=== PATIENT | male | born 1950 | race Caucasian/White ===

== ENCOUNTER 2016-05-06 13:18 | Emergency (ER) | payer MEDICARE, OTHER ==
--- NOTE | 2016-05-06 13:55 | ERPHSYRPT ---
- History of Present Illness Time Seen by Provider: 05/06/16 13:47 Source: patient Exam Limitations: no limitations Patient Subjective Stated Complaint: dizzyness, blurred vision, headache concerened because he has issues with magnesium and potassium Triage Nursing Assessment: pt alert and oriented, lung sounds clear, nasal congestion and states he takes breathing treatments at home for lung congestion. , bowel sounds x4 hyperactive. Physician History: The patient is a 65-year-old male with his complaining of dizziness, blurred vision, and headache that began this morning. He's had this kind of problem in the past. He states this problem in the past is been due to magnesium and potassium problems. He takes daily amounts of magnesium. About 10 days ago he was seen for high potassium levels, given Kayexalate, and discharged. He has a past medical history of diabetes, high cholesterol, renal failure, and hypo-magnesimia. He has no local doctor. Most of his medical care is provided by the doctors in [place]. Timing/Duration: today Severity: moderate Associated Symptoms: denies symptoms Allergies/Adverse Reactions: bacitracin [From Neosporin ([id number])] Allergy (Verified 12/17/15 23:19) Rash bacitracin zinc [From Neosporin ([id number])] Allergy (Verified 12/17/15 23: 19) Rash neomycin sulfate [From Neosporin ([id number])] Allergy (Verified 12/17/15 23: 19) Rash polymyxin B [From Neosporin ([id number])] Allergy (Verified 12/17/15 23:19) Rash Home Medications: Betamethasone/Propylene Glyc [Betamethasone Dp Aug 0.05% Crm] 1 appful TOP DAILY 12/17/15 [History] Cholestyramine Light 4 gm [QUESTRAN Light 4 GM Packet] 1 dose PO DAILY [History] Clotrimazole [Jock Itch] 1 appful TOP DAILY 12/17/15 [History] Diphenoxylate HCl/Atropine [Lomotil] 2.5 tab PO Q12H PRN PRN 12/17/15 [ History] Finasteride 5 mg [Proscar 5 MG] 5 mg PO DAILY 12/17/15 [History] Fluconazole 150 mg PO Q72H 12/17/15 [History] Folic Acid 2 mg PO DAILY 12/17/15 [History] Furosemide 40 mg [Lasix 40 MG] 40 mg PO DAILY 12/17/15 [History] Glimepiride 2 mg [Amaryl 2 MG] 2 mg PO DAILY 12/17/15 [History] Insulin Glargine,Hum.rec.anlog [Lantus Solostar] 65 unit SQ DAILY 12/17/15 [ History] Levothyroxine Sodium 50 Mcg [Synthroid 50 Mcg] 50 mcg PO HS 12/17/15 [ History] Lisinopril 20 mg PO HS 12/17/15 [History] Lovastatin 40 mg PO HS 12/17/15 [History] Magnesium Oxide [Magnesium] 800 mg PO TID 12/17/15 [History] Ranitidine HCl 150 mg PO DAILY 12/17/15 [History] Spironolactone 25 mg [Aldactone 25 MG] 25 mg PO DAILY 12/17/15 [History] Tamsulosin HCl [Flomax] 0.4 mg PO BID 12/17/15 [History] Tiotropium [place] [Spiriva] 2 puff IH DAILY 12/17/15 [History] Hx Tetanus, Diphtheria Vaccination/Date Given: Yes Hx Influenza Vaccination/Date Given: Yes Hx Pneumococcal Vaccination/Date Given: Yes Immunizations Up to Date: Yes - Review of Systems Constitutional: No Fever, No Chills Eyes: Vision Changes (blurry) Ears, Nose, & Throat: No Symptoms Respiratory: No Cough, No Dyspnea Cardiac: No Chest Pain, No Edema, No Syncope Abdominal/Gastrointestinal: No Abdominal Pain, No Nausea, No Vomiting, No Diarrhea Genitourinary Symptoms: No Dysuria Musculoskeletal: No Back Pain, No Neck Pain Skin: No Rash Neurological: Headache Psychological: No Symptoms Endocrine: No Symptoms Hematologic/Lymphatic: No Symptoms Immunological/Allergic: No Symptoms All Other Systems: Reviewed and Negative - Past Medical History Pertinent Past Medical History: Yes Neurological History: No Pertinent History ENT History: No Pertinent History Cardiac History: Arrhythmia, Hypertension, Peripheral Vascular Disease Respiratory History: Bronchitis, COPD, Emphysema, Sleep Apnea Endocrine Medical History: Diabetes Type II, Hypothyroidism Musculoskeletal History: Arthritis GI Medical History: GERD, Gallbladder Disease, Hernia History: No Pertinent History Psycho-Social History: No Pertinent History Male Reproductive Disorders: Prostate Problems Other Medical History: JEFFERSON - Past Surgical History Past Surgical History: Yes Neuro Surgical History: No Pertinent History Cardiac: Cardiac Catheterization, Cardiac Stent Respiratory: No Pertinent History Gastrointestinal: Appendectomy, Cholecystectomy, Hernia Repair Genitourinary: No Pertinent History Musculoskeletal: No Pertinent History Male Surgical History: No Pertinent History Other Surgical History: STENT PLACED AFTER GALLBLADDER REMOVAL, AND REMOVED. COLONOSCOPY SUNDAY AND SUNDAY THIS WEEK, - Social History Smoking Status: Never smoker Exposure to second hand smoke: No Drug Use: none Patient Lives Alone: No - Nursing Vital Signs Nursing Vital Signs: Initial Vital Signs Temperature 97.6 F Temperature Source Oral Pulse Rate 61 Respiratory Rate 18 Blood Pressure 141/81 Pain Intensity 0 - Physical Exam General Appearance: mild distress, alert Eye Exam: PERRL/EOMI, eyes nml inspection Ears, Nose, Throat Exam: normal ENT inspection, TMs normal, pharynx normal, moist mucous membranes Neck Exam: normal inspection, non-tender, supple, full range of motion Respiratory Exam: normal breath sounds, lungs clear, No respiratory distress Cardiovascular Exam: regular rate/rhythm, normal heart sounds, normal peripheral pulses Gastrointestinal/Abdomen Exam: soft, normal bowel sounds, No tenderness, No mass Rectal Exam: not done Back Exam: normal inspection, normal range of motion, No CVA tenderness, No vertebral tenderness Extremity Exam: normal inspection, normal range of motion, pelvis stable Neurologic Exam: alert, oriented x 3, cooperative, normal mood/affect, nml cerebellar function, nml station & gait, sensation nml, No motor deficits Skin Exam: normal color, warm, dry, No rash Lymphatic Exam: No adenopathy SpO2 Interpretation: normal SpO2: 98 Oxygen Delivery: Room Air - Course EKG Interpreted by Me: Sinus Rhythm, Left [place] Deviation, NORMAL ST-T, Other ( no change comp EKG 12/18/15) - Radiology Exams Chest X-ray Interpretation: Interpreted by me, Negative Ordered Tests: Active Orders 24 hr Category Date Time Status EKG-ER Only STAT Care 05/06/16 14:00 Active IV Insertion STAT Care 05/06/16 14:00 Active CHEST 2 VIEWS (PA AND LAT) Stat Exams 05/06/16 14:00 Taken CBC W DIFF Stat Lab 05/06/16 13:50 Completed CMP Stat Lab 05/06/16 13:50 Completed MAGNESIUM Stat Lab 05/06/16 13:50 Completed TROPONIN Stat Lab 05/06/16 13:50 Completed Lab/Rad Data: Laboratory Result Diagrams 05/06/16 13:50 05/06/16 13:50 Laboratory Results 05/06/16 05/06/16 Range/Units 13:50 13:50 WBC 7.7 (4.0-10.5) K/mm3 RBC 4.20 (4.1-5.6) M/mm3 Hgb 12.5 (12.5-18.0) gm/dl Hct 37.8 L (42-50) % MCV 90.0 (78-100) fl MCH 29.8 (26-32) pg MCHC 33.1 (32-36) g/dl RDW 13.4 (11.5-14.0) % Plt Count 217 (150-450) K/mm3 MPV 10.3 H (6-9.5) fl Gran % 76.6 H (36.0-66.0) % Lymphocytes % 12.7 L (24.0-44.0) % Monocytes % 7.9 (0.0-12.0) % Eosinophils % 2.7 (0.00-5.0) % Basophils % 0.1 (0.0-0.4) % Basophils # 0.01 (0-0.4) Sodium 139 (136-145) mEq/L Potassium 4.0 (3.5-5.1) mEq/L Chloride 104 (98-107) mEq/L Carbon Dioxide 27.0 (21-32) mEq/L Anion Gap 11.9 (5-15) MEQ/L BUN 12 (9-20) mg/dL Creatinine 1.10 (0.55-1.30) mg/dl Estimated GFR > 60 ML/MIN Glucose 135 H (70-110) MG/DL Calcium 10.1 (8.5-10.1) mg/dL Magnesium 1.8 (1.8-2.4) mg/dL Total Bilirubin 0.4 (0.2-1.0) mg/dL AST 19 (15-37) U/L ALT 25 (12-78) U/L Alkaline Phosphatase 78 (46-116) U/L Troponin I < 0.017 (0.000-0.056) ng/ml Serum Total Protein 7.3 (6.4-8.2) gm/dL Albumin 3.5 (3.4-5.0) g/dL - Progress Progress: improved Progress Note: 05/06/16 16:31 Pt is no longer dizzy. Pt says he wants to go home and take tylenol and ASA for his BENEDICT. Counseled pt/family regarding: lab results, diagnosis, need for follow-up, rad results - Departure Time of Disposition: 16:32 Departure Disposition: Home Clinical Impression: Dizziness Condition: Stable Critical Care Time: No Additional Instructions: Follow up on 05/08/16 as scheduled. Tylenol and ASA as needed.
[2016-05-06 14:07] LABS: BASOPHIL % 0.1 % (0.0-0.4); Eosinophil % 2.7 % (0.00-5.0); Granulocytes % 76.6 % (36.0-66.0); Lymphocytes % 12.7 % (24.0-44.0); Mean Corpuscular Hemoglobin 29.8 pg (26-32); Mean Platelet Volume 10.3 fl (6-9.5); Monocytes % 7.9 % (0.0-12.0); Platelet Count 217 K/mm3 (150-450); Red Cell Distribution Width 13.4 % (11.5-14.0); White Blood Count 7.7 K/mm3 (4.0-10.5)
[2016-05-06 14:23] LABS: ALBUMIN 3.5 g/dL (3.4-5.0); ALKALINE PHOSPHATASE 78 U/L (46-116); ANION GAP 11.9 MEQ/L (5-15); BILIRUBIN,TOTAL 0.4 mg/dL (0.2-1.0); BLOOD UREA NITROGEN 12 mg/dL (9-20); CHLORIDE 104 mEq/L (98-107); Glucose 135 MG/DL (70-110); MAGNESIUM 1.8 mg/dL (1.8-2.4); SGOT/AST 19 U/L (15-37); SGPT/ALT 25 U/L (12-78); SODIUM 139 mEq/L (136-145); Total Protein 7.3 gm/dL (6.4-8.2)
[2016-05-06 14:24] LABS: TROPONIN < 0.017 ng/ml (0.000-0.056)
[2016-05-06 15:50] VITALS: BP 141/81; PULSE 61
[2016-05-06 15:59] VITALS: O2SAT 98
--- NOTE | 2016-05-06 20:09 | XRAY ---
Indication: Dizziness. Comparison: December 17, 2015 PA/lateral chest hyperinflated and clear. Heart is borderline enlarged. Vascularity normal. Bony thorax intact again with mild osteopenia. Impression: Nonacute hyperinflated chest.
== END 2016-05-06 16:37 | disposition home or self-care (01) ==
LOC: ED 13:18
DX: R42 Dizziness and giddiness (principal); H53.8 Other visual disturbances; R51 Headache; I10 Essential (primary) hypertension; E11.9 Type 2 diabetes mellitus without complications; Z79.899 Other long term (current) drug therapy
CPT/HCPCS: 36000; 36415; 71020; 80053; 83735; 84484; 85025; 93005; 99283

== ENCOUNTER 2019-04-20 11:29 | Emergency (ER) | payer MEDICARE, OTHER ==
[2019-04-20] MEDS ORDERED: Zofran 4 MG/2 ML VIAL IV ONE (12:24)
[2019-04-20] MEDS ORDERED: MORPHINE SULFATE 4 MG INJ IV ONE (12:24)
[2019-04-20] MEDS ORDERED: Sodium Chloride 0.9% 1000 ML 1,000 ML IV STA (12:24)
--- NOTE | 2019-04-20 12:31 | ERPHSYRPT ---
- History of Present Illness Time Seen by Provider: 04/20/19 12:07 Historian: patient, family Exam Limitations: no limitations Patient Subjective Stated Complaint: pt to ER with complaints of R groin pain that has gradually gotten worse x 3 weeks. pt had a steriod injection by pain doctor 1 week ago with no relief. Triage Nursing Assessment: pt to ER with complaints of R groin/hip pain x 3 weeks. pt states pain has radiated around to his groin. pt had xrays done at [facility] recently. Physician History: 68 yo presented with right groin /RLQ pain for 3 weeks with progressive worsening, sharp, moderate to severe , radiation to back , more with activity and better partially with rest. has seen pain management with intraarticular shot for degenerative changes but not much relief. no fever/chills or cough. no groin swelling. denies testicular pain/swelling. no urinary symptoms. Timing/Duration: week(s) (3) Allergies/Adverse Reactions: bacitracin [From Neosporin ([id number])] Allergy (Verified 04/20/19 11:47) Rash bacitracin zinc [From Neosporin ([id number])] Allergy (Verified 04/20/19 11: 47) Rash neomycin sulfate [From Neosporin ([id number]-tak-[id number])] Allergy (Verified 04/20/19 11: 47) Rash polymyxin B [From Neosporin ([id number])] Allergy (Verified 04/20/19 11:47) Rash Home Medications: Betamethasone/Propylene Glyc [Betamethasone Dp Aug 0.05% Crm] 1 appful TOP DAILY 12/17/15 [History] Cholestyramine Light 4 gm [QUESTRAN Light 4 GM Packet] 1 dose PO DAILY [History] Clotrimazole [Jock Itch] 1 appful TOP DAILY 12/17/15 [History] Diphenoxylate HCl/Atropine [Lomotil] 2.5 tab PO Q12H PRN PRN 12/17/15 [ History] Finasteride 5 mg [Proscar 5 MG] 5 mg PO DAILY 12/17/15 [History] Fluconazole 150 mg PO Q72H 12/17/15 [History] Folic Acid 2 mg PO DAILY 12/17/15 [History] Furosemide 40 mg [Lasix 40 MG] 40 mg PO DAILY 12/17/15 [History] Glimepiride 2 mg [Amaryl 2 MG] 2 mg PO DAILY 12/17/15 [History] Levothyroxine Sodium 50 Mcg [Synthroid 50 Mcg] 50 mcg PO HS 12/17/15 [ History] Lisinopril 20 mg PO HS 12/17/15 [History] Lovastatin 40 mg PO HS 12/17/15 [History] Magnesium Oxide [Magnesium] 800 mg PO TID 12/17/15 [History] Ranitidine HCl 150 mg PO DAILY 12/17/15 [History] Spironolactone 25 mg [Aldactone 25 MG] 25 mg PO DAILY 12/17/15 [History] Tamsulosin HCl [Flomax] 0.4 mg PO BID 12/17/15 [History] Tiotropium [place] [Spiriva] 2 puff IH DAILY 12/17/15 [History] Ropinirole HCl 0.25 mg PO DAILY 04/20/19 [History] Hx Tetanus, Diphtheria Vaccination/Date Given: No Hx Influenza Vaccination/Date Given: Yes Hx Pneumococcal Vaccination/Date Given: Yes Immunizations Up to Date: Yes - Review of Systems Constitutional: No Symptoms Eyes: No Symptoms Ears, Nose, & Throat: No Symptoms Respiratory: No Symptoms Cardiac: No Symptoms Abdominal/Gastrointestinal: Abdominal Pain Genitourinary Symptoms: No Symptoms Musculoskeletal: Back Pain, Joint Pain Skin: No Symptoms Neurological: No Symptoms Psychological: No Symptoms Endocrine: No Symptoms Hematologic/Lymphatic: No Symptoms - Past Medical History Pertinent Past Medical History: Yes Neurological History: Peripheral Neuropathy ENT History: No Pertinent History Cardiac History: Hypertension Respiratory History: COPD, Sleep Apnea Endocrine Medical History: Diabetes Type II Musculoskeletal History: Osteoarthritis GI Medical History: GERD, Gallbladder Disease, Hernia History: No Pertinent History Psycho-Social History: No Pertinent History Male Reproductive Disorders: Prostate Problems Other Medical History: 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 - Past Surgical History Past Surgical History: Yes Neuro Surgical History: No Pertinent History Cardiac: Cardiac Catheterization, Cardiac Stent Respiratory: No Pertinent History Gastrointestinal: Appendectomy, Cholecystectomy, Hernia Repair Genitourinary: No Pertinent History Musculoskeletal: No Pertinent History Male Surgical History: No Pertinent History Other Surgical History: STENT PLACED AFTER GALLBLADDER REMOVAL, AND REMOVED. COLONOSCOPY SUNDAY AND SUNDAY THIS WEEK, - Social History Smoking Status: Never smoker Exposure to second hand smoke: Yes Drug Use: none Patient Lives Alone: No - Nursing Vital Signs Nursing Vital Signs: Initial Vital Signs Temperature 98.4 F 04/20/19 11:37 Pulse Rate 77 04/20/19 11:37 Respiratory Rate 18 04/20/19 11:37 Blood Pressure 163/81 04/20/19 11:37 O2 Sat by Pulse Oximetry 98 04/20/19 11:37 Pain Scale Pain Intensity 0 - Physical Exam General Appearance: no apparent distress Eye Exam: eyes nml inspection Ears, Nose, Throat Exam: normal ENT inspection Neck Exam: normal inspection Respiratory Exam: normal breath sounds, lungs clear Cardiovascular Exam: regular rate/rhythm, normal heart sounds Gastrointestinal/Abdomen Exam: soft, normal bowel sounds, tenderness (RLQ / GROIN , -ve expansile cough impulse, no palpable mass in groin) Male Genitalia Exam: normal genitalia, No testicular tenderness Back Exam: normal inspection Extremity Exam: normal inspection Neurologic Exam: alert, oriented x 3, cooperative Skin Exam: normal color SpO2 Interpretation: normal SpO2: 98 O2 Delivery: Room Air - Course Nursing assessment & vital signs reviewed: Yes Ordered Tests: Active Orders 24 hr Category Date Time Status IV Insertion STAT Care 04/20/19 12:24 Active ABDOMEN AND PELVIS W CONTRAST [CT] Stat Exams 04/20/19 13:39 Taken CBC W DIFF Stat Lab 04/20/19 12:24 Completed CMP Stat Lab 04/20/19 12:24 Completed LIPASE Stat Lab 04/20/19 12:24 Completed Manual Differential NC Stat Lab 04/20/19 12:24 Completed UA W/RFX UR CULTURE Stat Lab 04/20/19 14:40 Completed Medication Summary Discontinued Medications Generic Name Dose Route Start Last Admin Trade Name Freq PRN Reason Stop Dose Admin Sodium Chloride 1,000 mls @ 499 mls/hr 04/20/19 12:24 04/20/19 15:01 Sodium Chloride 0.9% 1000 Ml IV 04/20/19 14:24 Infused .Q2H1M STA Infusion Sodium Chloride Confirm 04/20/19 12:47 Sodium Chloride 0.9% 1000 Ml Administered 04/20/19 12:48 Dose 1,000 mls @ ud .ROUTE .STK-MED ONE Morphine Sulfate 4 mg 04/20/19 12:24 04/20/19 12:53 Morphine Sulfate 4 Mg Inj IV 04/20/19 12:25 4 mg STAT ONE Administration Morphine Sulfate Confirm 04/20/19 12:47 Morphine Sulfate 4 Mg Inj Administered 04/20/19 12:48 Dose 4 mg .ROUTE .STK-MED ONE Ondansetron HCl 4 mg 04/20/19 12:24 04/20/19 12:53 Zofran 4 Mg/2 Ml Vial IV 04/20/19 12:25 4 mg STAT ONE Administration Ondansetron HCl Confirm 04/20/19 12:47 Zofran 4 Mg/2 Ml Vial Administered 04/20/19 12:48 Dose 4 mg .ROUTE .STK-MED ONE Lab/Rad Data: Laboratory Result Diagrams 04/20/19 12:24 04/20/19 12:24 Laboratory Results 04/20/19 04/20/19 04/20/19 Range/Units 14:40 12:24 12:24 WBC 8.6 (4.0-10.5) K/mm3 RBC 4.61 (4.1-5.6) M/mm3 Hgb 14.4 (12.5-18.0) gm/dl Hct 42.4 (42-50) % MCV 92.0 (78-100) fl MCH 31.2 (26-32) pg MCHC 34.0 (32-36) g/dl RDW 13.5 (11.5-14.0) % Plt Count 203 (150-450) K/mm3 MPV 10.7 H (6-9.5) fl Sodium 138 (137-145) mmol/L Potassium 3.9 (3.5-5.1) mmol/L Chloride 102 (98-107) mmol/L Carbon Dioxide 32 H (22-30) mmol/L Anion Gap 8.5 (5-15) MEQ/L BUN 34 H (9-20) mg/dL Creatinine 1.37 H (0.66-1.25) mg/dL Estimated GFR 54.9 ML/MIN Glucose 159 H (74-106) mg/dL Calcium 10.6 H (8.4-10.2) mg/dL Total Bilirubin 0.60 (0.2-1.3) mg/dL AST 29 (17-59) U/L ALT 21 (0-50) U/L Alkaline Phosphatase 72 (38-126) U/L Serum Total Protein 7.1 (6.3-8.2) g/dL Albumin 3.8 (3.5-5.0) g/dL Lipase 124 (23-300) U/L Urine Color YELLOW (YELLOW) Urine Appearance CLOUDY (CLEAR) Urine pH 9.0 (5-6) Ur Specific [place] 1.023 (1.005-1.025) Urine Protein NEGATIVE (Negative) Urine Ketones NEGATIVE (NEGATIVE) Urine Blood NEGATIVE (0-5) Steve/ul Urine Nitrite NEGATIVE (NEGATIVE) Urine Bilirubin NEGATIVE (NEGATIVE) Urine Urobilinogen NEGATIVE (0-1) mg/dL Ur Leukocyte Esterase NEGATIVE (NEGATIVE) Urine WBC (Auto) 0-2 (0-5) /HPF Urine RBC (Auto) NONE (0-2) /HPF U Epithel Cells (Auto) NONE (FEW) /HPF Urine Bacteria (Auto) NONE (NEGATIVE) /HPF Unidentified Crystals 2-5 (NEGATIVE) /HPF Amorphous Crystals MODERATE (NEGATIVE) /HPF Urine Mucus (Auto) SLIGHT (NEGATIVE) /HPF Urine Culture Reflexed NO (NO) Urine Glucose NEGATIVE (NEGATIVE) mg/dL - Progress Progress: improved, pain not gone completely, re-examined Counseled pt/family regarding: lab results, diagnosis, need for follow-up, rad results - Departure Departure Disposition: Home Clinical Impression: Groin strain Qualifiers: Encounter type: initial encounter Laterality: right Qualified Code(s): S76.211A - Strain of adductor muscle, fascia and tendon of right thigh, initial encounter Condition: Stable Critical Care Time: No Referrals: YUKO MORGAN [Primary Care Provider] - Instructions: Groin Strain (DC) Additional Instructions: follow up with PCP /PAIN management for re evaluation. return to ER for worsening. keep appointment for MRI Prescriptions: Hydrocodone/APAP 5-325 Tab^^^ [Brethren 5-325 Tablet^^^] 1 tab PO Q6HPRN PRN #10 tablet MDD 6 PRN Reason: Pain
[2019-04-20] MEDS ORDERED: Sodium Chloride 0.9% 1000 ML 1,000 ML ONE (12:47)
[2019-04-20] MEDS ORDERED: Zofran 4 MG/2 ML VIAL ONE (12:47)
[2019-04-20] MEDS ORDERED: MORPHINE SULFATE 4 MG INJ ONE (12:47)
[2019-04-20 13:11] LABS: Hematocrit 42.4 % (42-50); Hemoglobin 14.4 gm/dl (12.5-18.0); Mean Corpuscular Hemoglobin 31.2 pg (26-32); Mean Platelet Volume 10.7 fl (6-9.5); Platelet Count 203 K/mm3 (150-450); Red Blood Count 4.61 M/mm3 (4.1-5.6); Red Cell Distribution Width 13.5 % (11.5-14.0); White Blood Count 8.6 K/mm3 (4.0-10.5)
[2019-04-20 13:27] LABS: ALBUMIN 3.8 g/dL (3.5-5.0); ANION GAP 8.5 MEQ/L (5-15); BILIRUBIN,TOTAL 0.6 mg/dL (0.2-1.3); Calcium 10.6 mg/dL (8.4-10.2); Creatinine 1 1.37 mg/dL (0.66-1.25); Potassium 3.9 mmol/L (3.5-5.1); Total Protein 7.1 g/dL (6.3-8.2)
[2019-04-20 14:49] LABS: Appearance CLOUDY (CLEAR); Bilirubin NEGATIVE (NEGATIVE); Blood NEGATIVE Ery/ul (0-5); Glucose NEGATIVE (NEGATIVE); Ketones NEGATIVE (NEGATIVE); Leukocyte Esterase NEGATIVE (NEGATIVE); Mucus SLIGHT /HPF (NEGATIVE); Nitrite NEGATIVE (NEGATIVE); Protein,Urine Dip NEGATIVE (Negative); Specific Gravity 1.023 (1.005-1.025); Urobilinogen NEGATIVE mg/dL (0-1); WBC 0-2 /HPF (0-5)
[2019-04-20 14:52] LABS: Amourphous Crystal MODERATE /HPF (NEGATIVE)
[2019-04-20 14:55] VITALS: O2SAT 98
[2019-04-20 15:54] VITALS: BP 141/68; PULSE 63
[2019-04-20 17:53] LABS: BAND 2 % (0.0-2.0); Lymphocytes 13 % (24-44); Metamyelocyte 1 %; Monocyte 6 % (0.0-12.0); Neutrophils 78 % (36.-66.); Platelet Estimate NORMAL (NORMAL); Total Cells Counted 100
--- NOTE | 2019-04-20 19:10 | XRAY ---
Indication: Right lower quadrant/groin pain. Multiple contiguous axial images obtained through the abdomen and pelvis using 80 cc of Isovue-370 contrast only. Comparison: June 25, 2015. Lungs demonstrates minimal fibrosis/scarring. No infiltrate or effusion. Heart is not enlarged. Stomach is fluid distended. Noncontrasted stomach and bowel loops appear nonobstructed. Patient reports appendectomy. Minimal colonic diverticulosis, greatest sigmoid colon. No free fluid/air. Both kidneys enhance and excrete with stable bilateral renal cysts. Stable tiny calcified splenic granulomas. Remaining liver, gallbladder, pancreas, spleen, adrenal glands, kidneys, ureters, and bladder appear unremarkable. Heavy scattered vascular calcifications. No AAA or pathological retroperitoneal lymphadenopathy. Osseous structures intact with mild lower lumbar degenerative changes. Impression: 1. Again bilateral renal cysts, colonic diverticulosis, and evidence for old granulomatous disease. 2. Remaining CT abdomen/pelvis with contrast exam is negative. Comment: Preliminary interpretation was made by C. No critical discrepancy. CTDI 18.28
== END 2019-04-20 16:11 | disposition home or self-care (01) ==
LOC: ED 11:29
DX: S76.211A Strain of adductor muscle, fascia and tendon of right thigh, initial encounter (principal); R10.31 Right lower quadrant pain; Z79.899 Other long term (current) drug therapy; I10 Essential (primary) hypertension; J44.9 Chronic obstructive pulmonary disease, unspecified; E11.9 Type 2 diabetes mellitus without complications
CPT/HCPCS: 36415; 74177; 80053; 81001; 83690; 85025; 96360; 96361; 96374; 96375; 99284; J2270; J2405

== ENCOUNTER 2019-05-06 06:11 | Day surgery (SDC) | payer MEDICARE, OTHER ==
[2019-05-06] MEDS ORDERED: Lactated Ringers 1,000 ML IV SCH (06:30)
[2019-05-06] MEDS ORDERED: DIPRIVAN 200 MG/20 ML IV ONE (07:55)
[2019-05-06] MEDS ORDERED: Ketamine HCl 50 MG/ML ONE (07:56)
[2019-05-06 09:05] VITALS: O2SAT 94
[2019-05-06 09:35] VITALS: BP 138/75; PULSE 65
--- NOTE | 2019-05-06 11:57 | OP ---
SURGERY DATE/TIME: 05/06/2019 0759 PREOPERATIVE DIAGNOSIS: Dysphagia. POSTOPERATIVE DIAGNOSES: 1) Grade II esophagitis. 2) Gastritis. 3) Retained food stuff from delayed gastric emptying. PROCEDURE: Esophagogastroduodenoscopy. SURGEON: Dr. Whaley. ANESTHESIA: Medications were given by the anesthesia department. BRIEF HISTORY: The patient is a 68 year old white male patient presenting now for endoscopic evaluation. He reported having trouble with food getting stuck in the lower part of his esophagus. The patient reports it has been going on for the past two months. He previously had endoscopic evaluation two years ago which was fairly unrevealing. The patient was felt to need to have endoscopic evaluation. At this time he was appraised of the risks of the procedure including the risk of perforation, phlebitis, untoward reaction to medication, bleeding and missed lesions. The patient verbalized his understanding and desired to have the procedure performed. DESCRIPTION OF PROCEDURE: The patient was given the medications by the anesthesia department. He had continuous pulse oximetry, ECG monitoring, intermittent blood pressure monitoring and tidal CO2 monitoring during the examination. He was placed in the left lateral decubitus position. A bite block was placed and the flexible Olympus gastroscope was used to intubate the oropharynx. A view of the larynx was obtained and was normal. The scope was easily introduced in the esophagus which appeared to be normal to the gastroesophageal junction where there appeared to be streaks of erythema and slight narrowing in this area. The stomach was entered which was full of saliva and retained food products. We suctioned this as clear as much as possible. The scope then withdrawn towards the stomach and the stomach was insufflated showing good insufflation and flattening of the gastric rugal folds. The scope is passed along the greater curvature of the stomach to the antrum. Pylorus was encountered and intubated. Duodenum inspected and found to be essentially normal. The scope is withdrawn towards the stomach. Retroflex view was obscured by the food products and unable to see the lower portion of the gastroesophageal junction from the retroflex view. The scope is then carefully withdrawn with suctioning as best as possible withdrawing the scope from the esophagus. The patient tolerated the procedure well and was sent back to the outpatient [facility] in good condition.
== END 2019-05-06 09:36 | disposition home or self-care (01) ==
LOC: SDC 06:11
PROVIDERS: ATTEND Family Medicine
DX: K29.70 Gastritis, unspecified, without bleeding (principal); K20.9 Esophagitis, unspecified; I10 Essential (primary) hypertension; E11.9 Type 2 diabetes mellitus without complications
CPT/HCPCS: J2704

== ENCOUNTER 2019-06-05 16:37 | Observation (INO) | payer MEDICARE ==
[2019-06-05 17:41] LABS: Hematocrit 40.1 % (42-50); Hemoglobin 13.8 gm/dl (12.5-18.0); Mean Corpuscular Hemoglobin 31.7 pg (26-32); Mean Corpuscular Hgb Concent. 34.4 g/dl (32-36); Mean Platelet Volume 11.2 fl (7.5-11.0); Platelet Count 208 K/mm3 (150-450); Red Blood Count 4.36 M/mm3 (4.1-5.6); Red Cell Distribution Width 13.4 % (11.5-14.0); White Blood Count 8.1 K/mm3 (4.0-10.5)
[2019-06-05 17:49] LABS: ALBUMIN 4.2 g/dL (3.5-5.0); ALKALINE PHOSPHATASE 65 U/L (38-126); ANION GAP 16.4 MEQ/L (5-15); BLOOD UREA NITROGEN 16 mg/dL (9-20); CHLORIDE 102 mmol/L (98-107); Calcium 9.6 mg/dL (8.4-10.2); Carbon Dioxide 24 mmol/L (22-30); Creatinine 1 0.85 mg/dL (0.66-1.25); Glucose 148 mg/dL (74-106); Potassium 3.9 mmol/L (3.5-5.1); SGOT/AST 25 U/L (17-59); SGPT/ALT 18 U/L (0-50); SODIUM 139 mmol/L (137-145); Total Protein 7.5 g/dL (6.3-8.2)
[2019-06-05] MEDS ORDERED: Magnesium Sulfate 1 GM/2 ML VIAL IV STA (18:12)
--- NOTE | 2019-06-05 18:17 | ERPHSYRPT ---
- History of Present Illness Time Seen by Provider: 06/05/19 16:50 Exam Limitations: no limitations Patient Subjective Stated Complaint: Pt had blood work done today and his magnesium was 0.6. Triage Nursing Assessment: Pt came to the ER due to low magnesium, hypertensive , denies pain, lungs clear, no edema, skin N/W/D Physician History: Patient is a 68-year-old male who presents to our ED for evaluation and treatment of hypomagnesemia. Patient had routine lab draw today. He was notified that his magnesium was 0.6. Patient advised to come to the ER for further evaluation and treatment. Patient otherwise asymptomatic. Patient voices that he has a history of hypomagnesemia. Patient was started on oral supplementation. Patient recently developed concerning diarrhea. His magnesium supplementation was discontinued. Patient otherwise voiced no other complaints at this time. Timing/Duration: today Severity: moderate Modifying Factors: Improves With: other (No modifying factors) Associated Symptoms: No nausea, No vomiting, No abdominal pain, No shortness of breath, No diaphoresis, No fever, No loss of appetite Allergies/Adverse Reactions: bacitracin [From Neosporin ([id number])] Allergy (Verified 06/05/19 16:58) Rash bacitracin zinc [From Neosporin ([id number])] Allergy (Verified 06/05/19 16: 58) Rash neomycin sulfate [From Neosporin ([id number])] Allergy (Verified 06/05/19 16: 58) Rash polymyxin B [From Neosporin ([id number])] Allergy (Verified 06/05/19 16:58) Rash Home Medications: Alendronate Sodium 35 mg PO WEEKLY 05/06/19 [History] Cholecalciferol (Vitamin D3) [Vitamin D3] 5,000 unit PO DAILY 05/06/19 [History] Cyanocobalamin 100 Mcg [Vitamin B-12 100 Mcg] 100 mcg PO UD 05/06/19 [ History] Finasteride 5 mg [Proscar 5 MG] 5 mg PO DAILY 05/06/19 [History] Fluticasone/Umeclidin/Vilanter [Trelegy Ellipta 100-62.5-25] 1 each IH HS [History] Folic Acid 1 mg [Folate 1 mg] 2 mg PO DAILY 05/06/19 [History] Gabapentin [Neurontin] 600 mg PO HS 05/06/19 [History] Levothyroxine Sodium 50 Mcg [Synthroid 50 Mcg] 50 mcg PO DAILY 05/06/19 [ History] Losartan/Hydrochlorothiazide [Losartan-Hctz 100-12.5 mg Tab] 12.5 mg PO DAILY [History] Lovastatin 40 mg PO HS 05/06/19 [History] Metformin HCl 500 mg [Glucophage 500 MG] 1,000 mg PO BIDWM 05/06/19 [ History] Pyridoxine HCl [Vitamin B-6] 100 mg PO HS 05/06/19 [History] Ropinirole HCl 1 mg PO HS 05/06/19 [History] Saw [place] Fruit/Zinc Picoli [Saw [place] Capsule] 900 mg PO BID 05/06/19 [ History] Tamsulosin HCl 0.4 mg [Flomax 0.4 MG] 0.4 mg PO DAILY 05/06/19 [History] Testosterone Cypionate [Testone Cik] 200 mg IM UD 05/06/19 [History] Vitamin E 400 Units [Vitamin E 400 UNIT SOFTGEL] 400 unit PO HS 05/06/19 [ History] PANTOPRAZOLE 40 mg Tablet [Protonix 40MG Tablet] 40 mg PO DAILY 06/05/19 [ History] Hx Tetanus, Diphtheria Vaccination/Date Given: No Hx Influenza Vaccination/Date Given: Yes Hx Pneumococcal Vaccination/Date Given: Yes - Review of Systems Constitutional: No Fever, No Chills Eyes: No Symptoms Ears, Nose, & Throat: No Symptoms Respiratory: No Cough, No Dyspnea Cardiac: No Chest Pain, No Edema, No Syncope Abdominal/Gastrointestinal: No Abdominal Pain, No Nausea, No Vomiting, No Diarrhea Genitourinary Symptoms: No Dysuria Musculoskeletal: No Symptoms, No Back Pain, No Neck Pain Skin: No Symptoms, No Rash Neurological: No Dizziness, No Focal Weakness, No Sensory Changes Psychological: No Symptoms Endocrine: No Symptoms Hematologic/Lymphatic: No Symptoms All Other Systems: Reviewed and Negative - Past Medical History Pertinent Past Medical History: Yes Neurological History: No Pertinent History, Peripheral Neuropathy ENT History: No Pertinent History Cardiac History: Peripheral Vascular Disease Respiratory History: COPD, Sleep Apnea Endocrine Medical History: Diabetes Type II Musculoskeletal History: Fractures, Osteoarthritis GI Medical History: GERD, Gallbladder Disease, Hernia History: No Pertinent History Psycho-Social History: No Pertinent History Male Reproductive Disorders: Prostate Problems Other Medical History: FX LEFT HIP 30 YEARS AGO - NO SURGERY. STENT PLACEMENT LEFT LOWER LEG (GROIN) 10 YEARS AGO. CHOLECYSTECTOMY, APPENDECTOMY, BILATERAL INGUINAL HERNIA REPAIRS - Past Surgical History Past Surgical History: Yes Neuro Surgical History: No Pertinent History Cardiac: Cardiac Catheterization, Cardiac Stent Respiratory: No Pertinent History Gastrointestinal: Appendectomy, Cholecystectomy, Hernia Repair Genitourinary: No Pertinent History Musculoskeletal: No Pertinent History Male Surgical History: No Pertinent History Other Surgical History: STENT PLACED AFTER GALLBLADDER REMOVAL( "had liver knicked during surgery and had a drain to reroute bile"), AND REMOVED. shoulder surgery- right, - Social History Smoking Status: Former smoker Exposure to second hand smoke: Yes Drug Use: none Patient Lives Alone: No - Nursing Vital Signs Nursing Vital Signs: Initial Vital Signs Temperature 97.3 F 06/05/19 16:45 Pulse Rate 84 06/05/19 16:45 Blood Pressure 157/95 06/05/19 16:45 O2 Sat by Pulse Oximetry 99 06/05/19 16:45 Pain Scale Pain Intensity 0 - Physical Exam General Appearance: no apparent distress Eye Exam: PERRL/EOMI, eyes nml inspection Ears, Nose, Throat Exam: normal ENT inspection, TMs normal, pharynx normal, moist mucous membranes Neck Exam: normal inspection, non-tender, supple, full range of motion Respiratory Exam: normal breath sounds, lungs clear, No respiratory distress Cardiovascular Exam: regular rate/rhythm, normal heart sounds, normal peripheral pulses Gastrointestinal/Abdomen Exam: soft, normal bowel sounds, No tenderness, No mass Rectal Exam: deferred Back Exam: normal inspection, normal range of motion, No CVA tenderness, No vertebral tenderness Extremity Exam: normal inspection, normal range of motion, pelvis stable Neurologic Exam: alert, oriented x 3, cooperative, normal mood/affect, nml cerebellar function, nml station & gait, sensation nml, No motor deficits Skin Exam: normal color, warm, dry, No rash Lymphatic Exam: No adenopathy SpO2: 97 O2 Delivery: Room Air Ordered Tests: Active Orders 24 hr Category Date Time Status CBC W DIFF Stat Lab 06/05/19 17:30 Completed CMP Stat Lab 06/05/19 17:30 Completed MAGNESIUM Stat Lab 06/05/19 17:30 Completed Manual Differential NC Stat Lab 06/05/19 17:30 Completed Transfer Order Routine Transfer 06/05/19 Ordered Medication Summary Generic Name Dose Route Start Last Admin Trade Name Codey PRN Reason Stop Dose Admin Magnesium Sulfate/Dextrose 100 mls @ 100 mls/hr 06/05/19 18:30 Magnesium 1 Gm / 100 Ml D5w IV 06/05/19 20:29 Q1H JEFF Discontinued Medications Generic Name Dose Route Start Last Admin Trade Name Codey PRN Reason Stop Dose Admin Magnesium Sulfate 2 gm 06/05/19 18:12 06/05/19 18:18 Magnesium Sulfate 1 Gm/2 Ml Vial IV 06/05/19 18:13 Not Given ONCE STA Lab/Rad Data: Laboratory Result Diagrams 06/05/19 17:30 06/05/19 17:30 Laboratory Results 06/05/19 06/05/19 06/05/19 Range/Units 17:30 17:30 17:30 WBC 8.1 (4.0-10.5) K/mm3 RBC 4.36 (4.1-5.6) M/mm3 Hgb 13.8 (12.5-18.0) gm/dl Hct 40.1 L (42-50) % MCV 92.0 (78-100) fl MCH 31.7 (26-32) pg MCHC 34.4 (32-36) g/dl RDW 13.4 (11.5-14.0) % Plt Count 208 (150-450) K/mm3 MPV 11.2 H (7.5-11.0) fl Sodium 139 (137-145) mmol/L Potassium 3.9 (3.5-5.1) mmol/L Chloride 102 (98-107) mmol/L Carbon Dioxide 24 (22-30) mmol/L Anion Gap 16.4 H (5-15) MEQ/L BUN 16 (9-20) mg/dL Creatinine 0.85 (0.66-1.25) mg/dL Estimated GFR > 60.0 ML/MIN Glucose 148 H (74-106) mg/dL Calcium 9.6 (8.4-10.2) mg/dL Magnesium 0.7 L* (1.6-2.3) mg/dL Total Bilirubin 0.60 (0.2-1.3) mg/dL AST 25 (17-59) U/L ALT 18 (0-50) U/L Alkaline Phosphatase 65 (38-126) U/L Serum Total Protein 7.5 (6.3-8.2) g/dL Albumin 4.2 (3.5-5.0) g/dL - Progress Discussed with Dr.: Alfaro (Case discussed with Dr. Serrano. We will admit patient to Dr. Whaley per Dr. Serrano's request. Magnesium replacement initiated.) Counseled pt/family regarding: lab results, diagnosis - Departure Departure Disposition: Observation Clinical Impression: Hypomagnesemia Condition: Stable Critical Care Time: No Referrals: YUKO MORGAN [Primary Care Provider] -
[2019-06-05] MEDS: Magnesium 1 Gm / 100 Ml D5W*** 100 ML IV SCH ×2 (18:30→20:24)
[2019-06-05 19:42] LABS: Absolute Neutrophil Ct (ANC) 6.57 (1.4-6.9); Eosinophil 2 % (0.00-3.0); Lymphocytes 12 % (24-44); Monocyte 5 % (0.0-12.0); Neutrophils 81 % (36.-66.); Platelet Estimate NORMAL (NORMAL); Total Cells Counted 100
[2019-06-05] MEDS ORDERED: ZOCOR 20MG PO SCH (22:00)
[2019-06-05] MEDS ORDERED: VITAMIN D PO SCH (22:00)
[2019-06-05] MEDS ORDERED: Glucophage 500 MG PO SCH (22:00)
[2019-06-05] MEDS ORDERED: Flomax 0.4 MG PO SCH (22:00)
[2019-06-05] MEDS ORDERED: NEURONTIN 300 MG PO SCH (22:00)
[2019-06-05] MEDS ORDERED: Vitamin B-6 (Pyridoxine) 100 MG PO SCH (22:00)
[2019-06-05] MEDS ORDERED: Vitamin E 400 UNIT SOFTGEL PO SCH (22:00)
[2019-06-05] MEDS ORDERED: Requip 0.5 MG PO SCH (22:00)
[2019-06-05] MEDS ORDERED: PROVENTIL 2.5 MG/3 ML NEB IH ONE (22:41)
[2019-06-05] MEDS: PROVENTIL 2.5 MG/3 ML NEB IH SCH (22:46)
[2019-06-05] MEDS ORDERED: PROVENTIL 2.5 MG/3 ML NEB IH SCH (23:00)
[2019-06-05] MEDS: Magnesium 1 Gm / 100 Ml D5W*** 100 ML IV ONE ×2 (23:48→23:52)
[2019-06-06] MEDS ORDERED: DUONEB 0.5-3 MG/3 ml Neb IH ONE (02:55)
[2019-06-06] MEDS: PROVENTIL 2.5 MG/3 ML NEB IH SCH (03:11)
[2019-06-06] MEDS ORDERED: PROVENTIL 2.5 MG/3 ML NEB IH SCH (07:00)
[2019-06-06] MEDS ORDERED: Advair Hfa 115/21 Common canister IH SCH (07:00)
[2019-06-06 07:03] VITALS: BP 133/74
[2019-06-06 07:10] VITALS: PULSE 80; O2SAT 96
[2019-06-06] MEDS ORDERED: Glucophage 500 MG PO SCH (08:00)
[2019-06-06] MEDS ORDERED: TESTOSTERONE CYPIONATE 200 MG IM SCH (10:15)
[2019-06-06] MEDS ORDERED: NON-FORMULARY ITEM (Cyanocobalamin (Vitamin B-12) [B-12] 1,000 MCG) PO SCH (10:15)
[2019-06-06] MEDS ORDERED: Cozaar 50 MG PO SCH (10:30)
[2019-06-06] MEDS ORDERED: Protonix 40MG Tablet PO SCH (10:30)
[2019-06-06] MEDS ORDERED: Proscar 5 MG PO SCH (10:30)
[2019-06-06] MEDS ORDERED: SYNTHROID 50 MCG PO SCH (10:30)
[2019-06-06] MEDS ORDERED: FOLATE 1 MG PO SCH (10:30)
--- NOTE | 2019-06-06 10:37 | SSS ---
DISCHARGE DIAGNOSIS: HYPOMAGNESIUM. HISTORY: The patient is a 68 year-old white male who apparently presented for blood work testing apparently following some parathyroid abnormalities, those tests performed that showed his magnesium to be very low at 0.6. He was instructed to go to the emergency room. The patient is unsure who actually ordered the testing but it was found drawn by Dr. Gomez. The patient was admitted to the hospital for IV fluids and magnesium riders. PAST MEDICAL/SURGICAL HISTORY: The patient's medical history otherwise present history is that he is having no significant issues whatsoever. He did note that he was having problems with diarrhea when he was previously taking magnesium so he has had this problem before. He stopped the magnesium due to diarrhea and now again fairly hypomagnesium. HOME MEDICATIONS: Fosamax, vitamin D, vitamin B12, Proscar 5 mg a day, Trelegy Ellipta, Folate 1 mg two tablets a day, gabapentin 600 mg at night, levothyroxine 50 mcg a day, losartan hydrochlorothiazide 100/12.5, lovastatin 40 mg a day, Metformin 1,000 mg b.i.d., pyridoxine 100 mg a day, ropinirole at night, saw palmetto, Tamsulosin 0.4 mg, testosterone injections, vitamin E capsules, pantoprazole 40 mg a day. ALLERGIES: BACITRACIN. NEOMYCIN. POLYMYXIN B. PHYSICAL EXAMINATION: The patient's temperature on admission showed temperature 97.3F, pulse 84 and blood pressure 157/95. O2 saturation 99%. HEENT: Normocephalic, atraumatic. Pupils equal round reactive to light. Extraocular movements intact. Oropharynx is pink and moist. NECK: Supple without lymphadenopathy, thyromegaly or JVD. CHEST: Clear to auscultation. ABDOMEN: Soft without palpable masses. EXTREMITIES: Without cyanosis, clubbing or edema. NEUROLOGIC: The patient is alert and oriented x3. LAB DATA AND TESTS: Laboratory studies again showed the patient's glucose to be 148, BUN 16, creatinine 0.85. Electrolytes were essentially normal. White count was 8,100, hemoglobin 13.8, PLT count 208,000. His initial magnesium recorded was 0.7 and after magnesium riders by the morning of was up to 1.5 with normal in our lab at 1.6. 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
[2019-06-06] MEDS ORDERED: SAW PALMETTO FRUIT PO SCH (22:00)
[2019-06-06] MEDS ORDERED: ZINC PICOLI PO SCH (22:00)
[2019-06-06] MEDS ORDERED: [UNRECOGNIZED DRUG - OTHER] PO SCH (22:00)
[2019-06-07] MEDS ORDERED: Vitamin B-12 500 MCG PO SCH (09:58)
[2019-06-07] MEDS ORDERED: [UNRECOGNIZED DRUG - OTHER] PO SCH (10:00)
[2019-06-07] MEDS ORDERED: HYDROCHLOROTHIAZIDE PO SCH (10:00)
[2019-06-07] MEDS ORDERED: LOSARTAN PO SCH (10:00)
[2019-06-07] MEDS ORDERED: Vitamin B-6 (Pyridoxine) 100 MG PO SCH ×2 (22:00)
[2019-06-08] MEDS ORDERED: NON-FORMULARY ITEM (Alendronate Sodium [Alendronate Sodium] 35 MG) PO SCH (06:00)
== END 2019-06-06 09:58 | disposition home or self-care (01) ==
LOC: ED 16:37 → MED SURG 18:58
PROVIDERS: ADMIT Family Medicine; ATTEND Family Medicine
DX: E83.42 Hypomagnesemia (principal); R19.7 Diarrhea, unspecified; Z79.899 Other long term (current) drug therapy
CPT/HCPCS: 36415; 80053; 83735; 85025; 93005; 93268; 94640; 94762; 99285; G0378; J3475; J7609; A9270-GY

== ENCOUNTER 2020-02-28 20:26 | Emergency (ER) | payer MEDICARE, OTHER ==
--- NOTE | 2020-02-28 20:36 | ERPHSYRPT ---
- History of Present Illness Time Seen by Provider: 02/28/20 20:36 Source: patient, family Exam Limitations: no limitations Patient Subjective Stated Complaint: Palpitations Physician History: Palpitations along with feeling lightheaded and dizzy started today about 1 pm (about 6 hours [employer]). Possibly a slight pressure feeling in the chest. Symptoms somewhat worse and some mild dyspnea with exertion. No hx of CAD. He has seen the [facility] before for PAD and he had what sounds like an iliac stent placed. He has had stress tests before which were reportedly negative. Timing/Duration: today, hour(s) (6 hours ago) Activities at Onset: none Quality: dullness Location: substernal Chest Pain Radiation: no radiation Severity of Pain-Max: mild Severity of Pain-Current: mild Modifying Factors: Improves With: exertion (makes it worse) Aspirin Treatment Today: no aspirin today Associated Symptoms: shortness of breath, weakness Prior Chest Pain/Cardiac Workup: no prior chest pain, stress test Allergies/Adverse Reactions: bacitracin [From Neosporin ([id number])] Allergy (Verified 02/28/20 20:31) Rash bacitracin zinc [From Neosporin ([id number])] Allergy (Verified 02/28/20 20:31) Rash neomycin sulfate [From Neosporin ([id number])] Allergy (Verified 02/28/20 20:31) Rash polymyxin B [From Neosporin ([id number])] Allergy (Verified 02/28/20 20:31) Rash Home Medications: Alendronate Sodium 35 mg PO WEEKLY 05/06/19 [History] Finasteride 5 mg [Proscar 5 MG] 5 mg PO DAILY 05/06/19 [History] Fluticasone/Umeclidin/Vilanter [Trelegy Ellipta 100-62.5-25] 1 each IH HS 05/06 [History] Folic Acid 1 mg [Folate 1 mg] 2 mg PO DAILY 05/06/19 [History] Levothyroxine Sodium 50 Mcg [Synthroid 50 Mcg] 50 mcg PO DAILY 05/06/19 [History] Lovastatin 40 mg PO HS 05/06/19 [History] Metformin HCl 500 mg [Glucophage 500 MG] 1,000 mg PO BID 05/06/19 [History] Pyridoxine HCl [Vitamin B-6] 100 mg PO UD 05/06/19 [History] Ropinirole HCl 1 mg PO HS 05/06/19 [History] Saw [place] Fruit/Zinc Picoli [Saw [place] 450 mg Capsule] 900 mg PO BID 05/06/19 [History] Tamsulosin HCl 0.4 mg [Flomax 0.4 MG] 0.4 mg PO HS 05/06/19 [History] Testosterone Cypionate [Testone Cik] 200 mg IM UD 05/06/19 [History] Vitamin E 400 Units [Vitamin E 400 UNIT SOFTGEL] 400 unit PO HS 05/06/19 [History] Cyanocobalamin (Vitamin B-12) [B-12] 1,000 mcg PO UD 06/05/19 [History] Gabapentin 300 mg PO HS 06/05/19 [History] PANTOPRAZOLE 40 mg Tablet [Protonix 40MG Tablet] 40 mg PO DAILY 06/05/19 [History] Albuterol 2.5 mg/3 ml Neb [Proventil 2.5 mg/3 ml Neb] 4 puffs NEB PRN 02/28/20 [History] Amiloride HCl 5 mg PO DAILY 02/28/20 [History] Ibuprofen 200 mg [Motrin 200 mg] 3 tab PO DAILY 02/28/20 [History] Magnesium Oxide 400 mg [Mag-Ox 400] 3 tab PO TID 02/28/20 [History] Sodium Zirconium Cyclosilicate [Lokelma] 1 packet PO DAILY 02/28/20 [History] Hx Tetanus, Diphtheria Vaccination/Date Given: No Hx Influenza Vaccination/Date Given: Yes Hx Pneumococcal Vaccination/Date Given: Yes Travel Risk - International Travel Have you traveled outside of the country in past 3 weeks: No - Coronavirus Screening Are you exhibiting any of the following symptoms?: No Close contact with a COVID-19 positive Pt in past 14-21 Days: No - Review of Systems Constitutional: No Symptoms, No Fever Eyes: No Symptoms Ears, Nose, & Throat: No Symptoms Respiratory: Dyspnea on Exertion (JACKSON) Cardiac: Palpitations, Orthopnea Genitourinary Symptoms: No Symptoms Musculoskeletal: No Symptoms Skin: No Symptoms Neurological: Headache (generalized headache) Psychological: No Symptoms Endocrine: No Symptoms Hematologic/Lymphatic: No Symptoms Immunological/Allergic: No Symptoms All Other Systems: Reviewed and Negative - Past Medical History Pertinent Past Medical History: Yes Neurological History: No Pertinent History, Peripheral Neuropathy ENT History: No Pertinent History Cardiac History: Peripheral Vascular Disease Respiratory History: COPD, Sleep Apnea Endocrine Medical History: Diabetes Type II Musculoskeletal History: Fractures, Osteoarthritis GI Medical History: GERD, Gallbladder Disease, Hernia History: No Pertinent History Psycho-Social History: No Pertinent History Male Reproductive Disorders: Prostate Problems Other Medical History: FX LEFT HIP 30 YEARS AGO - NO SURGERY. STENT PLACEMENT LEFT LOWER LEG (GROIN) (Pt states no knowing what it is for)10 YEARS AGO. CHOLECYSTECTOMY, APPENDECTOMY, BILATERAL INGUINAL HERNIA REPAIRS - Past Surgical History Past Surgical History: Yes Neuro Surgical History: No Pertinent History Cardiac: Vascular Surgery (iliac stent) Respiratory: No Pertinent History Gastrointestinal: Appendectomy, Cholecystectomy, Hernia Repair Genitourinary: No Pertinent History Musculoskeletal: No Pertinent History Male Surgical History: No Pertinent History Other Surgical History: STENT PLACED AFTER GALLBLADDER REMOVAL( "had liver knicked during surgery and had a drain to reroute bile"), AND REMOVED. shoulder surgery- right states rotator cuff repair,, Left Carpal Tunnel Surgery, Right rotator cuff surgery - Social History Smoking Status: Former smoker (stopped 20 years ago, still smokes) Exposure to second hand smoke: Yes Alcohol Use: None Drug Use: none Patient Lives Alone: No Significant Family History: heart disease - Nursing Vital Signs Nursing Vital Signs: Initial Vital Signs Temperature 98.4 F 02/28/20 20:26 Pulse Rate 115 H 02/28/20 20:26 Respiratory Rate 20 02/28/20 20:26 Blood Pressure 146/100 02/28/20 20:26 O2 Sat by Pulse Oximetry 97 02/28/20 20:26 Pain Scale Pain Intensity 6 - Physical Exam General Appearance: mild distress Eye Exam: PERRL/EOMI Ears, Nose, Throat Exam: normal ENT inspection Neck Exam: normal inspection, non-tender Respiratory Exam: normal breath sounds Cardiovascular Exam: tachycardia, capillary refill <2 sec, No regular rate/rhythm Gastrointestinal/Abdomen Exam: soft, normal bowel sounds Rectal Exam: deferred Back Exam: normal inspection Extremity Exam: normal inspection Neurologic Exam: alert, oriented x 3 Skin Exam: normal color, warm, dry SpO2 Interpretation: normal SpO2: 97 O2 Delivery: Room Air - Course Nursing assessment & vital signs reviewed: Yes EKG Interpreted by Me: RATE (115), A-fib (A-flutter), Right Bundle Branch Block, Non-specific ST Changes (ST elev. due to A-flutter) Rhythm Strip: Rate (140), Atrial Flutter - Radiology Exams Chest X-ray Interpretation: Negative - CT Exams Head CT Interpretation: Negative Ordered Tests: Active Orders 24 hr Category Date Time Status Mesh Man STAT Care 02/28/20 20:41 Active EKG-ER Only STAT Care 02/28/20 20:41 Active IV Insertion STAT Care 02/28/20 20:41 Active Pulse Oximetry (ED) STAT Care 02/28/20 20:41 Active CHEST 1 VIEW (PORTABLE) Stat Exams 02/28/20 20:41 Taken HEAD WITHOUT CONTRAST [CT] Stat Exams 02/28/20 23:19 Taken CBC W DIFF Stat Lab 02/28/20 20:55 Completed CMP Stat Lab 02/28/20 20:55 Completed MAG [MAGNESIUM] Stat Lab 02/28/20 21:02 Completed Manual Differential NC Stat Lab 02/28/20 20:55 Completed NT PRO BNP Stat Lab 02/28/20 20:55 Completed TROPONIN Q3H Lab 02/28/20 20:55 Completed TROPONIN Q3H Lab 02/28/20 23:49 Completed TROPONIN Q3H Lab 02/29/20 01:45 Ordered TROPONIN Q3H Lab 02/29/20 04:45 Ordered TROPONIN Q3H Lab 02/29/20 07:45 Ordered Medication Summary Generic Name Dose Route Start Last Admin Trade Name Freq PRN Reason Stop Dose Admin Diltiazem HCl 100 mls @ 5 mls/hr 02/28/20 21:11 02/28/20 22:02 Cardizem Drip 100 Mg/100 Ml D5w IV 03/29/20 21:10 5 mg/hr .Q20H PRN 5 mls/hr HEART RATE/ A-FIB Administration Protocol 5 MG/HR Discontinued Medications Generic Name Dose Route Start Last Admin Trade Name Freq PRN Reason Stop Dose Admin Acetaminophen 650 mg 02/28/20 21:51 02/28/20 22:39 Tylenol 325 Mg PO 02/28/20 21:52 Not Given Q6H PRN STA Acetaminophen 650 mg 02/28/20 21:55 02/28/20 22:03 Tylenol 325 Mg PO 02/28/20 21:56 650 mg STAT STA Administration Acetaminophen Confirm 02/28/20 21:57 Tylenol 325 Mg Administered 02/28/20 21:58 Dose 650 mg .ROUTE .STK-MED ONE Aspirin 324 mg 02/28/20 22:46 02/28/20 22:58 Baby Aspirin 81 Mg Chew PO 02/28/20 22:47 324 mg STAT ONE Administration Aspirin Confirm 02/28/20 22:56 Baby Aspirin 81 Mg Chew Administered 02/28/20 22:57 Dose 324 mg .ROUTE .STK-MED ONE Diltiazem HCl 10 mg 02/28/20 20:41 02/28/20 20:48 Cardizem Iv 50 Mg/10 Ml IV 02/28/20 20:42 10 mg STAT ONE Administration Diltiazem HCl Confirm 02/28/20 20:46 Cardizem Iv 50 Mg/10 Ml Administered 02/28/20 20:47 Dose 50 mg IV .STK-MED ONE Enoxaparin Sodium 100 mg 02/28/20 22:46 02/28/20 22:58 Enoxaparin Sodium SQ 02/28/20 22:47 100 mg 1XONLY STA Administration Enoxaparin Sodium Confirm 02/28/20 22:57 Enoxaparin Sodium Administered 02/28/20 22:58 Dose 120 mg SQ .STK-MED ONE Morphine Sulfate 4 mg 02/29/20 00:23 02/29/20 00:35 Morphine Sulfate 4 Mg Inj IV 02/29/20 00:24 4 mg STAT ONE Administration Morphine Sulfate Confirm 02/29/20 00:34 Morphine Sulfate 4 Mg Inj Administered 02/29/20 00:35 Dose 4 mg .ROUTE .STK-MED ONE Ondansetron HCl 4 mg 02/29/20 00:23 02/29/20 00:35 Zofran 4 Mg/2 Ml Vial IV 02/29/20 00:24 4 mg STAT ONE Administration Ondansetron HCl Confirm 02/29/20 00:34 Zofran 4 Mg/2 Ml Vial Administered 02/29/20 00:35 Dose 4 mg .ROUTE .STK-MED ONE Lab/Rad Data: Laboratory Result Diagrams 02/28/20 20:55 02/28/20 20:55 Laboratory Results 02/28/20 02/28/20 02/28/20 Range/Units 23:49 21:02 20:55 WBC (4.0-10.5) K/mm3 RBC (4.1-5.6) M/mm3 Hgb (12.5-18.0) gm/dl Hct (42-50) % MCV (78-100) fl MCH (26-32) pg MCHC (32-36) g/dl RDW (11.5-14.0) % Plt Count (150-450) K/mm3 MPV (7.5-11.0) fl Segmented Neutrophils (36.-66.) % Lymphocytes (Manual) (24-44) % Monocytes (Manual) (0.0-12.0) % Eosinophils (Manual) (0.00-3.0) % Metamyelocytes % Platelet Estimate (NORMAL) RBC Morphology Sodium (137-145) mmol/L Potassium (3.5-5.1) mmol/L Chloride (98-107) mmol/L Carbon Dioxide (22-30) mmol/L Anion Gap (5-15) MEQ/L BUN (9-20) mg/dL Creatinine (0.66-1.25) mg/dL Estimated GFR ML/MIN Glucose (74-106) mg/dL Calcium (8.4-10.2) mg/dL Magnesium 1.7 (1.6-2.3) mg/dL Total Bilirubin (0.2-1.3) mg/dL AST (17-59) U/L ALT (0-50) U/L Alkaline Phosphatase (38-126) U/L Troponin I 0.059 H* 0.061 H* (0.000-0.034) ng/mL NT-Pro-B Natriuret Pep (0-900) pg/mL Serum Total Protein (6.3-8.2) g/dL Albumin (3.5-5.0) g/dL 02/28/20 02/28/20 Range/Units 20:55 20:55 WBC 9.0 (4.0-10.5) K/mm3 RBC 5.11 (4.1-5.6) M/mm3 Hgb 15.3 (12.5-18.0) gm/dl Hct 46.2 (42-50) % MCV 90.4 (78-100) fl MCH 29.9 (26-32) pg MCHC 33.1 (32-36) g/dl RDW 13.5 (11.5-14.0) % Plt Count 261 (150-450) K/mm3 MPV 11.5 H (7.5-11.0) fl Segmented Neutrophils 80 H (36.-66.) % Lymphocytes (Manual) 9 L (24-44) % Monocytes (Manual) 9 (0.0-12.0) % Eosinophils (Manual) 1 (0.00-3.0) % Metamyelocytes 1 % Platelet Estimate NORMAL (NORMAL) RBC Morphology NORMAL Sodium 135 L (137-145) mmol/L Potassium 5.1 (3.5-5.1) mmol/L Chloride 101 (98-107) mmol/L Carbon Dioxide 26 (22-30) mmol/L Anion Gap 12.6 (5-15) MEQ/L BUN 21 H (9-20) mg/dL Creatinine 1.15 (0.66-1.25) mg/dL Estimated GFR > 60.0 ML/MIN Glucose 194 H (74-106) mg/dL Calcium 10.1 (8.4-10.2) mg/dL Magnesium (1.6-2.3) mg/dL Total Bilirubin 0.50 (0.2-1.3) mg/dL AST 28 (17-59) U/L ALT 23 (0-50) U/L Alkaline Phosphatase 88 (38-126) U/L Troponin I (0.000-0.034) ng/mL NT-Pro-B Natriuret Pep 1560 H (0-900) pg/mL Serum Total Protein 7.9 (6.3-8.2) g/dL Albumin 4.6 (3.5-5.0) g/dL - Progress Progress: improved, re-examined Air Movement: good Progress Note: 02/29/20 01:09 EDT Heart rate controlled with IV cardizem. Still A-flutter. He feels better. BENEDICT persisited, [place] for that. He wants transferred to [facility] in [facility]. Dr. Pena accepted, he wants patient to have ASA and lovenox. Troponin slightly up, likely a cardiac strain from the tachycardia. Blood Culture(s) Obtained: No Antibiotics given: No Counseled pt/family regarding: lab results, diagnosis, rad results - Departure Departure Disposition: Transfer Clinical Impression: Atrial flutter with rapid ventricular response Condition: Stable Critical Care Time: No Referrals: YUKO MORGAN [Primary Care Provider] -
[2020-02-28] MEDS ORDERED: Cardizem IV 50 MG/10 ML IV ONE (20:46)
[2020-02-28] MEDS: Cardizem IV 50 MG/10 ML IV ONE (20:48)
[2020-02-28 20:59] LABS: Hematocrit 46.2 % (42-50); Hemoglobin 15.3 gm/dl (12.5-18.0); Mean Cell Volume 90.4 fl (78-100); Mean Corpuscular Hemoglobin 29.9 pg (26-32); Mean Corpuscular Hgb Concent. 33.1 g/dl (32-36); Mean Platelet Volume 11.5 fl (7.5-11.0); Platelet Count 261 K/mm3 (150-450); Red Blood Count 5.11 M/mm3 (4.1-5.6); Red Cell Distribution Width 13.5 % (11.5-14.0)
[2020-02-28 21:20] LABS: ALBUMIN 4.6 g/dL (3.5-5.0); ALKALINE PHOSPHATASE 88 U/L (38-126); ANION GAP 12.6 MEQ/L (5-15); BLOOD UREA NITROGEN 21 mg/dL (9-20); CHLORIDE 101 mmol/L (98-107); Calcium 10.1 mg/dL (8.4-10.2); Carbon Dioxide 26 mmol/L (22-30); Creatinine 1 1.15 mg/dL (0.66-1.25); EST GLOMERULAR FILTRATION RATE > 60.0 ML/MIN; Glucose 194 mg/dL (74-106); NT PRO BNP 1560 pg/mL (0-900); Potassium 5.1 mmol/L (3.5-5.1); SGOT/AST 28 U/L (17-59); SGPT/ALT 23 U/L (0-50); SODIUM 135 mmol/L (137-145); Total Protein 7.9 g/dL (6.3-8.2)
[2020-02-28] MEDS ORDERED: CARDIZEM DRIP 100 MG/100 ML D5W 100 ML IV ONE (21:53)
[2020-02-28 21:55] LABS: Eosinophil 1 % (0.00-3.0); Lymphocytes 9 % (24-44); Metamyelocyte 1 %; Monocyte 9 % (0.0-12.0); Neutrophils 80 % (36.-66.); Platelet Estimate NORMAL (NORMAL); Total Cells Counted 100
[2020-02-28] MEDS ORDERED: TYLENOL 325 MG ONE (21:57)
[2020-02-28] MEDS: CARDIZEM DRIP 100 MG/100 ML D5W 100 ML IV PRN (22:02)
[2020-02-28] MEDS: TYLENOL 325 MG PO STA ×2 (22:03→22:39)
[2020-02-28] MEDS ORDERED: BABY ASPIRIN 81 MG CHEW ONE (22:56)
[2020-02-28] MEDS ORDERED: ENOXAPARIN SODIUM SQ ONE (22:57)
[2020-02-28] MEDS: BABY ASPIRIN 81 MG CHEW PO ONE (22:58)
[2020-02-28] MEDS: ENOXAPARIN SODIUM SQ STA (22:58)
[2020-02-29] MEDS ORDERED: Zofran 4 MG/2 ML VIAL ONE (00:34)
[2020-02-29] MEDS ORDERED: MORPHINE SULFATE 4 MG INJ ONE (00:34)
[2020-02-29] MEDS: Zofran 4 MG/2 ML VIAL IV ONE (00:35)
[2020-02-29] MEDS: MORPHINE SULFATE 4 MG INJ IV ONE (00:35)
[2020-02-29 01:35] VITALS: BP 137/86; PULSE 85; O2SAT 96
--- NOTE | 2020-02-29 08:35 | XRAY ---
Indication: Palpitations. Comparison: October 23, 2019. Portable apical lordotic chest demonstrates worsening cardiomegaly obscuring left mid to lower lung. Visualized lungs are clear. Bony thorax intact again with mild osteopenia, degenerative changes, scoliosis, and right AC separation.
--- NOTE | 2020-02-29 08:41 | XRAY ---
Indication: Headache. Multiple contiguous axial images obtained through the head without contrast. Comparison: None Age-appropriate global atrophy and minimal periventricular degenerative micro-ischemia bilaterally. No acute intracranial hemorrhage, abnormal extra-axial fluid collection, or mass effect. Fourth ventricle is midline without hydrocephalus. Lora-white matter differentiation preserved. Bony calvarium intact. There is mild mucosal thickening of both ethmoid sinuses. Mastoid air cells are clear. Impression: Atrophy within normal limits for patient's age. Paranasal sinus disease. No acute intracranial abnormalities. Comment: Preliminary interpretation was made by [facility]. No critical discrepancy.
== END 2020-02-29 02:33 | disposition critical access hospital (66) ==
LOC: ED 20:26
DX: I48.92 Unspecified atrial flutter (principal); Z79.899 Other long term (current) drug therapy; R51.9 Headache, unspecified; G62.9 Polyneuropathy, unspecified; I73.9 Peripheral vascular disease, unspecified; J44.9 Chronic obstructive pulmonary disease, unspecified; G47.30 Sleep apnea, unspecified; E11.9 Type 2 diabetes mellitus without complications
CPT/HCPCS: 36000; 36415; 70450; 71045; 80053; 83735; 83880; 84484; 85025; 93005; 93041; 94760; 96365; 96372; 96374; 96375; 99285; J1650; J2270; J2405; A9270-GY

== ENCOUNTER 2020-10-08 15:20 | Observation (INO) | payer MEDICARE ==
[2020-10-08] MEDS ORDERED: DUONEB 0.5-3 MG/3 ml Neb IH ONE ×3 (15:47→20:20)
[2020-10-08] MEDS ORDERED: BABY ASPIRIN 81 MG CHEW PO ONE (15:48)
[2020-10-08] MEDS ORDERED: DECADRON 10MG INJ. IV ONE (15:48)
[2020-10-08] MEDS ORDERED: BABY ASPIRIN 81 MG CHEW ONE (15:52)
[2020-10-08] MEDS ORDERED: DECADRON 10MG INJ. ONE (15:52)
[2020-10-08 15:58] LABS: Absolute Neutrophil Ct (ANC) 3.62 (1.4-6.9); BASOPHIL % 0.2 % (0.0-0.4); Basophil (Absolute #) 0.01 (0-0.4); Eosinophil % 0.2 % (0.00-5.0); Eosinophil (Absolute #) 0.01 (0-0.5); Hematocrit 39.8 % (42-50); Hemoglobin 12.6 gm/dl (12.5-18.0); Lymphocytes % 7.4 % (24.0-44.0); Mean Cell Volume 88.4 fl (78-100); Mean Corpuscular Hgb Concent. 31.7 g/dl (32-36); Mean Platelet Volume 11.3 fl (7.5-11.0); Monocyte (Absolute #) 0.14 (0.0-1.3); Monocytes % 3.4 % (0.0-12.0); Neutrophil % 88.8 % (36.0-66.0); Platelet Count 194 K/mm3 (150-450); Red Cell Distribution Width 13.9 % (11.5-14.0); White Blood Count 4.1 K/mm3 (4.0-10.5)
[2020-10-08 16:12] LABS: ALBUMIN 4.3 g/dL (3.5-5.0); ALKALINE PHOSPHATASE 85 U/L (38-126); ANION GAP 16.9 MEQ/L (5-15); BLOOD UREA NITROGEN 17 mg/dL (9-20); CHLORIDE 96 mmol/L (98-107); Calcium 9.7 mg/dL (8.4-10.2); Carbon Dioxide 23 mmol/L (22-30); Creatinine 1 1.03 mg/dL (0.66-1.25); EST GLOMERULAR FILTRATION RATE > 60.0 ML/MIN; Glucose 404 mg/dL (74-106); Potassium 5.2 mmol/L (3.5-5.1); SGOT/AST 43 U/L (17-59); SGPT/ALT 33 U/L (0-50); SODIUM 131 mmol/L (137-145); Total Protein 7.1 g/dL (6.3-8.2)
[2020-10-08] MEDS ORDERED: Sodium Chloride 0.9% 1000 ML 1,000 ML ONE (16:12)
[2020-10-08] MEDS ORDERED: Sodium Chloride 0.9% 1000 ML 1,000 ML IV SCH (16:15)
--- NOTE | 2020-10-08 16:19 | XRAY ---
Indication: Short of breath 2 days. Comparison: July 15, 2020. Portable chest less inflated with new cardiomegaly. No focal infiltrate, consolidation, or large effusion. Bony thorax intact again with osteopenia, degenerative changes, dextroscoliosis, and right AC separation. Impression: Cardiomegaly. Negative for acute pneumonic process or CHF.
[2020-10-08] MEDS ORDERED: HUMULIN R IV ONE (16:29)
[2020-10-08] MEDS ORDERED: HUMULIN R ONE (16:41)
[2020-10-08] MEDS ORDERED: Zithromax 500 MG/ 250 ML NaCl Premix 500 MG/250 ML IVPB IV STA (16:46)
[2020-10-08] MEDS ORDERED: ROCEPHIN 1 Gm-D5w 50 ml Bag** 1 G/50 ML IVPB IV STA (16:46)
[2020-10-08] MEDS ORDERED: Zithromax 500 MG/ 250 ML NaCl Premix 500 MG/250 ML IVPB IV ONE (16:52)
[2020-10-08] MEDS ORDERED: ROCEPHIN 1 Gm-D5w 50 ml Bag** 1 G/50 ML IVPB IV ONE (16:52)
[2020-10-08 17:25] LABS: Appearance CLEAR (CLEAR); Bilirubin NEGATIVE (NEGATIVE); Blood NEGATIVE Ery/ul (0-5); Glucose >=500 mg/dL (NEGATIVE); Ketones TRACE (NEGATIVE); Leukocyte Esterase NEGATIVE (NEGATIVE); Nitrite NEGATIVE (NEGATIVE); Protein,Urine Dip 30 (Negative); Specific Gravity 1.021 (1.005-1.025); Urobilinogen NEGATIVE mg/dL (0-1)
[2020-10-08 17:47] LABS: INFLUENZA A NEGATIVE (NEGATIVE); INFLUENZA B NEGATIVE (NEGATIVE)
--- NOTE | 2020-10-08 17:53 | ERPHSYRPT ---
- History of Present Illness Time Seen by Provider: 10/08/20 15:24 Source: patient Exam Limitations: no limitations Patient Subjective Stated Complaint: " I am having trouble breathing". Triage Nursing Assessment: Pt presents to ER with difficulty breathing, noted labored respirations with diminished and wheezes throughout lungs. Pt is pale, warm, and dry. Respiratory rate of 40 upon arrival. Pt respirations are shallow. Pt denies pain and states has been short of breath for a couple of days but much worse today. Was seen in clinic and given steriod but hasn't helped. Pt abdomen is large and firm upon exam. Physician History: 69 years old male with history of atrial fibrillation on Eliquis, diabetes mellitus, hypertension, CAD, COPD presented in the ER with 5-day history of progressively worsening cough productive of clear to yellow sputum moderate in amount with some associated shortness of breath especially with activity. Patient was evaluated at urgent care yesterday with steroid shot but does not seem to be helping and is feeling worse today. Denies any chest pain but heaviness and congestion. Denies fever or chills. Patient on presentation is tachypneic and seems to be in mild distress, placed on 2 L oxygen and improved work of breathing. Timing/Duration: day(s) (5), gradual onset, worse Activities at Onset: activity Severity of Dyspnea-Max: moderate Severity of Dyspnea-Current: moderate Modifying Factors: Worsens With: activity, coughing, exertion Associated Symptoms: cough, wheezing, productive cough, tightness Allergies/Adverse Reactions: bacitracin [From Neosporin ([id number])] Allergy (Verified 10/08/20 15:31) Rash bacitracin zinc [From Neosporin ([id number])] Allergy (Verified 10/08/20 15:31) Rash neomycin sulfate [From Neosporin ([id number])] Allergy (Verified 10/08/20 15:31) Rash polymyxin B [From Neosporin ([id number])] Allergy (Verified 10/08/20 15:31) Rash Home Medications: Alendronate Sodium 35 mg PO WEEKLY 05/06/19 [History] Finasteride 5 mg [Proscar 5 MG] 5 mg PO DAILY 05/06/19 [History] Fluticasone/Umeclidin/Vilanter [Trelegy Ellipta 100-62.5-25] 1 each IH HS 05/06/19 [History] Folic Acid 1 mg [Folate 1 mg] 2 tab PO DAILY 05/06/19 [History] Levothyroxine Sodium 50 Mcg [Synthroid 50 Mcg] 50 mcg PO DAILY 05/06/19 [History] Lovastatin 40 mg PO HS 05/06/19 [History] Metformin HCl 500 mg [Glucophage 500 MG] 1,000 mg PO BID 05/06/19 [History] Pyridoxine HCl [Vitamin B-6] 100 mg PO UD 05/06/19 [History] Ropinirole HCl 1 mg PO HS 05/06/19 [History] [place] Fruit/Zinc Picoli [Saw [place] 450 mg Capsule] 900 mg PO BID 05/06/19 [History] Tamsulosin HCl 0.4 mg [Flomax 0.4 MG] 0.4 mg PO HS 05/06/19 [History] Testosterone Cypionate [Testone Cik] 200 mg IM UD 05/06/19 [History] Vitamin E 400 Units [Vitamin E 400 UNIT SOFTGEL] 400 unit PO HS 05/06/19 [History] Cyanocobalamin (Vitamin B-12) [B-12] 1,000 mcg PO UD 06/05/19 [History] PANTOPRAZOLE 40 mg Tablet [Protonix 40MG Tablet] 40 mg PO DAILY 06/05/19 [History] Albuterol 2.5 mg/3 ml Neb [Proventil 2.5 mg/3 ml Neb] 2 puffs NEB QID 02/28/20 [History] Amiloride HCl 5 mg PO DAILY 02/28/20 [History] Ibuprofen 200 mg [Motrin 200 mg] 3 tab PO DAILY 02/28/20 [History] Magnesium Oxide 400 mg [Mag-Ox 400] 3 tab PO TID 02/28/20 [History] Sodium Zirconium Cyclosilicate [Lokelma] 1 packet PO DAILY 02/28/20 [History] Apixaban [Eliquis] 1 tab PO BID 10/08/20 [History] Carvedilol [Coreg] 3.125 mg PO BID 10/08/20 [History] Furosemide [Lasix] 20 mg PO BID 10/08/20 [History] Hx Tetanus, Diphtheria Vaccination/Date Given: Yes Hx Influenza Vaccination/Date Given: Yes Hx Pneumococcal Vaccination/Date Given: Yes Immunizations Up to Date: Yes Travel Risk - International Travel Have you traveled outside of the country in past 3 weeks: No - Coronavirus Screening Are you exhibiting any of the following symptoms?: No Close contact with a COVID-19 positive Pt in past 14-21 Days: No - Vaccine Status Have you recieved a Covid-19 vaccination: No - Review of Systems Constitutional: Fatigue, Weakness Eyes: No Symptoms Ears, Nose, & Throat: No Symptoms Respiratory: Cough, Dyspnea, Wheezing Cardiac: Palpitations Abdominal/Gastrointestinal: No Symptoms Genitourinary Symptoms: No Symptoms Musculoskeletal: Back Pain Skin: No Symptoms Neurological: No Symptoms Psychological: No Symptoms Endocrine: No Symptoms Hematologic/Lymphatic: No Symptoms Immunological/Allergic: No Symptoms - Past Medical History Pertinent Past Medical History: Yes Neurological History: No Pertinent History ENT History: No Pertinent History Cardiac History: Arrhythmia, Peripheral Vascular Disease Respiratory History: COPD, Sleep Apnea Endocrine Medical History: Diabetes Type II Musculoskeletal History: Fractures, Osteoarthritis GI Medical History: GERD, Gallbladder Disease, Hernia History: No Pertinent History Psycho-Social History: No Pertinent History Male Reproductive Disorders: Prostate Problems Other Medical History: FX LEFT HIP 30 YEARS AGO - NO SURGERY. STENT PLACEMENT LEFT LOWER LEG (GROIN) (Pt states no knowing what it is for)10 YEARS AGO. CHOLECYSTECTOMY, APPENDECTOMY, BILATERAL INGUINAL HERNIA REPAIRS - Past Surgical History Past Surgical History: Yes Neuro Surgical History: No Pertinent History Cardiac: Vascular Surgery Respiratory: No Pertinent History Gastrointestinal: Appendectomy, Cholecystectomy, Hernia Repair Genitourinary: No Pertinent History Musculoskeletal: No Pertinent History Male Surgical History: No Pertinent History Other Surgical History: STENT PLACED AFTER GALLBLADDER REMOVAL( "had liver knicked during surgery and had a drain to reroute bile"), AND REMOVED. shoulder surgery- right states rotator cuff repair,, Left Carpal Tunnel Surgery, Right rotator cuff surgery - Social History Smoking Status: Never smoker Exposure to second hand smoke: No Alcohol Use: None Drug Use: none Patient Lives Alone: No Significant Family History: heart disease - Nursing Vital Signs Nursing Vital Signs: Initial Vital Signs Temperature 98.2 F 10/08/20 15:23 Pulse Rate 72 10/08/20 15:23 Respiratory Rate 40 H 10/08/20 15:23 Blood Pressure 165/88 10/08/20 15:23 O2 Sat by Pulse Oximetry 94 L 10/08/20 15:23 - Physical Exam General Appearance: no apparent distress, alert Eye Exam: PERRL/EOMI, eyes nml inspection Ears, Nose, Throat Exam: hearing grossly normal, pharyngeal erythema Neck Exam: normal inspection, supple, full range of motion Respiratory Exam: diminished breath sounds, accessory muscle use, rhonchi, wheezing Cardiovascular/Chest Exam: normal heart sounds, regular rate/rhythm Abdominal/Gastrointestinal Exam: soft, normal bowel sounds, No tenderness Extremity Exam: non-tender, normal range of motion, normal inspection, normal capillary refill Neurologic Exam: alert, oriented x 3, cooperative Skin Exam: normal color SpO2 Interpretation: normal SpO2: 96 O2 Delivery: Room Air Ordered Tests: Active Orders 24 hr Category Date Time Status EKG-ER Only STAT Care 10/08/20 15:46 Active IV Insertion STAT Care 10/08/20 15:46 Active NPO (ED) STAT Care 10/08/20 15:46 Active Oxygen-ED Only Nasal Cannula 2 lpm Care 10/08/20 15:47 Active CHEST 1 VIEW (PORTABLE) Stat Exams 10/08/20 15:22 Completed BLOOD CULTURE Stat Lab 10/08/20 16:12 Received CBC W DIFF Stat Lab 10/08/20 15:25 Completed CMP Stat Lab 10/08/20 15:25 Completed INFLUENZA A+B SHELLEY Stat Lab 10/08/20 17:30 Completed Lactic Acid Stat Lab 10/08/20 16:05 Completed Lactic Acid Stat Lab 10/08/20 18:08 Received MAGNESIUM Stat Lab 10/08/20 15:25 Completed POCT GLUCOSE Stat Lab 10/08/20 18:54 Completed TROPONIN Q3H Lab 10/08/20 15:25 Completed TROPONIN Q3H Lab 10/08/20 19:00 Ordered TROPONIN Q3H Lab 10/08/20 22:00 Ordered TROPONIN Q3H Lab 10/09/20 01:00 Ordered TROPONIN Q3H Lab 10/09/20 04:00 Ordered UA W/RFX UR CULTURE Stat Lab 10/08/20 15:46 Completed Respiratory Therapy Assessment DAILY RT 10/08/20 16:31 Completed Transfer Order Routine Transfer 10/08/20 Ordered Medication Summary Generic Name Dose Route Start Last Admin Trade Name Codey PRN Reason Stop Dose Admin Sodium Chloride 1,000 mls @ 100 mls/hr 10/08/20 16:15 10/08/20 16:14 Sodium Chloride 0.9% 1000 Ml IV 11/07/20 16:14 100 mls/hr .Q10H JEFF Administration Discontinued Medications Generic Name Dose Route Start Last Admin Trade Name Codey PRN Reason Stop Dose Admin Albuterol/Ipratropium 3 ml 10/08/20 15:47 10/08/20 16:30 Duoneb 0.5-3 Mg/3 Ml Neb IH 10/08/20 15:48 3 ml STAT ONE Administration Albuterol/Ipratropium Confirm 10/08/20 16:03 Duoneb 0.5-3 Mg/3 Ml Neb Administered 10/08/20 16:04 Dose 3 ml IH .STK-MED ONE Aspirin 324 mg 10/08/20 15:48 10/08/20 15:57 Baby Aspirin 81 Mg Chew PO 10/08/20 15:49 324 mg STAT ONE Administration Aspirin Confirm 10/08/20 15:52 Baby Aspirin 81 Mg Chew Administered 10/08/20 15:53 Dose 324 mg .ROUTE .STK-MED ONE Dexamethasone Sodium Phosphate 6 mg 10/08/20 15:48 10/08/20 15:57 Decadron 10mg Inj. IV 10/08/20 15:49 6 mg STAT ONE Administration Dexamethasone Sodium Phosphate Confirm 10/08/20 15:52 Decadron 10mg Inj. Administered 10/08/20 15:53 Dose 10 mg .ROUTE .STK-MED ONE Azithromycin 500 mg in 250 mls @ 250 mls/hr 10/08/20 16:46 10/08/20 18:16 Zithromax 500 Mg/ 250 Ml Nacl Premix IV 10/08/20 17:45 Infused STAT STA Infusion Ceftriaxone Sodium/Dextrose 1 g in 50 mls @ 100 mls/hr 10/08/20 16:46 10/08/20 17:54 Rocephin 1 Gm-D5w 50 Ml Bag IV 10/08/20 17:15 Infused STAT STA Infusion Azithromycin Confirm 10/08/20 16:52 Zithromax 500 Mg/ 250 Ml Nacl Premix Administered 10/08/20 16:53 Dose 500 mg in 250 mls @ ud IV .STK-MED ONE Ceftriaxone Sodium/Dextrose Confirm 10/08/20 16:52 Rocephin 1 Gm-D5w 50 Ml Bag Administered 10/08/20 16:53 Dose 1 g in 50 mls @ ud IV .STK-MED ONE Insulin Human Regular 8 unit 10/08/20 16:29 10/08/20 16:42 Humulin R IV 10/08/20 16:30 8 unit STAT ONE Administration Insulin Human Regular Confirm 10/08/20 16:41 Humulin R Administered 10/08/20 16:42 Dose 8 unit .ROUTE .STK-MED ONE Lab/Rad Data: Laboratory Result Diagrams 10/08/20 15:25 10/08/20 15:25 Laboratory Results 10/08/20 10/08/20 10/08/20 Range/Units 18:54 17:30 16:05 WBC (4.0-10.5) K/mm3 RBC (4.1-5.6) M/mm3 Hgb (12.5-18.0) gm/dl Hct (42-50) % MCV (78-100) fl MCH (26-32) pg MCHC (32-36) g/dl RDW (11.5-14.0) % Plt Count (150-450) K/mm3 MPV (7.5-11.0) fl Gran % (36.0-66.0) % Eos # (Auto) (0-0.5) Absolute Lymphs (auto) (1.0-4.6) Absolute Monos (auto) (0.0-1.3) Total Counted Lymphocytes % (24.0-44.0) % Monocytes % (0.0-12.0) % Eosinophils % (0.00-5.0) % Basophils % (0.0-0.4) % Absolute Granulocytes (1.4-6.9) Absolute Neutrophils Segmented Neutrophils Band Neutrophils Lymphocytes (Manual) Monocytes (Manual) Eosinophils (Manual) Basophils (Manual) Basophils # (0-0.4) Metamyelocytes Myelocytes Promyelocytes Nucleated RBCs Hypersegmented Polys Atypical Lymphocytes Blast Cells Plasma Cells Other Cell Type Hypochromia Toxic Granulation Dohle Bodies Lita Rods Platelet Estimate RBC Morphology Polychromasia Poikilocytosis Basophilic Stippling Anisocytosis Microcytosis Macrocytosis Spherocytes Sickle Cells Target Cells Tear Drop Cells Ovalocytes Stomatocytes Helmet Cells [place] Bodies [place] Rings [place] Cells Acanthocytes (Spur) Rouleaux Schistocytes Morphology Comment Sodium (137-145) mmol/L Potassium (3.5-5.1) mmol/L Chloride (98-107) mmol/L Carbon Dioxide (22-30) mmol/L Anion Gap (5-15) MEQ/L BUN (9-20) mg/dL Creatinine (0.66-1.25) mg/dL Estimated GFR ML/MIN Glucose (74-106) mg/dL POC Glucometer 346 H (74 to 106) mg/dL Lactic Acid 3.6 H (0.4-2.0) Calcium (8.4-10.2) mg/dL Magnesium (1.6-2.3) mg/dL Total Bilirubin (0.2-1.3) mg/dL AST (17-59) U/L ALT (0-50) U/L Alkaline Phosphatase (38-126) U/L Troponin I (0.000-0.034) ng/mL Serum Total Protein (6.3-8.2) g/dL Albumin (3.5-5.0) g/dL Urine Color (YELLOW) Urine Appearance (CLEAR) Urine pH (5-6) Ur Specific [place] (1.005-1.025) Urine Protein (Negative) Urine Ketones (NEGATIVE) Urine Blood (0-5) Steve/ul Urine Nitrite (NEGATIVE) Urine Bilirubin (NEGATIVE) Urine Urobilinogen (0-1) mg/dL Ur Leukocyte Esterase (NEGATIVE) Urine WBC (Auto) (0-5) /HPF Urine RBC (Auto) (0-2) /HPF U Epithel Cells (Auto) (FEW) /HPF Urine Bacteria (Auto) (NEGATIVE) /HPF Urine Culture Reflexed (NO) Urine Glucose (NEGATIVE) mg/dL Influenza Type A Ag NEGATIVE (NEGATIVE) Influenza Type B Ag NEGATIVE (NEGATIVE) 10/08/20 10/08/20 10/08/20 Range/Units 15:46 15:25 15:25 WBC (4.0-10.5) K/mm3 RBC (4.1-5.6) M/mm3 Hgb (12.5-18.0) gm/dl Hct (42-50) % MCV (78-100) fl MCH (26-32) pg MCHC (32-36) g/dl RDW (11.5-14.0) % Plt Count (150-450) K/mm3 MPV (7.5-11.0) fl Gran % (36.0-66.0) % Eos # (Auto) (0-0.5) Absolute Lymphs (auto) (1.0-4.6) Absolute Monos (auto) (0.0-1.3) Total Counted Lymphocytes % (24.0-44.0) % Monocytes % (0.0-12.0) % Eosinophils % (0.00-5.0) % Basophils % (0.0-0.4) % Absolute Granulocytes (1.4-6.9) Absolute Neutrophils Segmented Neutrophils Band Neutrophils Lymphocytes (Manual) Monocytes (Manual) Eosinophils (Manual) Basophils (Manual) Basophils # (0-0.4) Metamyelocytes Myelocytes Promyelocytes Nucleated RBCs Hypersegmented Polys Atypical Lymphocytes Blast Cells Plasma Cells Other Cell Type Hypochromia Toxic Granulation Dohle Bodies Lita Rods Platelet Estimate RBC Morphology Polychromasia Poikilocytosis Basophilic Stippling Anisocytosis Microcytosis Macrocytosis Spherocytes Sickle Cells Target Cells Tear Drop Cells Ovalocytes Stomatocytes Helmet Cells [place] Bodies [place] Rings [place] Cells Acanthocytes (Spur) Rouleaux Schistocytes Morphology Comment Sodium (137-145) mmol/L Potassium (3.5-5.1) mmol/L Chloride (98-107) mmol/L Carbon Dioxide (22-30) mmol/L Anion Gap (5-15) MEQ/L BUN (9-20) mg/dL Creatinine (0.66-1.25) mg/dL Estimated GFR ML/MIN Glucose (74-106) mg/dL POC Glucometer (74 to 106) mg/dL Lactic Acid (0.4-2.0) Calcium (8.4-10.2) mg/dL Magnesium 1.6 (1.6-2.3) mg/dL Total Bilirubin (0.2-1.3) mg/dL AST (17-59) U/L ALT (0-50) U/L Alkaline Phosphatase (38-126) U/L Troponin I < 0.012 (0.000-0.034) ng/mL Serum Total Protein (6.3-8.2) g/dL Albumin (3.5-5.0) g/dL Urine Color STRAW (YELLOW) Urine Appearance CLEAR (CLEAR) Urine pH 6.0 (5-6) Ur Specific [place] 1.021 (1.005-1.025) Urine Protein 30 (Negative) Urine Ketones TRACE (NEGATIVE) Urine Blood NEGATIVE (0-5) Steve/ul Urine Nitrite NEGATIVE (NEGATIVE) Urine Bilirubin NEGATIVE (NEGATIVE) Urine Urobilinogen NEGATIVE (0-1) mg/dL Ur Leukocyte Esterase NEGATIVE (NEGATIVE) Urine WBC (Auto) NONE (0-5) /HPF Urine RBC (Auto) NONE (0-2) /HPF U Epithel Cells (Auto) NONE (FEW) /HPF Urine Bacteria (Auto) NONE (NEGATIVE) /HPF Urine Culture Reflexed NO (NO) Urine Glucose >=500 (NEGATIVE) mg/dL Influenza Type A Ag (NEGATIVE) Influenza Type B Ag (NEGATIVE) 10/08/20 10/08/20 Range/Units 15:25 15:25 WBC 4.1 (4.0-10.5) K/mm3 RBC 4.50 (4.1-5.6) M/mm3 Hgb 12.6 (12.5-18.0) gm/dl Hct 39.8 L (42-50) % MCV 88.4 (78-100) fl MCH 28.0 (26-32) pg MCHC 31.7 L (32-36) g/dl RDW 13.9 (11.5-14.0) % Plt Count 194 (150-450) K/mm3 MPV 11.3 H (7.5-11.0) fl Gran % 88.8 H (36.0-66.0) % Eos # (Auto) 0.01 (0-0.5) Absolute Lymphs (auto) 0.30 L (1.0-4.6) Absolute Monos (auto) 0.14 (0.0-1.3) Total Counted Cancelled Lymphocytes % 7.4 L (24.0-44.0) % Monocytes % 3.4 (0.0-12.0) % Eosinophils % 0.2 (0.00-5.0) % Basophils % 0.2 (0.0-0.4) % Absolute Granulocytes 3.62 (1.4-6.9) Absolute Neutrophils Cancelled Segmented Neutrophils Cancelled Band Neutrophils Cancelled Lymphocytes (Manual) Cancelled Monocytes (Manual) Cancelled Eosinophils (Manual) Cancelled Basophils (Manual) Cancelled Basophils # 0.01 (0-0.4) Metamyelocytes Cancelled Myelocytes Cancelled Promyelocytes Cancelled Nucleated RBCs Cancelled Hypersegmented Polys Cancelled Atypical Lymphocytes Cancelled Blast Cells Cancelled Plasma Cells Cancelled Other Cell Type Cancelled Hypochromia Cancelled Toxic Granulation Cancelled Dohle Bodies Cancelled Lita Rods Cancelled Platelet Estimate Cancelled RBC Morphology Cancelled Polychromasia Cancelled Poikilocytosis Cancelled Basophilic Stippling Cancelled Anisocytosis Cancelled Microcytosis Cancelled Macrocytosis Cancelled Spherocytes Cancelled Sickle Cells Cancelled Target Cells Cancelled Tear Drop Cells Cancelled Ovalocytes Cancelled Stomatocytes Cancelled Helmet Cells Cancelled [place] Bodies Cancelled [place] Rings Cancelled [place] Cells Cancelled Acanthocytes (Spur) Cancelled Rouleaux Cancelled Schistocytes Cancelled Morphology Comment Cancelled Sodium 131 L (137-145) mmol/L Potassium 5.2 H (3.5-5.1) mmol/L Chloride 96 L (98-107) mmol/L Carbon Dioxide 23 (22-30) mmol/L Anion Gap 16.9 H (5-15) MEQ/L BUN 17 (9-20) mg/dL Creatinine 1.03 (0.66-1.25) mg/dL Estimated GFR > 60.0 ML/MIN Glucose 404 H (74-106) mg/dL POC Glucometer (74 to 106) mg/dL Lactic Acid (0.4-2.0) Calcium 9.7 (8.4-10.2) mg/dL Magnesium (1.6-2.3) mg/dL Total Bilirubin 0.60 (0.2-1.3) mg/dL AST 43 (17-59) U/L ALT 33 (0-50) U/L Alkaline Phosphatase 85 (38-126) U/L Troponin I (0.000-0.034) ng/mL Serum Total Protein 7.1 (6.3-8.2) g/dL Albumin 4.3 (3.5-5.0) g/dL Urine Color (YELLOW) Urine Appearance (CLEAR) Urine pH (5-6) Ur Specific [place] (1.005-1.025) Urine Protein (Negative) Urine Ketones (NEGATIVE) Urine Blood (0-5) Steve/ul Urine Nitrite (NEGATIVE) Urine Bilirubin (NEGATIVE) Urine Urobilinogen (0-1) mg/dL Ur Leukocyte Esterase (NEGATIVE) Urine WBC (Auto) (0-5) /HPF Urine RBC (Auto) (0-2) /HPF U Epithel Cells (Auto) (FEW) /HPF Urine Bacteria (Auto) (NEGATIVE) /HPF Urine Culture Reflexed (NO) Urine Glucose (NEGATIVE) mg/dL Influenza Type A Ag (NEGATIVE) Influenza Type B Ag (NEGATIVE) - Progress Progress: improved, re-examined Air Movement: fair, good Progress Note: 10/08/20 17:52 Is given breathing treatment and steroid, placed on oxygen, on reevaluation feeling much better and has much improvement in work of breathing. Patient work-up showed normal white count, elevated blood sugar but not in DKA. Given IV insulin. Part of elevated blood sugar is from stress related to infection and steroid. Chest x-ray did not show any acute pneumonic infiltrates. I believe patient has COPD exacerbation, will continue with steroids and started on antibiotics. Discussed with Dr. Serrano and patient is admitted for observation. Blood Culture(s) Obtained: Yes Antibiotics given: Yes Discussed with : Angelina Will see patient in: hospital (observation) Counseled pt/family regarding: lab results, diagnosis, rad results - Departure Departure Disposition: Observation Clinical Impression: COPD exacerbation, Respiratory distress Condition: Stable Critical Care Time: Yes Critical Care Time(excluding separately billable procedures): Critical 30-74 mins Referrals: MELQUIADES CADET [Primary Care Provider] - Instructions: Chronic Obstructive Pulmonary Disease
[2020-10-08] MEDS ORDERED: Zofran 4 MG/2 ML VIAL IV PRN (20:01)
[2020-10-08] MEDS ORDERED: DUONEB 0.5-3 MG/3 ml Neb IH SCH (20:01)
[2020-10-08] MEDS ORDERED: solu-MEDROL 40 MG IV ONE (20:01)
[2020-10-08] MEDS ORDERED: TYLENOL 325 MG PO PRN (20:01)
[2020-10-08] MEDS ORDERED: VENTOLIN COMMON CANISTER IH PRN (20:25)
[2020-10-08] MEDS ORDERED: MAG-OX 400 ONE (21:54)
[2020-10-08] MEDS: ELIQUIS 2.5 MG TABLET PO SCH (22:00)
[2020-10-08] MEDS ORDERED: MAG-OX 400 PO SCH (22:00)
[2020-10-08] MEDS: Flomax 0.4 MG PO SCH (22:01)
[2020-10-08] MEDS: Coreg 3.125 MG PO SCH (22:01)
[2020-10-08] MEDS: Requip 0.5 MG PO SCH (22:02)
[2020-10-08] MEDS: MAG-OX 400 PO SCH (22:12)
[2020-10-08] MEDS: Glucophage 500 MG PO SCH (22:13)
[2020-10-08] MEDS: Vitamin E 400 UNIT SOFTGEL PO SCH (22:13)
[2020-10-08] MEDS: HUMALOG SQ PRN (22:14)
[2020-10-09] MEDS: DUONEB 0.5-3 MG/3 ml Neb IH SCH ×4 (01:10→18:50)
[2020-10-09] MEDS ORDERED: Sodium Chloride 0.9% 1000 ML 0 ML ONE (04:00)
[2020-10-09 04:23] LABS: Hematocrit 38.3 % (42-50); Hemoglobin 12.2 gm/dl (12.5-18.0); Mean Corpuscular Hgb Concent. 31.9 g/dl (32-36); Mean Platelet Volume 10.8 fl (7.5-11.0); Platelet Count 205 K/mm3 (150-450); Red Blood Count 4.35 M/mm3 (4.1-5.6); Red Cell Distribution Width 13.5 % (11.5-14.0); White Blood Count 7.2 K/mm3 (4.0-10.5)
[2020-10-09 05:03] LABS: ALBUMIN 3.9 g/dL (3.5-5.0); ALKALINE PHOSPHATASE 81 U/L (38-126); ANION GAP 14.4 MEQ/L (5-15); BLOOD UREA NITROGEN 18 mg/dL (9-20); CHLORIDE 99 mmol/L (98-107); Calcium 9.5 mg/dL (8.4-10.2); Carbon Dioxide 22 mmol/L (22-30); Creatinine 1 0.97 mg/dL (0.66-1.25); EST GLOMERULAR FILTRATION RATE > 60.0 ML/MIN; Glucose 328 mg/dL (74-106); Potassium 5.1 mmol/L (3.5-5.1); SGOT/AST 33 U/L (17-59); SGPT/ALT 30 U/L (0-50); SODIUM 130 mmol/L (137-145); Total Protein 6.5 g/dL (6.3-8.2)
[2020-10-09 05:38] LABS: BAND 3 % (0.0-2.0); Lymphocytes 2 % (24-44); Monocyte 3 % (0.0-12.0); Neutrophils 92 % (36.-66.); Platelet Estimate NORMAL (NORMAL); Total Cells Counted 100
[2020-10-09] MEDS: Advair Hfa 115/21 Common canister IH SCH ×2 (07:39→18:55)
[2020-10-09] MEDS: Glucophage 500 MG PO SCH ×2 (07:59→16:58)
[2020-10-09] MEDS ORDERED: Glucophage 500 MG PO SCH (08:00)
[2020-10-09] MEDS: HUMALOG SQ PRN ×4 (08:00→21:32)
[2020-10-09] MEDS: Coreg 3.125 MG PO SCH ×2 (09:37→22:03)
[2020-10-09] MEDS: MAG-OX 400 PO SCH ×3 (09:38→22:01)
[2020-10-09] MEDS: ELIQUIS 2.5 MG TABLET PO SCH ×2 (09:38→22:02)
[2020-10-09] MEDS: ROCEPHIN 1 Gm-D5w 50 ml Bag** 1 G/50 ML IVPB IV SCH (09:39)
[2020-10-09] MEDS: Zithromax 500 MG/ 250 ML NaCl Premix 500 MG/250 ML IVPB IV SCH (09:39)
[2020-10-09] MEDS ORDERED: TESTOSTERONE CYPIONATE 200 MG IM SCH (09:45)
[2020-10-09] MEDS ORDERED: NON-FORMULARY ITEM (Alendronate Sodium [Alendronate Sodium] 35 MG) PO SCH (09:45)
[2020-10-09] MEDS ORDERED: NON-FORMULARY ITEM (Cyanocobalamin (Vitamin B-12) [B-12] 1,000 MCG) PO SCH (09:45)
[2020-10-09] MEDS ORDERED: ZINC PICOLI PO SCH (10:00)
[2020-10-09] MEDS ORDERED: PROTONIX 40 MG IV IV SCH (10:00)
[2020-10-09] MEDS ORDERED: [UNRECOGNIZED DRUG - OTHER] PO SCH (10:00)
[2020-10-09] MEDS ORDERED: SAW PALMETTO FRUIT PO SCH (10:00)
[2020-10-09] MEDS ORDERED: Fosamax 70 MG PO SCH (10:00)
[2020-10-09] MEDS ORDERED: SODIUM ZIRCONIUM CYCLOSILICATE PO SCH (10:00)
[2020-10-09] MEDS: MOTRIN 600 MG PO SCH (10:02)
[2020-10-09] MEDS: LASIX 20 MG PO SCH ×2 (10:03→16:58)
[2020-10-09] MEDS: SYNTHROID 50 MCG PO SCH (10:03)
[2020-10-09] MEDS: Vitamin B-12 500 MCG PO SCH (10:04)
[2020-10-09] MEDS: FOLATE 1 MG PO SCH (10:04)
[2020-10-09] MEDS: AMILORIDE HCL PO SCH (10:05)
[2020-10-09] MEDS: Proscar 5 MG PO SCH (10:05)
[2020-10-09] MEDS ORDERED: MEDICATION INTERVENTION PO SCH ×2 (10:15)
[2020-10-09] MEDS ORDERED: MEDICATION INTERVENTION MC SCH (10:15)
[2020-10-09] MEDS ORDERED: solu-MEDROL 125 MG ONE (10:29)
[2020-10-09] MEDS: solu-MEDROL 125 MG IV SCH ×2 (10:31→22:02)
[2020-10-09] MEDS: Protonix 40MG Tablet PO SCH (11:01)
--- NOTE | 2020-10-09 14:23 | PCM.HP ---
History of Present Illness - Chief Complaint Chief Complaint: copd exacerbation Date: 10/09/20 History of Present Illness: is a 69 year old male seen and examined this am. Patient reports that he was having increased SOB and that he was treated with steroids as outpatient but continued to have worsening SOB. 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 He reports he has been taking his medications as directed. He has been using his trelogy and albuterol inhalers but does not feel the trelogy is helping. He reports productive cough and that his sputum is clear. He follows with cardiology as well and has an upcoming appt on . He sees nephrology as well. He reports hx of JEFFERSON and reports he wears his mask on a routine basis. He denies being on oxygen at home. 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 Patient reports hx of abdominal issues and reports he had multiple test performed and that he at one point had a medication change which resolved the diarrhea he was having. - Review of Systems Constitutional: No Fever Eyes: No Symptoms Ears, Nose, & Throat: No Symptoms Respiratory: Cough, Short Of Breath Cardiac: No Chest Pain, No Edema, No Palpitations Abdominal/Gastrointestinal: Abdominal Pain (chronic), Diarrhea (hx of diarrhea that he reports resolved with removal of one of his medications), No Nausea, No Vomiting, No Constipation Genitourinary Symptoms: No Symptoms Musculoskeletal: No Symptoms Skin: No Symptoms Neurological: No Headache Psychological: No Alcohol Abuse, No Drug Abuse, No Anxiety, No Depression Endocrine: No Symptoms Hematologic/Lymphatic: No Symptoms Immunological/Allergic: No Symptoms Medications & Allergies Home Medications: Home Medication List Alendronate Sodium 35 mg PO WEEKLY 05/06/19 [History Confirmed 10/08/20] Finasteride 5 mg [Proscar 5 MG] 5 mg PO DAILY 05/06/19 [History Confirmed 10/08/20] Fluticasone/Umeclidin/Vilanter [Trelegy Ellipta 100-62.5-25] 1 each IH HS 05/06/19 [History Confirmed 10/08/20] Folic Acid 1 mg [Folate 1 mg] 2 tab PO DAILY 05/06/19 [History Confirmed 10/08/20] Levothyroxine Sodium 50 Mcg [Synthroid 50 Mcg] 50 mcg PO DAILY 05/06/19 [History Confirmed 10/08/20] Lovastatin 40 mg PO HS 05/06/19 [History Confirmed 10/08/20] Metformin HCl 500 mg [Glucophage 500 MG] 1,000 mg PO BID 05/06/19 [History Confirmed 10/08/20] Pyridoxine HCl [Vitamin B-6] 100 mg PO UD 05/06/19 [History Confirmed 10/08/20] Ropinirole HCl 1 mg PO HS 05/06/19 [History Confirmed 10/08/20] Saw Paoli Fruit/Zinc Picoli [Saw Paoli 450 mg Capsule] 900 mg PO BID 05/06/19 [History Confirmed 10/08/20] Tamsulosin HCl 0.4 mg [Flomax 0.4 MG] 0.4 mg PO HS 05/06/19 [History Confirmed 10/08/20] Testosterone Cypionate [Testone Cik] 200 mg IM UD 05/06/19 [History Confirmed 10/08/20] Vitamin E 400 Units [Vitamin E 400 UNIT SOFTGEL] 400 unit PO HS 05/06/19 [History Confirmed 10/08/20] Cyanocobalamin (Vitamin B-12) [B-12] 1,000 mcg PO UD 06/05/19 [History Confirmed 10/08/20] PANTOPRAZOLE 40 mg Tablet [Protonix 40MG Tablet] 40 mg PO DAILY 06/05/19 [History Confirmed 10/08/20] Albuterol 2.5 mg/3 ml Neb [Proventil 2.5 mg/3 ml Neb] 2 puffs NEB QID 02/28/20 [History Confirmed 10/08/20] Amiloride HCl 5 mg PO DAILY 02/28/20 [History Confirmed 10/08/20] Ibuprofen 200 mg [Motrin 200 mg] 3 tab PO DAILY 02/28/20 [History Confirmed 10/08/20] Magnesium Oxide 400 mg [Mag-Ox 400] 3 tab PO TID 02/28/20 [History Confirmed 10/08/20] Sodium Zirconium Cyclosilicate [Lokelma] 1 packet PO DAILY 02/28/20 [History Confirmed 10/08/20] Apixaban [Eliquis] 1 tab PO BID 10/08/20 [History Confirmed 10/08/20] Carvedilol [Coreg] 3.125 mg PO BID 10/08/20 [History Confirmed 10/08/20] Furosemide [Lasix] 20 mg PO BID 10/08/20 [History Confirmed 10/08/20] Allergies/Adverse Reactions: Allergies Allergy/AdvReac Type Severity Reaction Status Date / Time bacitracin Allergy Rash Verified 10/08/20 15:31 [From Neosporin ([id number])] bacitracin zinc Allergy Rash Verified 10/08/20 15:31 [From Neosporin ([id number])] neomycin sulfate Allergy Rash Verified 10/08/20 15:31 [From Neosporin ([id number])] polymyxin B Allergy Rash Verified 10/08/20 15:31 [From Neosporin ([id number])] - Past Medical History Past Medical History: Yes Neurological History: No Pertinent History ENT History: No Pertinent History Cardiac History: Arrhythmia, Peripheral Vascular Disease Respiratory History: COPD, Sleep Apnea Endocrine Medical History: Diabetes Type II Musculoskelatal History: Fractures, Osteoarthritis GI Medical History: GERD, Gallbladder Disease, Hernia History: No Pertinent History Pyscho-Social History: No Pertinent History Male Reproductive Disorders: Prostate Problems Comment: FX LEFT HIP 30 YEARS AGO - NO SURGERY. STENT PLACEMENT LEFT LOWER LEG (GROIN) (Pt states no knowing what it is for)10 YEARS AGO. CHOLECYSTECTOMY, APPENDECTOMY, BILATERAL INGUINAL HERNIA REPAIRS, carpil tunnel lt arm, - Past Surgical History Past Surgical History: Yes Neuro Surgical History: No Pertinent History Cardiac History: Vascular Surgery Respiratory Surgery: No Pertinent History GI Surgical History: Appendectomy, Cholecystectomy, Hernia Repair Genitourinary Surgical Hx: No Pertinent History Musculskeletal Surgical Hx: No Pertinent History Male Surgical History: No Pertinent History Other Surgical History: STENT PLACED AFTER GALLBLADDER REMOVAL( "had liver kn icked during surgery and had a drain to reroute bile"), AND REMOVED. shoulder surgery- right states rotator cuff repair,, Left Carpal Tunnel Surgery, Right rotator cuff surgery - Social History Smoking Status: Former smoker Exposure to second hand smoke: No Alcohol: None Drug Use: none Significant Family History: heart disease - Physical Exam Vital Signs: Vital Signs - 24 hr Temp Pulse Resp BP Pulse Ox 10/09/20 12:07 78 20 97 10/09/20 08:00 98.3 F 78 20 169/74 98 10/09/20 07:41 70 18 98 10/09/20 04:00 97.9 F 73 17 136/81 94 L 10/09/20 01:10 69 21 94 L 10/08/20 23:53 98.1 F 70 18 133/60 92 L 10/08/20 20:25 97.5 F 76 25 H 173/81 97 10/08/20 20:23 76 25 H 97 10/08/20 19:08 76 164/86 97 10/08/20 19:05 96 10/08/20 18:14 76 17 183/79 98 10/08/20 17:54 75 172/83 97 10/08/20 16:32 86 22 96 10/08/20 16:20 71 20 155/83 96 10/08/20 15:23 98.2 F 72 40 H 165/88 94 L Oxygen-Last 24 hours Oxygen Flowrate (L/min)-RT 2 General Appearance: moderate distress, obese, No anxiety Neurologic Exam: alert, oriented x 3, cooperative, normal mood/affect, No disoriented, No confusion, No agitation, No depressed mood/affect Eye Exam: eyes nml inspection, No scleral icterus Ears, Nose, Throat Exam: moist mucous membranes Neck Exam: normal inspection Respiratory Exam: respiratory distress, diminished breath sounds, accessory muscle use, wheezing, No normal breath sounds, No chest tenderness, No lungs clear, No crackles/rales Cardiovascular Exam: regular rate/rhythm, normal heart sounds, No murmur, No friction rub, No gallop Gastrointestinal/Abdomen Exam: distention (Significant abdominal distention), No soft, No normal bowel sounds (Bowel sounds noted left chest.), No guarding, No rebound Rectal Exam: deferred Back Exam: normal inspection Extremity Exam: normal inspection, No pedal edema, No swelling, No tenderness Skin Exam: normal color, warm, dry Results - Labs Lab/Micro Results: Lab Results-Last 24 Hours 10/08/20 10/08/20 10/08/20 Range/Units 15:25 15:25 15:25 WBC 4.1 (4.0-10.5) K/mm3 RBC 4.50 (4.1-5.6) M/mm3 Hgb 12.6 (12.5-18.0) gm/dl Hct 39.8 L (42-50) % MCV 88.4 (78-100) fl MCH 28.0 (26-32) pg MCHC 31.7 L (32-36) g/dl RDW 13.9 (11.5-14.0) % Plt Count 194 (150-450) K/mm3 MPV 11.3 H (7.5-11.0) fl Gran % 88.8 H (36.0-66.0) % Eos # (Auto) 0.01 (0-0.5) Absolute Lymphs (auto) 0.30 L (1.0-4.6) Absolute Monos (auto) 0.14 (0.0-1.3) Total Counted Cancelled Lymphocytes % 7.4 L (24.0-44.0) % Monocytes % 3.4 (0.0-12.0) % Eosinophils % 0.2 (0.00-5.0) % Basophils % 0.2 (0.0-0.4) % Absolute Granulocytes 3.62 (1.4-6.9) Absolute Neutrophils Cancelled Segmented Neutrophils Cancelled Band Neutrophils Cancelled Lymphocytes (Manual) Cancelled Monocytes (Manual) Cancelled Eosinophils (Manual) Cancelled Basophils (Manual) Cancelled Basophils # 0.01 (0-0.4) Metamyelocytes Cancelled Myelocytes Cancelled Promyelocytes Cancelled Nucleated RBCs Cancelled Hypersegmented Polys Cancelled Atypical Lymphocytes Cancelled Blast Cells Cancelled Plasma Cells Cancelled Other Cell Type Cancelled Hypochromia Cancelled Toxic Granulation Cancelled Dohle Bodies Cancelled Lita Rods Cancelled Platelet Estimate Cancelled RBC Morphology Cancelled Polychromasia Cancelled Poikilocytosis Cancelled Basophilic Stippling Cancelled Anisocytosis Cancelled Microcytosis Cancelled Macrocytosis Cancelled Spherocytes Cancelled Sickle Cells Cancelled Target Cells Cancelled Tear Drop Cells Cancelled Ovalocytes Cancelled Stomatocytes Cancelled Helmet Cells Cancelled Bah-Lillie Bodies Cancelled [place] Cancelled Daryl Cells Cancelled Acanthocytes (Spur) Cancelled Rouleaux Cancelled Schistocytes Cancelled Morphology Comment Cancelled Sodium 131 L (137-145) mmol/L Potassium 5.2 H (3.5-5.1) mmol/L Chloride 96 L (98-107) mmol/L Carbon Dioxide 23 (22-30) mmol/L Anion Gap 16.9 H (5-15) MEQ/L BUN 17 (9-20) mg/dL Creatinine 1.03 (0.66-1.25) mg/dL Estimated GFR > 60.0 ML/MIN Glucose 404 H (74-106) mg/dL POC Glucometer (74 to 106) mg/dL Hemoglobin A1c (4.5-6.0) % Lactic Acid (0.4-2.0) Calcium 9.7 (8.4-10.2) mg/dL Magnesium 1.6 (1.6-2.3) mg/dL Total Bilirubin 0.60 (0.2-1.3) mg/dL AST 43 (17-59) U/L ALT 33 (0-50) U/L Alkaline Phosphatase 85 (38-126) U/L Troponin I (0.000-0.034) ng/mL Serum Total Protein 7.1 (6.3-8.2) g/dL Albumin 4.3 (3.5-5.0) g/dL Urine Color (YELLOW) Urine Appearance (CLEAR) Urine pH (5-6) Ur Specific Bouse (1.005-1.025) Urine Protein (Negative) Urine Ketones (NEGATIVE) Urine Blood (0-5) Steve/ul Urine Nitrite (NEGATIVE) Urine Bilirubin (NEGATIVE) Urine Urobilinogen (0-1) mg/dL Ur Leukocyte Esterase (NEGATIVE) Urine WBC (Auto) (0-5) /HPF Urine RBC (Auto) (0-2) /HPF U Epithel Cells (Auto) (FEW) /HPF Urine Bacteria (Auto) (NEGATIVE) /HPF Urine Culture Reflexed (NO) Urine Glucose (NEGATIVE) mg/dL Influenza Type A Ag (NEGATIVE) Influenza Type B Ag (NEGATIVE) SARS-CoV-2 (PCR) (NEGATIVE) 10/08/20 10/08/20 10/08/20 Range/Units 15:25 15:46 16:05 WBC (4.0-10.5) K/mm3 RBC (4.1-5.6) M/mm3 Hgb (12.5-18.0) gm/dl Hct (42-50) % MCV (78-100) fl MCH (26-32) pg MCHC (32-36) g/dl RDW (11.5-14.0) % Plt Count (150-450) K/mm3 MPV (7.5-11.0) fl Gran % (36.0-66.0) % Eos # (Auto) (0-0.5) Absolute Lymphs (auto) (1.0-4.6) Absolute Monos (auto) (0.0-1.3) Total Counted Lymphocytes % (24.0-44.0) % Monocytes % (0.0-12.0) % Eosinophils % (0.00-5.0) % Basophils % (0.0-0.4) % Absolute Granulocytes (1.4-6.9) Absolute Neutrophils Segmented Neutrophils Band Neutrophils Lymphocytes (Manual) Monocytes (Manual) Eosinophils (Manual) Basophils (Manual) Basophils # (0-0.4) Metamyelocytes Myelocytes Promyelocytes Nucleated RBCs Hypersegmented Polys Atypical Lymphocytes Blast Cells Plasma Cells Other Cell Type Hypochromia Toxic Granulation Dohle Bodies Lita Rods Platelet Estimate RBC Morphology Polychromasia Poikilocytosis Basophilic Stippling Anisocytosis Microcytosis Macrocytosis Spherocytes Sickle Cells Target Cells Tear Drop Cells Ovalocytes Stomatocytes Helmet Cells Bah-Lillie Bodies [place] Cells Acanthocytes (Spur) Rouleaux Schistocytes Morphology Comment Sodium (137-145) mmol/L Potassium (3.5-5.1) mmol/L Chloride (98-107) mmol/L Carbon Dioxide (22-30) mmol/L Anion Gap (5-15) MEQ/L BUN (9-20) mg/dL Creatinine (0.66-1.25) mg/dL Estimated GFR ML/MIN Glucose (74-106) mg/dL POC Glucometer (74 to 106) mg/dL Hemoglobin A1c (4.5-6.0) % Lactic Acid 3.6 H (0.4-2.0) Calcium (8.4-10.2) mg/dL Magnesium (1.6-2.3) mg/dL Total Bilirubin (0.2-1.3) mg/dL AST (17-59) U/L ALT (0-50) U/L Alkaline Phosphatase (38-126) U/L Troponin I < 0.012 (0.000-0.034) ng/mL Serum Total Protein (6.3-8.2) g/dL Albumin (3.5-5.0) g/dL Urine Color STRAW (YELLOW) Urine Appearance CLEAR (CLEAR) Urine pH 6.0 (5-6) Ur Specific Bouse 1.021 (1.005-1.025) Urine Protein 30 (Negative) Urine Ketones TRACE (NEGATIVE) Urine Blood NEGATIVE (0-5) Steve/ul Urine Nitrite NEGATIVE (NEGATIVE) Urine Bilirubin NEGATIVE (NEGATIVE) Urine Urobilinogen NEGATIVE (0-1) mg/dL Ur Leukocyte Esterase NEGATIVE (NEGATIVE) Urine WBC (Auto) NONE (0-5) /HPF Urine RBC (Auto) NONE (0-2) /HPF U Epithel Cells (Auto) NONE (FEW) /HPF Urine Bacteria (Auto) NONE (NEGATIVE) /HPF Urine Culture Reflexed NO (NO) Urine Glucose >=500 (NEGATIVE) mg/dL Influenza Type A Ag (NEGATIVE) Influenza Type B Ag (NEGATIVE) SARS-CoV-2 (PCR) (NEGATIVE) 10/08/20 10/08/20 10/08/20 Range/Units 17:30 18:06 18:54 WBC (4.0-10.5) K/mm3 RBC (4.1-5.6) M/mm3 Hgb (12.5-18.0) gm/dl Hct (42-50) % MCV (78-100) fl MCH (26-32) pg MCHC (32-36) g/dl RDW (11.5-14.0) % Plt Count (150-450) K/mm3 MPV (7.5-11.0) fl Gran % (36.0-66.0) % Eos # (Auto) (0-0.5) Absolute Lymphs (auto) (1.0-4.6) Absolute Monos (auto) (0.0-1.3) Total Counted Lymphocytes % (24.0-44.0) % Monocytes % (0.0-12.0) % Eosinophils % (0.00-5.0) % Basophils % (0.0-0.4) % Absolute Granulocytes (1.4-6.9) Absolute Neutrophils Segmented Neutrophils Band Neutrophils Lymphocytes (Manual) Monocytes (Manual) Eosinophils (Manual) Basophils (Manual) Basophils # (0-0.4) Metamyelocytes Myelocytes Promyelocytes Nucleated RBCs Hypersegmented Polys Atypical Lymphocytes Blast Cells Plasma Cells Other Cell Type Hypochromia Toxic Granulation Dohle Bodies Lita Rods Platelet Estimate RBC Morphology Polychromasia Poikilocytosis Basophilic Stippling Anisocytosis Microcytosis Macrocytosis Spherocytes Sickle Cells Target Cells Tear Drop Cells Ovalocytes Stomatocytes Helmet Cells Bah-Lillie Bodies [place] Cells Acanthocytes (Spur) Rouleaux Schistocytes Morphology Comment Sodium (137-145) mmol/L Potassium (3.5-5.1) mmol/L Chloride (98-107) mmol/L Carbon Dioxide (22-30) mmol/L Anion Gap (5-15) MEQ/L BUN (9-20) mg/dL Creatinine (0.66-1.25) mg/dL Estimated GFR ML/MIN Glucose (74-106) mg/dL POC Glucometer 346 H (74 to 106) mg/dL Hemoglobin A1c (4.5-6.0) % Lactic Acid (0.4-2.0) Calcium (8.4-10.2) mg/dL Magnesium (1.6-2.3) mg/dL Total Bilirubin (0.2-1.3) mg/dL AST (17-59) U/L ALT (0-50) U/L Alkaline Phosphatase (38-126) U/L Troponin I (0.000-0.034) ng/mL Serum Total Protein (6.3-8.2) g/dL Albumin (3.5-5.0) g/dL Urine Color (YELLOW) Urine Appearance (CLEAR) Urine pH (5-6) Ur Specific Bouse (1.005-1.025) Urine Protein (Negative) Urine Ketones (NEGATIVE) Urine Blood (0-5) Steve/ul Urine Nitrite (NEGATIVE) Urine Bilirubin (NEGATIVE) Urine Urobilinogen (0-1) mg/dL Ur Leukocyte Esterase (NEGATIVE) Urine WBC (Auto) (0-5) /HPF Urine RBC (Auto) (0-2) /HPF U Epithel Cells (Auto) (FEW) /HPF Urine Bacteria (Auto) (NEGATIVE) /HPF Urine Culture Reflexed (NO) Urine Glucose (NEGATIVE) mg/dL Influenza Type A Ag NEGATIVE (NEGATIVE) Influenza Type B Ag NEGATIVE (NEGATIVE) SARS-CoV-2 (PCR) NEGATIVE (NEGATIVE) 10/08/20 10/08/20 10/08/20 Range/Units 19:05 19:32 20:55 WBC (4.0-10.5) K/mm3 RBC (4.1-5.6) M/mm3 Hgb (12.5-18.0) gm/dl Hct (42-50) % MCV (78-100) fl MCH (26-32) pg MCHC (32-36) g/dl RDW (11.5-14.0) % Plt Count (150-450) K/mm3 MPV (7.5-11.0) fl Gran % (36.0-66.0) % Eos # (Auto) (0-0.5) Absolute Lymphs (auto) (1.0-4.6) Absolute Monos (auto) (0.0-1.3) Total Counted Lymphocytes % (24.0-44.0) % Monocytes % (0.0-12.0) % Eosinophils % (0.00-5.0) % Basophils % (0.0-0.4) % Absolute Granulocytes (1.4-6.9) Absolute Neutrophils Segmented Neutrophils Band Neutrophils Lymphocytes (Manual) Monocytes (Manual) Eosinophils (Manual) Basophils (Manual) Basophils # (0-0.4) Metamyelocytes Myelocytes Promyelocytes Nucleated RBCs Hypersegmented Polys Atypical Lymphocytes Blast Cells Plasma Cells Other Cell Type Hypochromia Toxic Granulation Dohle Bodies Lita Rods Platelet Estimate RBC Morphology Polychromasia Poikilocytosis Basophilic Stippling Anisocytosis Microcytosis Macrocytosis Spherocytes Sickle Cells Target Cells Tear Drop Cells Ovalocytes Stomatocytes Helmet Cells Bah-Lillie Bodies [place] Cells Acanthocytes (Spur) Rouleaux Schistocytes Morphology Comment Sodium (137-145) mmol/L Potassium (3.5-5.1) mmol/L Chloride (98-107) mmol/L Carbon Dioxide (22-30) mmol/L Anion Gap (5-15) MEQ/L BUN (9-20) mg/dL Creatinine (0.66-1.25) mg/dL Estimated GFR ML/MIN Glucose (74-106) mg/dL POC Glucometer 441 H (74 to 106) mg/dL Hemoglobin A1c (4.5-6.0) % Lactic Acid 2.9 H (0.4-2.0) Calcium (8.4-10.2) mg/dL Magnesium (1.6-2.3) mg/dL Total Bilirubin (0.2-1.3) mg/dL AST (17-59) U/L ALT (0-50) U/L Alkaline Phosphatase (38-126) U/L Troponin I < 0.012 (0.000-0.034) ng/mL Serum Total Protein (6.3-8.2) g/dL Albumin (3.5-5.0) g/dL Urine Color (YELLOW) Urine Appearance (CLEAR) Urine pH (5-6) Ur Specific Bouse (1.005-1.025) Urine Protein (Negative) Urine Ketones (NEGATIVE) Urine Blood (0-5) Steve/ul Urine Nitrite (NEGATIVE) Urine Bilirubin (NEGATIVE) Urine Urobilinogen (0-1) mg/dL Ur Leukocyte Esterase (NEGATIVE) Urine WBC (Auto) (0-5) /HPF Urine RBC (Auto) (0-2) /HPF U Epithel Cells (Auto) (FEW) /HPF Urine Bacteria (Auto) (NEGATIVE) /HPF Urine Culture Reflexed (NO) Urine Glucose (NEGATIVE) mg/dL Influenza Type A Ag (NEGATIVE) Influenza Type B Ag (NEGATIVE) SARS-CoV-2 (PCR) (NEGATIVE) 10/08/20 10/09/20 10/09/20 Range/Units 21:40 01:18 04:00 WBC (4.0-10.5) K/mm3 RBC (4.1-5.6) M/mm3 Hgb (12.5-18.0) gm/dl Hct (42-50) % MCV (78-100) fl MCH (26-32) pg MCHC (32-36) g/dl RDW (11.5-14.0) % Plt Count (150-450) K/mm3 MPV (7.5-11.0) fl Gran % (36.0-66.0) % Eos # (Auto) (0-0.5) Absolute Lymphs (auto) (1.0-4.6) Absolute Monos (auto) (0.0-1.3) Total Counted Lymphocytes % (24.0-44.0) % Monocytes % (0.0-12.0) % Eosinophils % (0.00-5.0) % Basophils % (0.0-0.4) % Absolute Granulocytes (1.4-6.9) Absolute Neutrophils Segmented Neutrophils Band Neutrophils Lymphocytes (Manual) Monocytes (Manual) Eosinophils (Manual) Basophils (Manual) Basophils # (0-0.4) Metamyelocytes Myelocytes Promyelocytes Nucleated RBCs Hypersegmented Polys Atypical Lymphocytes Blast Cells Plasma Cells Other Cell Type Hypochromia Toxic Granulation Dohle Bodies Lita Rods Platelet Estimate RBC Morphology Polychromasia Poikilocytosis Basophilic Stippling Anisocytosis Microcytosis Macrocytosis Spherocytes Sickle Cells Target Cells Tear Drop Cells Ovalocytes Stomatocytes Helmet Cells Bah-Lillie Bodies [place] Cells Acanthocytes (Spur) Rouleaux Schistocytes Morphology Comment Sodium (137-145) mmol/L Potassium (3.5-5.1) mmol/L Chloride (98-107) mmol/L Carbon Dioxide (22-30) mmol/L Anion Gap (5-15) MEQ/L BUN (9-20) mg/dL Creatinine (0.66-1.25) mg/dL Estimated GFR ML/MIN Glucose (74-106) mg/dL POC Glucometer (74 to 106) mg/dL Hemoglobin A1c 8.95 H (4.5-6.0) % Lactic Acid (0.4-2.0) Calcium (8.4-10.2) mg/dL Magnesium (1.6-2.3) mg/dL Total Bilirubin (0.2-1.3) mg/dL AST (17-59) U/L ALT (0-50) U/L Alkaline Phosphatase (38-126) U/L Troponin I < 0.012 < 0.012 (0.000-0.034) ng/mL Serum Total Protein (6.3-8.2) g/dL Albumin (3.5-5.0) g/dL Urine Color (YELLOW) Urine Appearance (CLEAR) Urine pH (5-6) Ur Specific Bouse (1.005-1.025) Urine Protein (Negative) Urine Ketones (NEGATIVE) Urine Blood (0-5) Steve/ul Urine Nitrite (NEGATIVE) Urine Bilirubin (NEGATIVE) Urine Urobilinogen (0-1) mg/dL Ur Leukocyte Esterase (NEGATIVE) Urine WBC (Auto) (0-5) /HPF Urine RBC (Auto) (0-2) /HPF U Epithel Cells (Auto) (FEW) /HPF Urine Bacteria (Auto) (NEGATIVE) /HPF Urine Culture Reflexed (NO) Urine Glucose (NEGATIVE) mg/dL Influenza Type A Ag (NEGATIVE) Influenza Type B Ag (NEGATIVE) SARS-CoV-2 (PCR) (NEGATIVE) 10/09/20 10/09/20 10/09/20 Range/Units 04:11 04:11 04:11 WBC 7.2 (4.0-10.5) K/mm3 RBC 4.35 (4.1-5.6) M/mm3 Hgb 12.2 L (12.5-18.0) gm/dl Hct 38.3 L (42-50) % MCV 88.0 (78-100) fl MCH 28.0 (26-32) pg MCHC 31.9 L (32-36) g/dl RDW 13.5 (11.5-14.0) % Plt Count 205 (150-450) K/mm3 MPV 10.8 (7.5-11.0) fl Gran % (36.0-66.0) % Eos # (Auto) (0-0.5) Absolute Lymphs (auto) (1.0-4.6) Absolute Monos (auto) (0.0-1.3) Total Counted Lymphocytes % (24.0-44.0) % Monocytes % (0.0-12.0) % Eosinophils % (0.00-5.0) % Basophils % (0.0-0.4) % Absolute Granulocytes (1.4-6.9) Absolute Neutrophils Segmented Neutrophils 92 H Band Neutrophils 3 H Lymphocytes (Manual) 2 L Monocytes (Manual) 3 Eosinophils (Manual) Basophils (Manual) Basophils # (0-0.4) Metamyelocytes Myelocytes Promyelocytes Nucleated RBCs Hypersegmented Polys Atypical Lymphocytes Blast Cells Plasma Cells Other Cell Type Hypochromia Toxic Granulation Dohle Bodies Lita Rods Platelet Estimate NORMAL RBC Morphology NORMAL Polychromasia Poikilocytosis Basophilic Stippling Anisocytosis Microcytosis Macrocytosis Spherocytes Sickle Cells Target Cells Tear Drop Cells Ovalocytes Stomatocytes Helmet Cells Bah-Lillie Bodies [place] Daryl Cells Acanthocytes (Spur) Rouleaux Schistocytes Morphology Comment Sodium 130 L (137-145) mmol/L Potassium 5.1 (3.5-5.1) mmol/L Chloride 99 (98-107) mmol/L Carbon Dioxide 22 (22-30) mmol/L Anion Gap 14.4 (5-15) MEQ/L BUN 18 (9-20) mg/dL Creatinine 0.97 (0.66-1.25) mg/dL Estimated GFR > 60.0 ML/MIN Glucose 328 H (74-106) mg/dL POC Glucometer (74 to 106) mg/dL Hemoglobin A1c (4.5-6.0) % Lactic Acid (0.4-2.0) Calcium 9.5 (8.4-10.2) mg/dL Magnesium (1.6-2.3) mg/dL Total Bilirubin 0.30 (0.2-1.3) mg/dL AST 33 (17-59) U/L ALT 30 (0-50) U/L Alkaline Phosphatase 81 (38-126) U/L Troponin I < 0.012 (0.000-0.034) ng/mL Serum Total Protein 6.5 (6.3-8.2) g/dL Albumin 3.9 (3.5-5.0) g/dL Urine Color (YELLOW) Urine Appearance (CLEAR) Urine pH (5-6) Ur Specific Bouse (1.005-1.025) Urine Protein (Negative) Urine Ketones (NEGATIVE) Urine Blood (0-5) Steve/ul Urine Nitrite (NEGATIVE) Urine Bilirubin (NEGATIVE) Urine Urobilinogen (0-1) mg/dL Ur Leukocyte Esterase (NEGATIVE) Urine WBC (Auto) (0-5) /HPF Urine RBC (Auto) (0-2) /HPF U Epithel Cells (Auto) (FEW) /HPF Urine Bacteria (Auto) (NEGATIVE) /HPF Urine Culture Reflexed (NO) Urine Glucose (NEGATIVE) mg/dL Influenza Type A Ag (NEGATIVE) Influenza Type B Ag (NEGATIVE) SARS-CoV-2 (PCR) (NEGATIVE) 10/09/20 Range/Units 11:10 WBC (4.0-10.5) K/mm3 RBC (4.1-5.6) M/mm3 Hgb (12.5-18.0) gm/dl Hct (42-50) % MCV (78-100) fl MCH (26-32) pg MCHC (32-36) g/dl RDW (11.5-14.0) % Plt Count (150-450) K/mm3 MPV (7.5-11.0) fl Gran % (36.0-66.0) % Eos # (Auto) (0-0.5) Absolute Lymphs (auto) (1.0-4.6) Absolute Monos (auto) (0.0-1.3) Total Counted Lymphocytes % (24.0-44.0) % Monocytes % (0.0-12.0) % Eosinophils % (0.00-5.0) % Basophils % (0.0-0.4) % Absolute Granulocytes (1.4-6.9) Absolute Neutrophils Segmented Neutrophils Band Neutrophils Lymphocytes (Manual) Monocytes (Manual) Eosinophils (Manual) Basophils (Manual) Basophils # (0-0.4) Metamyelocytes Myelocytes Promyelocytes Nucleated RBCs Hypersegmented Polys Atypical Lymphocytes Blast Cells Plasma Cells Other Cell Type Hypochromia Toxic Granulation Dohle Bodies Lita Rods Platelet Estimate RBC Morphology Polychromasia Poikilocytosis Basophilic Stippling Anisocytosis Microcytosis Macrocytosis Spherocytes Sickle Cells Target Cells Tear Drop Cells Ovalocytes Stomatocytes Helmet Cells Bah-Lillie Bodies [place] Rings [place] Cells Acanthocytes (Spur) Rouleaux Schistocytes Morphology Comment Sodium (137-145) mmol/L Potassium (3.5-5.1) mmol/L Chloride (98-107) mmol/L Carbon Dioxide (22-30) mmol/L Anion Gap (5-15) MEQ/L BUN (9-20) mg/dL Creatinine (0.66-1.25) mg/dL Estimated GFR ML/MIN Glucose (74-106) mg/dL POC Glucometer 361 H (74 to 106) mg/dL Hemoglobin A1c (4.5-6.0) % Lactic Acid (0.4-2.0) Calcium (8.4-10.2) mg/dL Magnesium (1.6-2.3) mg/dL Total Bilirubin (0.2-1.3) mg/dL AST (17-59) U/L ALT (0-50) U/L Alkaline Phosphatase (38-126) U/L Troponin I (0.000-0.034) ng/mL Serum Total Protein (6.3-8.2) g/dL Albumin (3.5-5.0) g/dL Urine Color (YELLOW) Urine Appearance (CLEAR) Urine pH (5-6) Ur Specific Bouse (1.005-1.025) Urine Protein (Negative) Urine Ketones (NEGATIVE) Urine Blood (0-5) Steve/ul Urine Nitrite (NEGATIVE) Urine Bilirubin (NEGATIVE) Urine Urobilinogen (0-1) mg/dL Ur Leukocyte Esterase (NEGATIVE) Urine WBC (Auto) (0-5) /HPF Urine RBC (Auto) (0-2) /HPF U Epithel Cells (Auto) (FEW) /HPF Urine Bacteria (Auto) (NEGATIVE) /HPF Urine Culture Reflexed (NO) Urine Glucose (NEGATIVE) mg/dL Influenza Type A Ag (NEGATIVE) Influenza Type B Ag (NEGATIVE) SARS-CoV-2 (PCR) (NEGATIVE) Accuchecks Date 10/09/20 Date 10/08/20 Time 12:00 Time 22:00 - Radiology Impressions Radiology Exams & Impressions: Radiology Procedures Category Date Time Status CHEST 1 VIEW (PORTABLE) Stat Exams 10/08/20 15:22 Completed - Other Procedures and Tests Respiratory Therapy 10/08/20 20:01 Oxygen Nasal Cannula 2 lpm 10/08/20 20:26 BiPap/CPAP ROUTINE Respiratory Therapy Assessment DAILY Assessment/Plan (1) COPD exacerbation Current Visit: Yes Status: Acute Assessment & Plan: Patient is requiring oxygen to maintain O2 sats. This is not baseline for patient. He is on steroids duonebs and antibiotics. Will add mucolytic incentive spirometry and flutter therapy. Code(s): J44.1 - CHRONIC OBSTRUCTIVE PULMONARY DISEASE W (ACUTE) EXACERBATION (2) Respiratory distress Current Visit: Yes Status: Acute Assessment & Plan: Patient appears to have increased work of breathing. He has COPD and may have a component of obesity hypoventilation syndrome as his abdomen is large and distended and does not appear to allow for adequate inhalation. Patient was wearing CPAP upon entering the room. Will continue to have patient on cpap machine as directed. Code(s): R06.03 - ACUTE RESPIRATORY DISTRESS (3) Diabetes mellitus Current Visit: No Status: Acute Assessment & Plan: Patient recently had BS in 400s following steroid tx. Diabetic diet BS ACHS and patient will be on insulin in hospital Code(s): E11.9 - TYPE 2 DIABETES MELLITUS WITHOUT COMPLICATIONS (4) Abdominal pain Current Visit: Yes Status: Acute Assessment & Plan: Chronic in nature. Bowel sounds were noted in the left chest. Will get CT abdomen to evaluate cause of abdominal pain. Code(s): R10.9 - UNSPECIFIED ABDOMINAL PAIN (5) DVT prophylaxis Current Visit: Yes Status: Acute Assessment & Plan: On eliquis Code(s): Z29.9 - ENCOUNTER FOR PROPHYLACTIC MEASURES, UNSPECIFIED
[2020-10-09] MEDS ORDERED: NON-FORMULARY ITEM (Lovastatin [Lovastatin] 40 MG) PO SCH (22:00)
[2020-10-09] MEDS: ZOCOR 20MG PO SCH (22:01)
[2020-10-09] MEDS: Requip 0.5 MG PO SCH (22:02)
[2020-10-09] MEDS: Flomax 0.4 MG PO SCH (22:02)
[2020-10-09] MEDS: Vitamin B-6 (Pyridoxine) 100 MG PO SCH (22:04)
[2020-10-09] MEDS: Vitamin E 400 UNIT SOFTGEL PO SCH (22:04)
[2020-10-09] MEDS: Mucinex 600MG ER Tabs PO SCH (22:08)
[2020-10-10] MEDS: PATIENT OWN MEDICATION PO SCH (02:16)
[2020-10-10] MEDS: DUONEB 0.5-3 MG/3 ml Neb IH SCH ×4 (02:19→19:40)
[2020-10-10] MEDS: Advair Hfa 115/21 Common canister IH SCH ×2 (07:02→19:41)
[2020-10-10] MEDS: HUMALOG SQ PRN ×5 (07:24→22:42)
--- NOTE | 2020-10-10 07:51 | XRAY ---
Indication: Short of breath. Elevated d-dimer. Atrial fibrillation. Multiple contiguous axial images obtained through the chest using 100 cc Isovue 370 contrast and PE protocol. Comparison: March 29, 2018. There is adequate opacification of the pulmonary arteries to include the lobar and segmental branches. No pulmonary embolus. Heart is now enlarged. Aorta is again mildly atherosclerotic without aneurysm/dissection. No pathologic mediastinal/hilar lymphadenopathy. Lungs are again hyperinflated with new minimal bibasilar subsegmental atelectasis/scarring. No suspicious pulmonary mass, infiltrate, or effusion. Bony thorax intact again with minimal degenerative changes throughout the spine and mild dextroscoliosis. Limited upper abdomen images markedly food/fluid distended stomach and fatty liver. Impression: 1. Negative pulmonary embolus. No acute cardiopulmonary abnormalities. 2. New cardiomegaly without CHF. 3. Incidental fatty liver and chronic bony findings. Comment: Preliminary interpretation was made by [facility]. No critical discrepancy.
[2020-10-10] MEDS: solu-MEDROL 125 MG IV SCH (09:13)
[2020-10-10] MEDS: Mucinex 600MG ER Tabs PO SCH ×2 (09:23→23:09)
[2020-10-10] MEDS: FOLATE 1 MG PO SCH (09:24)
[2020-10-10] MEDS: LASIX 20 MG PO SCH ×2 (09:25→15:25)
[2020-10-10] MEDS: MAG-OX 400 PO SCH ×3 (09:28→23:09)
[2020-10-10] MEDS: ELIQUIS 2.5 MG TABLET PO SCH ×2 (09:28→23:10)
[2020-10-10] MEDS: Coreg 3.125 MG PO SCH ×2 (09:30→23:10)
[2020-10-10] MEDS: Protonix 40MG Tablet PO SCH (09:31)
[2020-10-10] MEDS: MOTRIN 600 MG PO SCH (09:31)
[2020-10-10] MEDS: SYNTHROID 50 MCG PO SCH (09:32)
[2020-10-10] MEDS: Proscar 5 MG PO SCH (09:35)
[2020-10-10] MEDS: AMILORIDE HCL PO SCH (09:36)
[2020-10-10] MEDS: ROCEPHIN 1 Gm-D5w 50 ml Bag** 1 G/50 ML IVPB IV SCH (09:41)
[2020-10-10] MEDS: Zithromax 500 MG/ 250 ML NaCl Premix 500 MG/250 ML IVPB IV SCH (09:47)
--- NOTE | 2020-10-10 17:36 | PCM.NOTE ---
Date and Time: 10/10/201733 Subjective Assessment: 69 yr old male seen and examined this am. Patient reports he feels so much better this am. He is breathing easier and not coughing as much. He continues to have abdominal pain but it is not as bad as it has been. He would like to go home tomorrow if possible. - Review of Systems Constitutional: No Fever Eyes: No Symptoms Ears, Nose, & Throat: No Symptoms Respiratory: Cough, Short Of Breath, Wheezing Cardiac: No Chest Pain, No Edema Abdominal/Gastrointestinal: Abdominal Pain, No Nausea, No Vomiting, No Diarrhea, No Constipation Genitourinary Symptoms: No Symptoms Musculoskeletal: No Symptoms Skin: No Symptoms Neurological: No Headache Psychological: No Alcohol Abuse, No Drug Abuse, No Anxiety, No Depression Objective Exam General Appearance: mild distress, alert, obese, No anxiety Neurologic Exam: alert, oriented x 3, cooperative, normal mood/affect, No disoriented, No confusion, No agitation, No depressed mood/affect Skin Exam: normal color, warm, dry, No rash Eye Exam: eyes nml inspection, No scleral icterus Ears, Nose, Throat Exam: moist mucous membranes Neck Exam: normal inspection Respiratory Exam: respiratory distress, diminished breath sounds, accessory muscle use (improved from yesterday), wheezing, No normal breath sounds, No lungs clear, No crackles/rales Cardiovascular Exam: regular rate/rhythm, normal heart sounds, No murmur, No friction rub, No gallop Gastrointestinal/Abdomen Exam: normal bowel sounds, tenderness, distention, No soft, No mass, No guarding, No rebound Extremity Exam: No normal inspection, No pedal edema, No swelling, No tenderness Back Exam: other (left sided posterior chest deformity) Male Genitalia Exam: deferred Rectal Exam: deferred OBJECTIVE DATA Vital Signs: Vital Signs - 24 hr Temp Pulse Resp BP Pulse Ox 10/10/20 16:00 98.2 F 70 16 188/81 96 10/10/20 13:24 71 20 95 10/10/20 12:00 98.2 F 71 16 147/68 95 10/10/20 07:32 98.2 F 68 16 175/82 97 10/10/20 07:05 68 18 95 10/10/20 03:47 97.7 F 74 18 175/84 95 10/10/20 02:19 69 21 96 10/10/20 00:00 97.8 F 66 19 162/77 98 10/09/20 20:00 97.9 F 77 22 176/81 97 10/09/20 18:50 77 22 97 Pain Assessment - Last Documented Pain Intensity 7 Pain Scale Used 0-10 Pain Scale Intake and Output: Intake & Output 10/08/20 10/09/20 10/10/20 10/11/20 11:59 11:59 11:59 11:59 Intake Total 3018 1520 580 Output Total 1425 Balance 1593 1520 580 Weight 97.2 kg Lab Results: Lab Results-Last 24 Hours 10/09/20 10/09/20 10/09/20 Range/Units 20:12 20:12 20:38 D-Dimer 1029 H* (215-500) ng/mL POC Glucometer 402 H (74 to 106) mg/dL NT-Pro-B Natriuret Pep 576 (0-900) pg/mL 10/10/20 10/10/20 10/10/20 Range/Units 07:00 11:21 16:30 D-Dimer (215-500) ng/mL POC Glucometer 347 H 395 H 481 H (74 to 106) mg/dL NT-Pro-B Natriuret Pep (0-900) pg/mL Radiology Exams: Radiology Procedures Category Date Time Status ABDOMEN AND PELVIS W&WO CONTRA [CT] Routine Exams 10/10/20 07:00 Ordered CHEST WITH CONTRAST [CT] Stat Exams 10/09/20 21:14 Completed Assessment/Plan (1) COPD exacerbation Current Visit: Yes Status: Acute Assessment & Plan: Patient is improving and reports he is doing much better. Will continue on duonebs steroids and antibiotics. He is requiring oxygen. His work of breathing has decreased. If patient continues to improve he could possibly go home tomorrow or the following day with continuation of his copd meds Code(s): J44.1 - CHRONIC OBSTRUCTIVE PULMONARY DISEASE W (ACUTE) EXACERBATION (2) Respiratory distress Current Visit: Yes Status: Acute Assessment & Plan: Due to resp distress and requiring oxygen so d-dimer was obtained which was elevated. Patient had CTA which was neg for PE. Patient will continue with cpap when sleeping and stay on oxygen as needed. Code(s): R06.03 - ACUTE RESPIRATORY DISTRESS (3) Diabetes mellitus Current Visit: No Status: Acute Assessment & Plan: Increased to the higher dose sliding scale as his BS were still elevated likely related to steroids. Will continue monitoring accu checks ACHS Code(s): E11.9 - TYPE 2 DIABETES MELLITUS WITHOUT COMPLICATIONS (4) Abdominal pain Current Visit: Yes Status: Acute Assessment & Plan: Patient was unable to get CT abd this am because of the CT chest needed to rule out PE. Will get CT abd/pel later this evening. Code(s): R10.9 - UNSPECIFIED ABDOMINAL PAIN (5) DVT prophylaxis Current Visit: Yes Status: Acute Code(s): Z29.9 - ENCOUNTER FOR PROPHYLACTIC MEASURES, UNSPECIFIED (6) Hypothyroidism Current Visit: Yes Status: Acute Assessment & Plan: Will continue on routine meds Code(s): E03.9 - HYPOTHYROIDISM, UNSPECIFIED
[2020-10-10] MEDS ORDERED: HUMALOG SQ ONE (21:17)
[2020-10-10] MEDS: Lantus Insulin SQ SCH (21:24)
[2020-10-10] MEDS ORDERED: Sodium Chloride 0.9% 1000 ML 1,000 ML IV SCH (22:45)
[2020-10-10] MEDS: Flomax 0.4 MG PO SCH (23:09)
[2020-10-10] MEDS: Requip 0.5 MG PO SCH (23:10)
[2020-10-10] MEDS: Vitamin E 400 UNIT SOFTGEL PO SCH (23:10)
[2020-10-10] MEDS: ZOCOR 20MG PO SCH (23:10)
[2020-10-11] MEDS: HUMALOG SQ PRN ×5 (00:13→22:27)
[2020-10-11] MEDS: solu-MEDROL 125 MG IV SCH (00:14)
[2020-10-11] MEDS: DUONEB 0.5-3 MG/3 ml Neb IH SCH ×4 (00:58→19:04)
[2020-10-11] MEDS: PATIENT OWN MEDICATION PO SCH (02:01)
[2020-10-11] MEDS: Advair Hfa 115/21 Common canister IH SCH ×2 (07:17→19:08)
--- NOTE | 2020-10-11 08:48 | XRAY ---
Indication: Abdomen bloating and diarrhea. Multiple contiguous axial images obtained through the abdomen and pelvis prior to and following 80 cc Isovue 370 contrast. Enteric contrast also used. Comparison: April 20, 2019. Lung bases demonstrates mild subsegmental atelectasis/scarring without infiltrate or effusion. Heart is now enlarged. Noncontrasted images again demonstrates a few splenic calcified granulomas. Contrasted stomach and bowel loops nonobstructed. Appendectomy reported. There is now mild a few scattered colonic fecal debris throughout and minimal descending/sigmoid diverticulosis. Gallbladder contracted without gallstones. No free fluid/air. Postcontrast images demonstrates normal visceral enhancement and renal excretion. Stable large bilateral renal cysts. Remaining liver, bladder, pancreas, spleen, adrenal glands, kidneys, ureters, and bladder are unremarkable. Osseous structures intact again with mild degenerative changes throughout the spine and minimal scoliosis. Impression: 1. New diffuse fecal stasis and cardiomegaly. 2. Stable splenic calcified granulomas, bilateral renal cysts, colonic diverticulosis, and chronic bony findings. 4. Remaining CT abdomen/pelvis with and without contrast exam is negative. Comment: Preliminary interpretation was made by [facility]. No critical discrepancy.
[2020-10-11] MEDS: Vitamin B-12 500 MCG PO SCH (09:12)
[2020-10-11] MEDS: ROCEPHIN 1 Gm-D5w 50 ml Bag** 1 G/50 ML IVPB IV SCH (09:12)
[2020-10-11] MEDS: Zithromax 500 MG/ 250 ML NaCl Premix 500 MG/250 ML IVPB IV SCH (09:12)
[2020-10-11] MEDS: Mucinex 600MG ER Tabs PO SCH ×2 (09:12→21:44)
[2020-10-11] MEDS: Coreg 3.125 MG PO SCH ×2 (09:13→21:45)
[2020-10-11] MEDS: SYNTHROID 50 MCG PO SCH (09:13)
[2020-10-11] MEDS: Protonix 40MG Tablet PO SCH (09:13)
[2020-10-11] MEDS: LASIX 20 MG PO SCH ×2 (09:13→16:29)
[2020-10-11] MEDS: MOTRIN 600 MG PO SCH (09:13)
[2020-10-11] MEDS: ELIQUIS 2.5 MG TABLET PO SCH ×2 (09:13→21:44)
[2020-10-11] MEDS: MAG-OX 400 PO SCH ×3 (09:13→21:44)
[2020-10-11] MEDS: FOLATE 1 MG PO SCH (09:13)
[2020-10-11] MEDS: AMILORIDE HCL PO SCH (09:14)
[2020-10-11] MEDS: Proscar 5 MG PO SCH (09:14)
[2020-10-11] MEDS ORDERED: DELTASONE 10 MG PO SCH (10:00)
[2020-10-11] MEDS: Requip 0.5 MG PO SCH (21:44)
[2020-10-11] MEDS: Flomax 0.4 MG PO SCH (21:44)
[2020-10-11] MEDS: Vitamin E 400 UNIT SOFTGEL PO SCH (21:45)
[2020-10-11] MEDS: ZOCOR 20MG PO SCH (21:45)
[2020-10-11] MEDS: Vitamin B-6 (Pyridoxine) 100 MG PO SCH (21:47)
[2020-10-11] MEDS ORDERED: HUMALOG SQ ONE (22:15)
[2020-10-11] MEDS: Lantus Insulin SQ SCH (22:17)
[2020-10-11] MEDS ORDERED: Lantus Insulin ONE (22:23)
[2020-10-12] MEDS: DUONEB 0.5-3 MG/3 ml Neb IH SCH ×3 (02:15→13:15)
[2020-10-12] MEDS: HUMALOG SQ PRN ×3 (02:19→12:43)
[2020-10-12] MEDS: PATIENT OWN MEDICATION PO SCH (02:42)
[2020-10-12 05:02] LABS: Mean Corpuscular Hemoglobin 27.9 pg (26-32); Mean Corpuscular Hgb Concent. 31.7 g/dl (32-36); Mean Platelet Volume 10.6 fl (7.5-11.0); Platelet Count 209 K/mm3 (150-450); Red Blood Count 4.66 M/mm3 (4.1-5.6); Red Cell Distribution Width 13.8 % (11.5-14.0); White Blood Count 11.1 K/mm3 (4.0-10.5)
[2020-10-12 05:17] LABS: ALKALINE PHOSPHATASE 73 U/L (38-126); ANION GAP 11.3 MEQ/L (5-15); BLOOD UREA NITROGEN 28 mg/dL (9-20); CHLORIDE 95 mmol/L (98-107); Calcium 10.2 mg/dL (8.4-10.2); Carbon Dioxide 32 mmol/L (22-30); Creatinine 1 0.89 mg/dL (0.66-1.25); EST GLOMERULAR FILTRATION RATE > 60.0 ML/MIN; Glucose 167 mg/dL (74-106); Potassium 4.3 mmol/L (3.5-5.1); SGOT/AST 33 U/L (17-59); SGPT/ALT 37 U/L (0-50); SODIUM 134 mmol/L (137-145)
[2020-10-12 05:33] LABS: BAND 1 % (0.0-2.0); Lymphocytes 16 % (24-44); Monocyte 7 % (0.0-12.0); Neutrophils 76 % (36.-66.); Total Cells Counted 100
[2020-10-12 05:35] LABS: Platelet Estimate NORMAL (NORMAL)
[2020-10-12] MEDS ORDERED: NAPROSYN 375 MG PO PRN (07:28)
[2020-10-12] MEDS ORDERED: Augmentin 875-125 Tablet PO SCH (07:30)
[2020-10-12] MEDS: Advair Hfa 115/21 Common canister IH SCH (07:40)
[2020-10-12] MEDS: Mucinex 600MG ER Tabs PO SCH (09:52)
[2020-10-12] MEDS: Coreg 3.125 MG PO SCH (09:52)
[2020-10-12] MEDS: LASIX 20 MG PO SCH (09:52)
[2020-10-12] MEDS: SYNTHROID 50 MCG PO SCH (09:52)
[2020-10-12] MEDS: MOTRIN 600 MG PO SCH (09:52)
[2020-10-12] MEDS: FOLATE 1 MG PO SCH (09:52)
[2020-10-12] MEDS: MAG-OX 400 PO SCH (09:52)
[2020-10-12] MEDS: AMILORIDE HCL PO SCH (09:53)
[2020-10-12] MEDS: Protonix 40MG Tablet PO SCH (09:53)
[2020-10-12] MEDS: ELIQUIS 2.5 MG TABLET PO SCH (09:53)
[2020-10-12] MEDS: Proscar 5 MG PO SCH (09:54)
[2020-10-12] MEDS ORDERED: DELTASONE 5 MG PO SCH (10:00)
[2020-10-12 12:50] VITALS: BP 176/81; O2SAT 95
[2020-10-12 13:32] VITALS: PULSE 64
[2020-10-12] MEDS ORDERED: Lantus Insulin SQ ONE (22:00)
[2020-10-13] MEDS ORDERED: Glucophage 500 MG PO SCH (08:00)
== END 2020-10-12 13:51 | disposition home or self-care (01) ==
LOC: ED 15:20 → MED SURG 19:44
PROVIDERS: ADMIT Family Medicine; ATTEND Family Medicine
DX: J44.1 Chronic obstructive pulmonary disease with (acute) exacerbation (principal); R06.03 Acute respiratory distress; Z79.899 Other long term (current) drug therapy; Z79.01 Long term (current) use of anticoagulants; E11.9 Type 2 diabetes mellitus without complications; I10 Essential (primary) hypertension; I25.10 Atherosclerotic heart disease of native coronary artery without angina pectoris; R10.9 Unspecified abdominal pain; G47.30 Sleep apnea, unspecified; E03.9 Hypothyroidism, unspecified
CPT/HCPCS: 36000; 36415; 71045; 71260; 74178; 80053; 81001; 82947; 83036; 83605; 83735; 83880; 84484; 85025; 85379; 87040; 87400; 93005; 94640; 94760; 96365; 96367; 96374; 96375; 97161; 97530; 99285; 99291; U0003; 93268; G0378; J0456; J0696; J1100; J1815; J1817; J2920; J2930; A9270-GY

== ENCOUNTER 2020-12-06 10:13 | Emergency (ER) | payer MEDICARE ==
[2020-12-06 10:55] LABS: Hematocrit 41.1 % (42-50); Hemoglobin 13.3 gm/dl (12.5-18.0); Mean Cell Volume 87.6 fl (78-100); Mean Corpuscular Hemoglobin 28.4 pg (26-32); Mean Corpuscular Hgb Concent. 32.4 g/dl (32-36); Mean Platelet Volume 11.1 fl (7.5-11.0); Platelet Count 237 K/mm3 (150-450); Red Blood Count 4.69 M/mm3 (4.1-5.6); Red Cell Distribution Width 14.5 % (11.5-14.0); White Blood Count 6.9 K/mm3 (4.0-10.5)
[2020-12-06 10:56] LABS: ALBUMIN 4.2 g/dL (3.5-5.0); ALKALINE PHOSPHATASE 86 U/L (38-126); ANION GAP 15.1 MEQ/L (5-15); BLOOD UREA NITROGEN 19 mg/dL (9-20); CHLORIDE 94 mmol/L (98-107); Calcium 10.3 mg/dL (8.4-10.2); Carbon Dioxide 27 mmol/L (22-30); Creatinine 1 0.96 mg/dL (0.66-1.25); EST GLOMERULAR FILTRATION RATE > 60.0 ML/MIN; Glucose 279 mg/dL (74-106); NT PRO BNP 1430 pg/mL (0-900); Potassium 4.6 mmol/L (3.5-5.1); SGOT/AST 30 U/L (17-59); SGPT/ALT 29 U/L (0-50); SODIUM 131 mmol/L (137-145); Total Protein 7.3 g/dL (6.3-8.2)
--- NOTE | 2020-12-06 11:19 | ERPHSYRPT ---
- History of Present Illness Source: patient, other () Exam Limitations: no limitations Patient Subjective Stated Complaint: pt states his blood pressure elevated and his heart rate was 139 around 915 this morning. pt states he got worried. pt states he had some nausea last night. pt states he had this same thing happen in february. denies chest pain. pt states he always has shortness of breath. Triage Nursing Assessment: pt A&Ox4. ambulatory. skin pwd. tachy. Physician History: 69 yo wm w h/o Afib presents w tachycardia since 9:00AM. Pt states that his dyspnea is mildly worse but denies CP/N/V/Diaphoresis. He is on Eliquis for Afib which he last had in Mar. Timing/Duration: other (9:00AM) Activities at Onset: rest Quality: other (No pain) Location: other (No pain) Chest Pain Radiation: no radiation Severity of Pain-Max: none Severity of Pain-Current: none Modifying Factors: Improves With: movement Nitro Today/Relief: no nitro taken today Aspirin Treatment Today: unknown Associated Symptoms: shortness of breath, No nausea, No vomiting, No abdominal p ain, No heartburn, No diaphoresis, No cough, No chills, No chest pain, No fever, No headaches, No loss of appetite, No malaise, No rash, No syncope, No seizure, No weakness Prior Chest Pain/Cardiac Workup: echocardiography Allergies/Adverse Reactions: bacitracin [From Neosporin ([id number])] Allergy (Verified 12/06/20 10:38) Rash bacitracin zinc [From Neosporin ([id number])] Allergy (Verified 12/06/20 10:38) Rash neomycin sulfate [From Neosporin ([id number])] Allergy (Verified 12/06/20 10:38) Rash polymyxin B [From Neosporin ([id number])] Allergy (Verified 12/06/20 10:38) Rash Home Medications: RX: Alendronate Sodium 35 mg PO WEEKLY 05/06/19 [History] RX: Finasteride 5 mg [Proscar 5 MG] 5 mg PO DAILY 05/06/19 [History] RX: Fluticasone/Umeclidin/Vilanter [Trelegy Ellipta 100-62.5-25] 1 each IH HS 05/06/19 [History] RX: Folic Acid 1 mg [Folate 1 mg] 2 tab PO DAILY 05/06/19 [History] RX: Levothyroxine Sodium 50 Mcg [Synthroid 50 Mcg] 50 mcg PO DAILY 05/06/19 [History] RX: Lovastatin 40 mg PO HS 05/06/19 [History] RX: Metformin HCl 500 mg [Glucophage 500 MG] 1,000 mg PO BID 05/06/19 [History] RX: Pyridoxine HCl [Vitamin B-6] 100 mg PO UD 05/06/19 [History] RX: Ropinirole HCl 1 mg PO HS 05/06/19 [History] RX: Saw [place] Fruit/Zinc Picoli [Saw [place] 450 mg Capsule] 900 mg PO BID 05/06/19 [History] RX: Tamsulosin HCl 0.4 mg [Flomax 0.4 MG] 0.4 mg PO HS 05/06/19 [History] RX: Testosterone Cypionate [Testone Cik] 200 mg IM UD 05/06/19 [History] RX: Vitamin E 400 Units [Vitamin E 400 UNIT SOFTGEL] 400 unit PO HS 05/06/19 [History] RX: Cyanocobalamin (Vitamin B-12) [B-12] 1,000 mcg PO UD 06/05/19 [History] RX: PANTOPRAZOLE 40 mg Tablet [Protonix 40MG Tablet] 40 mg PO DAILY 06/05/19 [History] RX: Albuterol 2.5 mg/3 ml Neb [Proventil 2.5 mg/3 ml Neb] 2 puffs NEB QID 02/28/20 [History] RX: Amiloride HCl 5 mg PO DAILY 02/28/20 [History] RX: Ibuprofen 200 mg [Motrin 200 mg] 3 tab PO DAILY 02/28/20 [History] RX: Magnesium Oxide 400 mg [Mag-Ox 400] 3 tab PO TID 02/28/20 [History] RX: Sodium Zirconium Cyclosilicate [Lokelma] 1 packet PO DAILY 02/28/20 [History] RX: Apixaban [Eliquis] 1 tab PO BID 10/08/20 [History] RX: Carvedilol [Coreg] 3.125 mg PO BID 10/08/20 [History] RX: Furosemide [Lasix] 20 mg PO BID 10/08/20 [History] Hx Tetanus, Diphtheria Vaccination/Date Given: Yes Hx Influenza Vaccination/Date Given: Yes Hx Pneumococcal Vaccination/Date Given: Yes Travel Risk - International Travel Have you traveled outside of the country in past 3 weeks: No - Coronavirus Screening Are you exhibiting any of the following symptoms?: No Close contact with a COVID-19 positive Pt in past 14-21 Days: No - Vaccine Status Have you recieved a Covid-19 vaccination: No - Review of Systems Constitutional: No Symptoms Eyes: No Symptoms Ears, Nose, & Throat: No Symptoms Respiratory: Dyspnea, Dyspnea on Exertion (JACKSON) Cardiac: No Symptoms Abdominal/Gastrointestinal: No Symptoms Genitourinary Symptoms: No Symptoms Musculoskeletal: No Symptoms Skin: No Symptoms Neurological: No Symptoms Psychological: No Symptoms Endocrine: No Symptoms Hematologic/Lymphatic: No Symptoms Immunological/Allergic: No Symptoms - Past Medical History Pertinent Past Medical History: Yes Neurological History: No Pertinent History ENT History: No Pertinent History Cardiac History: Arrhythmia, Peripheral Vascular Disease Respiratory History: COPD, Sleep Apnea Endocrine Medical History: Diabetes Type II Musculoskeletal History: Fractures, Osteoarthritis GI Medical History: GERD, Gallbladder Disease, Hernia History: No Pertinent History Psycho-Social History: No Pertinent History Male Reproductive Disorders: Prostate Problems Other Medical History: FX LEFT HIP 30 YEARS AGO - NO SURGERY. STENT PLACEMENT LEFT LOWER LEG (GROIN) (Pt states no knowing what it is for)10 YEARS AGO. CHOLECYSTECTOMY, APPENDECTOMY, BILATERAL INGUINAL HERNIA REPAIRS - Past Surgical History Past Surgical History: Yes Neuro Surgical History: No Pertinent History Cardiac: Vascular Surgery Respiratory: No Pertinent History Gastrointestinal: Appendectomy, Cholecystectomy, Hernia Repair Genitourinary: No Pertinent History Musculoskeletal: No Pertinent History Male Surgical History: No Pertinent History Other Surgical History: STENT PLACED AFTER GALLBLADDER REMOVAL( "had liver knicked during surgery and had a drain to reroute bile"), AND REMOVED. shoulder surgery- right states rotator cuff repair,, Left Carpal Tunnel Surgery, Right rotator cuff surgery - Social History Smoking Status: Never smoker Exposure to second hand smoke: No Alcohol Use: None Drug Use: none Patient Lives Alone: No Significant Family History: heart disease - Nursing Vital Signs Nursing Vital Signs: Initial Vital Signs Temperature 97.7 F 12/06/20 10:18 Pulse Rate 113 H 12/06/20 10:18 Respiratory Rate 28 H 12/06/20 10:18 Blood Pressure 142/97 12/06/20 10:18 O2 Sat by Pulse Oximetry 97 12/06/20 10:18 Pain Scale Pain Intensity 7 Tachycardia/Hypertensive - Physical Exam General Appearance: no apparent distress Eye Exam: PERRL/EOMI, eyes nml inspection Ears, Nose, Throat Exam: normal ENT inspection, TMs normal, pharynx normal, moist mucous membranes Neck Exam: normal inspection, non-tender, supple, full range of motion, No meningismus, No mass, No Brudzinski, No Kernig's Respiratory Exam: airway intact, crackles/rales (Faint B bases), No respiratory distress Cardiovascular Exam: other (IR-IR) Gastrointestinal/Abdomen Exam: soft, normal bowel sounds, No tenderness Back Exam: normal inspection, normal range of motion, No CVA tenderness, No vertebral tenderness Extremity Exam: normal inspection, normal range of motion, No pelvis stable Neurologic Exam: alert, oriented x 3, cooperative, 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 helper 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 II-XII nml as tested, normal mood/affect, nml cerebellar function, nml station & gait, sensation nml, No motor deficits, No sensory deficit Skin Exam: normal color, warm, dry, No rash Lymphatic Exam: No adenopathy SpO2 Interpretation: normal SpO2: 97 O2 Delivery: Room Air - Course Nursing assessment & vital signs reviewed: Yes EKG Interpreted by Me: RATE (Afib/R138/Prolonged QTc/RAFB/LAFB/Nonspecific ST- Twave changes) - Radiology Exams Chest X-ray Interpretation: Discussed w/ radiologist (Cardiomegaly, nothing acute) Ordered Tests: Active Orders 24 hr Category Date Time Status EKG-ER Only STAT Care 12/06/20 10:23 Completed IV Insertion STAT Care 12/06/20 10:23 Completed CHEST 1 VIEW (PORTABLE) Stat Exams 12/06/20 11:27 Completed CBC W DIFF Stat Lab 12/06/20 10:30 Completed CMP Stat Lab 12/06/20 10:30 Completed Manual Differential NC Stat Lab 12/06/20 10:30 Completed NT PRO BNP Stat Lab 12/06/20 10:30 Completed PROTIME WITH INR Stat Lab 12/06/20 10:54 Completed PTT Stat Lab 12/06/20 10:54 Completed TROPONIN Q3H Lab 12/06/20 10:30 Completed TROPONIN Q3H Lab 12/06/20 13:10 Completed TROPONIN Q3H Lab 12/06/20 16:02 Completed Medication Summary Discontinued Medications Generic Name Dose Route Start Last Admin Trade Name Freq PRN Reason Stop Dose Admin Diltiazem HCl 10 mg 12/06/20 11:25 12/06/20 12:29 Cardizem Iv 50 Mg/10 Ml IV 12/06/20 11:26 Not Given STAT ONE Lab/Rad Data: Laboratory Result Diagrams 12/06/20 10:30 12/06/20 10:30 Laboratory Results 12/06/20 12/06/20 12/06/20 Range/Units 16:02 14:17 13:10 WBC (4.0-10.5) K/mm3 RBC (4.1-5.6) M/mm3 Hgb (12.5-18.0) gm/dl Hct (42-50) % MCV (78-100) fl MCH (26-32) pg MCHC (32-36) g/dl RDW (11.5-14.0) % Plt Count (150-450) K/mm3 MPV (7.5-11.0) fl Segmented Neutrophils (36.-66.) % Band Neutrophils (0.0-2.0) % Lymphocytes (Manual) (24-44) % Monocytes (Manual) (0.0-12.0) % Eosinophils (Manual) (0.00-3.0) % Platelet Estimate (NORMAL) RBC Morphology PT (9.4-12.5) SECONDS INR (0.8-3.0) APTT (25.1-36.5) SECONDS Sodium (137-145) mmol/L Potassium (3.5-5.1) mmol/L Chloride (98-107) mmol/L Carbon Dioxide (22-30) mmol/L Anion Gap (5-15) MEQ/L BUN (9-20) mg/dL Creatinine (0.66-1.25) mg/dL Estimated GFR ML/MIN Glucose (74-106) mg/dL Calcium (8.4-10.2) mg/dL Total Bilirubin (0.2-1.3) mg/dL AST (17-59) U/L ALT (0-50) U/L Alkaline Phosphatase (38-126) U/L Troponin I 0.023 0.028 (0.000-0.034) ng/mL NT-Pro-B Natriuret Pep (0-900) pg/mL Serum Total Protein (6.3-8.2) g/dL Albumin (3.5-5.0) g/dL SARS-CoV-2 (PCR) NEGATIVE (NEGATIVE) 12/06/20 12/06/20 12/06/20 Range/Units 10:54 10:30 10:30 WBC (4.0-10.5) K/mm3 RBC (4.1-5.6) M/mm3 Hgb (12.5-18.0) gm/dl Hct (42-50) % MCV (78-100) fl MCH (26-32) pg MCHC (32-36) g/dl RDW (11.5-14.0) % Plt Count (150-450) K/mm3 MPV (7.5-11.0) fl Segmented Neutrophils (36.-66.) % Band Neutrophils (0.0-2.0) % Lymphocytes (Manual) (24-44) % Monocytes (Manual) (0.0-12.0) % Eosinophils (Manual) (0.00-3.0) % Platelet Estimate (NORMAL) RBC Morphology PT 17.2 H (9.4-12.5) SECONDS INR 1.46 (0.8-3.0) APTT 30.3 (25.1-36.5) SECONDS Sodium 131 L (137-145) mmol/L Potassium 4.6 (3.5-5.1) mmol/L Chloride 94 L (98-107) mmol/L Carbon Dioxide 27 (22-30) mmol/L Anion Gap 15.1 H (5-15) MEQ/L BUN 19 (9-20) mg/dL Creatinine 0.96 (0.66-1.25) mg/dL Estimated GFR > 60.0 ML/MIN Glucose 279 H (74-106) mg/dL Calcium 10.3 H (8.4-10.2) mg/dL Total Bilirubin 0.40 (0.2-1.3) mg/dL AST 30 (17-59) U/L ALT 29 (0-50) U/L Alkaline Phosphatase 86 (38-126) U/L Troponin I 0.027 (0.000-0.034) ng/mL NT-Pro-B Natriuret Pep 1430 H (0-900) pg/mL Serum Total Protein 7.3 (6.3-8.2) g/dL Albumin 4.2 (3.5-5.0) g/dL SARS-CoV-2 (PCR) (NEGATIVE) 12/06/20 Range/Units 10:30 WBC 6.9 (4.0-10.5) K/mm3 RBC 4.69 (4.1-5.6) M/mm3 Hgb 13.3 (12.5-18.0) gm/dl Hct 41.1 L (42-50) % MCV 87.6 (78-100) fl MCH 28.4 (26-32) pg MCHC 32.4 (32-36) g/dl RDW 14.5 H (11.5-14.0) % Plt Count 237 (150-450) K/mm3 MPV 11.1 H (7.5-11.0) fl Segmented Neutrophils 79 H (36.-66.) % Band Neutrophils 1 (0.0-2.0) % Lymphocytes (Manual) 15 L (24-44) % Monocytes (Manual) 4 (0.0-12.0) % Eosinophils (Manual) 1 (0.00-3.0) % Platelet Estimate NORMAL (NORMAL) RBC Morphology NORMAL PT (9.4-12.5) SECONDS INR (0.8-3.0) APTT (25.1-36.5) SECONDS Sodium (137-145) mmol/L Potassium (3.5-5.1) mmol/L Chloride (98-107) mmol/L Carbon Dioxide (22-30) mmol/L Anion Gap (5-15) MEQ/L BUN (9-20) mg/dL Creatinine (0.66-1.25) mg/dL Estimated GFR ML/MIN Glucose (74-106) mg/dL Calcium (8.4-10.2) mg/dL Total Bilirubin (0.2-1.3) mg/dL AST (17-59) U/L ALT (0-50) U/L Alkaline Phosphatase (38-126) U/L Troponin I (0.000-0.034) ng/mL NT-Pro-B Natriuret Pep (0-900) pg/mL Serum Total Protein (6.3-8.2) g/dL Albumin (3.5-5.0) g/dL SARS-CoV-2 (PCR) (NEGATIVE) - Progress Progress Note: 12/06/20 15:[address] Castro Pt refused ER cardioversion 12/07/20 01:33 Pt stable when Air ambulance assume cafe of pt. Unable to obtain any ground transport after multiple calls. Counseled pt/family regarding: lab results, diagnosis, rad results - Departure Departure Disposition: Transfer Clinical Impression: Atrial fibrillation with rapid ventricular response Condition: Stable Critical Care Time: No Referrals: MELQUIADES CADET [Primary Care Provider] - Instructions: Tachycardia (DC)
[2020-12-06] MEDS ORDERED: Cardizem IV 50 MG/10 ML IV ONE (11:25)
[2020-12-06 11:36] LABS: INR 1.46 (0.8-3.0); PROTIME 17.2 SECONDS (9.4-12.5)
[2020-12-06 11:38] LABS: PTT 30.3 SECONDS (25.1-36.5)
--- NOTE | 2020-12-06 12:46 | XRAY ---
Indication: Tachycardia. Comparison: October 08, 2020. Portable chest demonstrates grossly stable cardiomegaly. Lungs inflated and remain clear. No new/acute abnormalities.
[2020-12-06 15:47] LABS: BAND 1 % (0.0-2.0); Eosinophil 1 % (0.00-3.0); Lymphocytes 15 % (24-44); Monocyte 4 % (0.0-12.0); Neutrophils 79 % (36.-66.); Total Cells Counted 100
[2020-12-06 15:49] LABS: Platelet Estimate NORMAL (NORMAL)
[2020-12-06 16:30] VITALS: BP 151/88; PULSE 100
[2020-12-07 01:39] VITALS: O2SAT 97
== END 2020-12-06 17:22 ==
LOC: ED 10:13
DX: I48.91 Unspecified atrial fibrillation (principal); Z79.01 Long term (current) use of anticoagulants; Z79.899 Other long term (current) drug therapy; I73.9 Peripheral vascular disease, unspecified; E11.9 Type 2 diabetes mellitus without complications; G47.30 Sleep apnea, unspecified
CPT/HCPCS: 36000; 36415; 71045; 80053; 83880; 84484; 85025; 85610; 85730; 93005; 99284; U0003

== ENCOUNTER 2020-12-16 13:12 | Emergency (ER) | payer MEDICARE ==
--- NOTE | 2020-12-16 13:30 | ERPHSYRPT ---
- History of Present Illness Time Seen by Provider: 12/16/20 13:29 Source: patient, family Exam Limitations: no limitations Patient Subjective Stated Complaint: bradycardia Triage Nursing Assessment: pt to ED c/o bradycardia and mild dizzinesss onset this afternoon. denies CP. pt called paraprofessional aide and spoke with RN who reffered him to ED today to be examined. was recently in this ED for tachycardia and was sent to [place] for tachycardia per pts . was started on new medication at that time. Timing/Duration: today Activities at Onset: none Quality: other (no sx) Chest Pain Radiation: no radiation Severity of Pain-Max: none Severity of Pain-Current: none Modifying Factors: Improves With: nothing Nitro Today/Relief: no nitro taken today Aspirin Treatment Today: no aspirin today Associated Symptoms: denies symptoms Prior Chest Pain/Cardiac Workup: no prior chest pain Allergies/Adverse Reactions: bacitracin [From Neosporin ([id number])] Allergy (Verified 12/16/20 13:24) Rash bacitracin zinc [From Neosporin ([id number])] Allergy (Verified 12/16/20 13:24) Rash neomycin sulfate [From Neosporin ([id number])] Allergy (Verified 12/16/20 13:24) Rash polymyxin B [From Neosporin ([id number]-oln-[id number])] Allergy (Verified 12/16/20 13:24) Rash Home Medications: Alendronate Sodium 35 mg PO WEEKLY 05/06/19 [History] Finasteride 5 mg [Proscar 5 MG] 5 mg PO DAILY 05/06/19 [History] Fluticasone/Umeclidin/Vilanter [Trelegy Ellipta 100-62.5-25] 1 each [facility] 05/06/19 [History] Levothyroxine Sodium 50 Mcg [Synthroid 50 Mcg] 50 mcg PO DAILY 05/06/19 [History] Metformin HCl 500 mg [Glucophage 500 MG] 1,000 mg PO BID 05/06/19 [History] Pyridoxine HCl [Vitamin B-6] 100 mg PO UD 05/06/19 [History] Saw [place] Fruit/Zinc Picoli [Saw [place] 450 mg Capsule] 900 mg PO BID 05/06/19 [History] Tamsulosin HCl 0.4 mg [Flomax 0.4 MG] 0.4 mg PO HS 05/06/19 [History] Testosterone Cypionate [Testone Cik] 200 mg IM UD 05/06/19 [History] Vitamin E 400 Units [Vitamin E 400 UNIT SOFTGEL] 400 unit PO HS 05/06/19 [History] Cyanocobalamin (Vitamin B-12) [B-12] 1,000 mcg PO UD 06/05/19 [History] PANTOPRAZOLE 40 mg Tablet [Protonix 40MG Tablet] 40 mg PO DAILY 06/05/19 [History] Albuterol 2.5 mg/3 ml Neb [Proventil 2.5 mg/3 ml Neb] 2 puffs NEB QID 02/28/20 [History] Ibuprofen 200 mg [Motrin 200 mg] 3 tab PO DAILY 02/28/20 [History] Magnesium Oxide 400 mg [Mag-Ox 400] 3 tab PO TID 02/28/20 [History] Apixaban [Eliquis] 1 tab PO BID 10/08/20 [History] Furosemide [Lasix] 20 mg PO BID 10/08/20 [History] Amiodarone HCl 200 mg [Cordarone 200 MG] 200 mg PO BID 12/16/20 [History] Amlodipine Besylate 5 mg [Norvasc 5 mg] 5 mg PO DAILY 12/16/20 [History] Cyanocobalamin (Vitamin B-12) [B-12] 1,000 mcg PO DAILY 12/16/20 [History] Finasteride 5 mg [Proscar 5 MG] 5 mg PO DAILY 12/16/20 [History] Hx Tetanus, Diphtheria Vaccination/Date Given: Yes Hx Influenza Vaccination/Date Given: Yes Hx Pneumococcal Vaccination/Date Given: Yes Immunizations Up to Date: Yes Travel Risk - International Travel Have you traveled outside of the country in past 3 weeks: No - Coronavirus Screening Are you exhibiting any of the following symptoms?: No Close contact with a COVID-19 positive Pt in past 14-21 Days: No - Vaccine Status Have you recieved a Covid-19 vaccination: No - Review of Systems Constitutional: No Symptoms Eyes: No Symptoms Ears, Nose, & Throat: No Symptoms Respiratory: No Symptoms Cardiac: No Symptoms Abdominal/Gastrointestinal: No Symptoms Genitourinary Symptoms: No Symptoms Musculoskeletal: No Symptoms Skin: No Symptoms Neurological: No Symptoms Psychological: No Symptoms Endocrine: No Symptoms Hematologic/Lymphatic: No Symptoms Immunological/Allergic: No Symptoms All Other Systems: Reviewed and Negative - Past Medical History Pertinent Past Medical History: Yes Neurological History: No Pertinent History ENT History: No Pertinent History Cardiac History: Arrhythmia, Peripheral Vascular Disease Respiratory History: COPD, Sleep Apnea Endocrine Medical History: Diabetes Type II Musculoskeletal History: Fractures, Osteoarthritis GI Medical History: GERD, Gallbladder Disease, Hernia History: No Pertinent History Psycho-Social History: No Pertinent History Male Reproductive Disorders: Prostate Problems Other Medical History: FX LEFT HIP 30 YEARS AGO - NO SURGERY. STENT PLACEMENT LEFT LOWER LEG (GROIN) (Pt states no knowing what it is for)10 YEARS AGO. CHOLECYSTECTOMY, APPENDECTOMY, BILATERAL INGUINAL HERNIA REPAIRS - Past Surgical History Past Surgical History: Yes Neuro Surgical History: No Pertinent History Cardiac: Vascular Surgery Respiratory: No Pertinent History Gastrointestinal: Appendectomy, Cholecystectomy, Hernia Repair Genitourinary: No Pertinent History Musculoskeletal: No Pertinent History Male Surgical History: No Pertinent History Other Surgical History: STENT PLACED AFTER GALLBLADDER REMOVAL( "had liver knicked during surgery and had a drain to reroute bile"), AND REMOVED. shoulder surgery- right states rotator cuff repair,, Left Carpal Tunnel Surgery, Right rotator cuff surgery - Social History Smoking Status: Former smoker Exposure to second hand smoke: No Alcohol Use: None Drug Use: none Patient Lives Alone: No Significant Family History: heart disease - Nursing Vital Signs Nursing Vital Signs: Initial Vital Signs Temperature 97.8 F 12/16/20 13:17 Pulse Rate 52 L 12/16/20 13:17 Respiratory Rate 23 12/16/20 13:17 Blood Pressure 164/61 12/16/20 13:17 O2 Sat by Pulse Oximetry 98 12/16/20 13:17 Pain Scale Pain Intensity 0 - Physical Exam General Appearance: no apparent distress Eye Exam: PERRL/EOMI Ears, Nose, Throat Exam: normal ENT inspection Neck Exam: normal inspection, non-tender Respiratory Exam: normal breath sounds Cardiovascular Exam: bradycardia (rate around 50) Gastrointestinal/Abdomen Exam: soft, normal bowel sounds Back Exam: normal inspection Extremity Exam: normal inspection Neurologic Exam: alert, oriented x 3, cooperative Skin Exam: normal color SpO2 Interpretation: normal SpO2: 98 O2 Delivery: Room Air - Course Nursing assessment & vital signs reviewed: Yes EKG Interpreted by Me: Sinus Keaton, NORMAL AXIS, NORMAL INTERVALS, NORMAL QRS, NORMAL ST-T - Radiology Exams Chest X-ray Interpretation: Reviewed by me, Negative Ordered Tests: Medication Summary Discontinued Medications Generic Name Dose Route Start Last Admin Trade Name Codey PRN Reason Stop Dose Admin Insulin Human Lispro 10 unit 12/16/20 17:19 12/16/20 18:08 Humalog SQ 12/16/20 17:20 10 unit STAT STA Administration Insulin Human Lispro Confirm 12/16/20 18:07 Humalog Administered 12/16/20 18:08 Dose 10 unit .ROUTE [facility] Lab/Rad Data: Laboratory Result Diagrams 12/16/20 13:48 12/16/20 13:49 Laboratory Results 12/16/20 12/16/20 12/16/20 Range/Units 16:54 14:00 13:49 WBC (4.0-10.5) K/mm3 RBC (4.1-5.6) M/mm3 Hgb (12.5-18.0) gm/dl Hct (42-50) % MCV (78-100) fl MCH (26-32) pg MCHC (32-36) g/dl RDW (11.5-14.0) % Plt Count (150-450) K/mm3 MPV (7.5-11.0) fl Sodium 134 L (137-145) mmol/L Potassium 4.3 (3.5-5.1) mmol/L Chloride 97 L (98-107) mmol/L Carbon Dioxide 25 (22-30) mmol/L Anion Gap 15.8 H (5-15) MEQ/L BUN 22 H (9-20) mg/dL Creatinine 1.05 (0.66-1.25) mg/dL Estimated GFR > 60.0 ML/MIN Glucose 348 H (74-106) mg/dL Calcium 10.1 (8.4-10.2) mg/dL Total Bilirubin 0.50 (0.2-1.3) mg/dL AST 39 (17-59) U/L ALT 27 (0-50) U/L Alkaline Phosphatase 88 (38-126) U/L Troponin I 0.013 0.017 (0.000-0.034) ng/mL NT-Pro-B Natriuret Pep 511 (0-900) pg/mL Serum Total Protein 7.2 (6.3-8.2) g/dL Albumin 4.2 (3.5-5.0) g/dL 12/16/20 Range/Units 13:48 WBC 7.4 (4.0-10.5) K/mm3 RBC 4.21 (4.1-5.6) M/mm3 Hgb 11.8 L (12.5-18.0) gm/dl Hct 37.6 L (42-50) % MCV 89.3 (78-100) fl MCH 28.0 (26-32) pg MCHC 31.4 L (32-36) g/dl RDW 14.4 H (11.5-14.0) % Plt Count 225 (150-450) K/mm3 MPV 10.9 (7.5-11.0) fl Sodium (137-145) mmol/L Potassium (3.5-5.1) mmol/L Chloride (98-107) mmol/L Carbon Dioxide (22-30) mmol/L Anion Gap (5-15) MEQ/L BUN (9-20) mg/dL Creatinine (0.66-1.25) mg/dL Estimated GFR ML/MIN Glucose (74-106) mg/dL Calcium (8.4-10.2) mg/dL Total Bilirubin (0.2-1.3) mg/dL AST (17-59) U/L ALT (0-50) U/L Alkaline Phosphatase (38-126) U/L Troponin I (0.000-0.034) ng/mL NT-Pro-B Natriuret Pep (0-900) pg/mL Serum Total Protein (6.3-8.2) g/dL Albumin (3.5-5.0) g/dL - Progress Progress: improved Air Movement: good Progress Note: 12/22/20 16:28 Discussed with paraprofessional aide at [place]. Plan is to reduce dose of amiodarone and call back to Card. in the morning. Blood Culture(s) Obtained: No Antibiotics given: No Discussed with Dr.: Hart Counseled pt/family regarding: lab results, diagnosis, need for follow-up, rad results - Departure Departure Disposition: Home Clinical Impression: Bradycardia with 41-50 beats per minute Condition: Stable Critical Care Time: No Referrals: MELQUIADES CADET [Primary Care Provider] - Instructions: Hyperglycemia, Adult (DC), Bradycardia (DC) Additional Instructions: Do not take the amiodarone until you talk to Dr. Washington tomorrow morning. He will want to know your heart rate and blood pressure readings. Contact your PCP about the diabetes management.
[2020-12-16 14:05] LABS: Hematocrit 37.6 % (42-50); Hemoglobin 11.8 gm/dl (12.5-18.0); Mean Cell Volume 89.3 fl (78-100); Mean Corpuscular Hgb Concent. 31.4 g/dl (32-36); Mean Platelet Volume 10.9 fl (7.5-11.0); Platelet Count 225 K/mm3 (150-450); Red Blood Count 4.21 M/mm3 (4.1-5.6); Red Cell Distribution Width 14.4 % (11.5-14.0); White Blood Count 7.4 K/mm3 (4.0-10.5)
[2020-12-16 14:18] LABS: ALBUMIN 4.2 g/dL (3.5-5.0); ALKALINE PHOSPHATASE 88 U/L (38-126); ANION GAP 15.8 MEQ/L (5-15); BLOOD UREA NITROGEN 22 mg/dL (9-20); CHLORIDE 97 mmol/L (98-107); Calcium 10.1 mg/dL (8.4-10.2); Carbon Dioxide 25 mmol/L (22-30); Creatinine 1 1.05 mg/dL (0.66-1.25); EST GLOMERULAR FILTRATION RATE > 60.0 ML/MIN; Glucose 348 mg/dL (74-106); NT PRO BNP 511 pg/mL (0-900); Potassium 4.3 mmol/L (3.5-5.1); SGOT/AST 39 U/L (17-59); SGPT/ALT 27 U/L (0-50); SODIUM 134 mmol/L (137-145); Total Protein 7.2 g/dL (6.3-8.2)
--- NOTE | 2020-12-16 14:27 | XRAY ---
Indication: Dyspnea. Comparison: December 06, 2020. Portable chest rotated with new mild right base infiltrate/atelectasis. Remaining heart and left lung unremarkable.
[2020-12-16] MEDS ORDERED: HUMALOG SQ STA (17:19)
[2020-12-16] MEDS ORDERED: HUMALOG ONE (18:07)
[2020-12-16 18:38] VITALS: O2SAT 98
[2020-12-16 19:25] VITALS: BP 143/73; PULSE 44
== END 2020-12-16 19:20 | disposition home or self-care (01) ==
LOC: ED 13:12
DX: R00.1 Bradycardia, unspecified (principal); E11.9 Type 2 diabetes mellitus without complications; J44.9 Chronic obstructive pulmonary disease, unspecified; Z79.899 Other long term (current) drug therapy; Z79.01 Long term (current) use of anticoagulants
CPT/HCPCS: 36000; 36415; 71045; 80053; 83880; 84484; 85027; 93005; 96372; 99284; J1817

== ENCOUNTER 2021-01-02 19:27 | Observation (INO) | payer MEDICARE ==
--- NOTE | 2021-01-02 20:27 | ERPHSYRPT ---
- History of Present Illness Time Seen by Provider: 01/02/21 20:23 Source: patient Exam Limitations: no limitations Patient Subjective Stated Complaint: thought bp was very high. meter at home read 187/110. this morning states he had syncopal episode that lasts 1 second and he has to shake his head to get out of it. Triage Nursing Assessment: pt states the symptoms he came in for have already quit. pt states he is on medications for tachycardia and had a shock a month ago for tachycardia and they have been adjusting his medication ever since to slow his hr. Physician History: 4Pt noted his BP high but is better now. no symptoms of headache but has noted some weakness and dizziness on his new meds and with HR in 40s. No CP or SOBreath. 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 Timing/Duration: today, other (no pain) Associated Symptoms: weakness Allergies/Adverse Reactions: bacitracin [From Neosporin ([id number])] Allergy (Verified 12/16/20 13:24) Rash bacitracin zinc [From Neosporin ([id number]-jtf-dexrd)] Allergy (Verified 12/16/20 13:24) Rash neomycin sulfate [From Neosporin ([id number]-[id number])] Allergy (Verified 12/16/20 13:24) Rash polymyxin B [From Neosporin ([id number]-iid-[id number])] Allergy (Verified 12/16/20 13:24) Rash Home Medications: Alendronate Sodium 35 mg PO WEEKLY 05/06/19 [History] Finasteride 5 mg [Proscar 5 MG] 5 mg PO DAILY 05/06/19 [History] Fluticasone/Umeclidin/Vilanter [Trelegy Ellipta 100-62.5-25] 1 each [facility] 05/06/19 [History] Levothyroxine Sodium 50 Mcg [Synthroid 50 Mcg] 50 mcg PO DAILY 05/06/19 [History] Metformin HCl 500 mg [Glucophage 500 MG] 1,000 mg PO BID 05/06/19 [History] Pyridoxine HCl [Vitamin B-6] 100 mg PO UD 05/06/19 [History] Saw [place] Fruit/Zinc Picoli [Saw [place] 450 mg Capsule] 900 mg PO BID 05/06/19 [History] Tamsulosin HCl 0.4 mg [Flomax 0.4 MG] 0.4 mg PO HS 05/06/19 [History] Testosterone Cypionate [Testone Cik] 200 mg IM UD 05/06/19 [History] Vitamin E 400 Units [Vitamin E 400 UNIT SOFTGEL] 400 unit PO HS 05/06/19 [History] Cyanocobalamin (Vitamin B-12) [B-12] 1,000 mcg PO UD 06/05/19 [History] PANTOPRAZOLE 40 mg Tablet [Protonix 40MG Tablet] 40 mg PO DAILY 06/05/19 [History] Albuterol 2.5 mg/3 ml Neb [Proventil 2.5 mg/3 ml Neb] 2 puffs NEB QID [History] Ibuprofen 200 mg [Motrin 200 mg] 3 tab PO DAILY 02/28/20 [History] Magnesium Oxide 400 mg [Mag-Ox 400] 3 tab PO TID 02/28/20 [History] Apixaban [Eliquis] 1 tab PO BID 10/08/20 [History] Furosemide [Lasix] 20 mg PO BID 10/08/20 [History] Amiodarone HCl 200 mg [Cordarone 200 MG] 200 mg PO BID 12/16/20 [History] Amlodipine Besylate 5 mg [Norvasc 5 mg] 5 mg PO DAILY 12/16/20 [History] Cyanocobalamin (Vitamin B-12) [B-12] 1,000 mcg PO DAILY 12/16/20 [History] Finasteride 5 mg [Proscar 5 MG] 5 mg PO DAILY 12/16/20 [History] Hx Tetanus, Diphtheria Vaccination/Date Given: Yes Hx Influenza Vaccination/Date Given: Yes Hx Pneumococcal Vaccination/Date Given: Yes Travel Risk - International Travel Have you traveled outside of the country in past 3 weeks: No - Coronavirus Screening Are you exhibiting any of the following symptoms?: No - Vaccine Status Have you recieved a Covid-19 vaccination: No - Review of Systems Constitutional: Weakness, No Fever, No Chills Eyes: No Symptoms Ears, Nose, & Throat: No Symptoms Respiratory: No Cough, No Dyspnea Cardiac: No Chest Pain, No Edema, No Syncope Abdominal/Gastrointestinal: No Abdominal Pain, No Nausea, No Vomiting, No Di arrhea Genitourinary Symptoms: No Dysuria Musculoskeletal: No Back Pain, No Neck Pain Skin: No Rash Neurological: Dizziness, No Focal Weakness, No Sensory Changes Psychological: No Symptoms Endocrine: No Symptoms Hematologic/Lymphatic: No Symptoms Immunological/Allergic: No Symptoms All Other Systems: Reviewed and Negative - Past Medical History Pertinent Past Medical History: Yes Neurological History: No Pertinent History ENT History: No Pertinent History Cardiac History: Arrhythmia, Peripheral Vascular Disease Respiratory History: COPD, Sleep Apnea Endocrine Medical History: Diabetes Type II Musculoskeletal History: Fractures, Osteoarthritis GI Medical History: GERD, Gallbladder Disease, Hernia History: No Pertinent History Psycho-Social History: No Pertinent History Male Reproductive Disorders: Prostate Problems Other Medical History: FX LEFT HIP 30 YEARS AGO - NO SURGERY. STENT PLACEMENT LEFT LOWER LEG (GROIN) (Pt states no knowing what it is for)10 YEARS AGO. CHOLECYSTECTOMY, APPENDECTOMY, BILATERAL INGUINAL HERNIA REPAIRS - Past Surgical History Past Surgical History: Yes Neuro Surgical History: No Pertinent History Cardiac: Vascular Surgery Respiratory: No Pertinent History Gastrointestinal: Appendectomy, Cholecystectomy, Hernia Repair Genitourinary: No Pertinent History Musculoskeletal: No Pertinent History Male Surgical History: No Pertinent History Other Surgical History: STENT PLACED AFTER GALLBLADDER REMOVAL( "had liver knicked during surgery and had a drain to reroute bile"), AND REMOVED. shoulder surgery- right states rotator cuff repair,, Left Carpal Tunnel Surgery, Right r otator cuff surgery - Social History Smoking Status: Former smoker Exposure to second hand smoke: No Alcohol Use: None Drug Use: none Patient Lives Alone: No Significant Family History: heart disease - Nursing Vital Signs Nursing Vital Signs: Initial Vital Signs Temperature 97.5 F 01/02/21 20:05 Pulse Rate 44 L 01/02/21 20:05 Respiratory Rate 22 01/02/21 20:05 Blood Pressure 163/68 01/02/21 20:05 O2 Sat by Pulse Oximetry 97 01/02/21 20:05 Pain Scale Pain Intensity 0 - Physical Exam General Appearance: no apparent distress, alert Eye Exam: PERRL/EOMI, eyes nml inspection Ears, Nose, Throat Exam: normal ENT inspection, TMs normal, pharynx normal, moist mucous membranes Neck Exam: normal inspection, non-tender, supple, full range of motion Respiratory Exam: normal breath sounds, lungs clear, No respiratory distress Cardiovascular Exam: regular rate/rhythm, normal heart sounds, normal peripheral pulses Gastrointestinal/Abdomen Exam: soft, normal bowel sounds, No tenderness, No mass Rectal Exam: deferred Back Exam: normal inspection, normal range of motion, No CVA tenderness, No vertebral tenderness Extremity Exam: normal inspection, normal range of motion, pelvis stable Neurologic Exam: alert, oriented x 3, cooperative, normal mood/affect, nml cerebellar function, nml station & gait, sensation nml, No motor deficits Skin Exam: normal color, warm, dry, No rash Lymphatic Exam: No adenopathy SpO2 Interpretation: normal SpO2: 97 O2 Delivery: Room Air - Course Nursing assessment & vital signs reviewed: Yes EKG Interpreted by Me: Sinus Rhythm, Sinus Keaton, LAFB, Right Bundle Branch Block, Non-specific ST Changes Ordered Tests: Active Orders 24 hr Category Date Time Status Honing Machine Operator Semiautomatic STAT Care 01/02/21 20:28 Active EKG-ER Only STAT Care 01/02/21 20:27 Active Pulse Oximetry (ED) STAT Care 01/02/21 20:27 Active CHEST WITH CONTRAST [CT] Stat Exams 01/02/21 21:53 Taken CBC W DIFF Stat Lab 01/02/21 20:51 Completed CMP Stat Lab 01/02/21 20:51 Completed D-DIMER QUANTITATIVE Stat Lab 01/02/21 20:51 Completed Manual Differential NC Stat Lab 01/02/21 20:51 Completed NT PRO BNP Stat Lab 01/02/21 20:51 Completed TROPONIN Q3H Lab 01/02/21 20:51 Completed TROPONIN Q3H Lab 01/02/21 23:38 Completed TROPONIN Q3H Lab 01/03/21 02:45 Received TROPONIN Q3H Lab 01/03/21 05:30 Ordered TROPONIN Q3H Lab 01/03/21 08:30 Ordered Lab/Rad Data: Laboratory Result Diagrams 01/02/21 20:51 01/02/21 20:51 Laboratory Results 01/03/21 01/02/21 01/02/21 Range/Units 01:35 23:38 20:51 WBC (4.0-10.5) K/mm3 RBC (4.1-5.6) M/mm3 Hgb (12.5-18.0) gm/dl Hct (42-50) % MCV (78-100) fl MCH (26-32) pg MCHC (32-36) g/dl RDW (11.5-14.0) % Plt Count (150-450) K/mm3 MPV (7.5-11.0) fl Segmented Neutrophils (36.-66.) % Lymphocytes (Manual) (24-44) % Monocytes (Manual) (0.0-12.0) % Eosinophils (Manual) (0.00-3.0) % Platelet Estimate (NORMAL) RBC Morphology D-Dimer (215-500) ng/mL Sodium (137-145) mmol/L Potassium (3.5-5.1) mmol/L Chloride (98-107) mmol/L Carbon Dioxide (22-30) mmol/L Anion Gap (5-15) MEQ/L BUN (9-20) mg/dL Creatinine (0.66-1.25) mg/dL Estimated GFR ML/MIN Glucose (74-106) mg/dL Calcium (8.4-10.2) mg/dL Total Bilirubin (0.2-1.3) mg/dL AST (17-59) U/L ALT (0-50) U/L Alkaline Phosphatase (38-126) U/L Troponin I 0.020 0.019 (0.000-0.034) ng/mL NT-Pro-B Natriuret Pep (0-900) pg/mL Serum Total Protein (6.3-8.2) g/dL Albumin (3.5-5.0) g/dL SARS-CoV-2 (PCR) NEGATIVE (NEGATIVE) 01/02/21 01/02/21 01/02/21 Range/Units 20:51 20:51 20:51 WBC 7.5 (4.0-10.5) K/mm3 RBC 4.02 L (4.1-5.6) M/mm3 Hgb 11.0 L (12.5-18.0) gm/dl Hct 35.4 L (42-50) % MCV 88.1 (78-100) fl MCH 27.4 (26-32) pg MCHC 31.1 L (32-36) g/dl RDW 13.9 (11.5-14.0) % Plt Count 222 (150-450) K/mm3 MPV 10.1 (7.5-11.0) fl Segmented Neutrophils 78 H (36.-66.) % Lymphocytes (Manual) 15 L (24-44) % Monocytes (Manual) 4 (0.0-12.0) % Eosinophils (Manual) 3 (0.00-3.0) % Platelet Estimate NORMAL (NORMAL) RBC Morphology NORMAL D-Dimer 604 H* (215-500) ng/mL Sodium 136 L (137-145) mmol/L Potassium 4.1 (3.5-5.1) mmol/L Chloride 98 (98-107) mmol/L Carbon Dioxide 29 (22-30) mmol/L Anion Gap 13.5 (5-15) MEQ/L BUN 22 H (9-20) mg/dL Creatinine 1.21 (0.66-1.25) mg/dL Estimated GFR > 60.0 ML/MIN Glucose 144 H (74-106) mg/dL Calcium 10.2 (8.4-10.2) mg/dL Total Bilirubin 0.40 (0.2-1.3) mg/dL AST 41 (17-59) U/L ALT 34 (0-50) U/L Alkaline Phosphatase 78 (38-126) U/L Troponin I (0.000-0.034) ng/mL NT-Pro-B Natriuret Pep 738 (0-900) pg/mL Serum Total Protein 7.1 (6.3-8.2) g/dL Albumin 4.2 (3.5-5.0) g/dL SARS-CoV-2 (PCR) (NEGATIVE) - Progress Progress: improved, re-examined Progress Note: 01/03/21 00:[address] PE result and this is delayed from pt CT volume this am. 01/03/21 02:[address] 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 We have to get a Covid swab to admit for obs here , and then will talk to Dr. Hassan covering, but this will take a delay. meanwhile HR is improving to upper 40s. 01/03/21 02:[address] Hassan and pt and will place in obs to adjust meds to 10 mg amlodipine daily ( increased from 5 mg daily) and decrease amiardarone to 100 mg hs down from 200 mg hs. and assure trops back to normal and no symptoms. Discussed with : Jay Will see patient in: hospital (observation) Counseled pt/family regarding: lab results, diagnosis, need for follow-up, rad results - Departure Departure Disposition: Observation Clinical Impression: Symptomatic bradycardia, Hypertension Condition: Good Critical Care Time: No
[2021-01-02 20:53] LABS: Hematocrit 35.4 % (42-50); Mean Cell Volume 88.1 fl (78-100); Mean Corpuscular Hemoglobin 27.4 pg (26-32); Mean Corpuscular Hgb Concent. 31.1 g/dl (32-36); Mean Platelet Volume 10.1 fl (7.5-11.0); Platelet Count 222 K/mm3 (150-450); Red Blood Count 4.02 M/mm3 (4.1-5.6); Red Cell Distribution Width 13.9 % (11.5-14.0); White Blood Count 7.5 K/mm3 (4.0-10.5)
[2021-01-02 21:13] LABS: ALBUMIN 4.2 g/dL (3.5-5.0); ALKALINE PHOSPHATASE 78 U/L (38-126); ANION GAP 13.5 MEQ/L (5-15); BLOOD UREA NITROGEN 22 mg/dL (9-20); CHLORIDE 98 mmol/L (98-107); Calcium 10.2 mg/dL (8.4-10.2); Carbon Dioxide 29 mmol/L (22-30); Creatinine 1 1.21 mg/dL (0.66-1.25); EST GLOMERULAR FILTRATION RATE > 60.0 ML/MIN; Glucose 144 mg/dL (74-106); NT PRO BNP 738 pg/mL (0-900); Potassium 4.1 mmol/L (3.5-5.1); SGOT/AST 41 U/L (17-59); SGPT/ALT 34 U/L (0-50); SODIUM 136 mmol/L (137-145); Total Protein 7.1 g/dL (6.3-8.2)
[2021-01-02 22:12] LABS: Eosinophil 3 % (0.00-3.0); Lymphocytes 15 % (24-44); Monocyte 4 % (0.0-12.0); Neutrophils 78 % (36.-66.); Platelet Estimate NORMAL (NORMAL); Total Cells Counted 100
[2021-01-03] MEDS ORDERED: NORVASC 5 MG PO ONE (03:12)
[2021-01-03] MEDS ORDERED: TYLENOL 325 MG PO PRN (03:12)
[2021-01-03] MEDS ORDERED: Zofran 4 MG/2 ML VIAL IV PRN (03:12)
[2021-01-03] MEDS ORDERED: DUONEB 0.5-3 MG/3 ml Neb IH PRN (03:12)
[2021-01-03] MEDS ORDERED: Sodium Chloride 0.9% 1000 ML 1,000 ML IV SCH ×2 (03:15→05:12)
[2021-01-03] MEDS ORDERED: Sodium Chloride 0.9% 1000 ML 1,000 ML ONE (04:41)
[2021-01-03 06:04] LABS: Hemoglobin 10.9 gm/dl (12.5-18.0); Mean Cell Volume 88.5 fl (78-100); Mean Corpuscular Hemoglobin 26.8 pg (26-32); Mean Corpuscular Hgb Concent. 30.3 g/dl (32-36); Mean Platelet Volume 10.5 fl (7.5-11.0); Platelet Count 239 K/mm3 (150-450); Red Blood Count 4.07 M/mm3 (4.1-5.6); Red Cell Distribution Width 13.9 % (11.5-14.0); White Blood Count 7.1 K/mm3 (4.0-10.5)
[2021-01-03 06:15] LABS: ALKALINE PHOSPHATASE 108 U/L (38-126); ANION GAP 14.4 MEQ/L (5-15); BLOOD UREA NITROGEN 20 mg/dL (9-20); CHLORIDE 100 mmol/L (98-107); Calcium 9.8 mg/dL (8.4-10.2); Carbon Dioxide 23 mmol/L (22-30); Creatinine 1 1.16 mg/dL (0.66-1.25); EST GLOMERULAR FILTRATION RATE > 60.0 ML/MIN; Glucose 271 mg/dL (74-106); Potassium 4.1 mmol/L (3.5-5.1); SGOT/AST 34 U/L (17-59); SGPT/ALT 32 U/L (0-50); SODIUM 134 mmol/L (137-145); Total Protein 6.8 g/dL (6.3-8.2)
[2021-01-03 07:10] VITALS: O2SAT 97
--- NOTE | 2021-01-03 07:37 | XRAY ---
Indication: Elevated d-dimer. Multiple contiguous axial images obtained through the chest using 80 cc Isovue-370 contrast and PE protocol. Comparison: October 09, 2020. There is good opacification of the pulmonary arteries to include the lobar and segmental branches. No pulmonary embolus. Heart remains enlarged. Aorta again mildly arteriosclerotic without aneurysm/dissection. No pathologic mediastinal/hilar lymphadenopathy. Lungs again hyperinflated with minimal scattered subsegmental atelectasis/scarring bilaterally. No infiltrate or effusion. Bony thorax intact again with minimal degenerative changes of the spine and mild dextroscoliosis. Limited upper abdomen again demonstrates fatty liver and splenic calcified granulomas. Impression: 1. Continued negative pulmonary embolus. 2. Stable cardiomegaly, scattered atelectasis/scarring, fatty liver, chronic bony findings, and old granulomatous disease. 3. No new/acute cardiopulmonary abnormalities. Comment: Preliminary interpretation made by C. No critical discrepancy.
[2021-01-03 08:24] LABS: BAND 1 % (0.0-2.0); Eosinophil 1 % (0.00-3.0); Lymphocytes 24 % (24-44); Monocyte 2 % (0.0-12.0); Neutrophils 72 % (36.-66.); Platelet Estimate NORMAL (NORMAL); Total Cells Counted 100
[2021-01-03] MEDS: HUMULIN R SQ PRN ×2 (08:46→12:23)
--- NOTE | 2021-01-03 08:59 | PCM.HP ---
History of Present Illness - Chief Complaint Chief Complaint: states his blood pressure is very high and has passing out episode History of Present Illness: is a 70 year old male.thought bp was very high. meter at home read 187/110. this morning states he had syncopal episode that lasts 1 second and he has to shake his head to get out of it. - Review of Systems Constitutional: No Fever, No Chills Eyes: No Symptoms Ears, Nose, & Throat: No Symptoms Respiratory: No Cough, No Short Of Breath Cardiac: Syncope, No Chest Pain, No Edema, No Palpitations Abdominal/Gastrointestinal: No Abdominal Pain, No Nausea, No Vomiting, No Diarrhea Genitourinary Symptoms: No Dysuria Musculoskeletal: No Back Pain, No Neck Pain Skin: No Rash Neurological: No Dizziness, No Focal Weakness, No Sensory Changes Psychological: No Symptoms Endocrine: No Symptoms Hematologic/Lymphatic: No Symptoms Immunological/Allergic: No Symptoms Medications & Allergies Home Medications: Home Medication List Alendronate Sodium 35 mg PO WEEKLY 05/06/19 [History Confirmed 01/03/21] Finasteride 5 mg [Proscar 5 MG] 5 mg PO DAILY 05/06/19 [History Confirmed 01/03/21] Fluticasone/Umeclidin/Vilanter [Trelegy Ellipta 100-62.5-25] 1 each IH 05/06/19 [History Confirmed 01/03/21] Levothyroxine Sodium 50 Mcg [Synthroid 50 Mcg] 50 mcg PO DAILY 05/06/19 [History Confirmed 01/03/21] Metformin HCl 500 mg [Glucophage 500 MG] 1,000 mg PO BID 05/06/19 [History Confirmed 01/03/21] Pyridoxine HCl [Vitamin B-6] 100 mg PO UD 05/06/19 [History Confirmed 01/03/21] [place] Fruit/Zinc Picoli [[place] 450 mg Capsule] 900 mg PO BID 05/06/19 [History Confirmed 01/03/21] Tamsulosin HCl 0.4 mg [Flomax 0.4 MG] 0.4 mg PO HS 05/06/19 [History Confirmed 01/03/21] Testosterone Cypionate [Testone Cik] 200 mg IM UD 05/06/19 [History Confirmed 01/03/21] Vitamin E 400 Units [Vitamin E 400 UNIT SOFTGEL] 400 unit PO HS 05/06/19 [History Confirmed 01/03/21] PANTOPRAZOLE 40 mg Tablet [Protonix 40MG Tablet] 40 mg PO DAILY 06/05/19 [History Confirmed 01/03/21] Albuterol 2.5 mg/3 ml Neb [Proventil 2.5 mg/3 ml Neb] 2 puffs NEB QID 02/28/20 [History Confirmed 01/03/21] Magnesium Oxide 400 mg [Mag-Ox 400] 3 tab PO TID 02/28/20 [History Confirmed 01/03/21] Apixaban [Eliquis] 5 mg PO BID 10/08/20 [History Confirmed 01/03/21] Furosemide [Lasix] 20 mg PO BID 10/08/20 [History Confirmed 01/03/21] Blood Sugar Diagnostic [Freestyle Lite Test Strip] 1 strip ACHS #100 strip 10/12/20 [Rx Confirmed 01/03/21] Blood-Glucose Meter [Freestyle Precision Ramón Meter] 1 each ACHS #1 each 10/12/20 [Rx Confirmed 01/03/21] Lancets [Freestyle Lancets] 1 each [facility] #100 each 10/12/20 [Rx Confirmed 01/03/21] Amiodarone HCl 200 mg [Cordarone 200 MG] 100 mg PO BID 12/16/20 [History Confirmed 01/03/21] Amlodipine Besylate 5 mg [Norvasc 5 mg] 10 mg PO DAILY 12/16/20 [History Confirmed 01/03/21] Cyanocobalamin (Vitamin B-12) [B-12] 1,000 mcg PO DAILY 12/16/20 [History Confirmed 01/03/21] Empagliflozin [Jardiance] 25 mg PO DAILY 01/03/21 [History Confirmed 01/03/21] Insulin Detemir [Levemir] 30 unit SQ DAILY 01/03/21 [History Confirmed 01/03/21] Lovastatin 40 mg PO HS 01/03/21 [History Confirmed 01/03/21] Naproxen Sodium [Aleve] 220 mg PO DAILY 01/03/21 [History Confirmed 01/03/21] Ropinirole 2Mg [Requip 2Mg Tab] 1 mg PO HS 01/03/21 [History Confirmed 01/03/21] Semaglutide [Ozempic] 1 syringe SQ WEEKLY 01/03/21 [History Confirmed 01/03/21] Sodium Zirconium Cyclosilicate [Lokelma] 10 gm PO DAILY 01/03/21 [History Confirmed 01/03/21] Allergies/Adverse Reactions: Allergies Allergy/AdvReac Type Severity Reaction Status Date / Time bacitracin Allergy Rash Verified 01/03/21 04:52 [From Neosporin ([id number])] bacitracin zinc Allergy Rash Verified 01/03/21 04:52 [From Neosporin ([id number]-rfz-[id number])] neomycin sulfate Allergy Rash Verified 01/03/21 04:52 [From Neosporin ([id number]-[id number])] polymyxin B Allergy Rash Verified 01/03/21 04:52 [From Neosporin ([id number])] - Past Medical History Past Medical History: Yes Neurological History: No Pertinent History ENT History: No Pertinent History Cardiac History: Arrhythmia, Peripheral Vascular Disease Respiratory History: COPD, Sleep Apnea Endocrine Medical History: Diabetes Type II Musculoskelatal History: Fractures, Osteoarthritis GI Medical History: GERD, Gallbladder Disease, Hernia History: No Pertinent History Pyscho-Social History: No Pertinent History Male Reproductive Disorders: Prostate Problems Comment: FX LEFT HIP 30 YEARS AGO - NO SURGERY. STENT PLACEMENT LEFT LOWER LEG (GROIN) (Pt states no knowing what it is for)10 YEARS AGO. CHOLECYSTECTOMY, APPENDECTOMY, BILATERAL INGUINAL HERNIA REPAIRS - Past Surgical History Past Surgical History: Yes Neuro Surgical History: No Pertinent History Cardiac History: Vascular Surgery Respiratory Surgery: No Pertinent History GI Surgical History: Appendectomy, Cholecystectomy, Hernia Repair Genitourinary Surgical Hx: No Pertinent History Musculskeletal Surgical Hx: No Pertinent History Male Surgical History: No Pertinent History Other Surgical History: STENT PLACED AFTER GALLBLADDER REMOVAL( "had liver knicked during surgery and had a drain to reroute bile"), AND REMOVED. shoulder surgery- right states rotator cuff repair,, Left Carpal Tunnel Surgery, Right rotator cuff surgery - Social History Smoking Status: Former smoker Exposure to second hand smoke: Yes ( smokes) Alcohol: None Drug Use: none Significant Family History: heart disease - Physical Exam Vital Signs: Vital Signs - 24 hr Temp Pulse Resp BP Pulse Ox 01/03/21 07:09 98.4 F 43 L 18 136/66 97 01/03/21 04:20 44 L 30 H 96 01/03/21 04:00 97.2 F 46 L 22 189/83 97 01/03/21 03:52 97.2 F 46 L 22 189/83 96 01/03/21 03:02 97 01/03/21 02:00 48 L 22 178/105 96 01/03/21 01:00 42 L 21 180/81 95 01/03/21 00:10 41 L 20 95 01/02/21 23:00 42 L 22 159/81 96 01/02/21 22:00 44 L 20 173/77 96 01/02/21 21:27 97 01/02/21 21:25 44 L 20 157/62 97 01/02/21 20:05 97.5 F 44 L 22 163/68 97 General Appearance: no apparent distress, alert Neurologic Exam: alert, oriented x 3, cooperative, normal mood/affect, nml cerebellar function, nml station & gait, sensation nml, No motor deficits Eye Exam: PERRL/EOMI, eyes nml inspection Ears, Nose, Throat Exam: normal ENT inspection, TMs normal, pharynx normal, moist mucous membranes Neck Exam: normal inspection, non-tender, supple, full range of motion Respiratory Exam: normal breath sounds, lungs clear, No respiratory distress Cardiovascular Exam: normal peripheral pulses, bradycardia, capillary refill 2-3 sec Gastrointestinal/Abdomen Exam: soft, normal bowel sounds, No tenderness, No mass Back Exam: normal inspection, normal range of motion, No CVA tenderness, No vertebral tenderness Extremity Exam: normal inspection, normal range of motion, pelvis stable Skin Exam: normal color, warm, dry, No rash Lymphatic Exam: No adenopathy Results - Labs Lab/Micro Results: Lab Results-Last 24 Hours 01/02/21 01/02/21 01/02/21 Range/Units 20:51 20:51 20:51 WBC 7.5 (4.0-10.5) K/mm3 RBC 4.02 L (4.1-5.6) M/mm3 Hgb 11.0 L (12.5-18.0) gm/dl Hct 35.4 L (42-50) % MCV 88.1 (78-100) fl MCH 27.4 (26-32) pg MCHC 31.1 L (32-36) g/dl RDW 13.9 (11.5-14.0) % Plt Count 222 (150-450) K/mm3 MPV 10.1 (7.5-11.0) fl Segmented Neutrophils 78 H (36.-66.) % Band Neutrophils (0.0-2.0) % Lymphocytes (Manual) 15 L (24-44) % Monocytes (Manual) 4 (0.0-12.0) % Eosinophils (Manual) 3 (0.00-3.0) % Platelet Estimate NORMAL (NORMAL) RBC Morphology NORMAL D-Dimer 604 H* (215-500) ng/mL Sodium 136 L (137-145) mmol/L Potassium 4.1 (3.5-5.1) mmol/L Chloride 98 (98-107) mmol/L Carbon Dioxide 29 (22-30) mmol/L Anion Gap 13.5 (5-15) MEQ/L BUN 22 H (9-20) mg/dL Creatinine 1.21 (0.66-1.25) mg/dL Estimated GFR > 60.0 ML/MIN Glucose 144 H (74-106) mg/dL POC Glucometer (74 to 106) mg/dL Calcium 10.2 (8.4-10.2) mg/dL Total Bilirubin 0.40 (0.2-1.3) mg/dL AST 41 (17-59) U/L ALT 34 (0-50) U/L Alkaline Phosphatase 78 (38-126) U/L Troponin I (0.000-0.034) ng/mL NT-Pro-B Natriuret Pep 738 (0-900) pg/mL Serum Total Protein 7.1 (6.3-8.2) g/dL Albumin 4.2 (3.5-5.0) g/dL SARS-CoV-2 (PCR) (NEGATIVE) 01/02/21 01/02/21 01/03/21 Range/Units 20:51 23:38 01:35 WBC (4.0-10.5) K/mm3 RBC (4.1-5.6) M/mm3 Hgb (12.5-18.0) gm/dl Hct (42-50) % MCV (78-100) fl MCH (26-32) pg MCHC (32-36) g/dl RDW (11.5-14.0) % Plt Count (150-450) K/mm3 MPV (7.5-11.0) fl Segmented Neutrophils (36.-66.) % Band Neutrophils (0.0-2.0) % Lymphocytes (Manual) (24-44) % Monocytes (Manual) (0.0-12.0) % Eosinophils (Manual) (0.00-3.0) % Platelet Estimate (NORMAL) RBC Morphology D-Dimer (215-500) ng/mL Sodium (137-145) mmol/L Potassium (3.5-5.1) mmol/L Chloride (98-107) mmol/L Carbon Dioxide (22-30) mmol/L Anion Gap (5-15) MEQ/L BUN (9-20) mg/dL Creatinine (0.66-1.25) mg/dL Estimated GFR ML/MIN Glucose (74-106) mg/dL POC Glucometer (74 to 106) mg/dL Calcium (8.4-10.2) mg/dL Total Bilirubin (0.2-1.3) mg/dL AST (17-59) U/L ALT (0-50) U/L Alkaline Phosphatase (38-126) U/L Troponin I 0.019 0.020 (0.000-0.034) ng/mL NT-Pro-B Natriuret Pep (0-900) pg/mL Serum Total Protein (6.3-8.2) g/dL Albumin (3.5-5.0) g/dL SARS-CoV-2 (PCR) NEGATIVE (NEGATIVE) 01/03/21 01/03/21 01/03/21 Range/Units 02:45 05:52 05:52 WBC 7.1 (4.0-10.5) K/mm3 RBC 4.07 L (4.1-5.6) M/mm3 Hgb 10.9 L (12.5-18.0) gm/dl Hct 36.0 L (42-50) % MCV 88.5 (78-100) fl MCH 26.8 (26-32) pg MCHC 30.3 L (32-36) g/dl RDW 13.9 (11.5-14.0) % Plt Count 239 (150-450) K/mm3 MPV 10.5 (7.5-11.0) fl Segmented Neutrophils 72 H (36.-66.) % Band Neutrophils 1 (0.0-2.0) % Lymphocytes (Manual) 24 (24-44) % Monocytes (Manual) 2 (0.0-12.0) % Eosinophils (Manual) 1 (0.00-3.0) % Platelet Estimate NORMAL (NORMAL) RBC Morphology NORMAL D-Dimer (215-500) ng/mL Sodium (137-145) mmol/L Potassium (3.5-5.1) mmol/L Chloride (98-107) mmol/L Carbon Dioxide (22-30) mmol/L Anion Gap (5-15) MEQ/L BUN (9-20) mg/dL Creatinine (0.66-1.25) mg/dL Estimated GFR ML/MIN Glucose (74-106) mg/dL POC Glucometer (74 to 106) mg/dL Calcium (8.4-10.2) mg/dL Total Bilirubin (0.2-1.3) mg/dL AST (17-59) U/L ALT (0-50) U/L Alkaline Phosphatase (38-126) U/L Troponin I 0.021 0.018 (0.000-0.034) ng/mL NT-Pro-B Natriuret Pep (0-900) pg/mL Serum Total Protein (6.3-8.2) g/dL Albumin (3.5-5.0) g/dL SARS-CoV-2 (PCR) (NEGATIVE) 01/03/21 01/03/21 01/03/21 Range/Units 05:52 05:53 08:00 WBC (4.0-10.5) K/mm3 RBC (4.1-5.6) M/mm3 Hgb (12.5-18.0) gm/dl Hct (42-50) % MCV (78-100) fl MCH (26-32) pg MCHC (32-36) g/dl RDW (11.5-14.0) % Plt Count (150-450) K/mm3 MPV (7.5-11.0) fl Segmented Neutrophils (36.-66.) % Band Neutrophils (0.0-2.0) % Lymphocytes (Manual) (24-44) % Monocytes (Manual) (0.0-12.0) % Eosinophils (Manual) (0.00-3.0) % Platelet Estimate (NORMAL) RBC Morphology D-Dimer (215-500) ng/mL Sodium 134 L (137-145) mmol/L Potassium 4.1 (3.5-5.1) mmol/L Chloride 100 (98-107) mmol/L Carbon Dioxide 23 (22-30) mmol/L Anion Gap 14.4 (5-15) MEQ/L BUN 20 (9-20) mg/dL Creatinine 1.16 (0.66-1.25) mg/dL Estimated GFR > 60.0 ML/MIN Glucose 271 H (74-106) mg/dL POC Glucometer 248 H (74 to 106) mg/dL Calcium 9.8 (8.4-10.2) mg/dL Total Bilirubin 0.40 (0.2-1.3) mg/dL AST 34 (17-59) U/L ALT 32 (0-50) U/L Alkaline Phosphatase 108 (38-126) U/L Troponin I 0.021 (0.000-0.034) ng/mL NT-Pro-B Natriuret Pep (0-900) pg/mL Serum Total Protein 6.8 (6.3-8.2) g/dL Albumin 4.0 (3.5-5.0) g/dL SARS-CoV-2 (PCR) (NEGATIVE) Accuchecks Date 01/03/21 Time 05:55 - Radiology Impressions Radiology Exams & Impressions: Radiology Procedures Category Date Time Status CHEST WITH CONTRAST [CT] Stat Exams 01/02/21 21:53 Completed - Other Procedures and Tests Respiratory Therapy 01/03/21 04:55 BiPap/CPAP ROUTINE 01/03/21 05:00 Respiratory Therapy Assessment DAILY Assessment/Plan (1) Symptomatic bradycardia Current Visit: Yes Status: Acute Code(s): R00.1 - BRADYCARDIA, UNSPECIFIED (2) Hypertension Current Visit: Yes Status: Acute Qualifiers: Hypertension type: primary hypertension Qualified Code(s): I10 - Essential (primary) hypertension Code(s): I10 - ESSENTIAL (PRIMARY) HYPERTENSION (3) Dizziness Current Visit: No Status: Acute Code(s): R42 - DIZZINESS AND GIDDINESS
[2021-01-03] MEDS ORDERED: NON-FORMULARY ITEM (Alendronate Sodium [Alendronate Sodium] 35 MG) PO SCH (09:30)
[2021-01-03] MEDS ORDERED: TESTOSTERONE CYPIONATE 200 MG IM SCH (09:30)
[2021-01-03] MEDS ORDERED: SEMAGLUTIDE SQ SCH (09:30)
[2021-01-03] MEDS: Advair Hfa 115/21 Common canister IH SCH ×2 (09:40→09:52)
[2021-01-03] MEDS ORDERED: MEDICATION INTERVENTION MC SCH (10:00)
[2021-01-03] MEDS ORDERED: NON-FORMULARY ITEM (Apixaban [Eliquis] 5 MG) PO SCH (10:00)
[2021-01-03] MEDS ORDERED: SYNTHROID 50 MCG PO SCH (10:00)
[2021-01-03] MEDS ORDERED: SAW PALMETTO FRUIT PO SCH (10:00)
[2021-01-03] MEDS ORDERED: Proscar 5 MG PO SCH (10:00)
[2021-01-03] MEDS ORDERED: NORVASC 5 MG PO SCH (10:00)
[2021-01-03] MEDS ORDERED: LASIX 20 MG PO SCH (10:00)
[2021-01-03] MEDS ORDERED: ELIQUIS 2.5 MG TABLET PO SCH (10:00)
[2021-01-03] MEDS ORDERED: ZINC PICOLI PO SCH (10:00)
[2021-01-03] MEDS ORDERED: Cordarone 200 MG PO SCH ×2 (10:00)
[2021-01-03] MEDS ORDERED: NON-FORMULARY ITEM (Cyanocobalamin (Vitamin B-12) [B-12] 1,000 MCG) PO SCH (10:00)
[2021-01-03] MEDS ORDERED: Naprosyn 500 MG PO SCH (10:00)
[2021-01-03] MEDS ORDERED: NON-FORMULARY ITEM (Insulin Detemir [Levemir] 30 UNIT) SQ SCH (10:00)
[2021-01-03] MEDS ORDERED: Vitamin B-12 500 MCG PO SCH (10:00)
[2021-01-03] MEDS ORDERED: PATIENT OWN MEDICATION PO SCH (10:00)
[2021-01-03] MEDS ORDERED: Lantus Insulin SQ SCH (10:00)
[2021-01-03] MEDS ORDERED: Pepcid 20 MG VIAL IV SCH (10:00)
[2021-01-03] MEDS ORDERED: [UNRECOGNIZED DRUG - OTHER] PO SCH (10:00)
[2021-01-03] MEDS ORDERED: NON-FORMULARY ITEM (Empagliflozin [Jardiance] 25 MG) PO SCH (10:00)
[2021-01-03] MEDS ORDERED: Protonix 40MG Tablet PO SCH (10:00)
[2021-01-03] MEDS ORDERED: Glucophage 500 MG PO SCH (10:00)
[2021-01-03] MEDS ORDERED: MAG-OX 400 PO SCH ×4 (10:00→22:00)
[2021-01-03] MEDS ORDERED: NON-FORMULARY ITEM (Naproxen Sodium [Aleve] 220 MG) PO SCH (10:00)
[2021-01-03] MEDS ORDERED: PROVENTIL 2.5 MG/3 ML NEB IH SCH (11:00)
[2021-01-03] MEDS ORDERED: PATIENT OWN MEDICATION IM SCH ×3 (11:15→11:30)
[2021-01-03 11:44] VITALS: BP 174/74; PULSE 45
[2021-01-03] MEDS ORDERED: MORPHINE SULFATE 2 MG INJ ONE (14:33)
[2021-01-03] MEDS ORDERED: Zofran 4 MG/2 ML VIAL ONE (14:34)
[2021-01-03 14:57] LABS: ALBUMIN 4.3 g/dL (3.5-5.0); ALKALINE PHOSPHATASE 86 U/L (38-126); ANION GAP 16.7 MEQ/L (5-15); BLOOD UREA NITROGEN 21 mg/dL (9-20); CHLORIDE 101 mmol/L (98-107); Carbon Dioxide 23 mmol/L (22-30); Creatinine 1 1.17 mg/dL (0.66-1.25); EST GLOMERULAR FILTRATION RATE > 60.0 ML/MIN; Glucose 240 mg/dL (74-106); Potassium 4.8 mmol/L (3.5-5.1); SGOT/AST 34 U/L (17-59); SGPT/ALT 33 U/L (0-50); SODIUM 136 mmol/L (137-145); TROPONIN 0.013 ng/mL (0.000-0.034); Total Protein 7.3 g/dL (6.3-8.2)
--- NOTE | 2021-01-03 15:31 | PCM.DS ---
Discharge Summary Date of Admission: 01/03/21 02:50 Admitting Physician: EZE CINTRON Primary Care Provider: MELQUIADES CADET Allergies Allergies bacitracin [From Neosporin ([id number])] Allergy (Verified 01/03/21 04:52) Rash bacitracin zinc [From Neosporin (oik-imi-jssur)] Allergy (Verified 01/03/21 04:52) Rash neomycin sulfate [From Neosporin (uzr-eem-rvolb)] Allergy (Verified 01/03/21 04:52) Rash polymyxin B [From Neosporin ([id number]-lfq-mvzlg)] Allergy (Verified 01/03/21 04:52) Rash Hospital Summary - Hospital Course Hospital Course: Pt is 70 yo male with afib admitted through ER with bradycardia and after having 2 episodes of bradycardia leading to asystole, he is being transferred out to [place] where 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 Apparently he was discharged Dec 15 from there after failing Tikosyn and starting amiodarone. He was disoriented and dizzy and drove himself to the ER last night. He was bradycardic in e40s when Dr. Lugo saw him earlier today, but was conversant. He had CPR briefly then returned to NSR, then had asystole a second time, which is when I entered the hospital. His Mg is typically low but was 1.9 today. Troponin neg x 6 altogether (neg again after asystole). He is c/o mild chest pain. He was given epinephrine x 1, then I spoke with his glass cutting machine feeder. He started to mark down again into the 30s and was given 0.5mg atropine and is now on a dopamine drip with HR in the 70s. EKG nonacute. His d-dimer was elevated in ER but CT chest neg for PE. He is being transferred to [facility] via helicopter. - Vitals & Intake/Output Vital Signs: Vital Signs Temperature 97.9 F 01/03/21 11:43 Pulse Rate 45 L 01/03/21 11:43 Respiratory Rate 20 01/03/21 11:43 Blood Pressure 174/74 01/03/21 11:43 O2 Sat by Pulse Oximetry 97 01/03/21 11:43 Intake & Output: Intake & Output 01/01/21 01/02/21 01/03/21 01/04/21 11:59 11:59 11:59 11:59 Intake Total 580 Output Total 1000 400 Balance -420 -400 Weight 98.2 kg - Lab Result Diagrams: 01/03/21 05:52 01/03/21 14:27 Lab Results-Last 24 Hrs: Lab Results-Last 24 Hours 01/02/21 01/02/21 01/02/21 Range/Units 20:51 20:51 20:51 WBC 7.5 (4.0-10.5) K/mm3 RBC 4.02 L (4.1-5.6) M/mm3 Hgb 11.0 L (12.5-18.0) gm/dl Hct 35.4 L (42-50) % MCV 88.1 (78-100) fl MCH 27.4 (26-32) pg MCHC 31.1 L (32-36) g/dl RDW 13.9 (11.5-14.0) % Plt Count 222 (150-450) K/mm3 MPV 10.1 (7.5-11.0) fl Segmented Neutrophils 78 H (36.-66.) % Band Neutrophils (0.0-2.0) % Lymphocytes (Manual) 15 L (24-44) % Monocytes (Manual) 4 (0.0-12.0) % Eosinophils (Manual) 3 (0.00-3.0) % Platelet Estimate NORMAL (NORMAL) RBC Morphology NORMAL D-Dimer 604 H* (215-500) ng/mL Sodium 136 L (137-145) mmol/L Potassium 4.1 (3.5-5.1) mmol/L Chloride 98 (98-107) mmol/L Carbon Dioxide 29 (22-30) mmol/L Anion Gap 13.5 (5-15) MEQ/L BUN 22 H (9-20) mg/dL Creatinine 1.21 (0.66-1.25) mg/dL Estimated GFR > 60.0 ML/MIN Glucose 144 H (74-106) mg/dL POC Glucometer (74 to 106) mg/dL Calcium 10.2 (8.4-10.2) mg/dL Magnesium (1.6-2.3) mg/dL Total Bilirubin 0.40 (0.2-1.3) mg/dL AST 41 (17-59) U/L ALT 34 (0-50) U/L Alkaline Phosphatase 78 (38-126) U/L Troponin I (0.000-0.034) ng/mL NT-Pro-B Natriuret Pep 738 (0-900) pg/mL Serum Total Protein 7.1 (6.3-8.2) g/dL Albumin 4.2 (3.5-5.0) g/dL SARS-CoV-2 (PCR) (NEGATIVE) 01/02/21 01/02/21 01/03/21 Range/Units 20:51 23:38 01:35 WBC (4.0-10.5) K/mm3 RBC (4.1-5.6) M/mm3 Hgb (12.5-18.0) gm/dl Hct (42-50) % MCV (78-100) fl MCH (26-32) pg MCHC (32-36) g/dl RDW (11.5-14.0) % Plt Count (150-450) K/mm3 MPV (7.5-11.0) fl Segmented Neutrophils (36.-66.) % Band Neutrophils (0.0-2.0) % Lymphocytes (Manual) (24-44) % Monocytes (Manual) (0.0-12.0) % Eosinophils (Manual) (0.00-3.0) % Platelet Estimate (NORMAL) RBC Morphology D-Dimer (215-500) ng/mL Sodium (137-145) mmol/L Potassium (3.5-5.1) mmol/L Chloride (98-107) mmol/L Carbon Dioxide (22-30) mmol/L Anion Gap (5-15) MEQ/L BUN (9-20) mg/dL Creatinine (0.66-1.25) mg/dL Estimated GFR ML/MIN Glucose (74-106) mg/dL POC Glucometer (74 to 106) mg/dL Calcium (8.4-10.2) mg/dL Magnesium (1.6-2.3) mg/dL Total Bilirubin (0.2-1.3) mg/dL AST (17-59) U/L ALT (0-50) U/L Alkaline Phosphatase (38-126) U/L Troponin I 0.019 0.020 (0.000-0.034) ng/mL NT-Pro-B Natriuret Pep (0-900) pg/mL Serum Total Protein (6.3-8.2) g/dL Albumin (3.5-5.0) g/dL SARS-CoV-2 (PCR) NEGATIVE (NEGATIVE) 01/03/21 01/03/21 01/03/21 Range/Units 02:45 05:52 05:52 WBC 7.1 (4.0-10.5) K/mm3 RBC 4.07 L (4.1-5.6) M/mm3 Hgb 10.9 L (12.5-18.0) gm/dl Hct 36.0 L (42-50) % MCV 88.5 (78-100) fl MCH 26.8 (26-32) pg MCHC 30.3 L (32-36) g/dl RDW 13.9 (11.5-14.0) % Plt Count 239 (150-450) K/mm3 MPV 10.5 (7.5-11.0) fl Segmented Neutrophils 72 H (36.-66.) % Band Neutrophils 1 (0.0-2.0) % Lymphocytes (Manual) 24 (24-44) % Monocytes (Manual) 2 (0.0-12.0) % Eosinophils (Manual) 1 (0.00-3.0) % Platelet Estimate NORMAL (NORMAL) RBC Morphology NORMAL D-Dimer (215-500) ng/mL Sodium (137-145) mmol/L Potassium (3.5-5.1) mmol/L Chloride (98-107) mmol/L Carbon Dioxide (22-30) mmol/L Anion Gap (5-15) MEQ/L BUN (9-20) mg/dL Creatinine (0.66-1.25) mg/dL Estimated GFR ML/MIN Glucose (74-106) mg/dL POC Glucometer (74 to 106) mg/dL Calcium (8.4-10.2) mg/dL Magnesium (1.6-2.3) mg/dL Total Bilirubin (0.2-1.3) mg/dL AST (17-59) U/L ALT (0-50) U/L Alkaline Phosphatase (38-126) U/L Troponin I 0.021 0.018 (0.000-0.034) ng/mL NT-Pro-B Natriuret Pep (0-900) pg/mL Serum Total Protein (6.3-8.2) g/dL Albumin (3.5-5.0) g/dL SARS-CoV-2 (PCR) (NEGATIVE) 01/03/21 01/03/21 01/03/21 Range/Units 05:52 05:53 05:58 WBC (4.0-10.5) K/mm3 RBC (4.1-5.6) M/mm3 Hgb (12.5-18.0) gm/dl Hct (42-50) % MCV (78-100) fl MCH (26-32) pg MCHC (32-36) g/dl RDW (11.5-14.0) % Plt Count (150-450) K/mm3 MPV (7.5-11.0) fl Segmented Neutrophils (36.-66.) % Band Neutrophils (0.0-2.0) % Lymphocytes (Manual) (24-44) % Monocytes (Manual) (0.0-12.0) % Eosinophils (Manual) (0.00-3.0) % Platelet Estimate (NORMAL) RBC Morphology D-Dimer (215-500) ng/mL Sodium 134 L (137-145) mmol/L Potassium 4.1 (3.5-5.1) mmol/L Chloride 100 (98-107) mmol/L Carbon Dioxide 23 (22-30) mmol/L Anion Gap 14.4 (5-15) MEQ/L BUN 20 (9-20) mg/dL Creatinine 1.16 (0.66-1.25) mg/dL Estimated GFR > 60.0 ML/MIN Glucose 271 H (74-106) mg/dL POC Glucometer 248 H (74 to 106) mg/dL Calcium 9.8 (8.4-10.2) mg/dL Magnesium 1.9 (1.6-2.3) mg/dL Total Bilirubin 0.40 (0.2-1.3) mg/dL AST 34 (17-59) U/L ALT 32 (0-50) U/L Alkaline Phosphatase 108 (38-126) U/L Troponin I (0.000-0.034) ng/mL NT-Pro-B Natriuret Pep (0-900) pg/mL Serum Total Protein 6.8 (6.3-8.2) g/dL Albumin 4.0 (3.5-5.0) g/dL SARS-CoV-2 (PCR) (NEGATIVE) 01/03/21 01/03/21 01/03/21 Range/Units 08:00 11:33 14:25 WBC (4.0-10.5) K/mm3 RBC (4.1-5.6) M/mm3 Hgb (12.5-18.0) gm/dl Hct (42-50) % MCV (78-100) fl MCH (26-32) pg MCHC (32-36) g/dl RDW (11.5-14.0) % Plt Count (150-450) K/mm3 MPV (7.5-11.0) fl Segmented Neutrophils (36.-66.) % Band Neutrophils (0.0-2.0) % Lymphocytes (Manual) (24-44) % Monocytes (Manual) (0.0-12.0) % Eosinophils (Manual) (0.00-3.0) % Platelet Estimate (NORMAL) RBC Morphology D-Dimer (215-500) ng/mL Sodium (137-145) mmol/L Potassium (3.5-5.1) mmol/L Chloride (98-107) mmol/L Carbon Dioxide (22-30) mmol/L Anion Gap (5-15) MEQ/L BUN (9-20) mg/dL Creatinine (0.66-1.25) mg/dL Estimated GFR ML/MIN Glucose (74-106) mg/dL POC Glucometer 239 H 248 H (74 to 106) mg/dL Calcium (8.4-10.2) mg/dL Magnesium (1.6-2.3) mg/dL Total Bilirubin (0.2-1.3) mg/dL AST (17-59) U/L ALT (0-50) U/L Alkaline Phosphatase (38-126) U/L Troponin I 0.021 (0.000-0.034) ng/mL NT-Pro-B Natriuret Pep (0-900) pg/mL Serum Total Protein (6.3-8.2) g/dL Albumin (3.5-5.0) g/dL SARS-CoV-2 (PCR) (NEGATIVE) 01/03/21 Range/Units 14:27 WBC (4.0-10.5) K/mm3 RBC (4.1-5.6) M/mm3 Hgb (12.5-18.0) gm/dl Hct (42-50) % MCV (78-100) fl MCH (26-32) pg MCHC (32-36) g/dl RDW (11.5-14.0) % Plt Count (150-450) K/mm3 MPV (7.5-11.0) fl Segmented Neutrophils (36.-66.) % Band Neutrophils (0.0-2.0) % Lymphocytes (Manual) (24-44) % Monocytes (Manual) (0.0-12.0) % Eosinophils (Manual) (0.00-3.0) % Platelet Estimate (NORMAL) RBC Morphology D-Dimer (215-500) ng/mL Sodium 136 L (137-145) mmol/L Potassium 4.8 (3.5-5.1) mmol/L Chloride 101 (98-107) mmol/L Carbon Dioxide 23 (22-30) mmol/L Anion Gap 16.7 H (5-15) MEQ/L BUN 21 H (9-20) mg/dL Creatinine 1.17 (0.66-1.25) mg/dL Estimated GFR > 60.0 ML/MIN Glucose 240 H (74-106) mg/dL POC Glucometer (74 to 106) mg/dL Calcium 10.0 (8.4-10.2) mg/dL Magnesium 2.0 (1.6-2.3) mg/dL Total Bilirubin 0.40 (0.2-1.3) mg/dL AST 34 (17-59) U/L ALT 33 (0-50) U/L Alkaline Phosphatase 86 (38-126) U/L Troponin I 0.013 (0.000-0.034) ng/mL NT-Pro-B Natriuret Pep (0-900) pg/mL Serum Total Protein 7.3 (6.3-8.2) g/dL Albumin 4.3 (3.5-5.0) g/dL SARS-CoV-2 (PCR) (NEGATIVE) Micro Results-Entire Visit: Accuchecks Date 01/03/21 Time 05:55 - Radiology Exams Ordered Rad Exams-Entire Visit: Radiology Procedures Category Date Time Status CHEST 1 VIEW (PORTABLE) Stat Exams 01/03/21 14:40 Taken CHEST WITH CONTRAST [CT] Stat Exams 01/02/21 21:53 Completed - Procedures and Test Procedures and Tests throughout Hospitalization: Therapy Orders & Screens 01/03/21 03:12 Respiratory Therapy Consult ROUTINE Comment: Reason For Exam: 01/03/21 04:55 BiPap/CPAP ROUTINE Comment: PT OWN CPAP UNIT W/ HOSE AND MASK Diagnosis: Sinus mark 01/03/21 05:00 Respiratory Therapy Assessment DAILY Comment: Diagnosis: Sinus mark 01/03/21 14:39 EKG STAT Comment: Diagnosis: states his blood pressure is very high and has passing out episode Discharge Exam General Appearance: mild distress (c/o mild cp), alert Neurologic Exam: cooperative Respiratory Exam: diminished breath sounds, No crackles/rales, No rhonchi, No wheezing Cardiovascular Exam: regular rate/rhythm, normal heart sounds, No murmur Gastrointestinal/Abdomen Exam: soft, distention Extremity Exam: other (CALEB hose on) Skin Exam: warm, diaphoresis, No rash Final Diagnosis/Problem List - Final Discharge Diagnosis/Problem (1) Symptomatic bradycardia Current Visit: Yes Status: Acute Assessment & Plan: On dopamine drip and will externally pace for his transfer. Has been on dopamine approx 35 min. Code(s): R00.1 - BRADYCARDIA, UNSPECIFIED (2) Asystole Current Visit: Yes Status: Resolved Code(s): I46.9 - CARDIAC ARREST, CAUSE UNSPECIFIED (3) Atrial fibrillation Current Visit: Yes Status: Chronic Code(s): I48.91 - UNSPECIFIED ATRIAL FIBR ILLATION - Discharge Disposition: XFER OTHER Condition: Stable Prescriptions: No Action Levothyroxine Sodium 50 Mcg [Synthroid 50 Mcg] 50 mcg PO DAILY Pyridoxine HCl [Vitamin B-6] 100 mg PO UD Vitamin E 400 Units [Vitamin E 400 UNIT SOFTGEL] 400 unit PO HS Fluticasone/Umeclidin/Vilanter [Trelegy Ellipta 100-62.5-25] 1 each IH HS Saw Boling Fruit/Zinc Picoli [Saw Boling 450 mg Capsule] 900 mg PO BID Tamsulosin HCl 0.4 mg [Flomax 0.4 MG] 0.4 mg PO HS Finasteride 5 mg [Proscar 5 MG] 5 mg PO DAILY Metformin HCl 500 mg [Glucophage 500 MG] 1,000 mg PO BID Testosterone Cypionate [Testone Cik] 200 mg IM UD Alendronate Sodium 35 mg PO WEEKLY PANTOPRAZOLE 40 mg Tablet [Protonix 40MG Tablet] 40 mg PO DAILY Magnesium Oxide 400 mg [Mag-Ox 400] 3 tab PO TID Albuterol 2.5 mg/3 ml Neb [Proventil 2.5 mg/3 ml Neb] 2 puffs NEB QID Furosemide [Lasix] 20 mg PO BID Apixaban [Eliquis] 5 mg PO BID Lancets [Freestyle Lancets] 1 each MC ACHS #100 each Blood Sugar Diagnostic [Freestyle Lite Test Strip] 1 strip ACHS #100 strip Blood-Glucose Meter [Freestyle Precision Ramón Meter] 1 each ACHS #1 each Amlodipine Besylate 5 mg [Norvasc 5 mg] 10 mg PO DAILY Cyanocobalamin (Vitamin B-12) [B-12] 1,000 mcg PO DAILY Amiodarone HCl 200 mg [Cordarone 200 MG] 100 mg PO BID Semaglutide [Ozempic] 1 syringe SQ WEEKLY Ropinirole 2Mg [Requip 2Mg Tab] 1 mg PO HS Lovastatin 40 mg PO HS Insulin Detemir [Levemir] 30 unit SQ DAILY Empagliflozin [Jardiance] 25 mg PO DAILY Naproxen Sodium [Aleve] 220 mg PO DAILY Sodium Zirconium Cyclosilicate [Lokelma] 10 gm PO DAILY Follow up with: MELQUIADES CADET [Primary Care Provider] -
[2021-01-03] MEDS ORDERED: Phenergan 25 MG INJ IV ONE (16:26)
[2021-01-03] MEDS ORDERED: EPINEPHRINE ABBOJECT 1 MG IV ONE (16:26)
[2021-01-03] MEDS ORDERED: ATROPINE SULFATE 1MG SYR ABBOJECT IV ONE (16:26)
[2021-01-03] MEDS ORDERED: Dopamine 400 MG/D5W 250ML PREMIX 250 ML IV ONE (16:26)
--- NOTE | 2021-01-03 18:39 | XRAY ---
Indication: Cardiac arrest. Comparison: December 16, 2020. Portable chest again rotated with new cardiomegaly obscuring majority left lung. Mild pulmonary edema without consolidation/large effusion. Bony thorax intact again with mild osteopenia and degenerative changes. Comment: Preliminary interpretation made by C. No critical discrepancy.
[2021-01-03] MEDS ORDERED: Vitamin B-6 (Pyridoxine) 100 MG PO SCH (22:00)
[2021-01-03] MEDS ORDERED: NON-FORMULARY ITEM (Fluticasone/Umeclidin/Vilanter [Trelegy Ellipta 100-62.5-25] 1 EACH) IH SCH (22:00)
[2021-01-03] MEDS ORDERED: NON-FORMULARY ITEM (Lovastatin [Lovastatin] 40 MG) PO SCH (22:00)
[2021-01-03] MEDS ORDERED: REQUIP 2MG TAB PO SCH (22:00)
[2021-01-03] MEDS ORDERED: Vitamin E 400 UNIT SOFTGEL PO SCH (22:00)
[2021-01-03] MEDS ORDERED: Flomax 0.4 MG PO SCH (22:00)
[2021-01-03] MEDS ORDERED: ZOCOR 20MG PO SCH (22:00)
[2021-01-04] MEDS ORDERED: PATIENT OWN MEDICATION PO SCH (10:00)
[2021-01-04] MEDS ORDERED: Cordarone 200 MG PO SCH (10:00)
[2021-01-04] MEDS ORDERED: PATIENT OWN MEDICATION IH SCH (22:00)
[2021-01-05] MEDS ORDERED: Glucophage 500 MG PO SCH (08:00)
[2021-01-09] MEDS ORDERED: Fosamax 70 MG PO SCH (06:00)
[2021-01-09] MEDS ORDERED: PATIENT OWN MEDICATION SQ SCH (08:00)
== END 2021-01-03 16:27 ==
LOC: ED 19:27 → MED SURG 01-03 02:50
PROVIDERS: ADMIT Family Medicine; ATTEND Family Medicine
DX: R00.1 Bradycardia, unspecified (principal); I46.9 Cardiac arrest, cause unspecified; I48.91 Unspecified atrial fibrillation; R42 Dizziness and giddiness; R07.9 Chest pain, unspecified; I10 Essential (primary) hypertension; E11.9 Type 2 diabetes mellitus without complications; J44.9 Chronic obstructive pulmonary disease, unspecified; I73.9 Peripheral vascular disease, unspecified; Z79.899 Other long term (current) drug therapy; Z20.822 Contact with and (suspected) exposure to COVID-19
CPT/HCPCS: 36415; 71045; 71260; 80053; 82947; 83735; 83880; 84443; 84484; 85025; 85379; 92950; 93005; 93041; 93268; 94640; 94760; 99284; G0378; U0003; J0171; J0461; J1265; J1815; J2270; J2405; J2550; J7609; A9270-GY

== ENCOUNTER 2022-05-24 22:04 | Emergency (ER) | payer MEDICARE ==
[2022-05-24] MEDS ORDERED: THORAZINE IV ONE ×2 (22:16→22:24)
[2022-05-24] MEDS ORDERED: SODIUM CHLORIDE 0.9% IV ONE ×2 (22:16→22:24)
[2022-05-24 22:18] VITALS: BP 147/72; PULSE 70
[2022-05-24] MEDS ORDERED: THORAZINE 50 MG ONE (22:27)
[2022-05-24] MEDS ORDERED: Sodium Chloride 0.9% 1000 ML 1,000 ML ONE (22:28)
[2022-05-24] MEDS ORDERED: Sodium Chloride 0.9% 100 ML ONE (22:29)
[2022-05-24 22:30] LABS: Hematocrit 39.7 % (42-50); Hemoglobin 12.7 g/dL (12.5-18.0); Mean Corpuscular Hemoglobin 31.7 pg (26-32); Mean Platelet Volume 10.6 fL (7.5-11.0); Platelet Count 209 x10^3/uL (150-450); Red Blood Count 4.01 x10^6/uL (4.1-5.6); Red Cell Distribution Width 15.9 % (11.5-14.0); White Blood Count 7.6 x10^3/uL (4.0-10.5)
[2022-05-24] MEDS ORDERED: Sodium Chloride 0.9% 1000 ML 1,000 ML IV SCH (22:30)
[2022-05-24 22:52] LABS: ALBUMIN 4.1 g/dL (3.5-5.0); ANION GAP 12.6 MEQ/L (5-15); BILIRUBIN,TOTAL 0.4 mg/dL (0.2-1.3); Calcium 9.5 mg/dL (8.4-10.2); Creatinine 1 1.36 mg/dL (0.66-1.25); EST GLOMERULAR FILTRATION RATE 54.9 ML/MIN; Potassium 4.8 mmol/L (3.5-5.1); Total Protein 7.2 g/dL (6.3-8.2)
[2022-05-24 23:10] VITALS: O2SAT 98
--- NOTE | 2022-05-24 23:10 | ERPHSYRPT ---
- History of Present Illness Time Seen by Provider: 05/24/22 22:20 Source: patient Exam Limitations: no limitations Patient Subjective Stated Complaint: pt states he has been feeling short of breath for the last 2 weeks. states it started when he got the hiccups. hiccups have gotten progressively worse throughout the day. Triage Nursing Assessment: pt alert and oriented, answers questions approp. pt ambultes into room with steady gait noted. respirations nonlabored. lungs cta bilat. frequent hiccups noted. Physician History: Patient is a 71-year-old white male who presents with a complaint of hiccups for 2 weeks getting worse. He denies any fever chills sweats has had no nausea vomiting diarrhea no abdominal pain no chest pain. He does have a history of COPD and he has a history of cardiovascular disease involving cardiac arrest on 2 occasions he also has a pacemaker placed. The episodes of hiccuping are severe enough to occasionally make him short of breath. Timing/Duration: week(s) (2) Allergies/Adverse Reactions: bacitracin [From Neosporin ([id number])] Allergy (Verified 10/14/21 13:21) Rash bacitracin zinc [From Neosporin ([id number])] Allergy (Verified 10/14/21 13:21) Rash neomycin sulfate [From Neosporin ([id number])] Allergy (Verified 10/14/21 13:21) Rash polymyxin B [From Neosporin ([id number])] Allergy (Verified 10/14/21 13:21) Rash Home Medications: Alendronate Sodium 35 mg PO WEEKLY 05/06/19 [History] Finasteride 5 mg [Proscar 5 MG] 5 mg PO DAILY 05/06/19 [History] Fluticasone/Umeclidin/Vilanter [Trelegy Ellipta 100-62.5-25] 1 each IH HS 05/06/19 [History] Metformin HCl 500 mg [Glucophage 500 MG] 1,000 mg PO BID 05/06/19 [History] Pyridoxine HCl (Vitamin B6) [Vitamin B-6] 100 mg PO UD 05/06/19 [History] Saw [place] Fruit/Zinc Picoli [Saw Austin 450 mg Capsule] 900 mg PO BID 05/06/19 [History] Tamsulosin HCl 0.4 mg [Flomax 0.4 MG] 0.4 mg PO HS 05/06/19 [History] Vitamin E 400 Units [Vitamin E 400 UNIT SOFTGEL] 400 unit PO HS 05/06/19 [History] PANTOPRAZOLE 40 mg Tablet [Protonix 40MG Tablet] 40 mg PO DAILY 06/05/19 [History] Albuterol 2.5 mg/3 ml Neb [Proventil 2.5 mg/3 ml Neb] 2 puffs NEB QID 02/28/20 [History] Magnesium Oxide 400 mg [Mag-Ox 400] 3 tab PO TID 02/28/20 [History] Apixaban [Eliquis] 5 mg PO BID 10/08/20 [History] Furosemide [Lasix] 20 mg PO BID 10/08/20 [History] Cyanocobalamin (Vitamin B-12) [B-12] 1,000 mcg PO DAILY 12/16/20 [History] Empagliflozin [Jardiance] 25 mg PO DAILY 01/03/21 [History] Insulin Detemir [Levemir] 30 unit SQ DAILY 01/03/21 [History] Lovastatin 40 mg PO HS 01/03/21 [History] Ropinirole 2Mg [Requip 2Mg Tab] 1 mg PO HS 01/03/21 [History] Semaglutide [Ozempic] 1 syringe SQ WEEKLY 01/03/21 [History] Sodium Zirconium Cyclosilicate [Lokelma] 10 gm PO DAILY 01/03/21 [History] Amiloride HCl 5 mg PO DAILY 05/24/22 [History] Famotidine [Pepcid] 40 mg PO HS 05/24/22 [History] Fexofenadine HCl [Allergy Relief] 180 mg PO DAILY 05/24/22 [History] Levothyroxine Sodium [Euthyrox] 50 mcg PO DAILY 05/24/22 [History] Metoprolol Tartrate 50 mg [Lopressor 50 MG] 50 mg PO BID 05/24/22 [History] Omeprazole 20 mg PO DAILY 05/24/22 [History] Ondansetron [Ondansetron Odt] 4 mg PO PRN 05/24/22 [History] Valsartan/Hydrochlorothiazide [Valsartan-Hctz 160-12.5 mg Tab] 160 mg PO DAILY 05/24/22 [History] Vit C/E/Zn/Coppr/Lutein/Zeaxan [Preservision Areds 2 Softgel] 2 cap PO DAILY 05/24/22 [History] Hx Tetanus, Diphtheria Vaccination/Date Given: Yes Hx Influenza Vaccination/Date Given: Yes Hx Pneumococcal Vaccination/Date Given: Yes Immunizations Up to Date: Yes Travel Risk - International Travel Have you traveled outside of the country in past 3 weeks: No - Coronavirus Screening Are you exhibiting any of the following symptoms?: No Close contact with a COVID-19 positive Pt in past 14-21 Days: No - Vaccine Status Have you recieved a Covid-19 vaccination: No - Review of Systems Constitutional: No Fever, No Chills Eyes: No Symptoms Ears, Nose, & Throat: No Symptoms Respiratory: Other (Hiccups), No Cough, No Dyspnea Cardiac: No Chest Pain, No Edema, No Syncope Abdominal/Gastrointestinal: No Abdominal Pain, No Nausea, No Vomiting, No Diarrhea Genitourinary Symptoms: No Dysuria Musculoskeletal: No Back Pain, No Neck Pain Skin: No Rash Neurological: No Dizziness, No Focal Weakness, No Sensory Changes Psychological: No Symptoms Endocrine: No Symptoms All Other Systems: Reviewed and Negative - Past Medical History Pertinent Past Medical History: Yes Neurological History: No Pertinent History ENT History: No Pertinent History Cardiac History: Arrhythmia, Peripheral Vascular Disease Respiratory History: COPD, Sleep Apnea Endocrine Medical History: Diabetes Type II Musculoskeletal History: Fractures, Osteoarthritis GI Medical History: GERD, Gallbladder Disease, Hernia History: No Pertinent History Psycho-Social History: No Pertinent History Male Reproductive Disorders: Prostate Problems Other Medical History: FX LEFT HIP 30 YEARS AGO - NO SURGERY. STENT PLACEMENT LEFT LOWER LEG (GROIn)10 YEARS AGO. CHOLECYSTECTOMY, APPENDECTOMY, BILATERAL INGUINAL HERNIA REPAIRS - Past Surgical History Past Surgical History: Yes Neuro Surgical History: No Pertinent History Cardiac: Vascular Surgery Respiratory: No Pertinent History Gastrointestinal: Appendectomy, Cholecystectomy, Hernia Repair Genitourinary: No Pertinent History Musculoskeletal: No Pertinent History Male Surgical History: No Pertinent History Other Surgical History: STENT PLACED AFTER GALLBLADDER REMOVAL( "had liver knicked during surgery and had a drain to reroute bile"), AND REMOVED. shoulder surgery- right states rotator cuff repair,, Left Carpal Tunnel Surgery, Right rotator cuff surgery - Social History Smoking Status: Former smoker Exposure to second hand smoke: Yes Alcohol Use: None Drug Use: none Patient Lives Alone: No Significant Family History: heart disease - Nursing Vital Signs Nursing Vital Signs: Initial Vital Signs Temperature 97.9 F 05/24/22 22:05 Pulse Rate 70 05/24/22 22:05 Respiratory Rate 20 05/24/22 22:05 Blood Pressure 147/72 05/24/22 22:05 O2 Sat by Pulse Oximetry 98 05/24/22 22:05 Pain Scale Pain Intensity 0 - Physical Exam General Appearance: mild distress, alert Eye Exam: PERRL/EOMI, eyes nml inspection Ears, Nose, Throat Exam: normal ENT inspection, TMs normal, pharynx normal, moist mucous membranes Neck Exam: normal inspection, non-tender, supple, full range of motion Respiratory Exam: normal breath sounds, lungs clear, No respiratory distress Cardiovascular Exam: regular rate/rhythm, normal heart sounds, normal peripheral pulses Gastrointestinal/Abdomen Exam: soft, normal bowel sounds, No tenderness, No mass Back Exam: normal inspection, normal range of motion, No CVA tenderness, No vertebral tenderness Extremity Exam: normal inspection, normal range of motion, pelvis stable Neurologic Exam: alert, oriented x 3, cooperative, normal mood/affect, nml cerebellar function, nml station & gait, sensation nml, No motor deficits Skin Exam: normal color, warm, dry, No rash Lymphatic Exam: No adenopathy SpO2 Interpretation: normal SpO2: 98 O2 Delivery: Room Air - Course Nursing assessment & vital signs reviewed: Yes EKG Interpreted by Me: RATE (70), Non-specific ST Changes, Other (EKG shows a paced rhythm) - Radiology Exams Chest X-ray Interpretation: Interpreted by me, Reviewed by me, Negative Abdomen X-ray Interpretation: Interpreted by me, Reviewed by me, Other (Abdominal films show nonspecific bowel gas pattern no free air no sign of obstruction. There is a suggestion of gastric distention.) Ordered Tests: Active Orders 24 hr Category Date Time Status EKG-ER Only STAT Care 05/24/22 22:16 Ordered IV Insertion STAT Care 05/24/22 22:16 Ordered OBSTR/ACUTE ABDOMEN SERIES Stat Exams 05/24/22 22:16 Ordered AMYLASE Stat Lab 05/24/22 22:16 Ordered CBC W DIFF Stat Lab 05/24/22 22:16 Ordered CMP Stat Lab 05/24/22 22:16 Ordered LIPASE Stat Lab 05/24/22 22:16 Ordered Lactic Acid Stat Lab 05/24/22 22:16 Ordered Manual Differential NC Stat Lab 05/24/22 22:27 Completed TROPONIN Q4H Lab 05/24/22 22:30 Ordered TROPONIN Q4H Lab 05/25/22 02:30 Ordered TROPONIN Q4H Lab 05/25/22 06:30 Ordered UA W/RFX UR CULTURE Stat Lab 05/24/22 22:16 Ordered Medication Summary Generic Name Dose Route Start Last Admin Trade Name Freq PRN Reason Stop Dose Admin Sodium Chloride 1,000 mls @ 50 mls/hr 05/24/22 22:30 05/24/22 22:41 Sodium Chloride 0.9% 1000 Ml IV 06/23/22 22:29 50 mls/hr .Q20H JEFF Administration Discontinued Medications Generic Name Dose Route Start Last Admin Trade Name Freq PRN Reason Stop Dose Admin Chlorpromazine HCl Confirm 05/24/22 22:27 Chlorpromazine Hcl 25 Mg/Ml Amp Administered 05/24/22 22:28 Dose 50 mg .ROUTE .STK-MED ONE Chlorpromazine HCl 50 mg/ 102 mls @ 100 mls/hr 05/24/22 22:16 05/24/22 22:27 Sodium Chloride IV 05/24/22 23:17 Not Given STAT ONE Chlorpromazine HCl 25 mg/ 101 mls @ 200 mls/hr 05/24/22 22:24 05/24/22 22:41 Sodium Chloride IV 05/24/22 22:54 200 mls/hr STAT ONE Administration Sodium Chloride Confirm 05/24/22 22:29 Sodium Chloride 0.9% Administered 05/24/22 22:30 Dose 100 mls @ ud .ROUTE .STK-MED ONE Lab/Rad Data: Laboratory Result Diagrams 05/24/22 22:27 05/24/22 22:27 Laboratory Results 05/24/22 05/24/22 05/24/22 Range/Units 23:05 22:33 22:27 WBC (4.0-10.5) x10^3/uL RBC (4.1-5.6) x10^6/uL Hgb (12.5-18.0) g/dL Hct (42-50) % MCV (78-100) fL MCH (26-32) pg MCHC (32-36) g/dL RDW (11.5-14.0) % Plt Count (150-450) x10^3/uL MPV (7.5-11.0) fL Sodium (137-145) mmol/L Potassium (3.5-5.1) mmol/L Chloride (98-107) mmol/L Carbon Dioxide (22-30) mmol/L Anion Gap (5-15) MEQ/L BUN (9-20) mg/dL Creatinine (0.66-1.25) mg/dL Estimated GFR ML/MIN Glucose (74-106) mg/dL Lactic Acid 3.9 H (0.4-2.0) Calcium (8.4-10.2) mg/dL Total Bilirubin (0.2-1.3) mg/dL AST (17-59) U/L ALT (0-50) U/L Alkaline Phosphatase (38-126) U/L Troponin I < 0.012 (0.000-0.034) ng/mL Serum Total Protein (6.3-8.2) g/dL Albumin (3.5-5.0) g/dL Amylase (30-110) U/L Lipase (23-300) U/L Urine Color Yellow (Yellow) Urine Appearance Clear (Clear) Urine pH >=9.0 A (4.6-8.0) Ur Specific [place] 1.020 (1.005-1.030) Urine Protein Trace A (Negative) Urine Glucose (UA) 250 A (Negative) mg/dL Urine Ketones Negative (Negative) Urine Blood Negative (Negative) Urine Nitrite Negative (Negative) Urine Bilirubin Negative (Negative) Urine Urobilinogen 0.2 (0.2) mg/dL Ur Leukocyte Esterase Negative (Negative) U Hyaline Cast (Auto) NONE SEEN (0-2) /LPF Urine Microscopic RBC 0-2 (0-5) /HPF Urine Microscopic WBC 0-2 (0-5) /HPF Ur Epithelial Cells None Seen (None Seen) /HPF Urine Bacteria None Seen (None Seen) /HPF Urine Culture Reflexed NO (NO) 05/24/22 05/24/22 Range/Units 22:27 22:27 WBC 7.6 (4.0-10.5) x10^3/uL RBC 4.01 L (4.1-5.6) x10^6/uL Hgb 12.7 (12.5-18.0) g/dL Hct 39.7 L (42-50) % MCV 99.0 (78-100) fL MCH 31.7 (26-32) pg MCHC 32.0 (32-36) g/dL RDW 15.9 H (11.5-14.0) % Plt Count 209 (150-450) x10^3/uL MPV 10.6 (7.5-11.0) fL Sodium 137 (137-145) mmol/L Potassium 4.8 (3.5-5.1) mmol/L Chloride 98 (98-107) mmol/L Carbon Dioxide 31 H (22-30) mmol/L Anion Gap 12.6 (5-15) MEQ/L BUN 18 (9-20) mg/dL Creatinine 1.36 H (0.66-1.25) mg/dL Estimated GFR 54.9 ML/MIN Glucose 114 H (74-106) mg/dL Lactic Acid (0.4-2.0) Calcium 9.5 (8.4-10.2) mg/dL Total Bilirubin 0.40 (0.2-1.3) mg/dL AST 34 (17-59) U/L ALT 23 (0-50) U/L Alkaline Phosphatase 87 (38-126) U/L Troponin I (0.000-0.034) ng/mL Serum Total Protein 7.2 (6.3-8.2) g/dL Albumin 4.1 (3.5-5.0) g/dL Amylase 83 (30-110) U/L Lipase 118 (23-300) U/L Urine Color (Yellow) Urine Appearance (Clear) Urine pH (4.6-8.0) Ur Specific [place] (1.005-1.030) Urine Protein (Negative) Urine Glucose (UA) (Negative) mg/dL Urine Ketones (Negative) Urine Blood (Negative) Urine Nitrite (Negative) Urine Bilirubin (Negative) Urine Urobilinogen (0.2) mg/dL Ur Leukocyte Esterase (Negative) U Hyaline Cast (Auto) (0-2) /LPF Urine Microscopic RBC (0-5) /HPF Urine Microscopic WBC (0-5) /HPF Ur Epithelial Cells (None Seen) /HPF Urine Bacteria (None Seen) /HPF Urine Culture Reflexed (NO) - Progress Progress: improved Progress Note: 05/24/22 23:12 Working with a diagnosis of hiccups possible etiologies include gastric distention rapid eating gastroesophageal reflux peptic ulcer disease pancreatitis bowel obstruction inflammatory bowel disease cholelithiasis cholecystitis abdominal aortic aneurysm hiatal hernia intra-abdominal mass pericarditis peritonitis [employer] causes include vascular lesions infections thoracic infections including pneumonia aortic aneurysm myocardial infarction pericarditis and so on. - Departure Departure Disposition: Home Clinical Impression: Hiccups, COPD (chronic obstructive pulmonary disease), Diabetes mellitus, Gastroparesis Condition: Stable Critical Care Time: No Referrals: MELQUIADES CADET [Primary Care Provider] - Follow up/PCP as directed Instructions: Chronic Obstructive Pulmonary Disease, Hiccups, Gastroparesis (Delayed Gastric Emptying) (DC) Prescriptions: Metoclopramide HCl 5 mg [Reglan 5 MG] 5 mg PO Q6H 10 Days #40 tablet
[2022-05-24 23:14] LABS: Appearance Clear (Clear); Bacteria None Seen /HPF (None Seen); Bilirubin Negative (Negative); Blood Negative (Negative); Epithelial Cells None Seen /HPF (None Seen); Glucose, Urine 250 mg/dL (Negative); Hyaline Casts NONE SEEN /LPF (0-2); Ketones Negative (Negative); Leukocyte Esterase Negative (Negative); Nitrite Negative (Negative); Ph >=9.0 (4.6-8.0); Protein,Urine Dip Trace (Negative); RBC 0-2 /HPF (0-5); Urobilinogen 0.2 mg/dL (0.2); WBC 0-2 /HPF (0-5)
[2022-05-24 23:17] LABS: ADD URINE CULTURE? NO (NO)
[2022-05-24 23:55] LABS: BAND 7 % (0.0-2.0); Lymphocytes 12 % (24-44); Monocyte 8 % (0.0-12.0); Neutrophils 73 % (36.-66.); Platelet Estimate NORMAL (NORMAL); Total Cells Counted 100
--- NOTE | 2022-05-25 08:53 | XRAY ---
Indication: Short of breath and hiccups. Comparison: Chest exam May 17, 2021. 2 view abdomen demonstrates nonspecific nonobstructed bowel gas pattern. Diffuse scattered arteriosclerotic calcifications and left iliac stent graft. Solid organs unremarkable. Osseous structures intact with osteopenia, moderate multilevel degenerative spondylosis, moderate levorotoscoliosis centered at L4, and mild degenerative changes both hips. Single frontal chest again hyperinflated and clear. Heart not enlarged again with left pacemaker. Bony thorax intact again with osteopenia, mild DEXA scoliosis centered at T3 and mild degenerative changes. Impression: Nonacute nonobstructed abdomen with chronic features. Stable nonacute one view chest also with chronic features.
== END 2022-05-24 23:38 | disposition home or self-care (01) ==
LOC: ED 22:04
DX: R06.6 Hiccough (principal); J44.9 Chronic obstructive pulmonary disease, unspecified; E11.9 Type 2 diabetes mellitus without complications; K31.84 Gastroparesis; I25.10 Atherosclerotic heart disease of native coronary artery without angina pectoris; Z79.84 Long term (current) use of oral hypoglycemic drugs; Z79.01 Long term (current) use of anticoagulants; Z79.4 Long term (current) use of insulin; Z79.899 Other long term (current) drug therapy; Z28.310 Unvaccinated for COVID-19
CPT/HCPCS: 36000; 36415; 74022; 80053; 81001; 82150; 83605; 83690; 84484; 85025; 93005; 99284; J3230

== ENCOUNTER 2022-10-24 20:49 | Emergency (ER) | payer MEDICARE ==
[2022-10-24 21:01] VITALS: BP 150/79; PULSE 70; O2SAT 97
--- NOTE | 2022-10-24 21:50 | ERPHSYRPT ---
- History of Present Illness Time Seen by Provider: 10/24/22 21:10 Source: patient Exam Limitations: no limitations Patient Subjective Stated Complaint: jammed by finger in between a cafe chair, its broke Triage Nursing Assessment: pt ambulated into ER without diff, pt's neighbor at bedside. Pt was going around a cafe chair at home and his hand was in between the rails of it and snapped his finger. Rt pinky finger is laying sideways, pt can move the finger but is unable to bend it. Physician History: Patient is 71-year-old male presents to our ED for evaluation of pain deformity to his right fifth digit. Patient states he was at home his finger got caught up in the rails of a caf chair. Patient felt a pop and now presents with a deformity. Pain described as an ache that is localized. Patient has not taken any pain medication yet. No other injuries reported. No wrist elbow shoulder pain. Symptoms are moderate in intensity. Pain reproduced with movement and palpation. Pain improved with rest. Significant other at bedside. They voiced no other complaints or concerns at this time. Portions of this note were created with voice recognition technology. There may be grammatical, spelling, punctuation or sound alike errors Occurred: just prior to arrival Method of Injury: twisted Quality: constant Severity of Pain-Max: moderate Severity of Pain-Current: mild Extremities Pain Location: 5th finger: right Modifying Factors: Improves With: movement Associated Symptoms: none Allergies/Adverse Reactions: bacitracin [From Neosporin ([id number])] Allergy (Verified 10/24/22 21:10) Rash bacitracin zinc [From Neosporin ([id number])] Allergy (Verified 10/24/22 21:10) Rash neomycin sulfate [From Neosporin ([id number])] Allergy (Verified 10/24/22 21:10) Rash polymyxin B [From Neosporin ([id number])] Allergy (Verified 10/24/22 21:10) Rash Home Medications: Alendronate Sodium 35 mg PO WEEKLY 05/06/19 [History] Finasteride 5 mg [Proscar 5 MG] 5 mg PO DAILY 05/06/19 [History] Metformin HCl 500 mg [Glucophage 500 MG] 1,000 mg PO BID 05/06/19 [History] Pyridoxine HCl (Vitamin B6) [Vitamin B-6] 100 mg PO UD 05/06/19 [History] Saw [place] Fruit/Zinc Picoli [Saw [place] 450 mg Capsule] 900 mg PO BID 05/06/19 [History] Tamsulosin HCl 0.4 mg [Flomax 0.4 MG] 0.4 mg PO HS 05/06/19 [History] Vitamin E 400 Units [Vitamin E 400 UNIT SOFTGEL] 400 unit PO HS 05/06/19 [History] PANTOPRAZOLE 40 mg Tablet [Protonix 40MG Tablet] 40 mg PO DAILY 06/05/19 [History] Albuterol 2.5 mg/3 ml Neb [Proventil 2.5 mg/3 ml Neb] 2 puffs NEB QID 02/28/20 [History] Magnesium Oxide 400 mg [Mag-Ox 400] 3 tab PO TID 02/28/20 [History] Apixaban [Eliquis] 5 mg PO BID 10/08/20 [History] Furosemide [Lasix] 20 mg PO BID 10/08/20 [History] Cyanocobalamin (Vitamin B-12) [B-12] 2,500 mcg PO DAILY 12/16/20 [History] Empagliflozin [Jardiance] 25 mg PO DAILY 01/03/21 [History] Lovastatin 40 mg PO HS 01/03/21 [History] Ropinirole 2Mg [Requip 2Mg Tab] 1 mg PO HS 01/03/21 [History] Famotidine [Pepcid] 40 mg PO HS 05/24/22 [History] Fexofenadine HCl [Allergy Relief] 180 mg PO DAILY 05/24/22 [History] Levothyroxine Sodium [Euthyrox] 50 mcg PO DAILY 05/24/22 [History] Metoprolol Tartrate 50 mg [Lopressor 50 MG] 50 mg PO BID 05/24/22 [History] Omeprazole 20 mg PO DAILY 05/24/22 [History] Ondansetron [Ondansetron Odt] 4 mg PO PRN 05/24/22 [History] Cholecalciferol (Vitamin D3) [Vitamin D3] 25 mcg PO HS 10/24/22 [History] Dapagliflozin Propanediol [Farxiga] 10 mg PO DAILY 10/24/22 [History] Folic Acid 1 mg [Folate 1 mg] 1,333 mcg PO DAILY 10/24/22 [History] Iron 65 mg PO DAILY 10/24/22 [History] Venlafaxine HCl [Venlafaxine HCl ER] 150 mg PO DAILY 10/24/22 [History] Hx Tetanus, Diphtheria Vaccination/Date Given: Yes Hx Influenza Vaccination/Date Given: Yes Hx Pneumococcal Vaccination/Date Given: Yes Immunizations Up to Date: Yes Travel Risk - International Travel Have you traveled outside of the country in past 3 weeks: No - Coronavirus Screening Are you exhibiting any of the following symptoms?: No Close contact with a COVID-19 positive Pt in past 14-21 Days: No - Vaccine Status Have you recieved a Covid-19 vaccination: No - Review of Systems Constitutional: No Symptoms, No Fever, No Chills Eyes: No Symptoms Ears, Nose, & Throat: No Symptoms Respiratory: No Symptoms, No Cough, No Dyspnea Cardiac: No Symptoms, No Chest Pain, No Edema, No Syncope Abdominal/Gastrointestinal: No Symptoms, No Abdominal Pain, No Nausea, No Vomiting, No Diarrhea Genitourinary Symptoms: No Symptoms, No Dysuria Musculoskeletal: No Symptoms, No Back Pain, No Neck Pain Skin: No Symptoms, No Rash Neurological: No Symptoms, No Dizziness, No Focal Weakness, No Sensory Changes Psychological: No Symptoms Endocrine: No Symptoms Hematologic/Lymphatic: No Symptoms Immunological/Allergic: No Symptoms All Other Systems: Reviewed and Negative - Past Medical History Pertinent Past Medical History: Yes Neurological History: No Pertinent History ENT History: No Pertinent History Cardiac History: Arrhythmia, Peripheral Vascular Disease Respiratory History: COPD, Sleep Apnea Endocrine Medical History: Diabetes Type II Musculoskeletal History: Fractures, Osteoarthritis GI Medical History: GERD, Gallbladder Disease, Hernia History: No Pertinent History Psycho-Social History: No Pertinent History Male Reproductive Disorders: Prostate Problems Other Medical History: FX LEFT HIP 30 YEARS AGO - NO SURGERY. STENT PLACEMENT LEFT LOWER LEG (GROIn)10 YEARS AGO. CHOLECYSTECTOMY, APPENDECTOMY, BILATERAL INGUINAL HERNIA REPAIRS - Past Surgical History Past Surgical History: Yes Neuro Surgical History: No Pertinent History Cardiac: Vascular Surgery Respiratory: No Pertinent History Gastrointestinal: Appendectomy, Cholecystectomy, Hernia Repair Genitourinary: No Pertinent History Musculoskeletal: No Pertinent History Male Surgical History: No Pertinent History Other Surgical History: STENT PLACED AFTER GALLBLADDER REMOVAL( "had liver knicked during surgery and had a drain to reroute bile"), AND REMOVED. shoulder surgery- right states rotator cuff repair,, Left Carpal Tunnel Surgery, Right rotator cuff surgery, 2 knots removed from back of neck - Social History Smoking Status: Former smoker Exposure to second hand smoke: Yes Alcohol Use: None Drug Use: none Patient Lives Alone: No Significant Family History: heart disease - Nursing Vital Signs Nursing Vital Signs: Initial Vital Signs Temperature 97.7 F 10/24/22 21:00 Pulse Rate 70 10/24/22 21:00 Respiratory Rate 20 10/24/22 21:00 Blood Pressure 150/79 10/24/22 21:00 O2 Sat by Pulse Oximetry 97 10/24/22 21:00 Pain Scale Pain Intensity 7 - Physical Exam General Appearance: no apparent distress, alert Eyes, Ears, Nose, Throat Exam: moist mucous membranes Neck Exam: non-tender, supple Cardiovascular/Respiratory Exam: chest non-tender, normal breath sounds, regular rate/rhythm, no respiratory distress Abdominal Exam: non-tender, No guarding Back Exam: normal inspection, No vertebral tenderness Shoulder Exam: normal inspection, non-tender, no evidence of injury, normal ROM Elbow/Forearm Exam: normal inspection, non-tender, no evidence of injury, normal ROM Wrist Exam: normal inspection, non-tender, no evidence of injury, normal ROM Hand Exam: limited ROM Neuro/Tendon Exam: normal sensation, normal motor functions Mental Status Exam: alert, oriented x 3, cooperative Skin Exam: normal color, warm, dry SpO2 Interpretation: normal SpO2: 97 O2 Delivery: Room Air - Course Nursing assessment & vital signs reviewed: Yes - Radiology Exams Hand X-ray Interpretation: Interpreted by me (Right fifth digit proximal phalanx fracture. Fracture has an oblique orientation. Finger is angulated medially) Ordered Tests: Active Orders 24 hr Category Date Time Status FINGER(S) Stat Exams 10/24/22 20:59 Taken Medication Summary Discontinued Medications Generic Name Dose Route Start Last Admin Trade Name Freq PRN Reason Stop Dose Admin Ketorolac Tromethamine 30 mg 10/24/22 21:46 10/24/22 21:53 Ketorolac Tromethamine 30 Mg/Ml Inj IM 10/24/22 21:47 30 mg STAT ONE Administration Ketorolac Tromethamine Confirm 10/24/22 21:51 Ketorolac Tromethamine 30 Mg/Ml Inj Administered 10/24/22 21:52 Dose 30 mg .ROUTE .STK-MED ONE - Progress Progress: improved Progress Note: Finger fracture medially angulated. The fracture was manually reduced after administration of IM Toradol. The reduction was successful and clinically confirmed. Patient neurovascular tact distally post procedure. Patient tolerated procedure well. Patient 71-year-old male presents to our ED for evaluation of right fifth digit proximal phalanx deformity after finger caught in a chair. Physical exam reveals a neurovascular intact finger. No open lesions. No draining lesions. Finger angulated medially. Oblique oriented fracture of the proximal phalanx right fifth digit confirmed on x-ray. The fracture was manually reduced after administration of pain medication. Confirmation of reduction was observed clinically. No postreduction films were ordered. Patient neurovascular tact distally post reduction. Patient received a referral to the orthopedic clinic. Patient states he will follow-up tomorrow morning as discussed. Finger was splinted in an AlumaFoam splint. Finger was splinted with the IP joints in full extension and the MCP joint and 90 degrees of flexion. Patient tolerated procedure well. Complexity of problem addressed is low, acute uncomplicated , Complexity of data reviewed and analyzed is moderate. Dr. Munson independently reviewed the x-ray of the involved hand/digit. A displaced oblique fracture observed and subsequently reduced. Patient tolerated procedure well. Risk of complication and or risk of morbidity/mortality patient management is moderate. Manual reduction of fracture completed. No hospitalization indicated. Finger splinted. Patient referred to the Ortho clinic for follow- up. A prescription for Toradol 10 mg p.o. 3 times daily was forwarded to patient's pharmacy. Time to discharge patient is approximately 15 minutes. Diagnosis is finger fracture. Vital stable. Plan of care established via shared decision making. No social determinants of health present to impede follow-up. Portions of this note were created with voice recognition technology. There may be grammatical, spelling, punctuation or sound alike errors 10/24/22 22:08 Counseled pt/family regarding: diagnosis, need for follow-up, rad results - Departure Departure Disposition: Home Clinical Impression: Finger fracture, right Condition: Stable Critical Care Time: No Referrals: MELQUIADES CADET [Primary Care Provider] - Follow up/PCP as directed Additional Instructions: Discharge/Care Plan GETGINO STEVENSON was seen on 10/24/22 in the Emergency Room. The patient was counseled regarding Diagnosis,Lab results, Imaging studies, need for follow up and when to return to the Emergency Room. Prescriptions given: Discharge Note I have spoken with the patient and/or caregivers. I have explained the patient's condition, diagnosis and treatment plan based on the information available to me at this time. I have answered the patient's and/or caregiver's questions and addressed any concerns. The patient and/or caregivers have as good understanding of the patient's diagnosis, condition and treatment plan as can be expected at this point. The vital signs have been stable. The patient's condition is stable and appropriate for discharge from the emergency department. The patient will pursue further outpatient evaluation with the primary care physician or other designated or consulting physician as outlined in the discharge instructions. The patient and/or caregivers are agreeable to this plan of care and follow-up instructions have been explained in detail. The patient and/or caregivers have received these instruction. The patient/and or caregivers are aware that any significant change in condition or worsening of symptoms should prompt an immediate return to this or the closest emergency department or call 911. Outpatient Orders: Ortho Referral Time Frame: 1 Day, Facility: [facility], Location: [facility]
[2022-10-24] MEDS ORDERED: TORAdol 30 mg Injection ONE (21:51)
[2022-10-24] MEDS: TORAdol 30 mg Injection IM ONE (21:53)
--- NOTE | 2022-10-25 09:10 | XRAY ---
Indication: Pain following injury. Comparison: None 3 view right 5th finger demonstrate nondisplaced oblique fracture shaft proximal phalanx with soft tissue swelling. Elsewhere osteopenia. No other bony, articular, or soft tissue abnormalities.
== END 2022-10-24 22:32 | disposition home or self-care (01) ==
LOC: ED 20:49
DX: S62.646A Nondisplaced fracture of proximal phalanx of right little finger, initial encounter for closed fracture (principal); W23.1XXA Caught, crushed, jammed, or pinched between stationary objects, initial encounter; Y93.01 Activity, walking, marching and hiking; E11.9 Type 2 diabetes mellitus without complications; Z79.84 Long term (current) use of oral hypoglycemic drugs; Z79.01 Long term (current) use of anticoagulants; Z79.899 Other long term (current) drug therapy; Z28.310 Unvaccinated for COVID-19
CPT/HCPCS: 26725; 73140; 96372; 99283; J1885

== ENCOUNTER 2023-06-30 16:22 | Observation (INO) | payer MEDICARE ==
[2023-06-30 17:18] LABS: Hematocrit 47.6 % (42-50); Hemoglobin 15.5 g/dL (12.5-18.0); Mean Cell Volume 97.9 fL (78-100); Mean Corpuscular Hemoglobin 31.9 pg (26-32); Mean Corpuscular Hgb Concent. 32.6 g/dL (32-36); Mean Platelet Volume 10.5 fL (7.5-11.0); Platelet Count 260 x10^3/uL (150-450); Red Blood Count 4.86 x10^6/uL (4.1-5.6); Red Cell Distribution Width 14.9 % (11.5-14.0); White Blood Count 9.8 x10^3/uL (4.0-10.5)
[2023-06-30 17:35] LABS: ALBUMIN 4.3 g/dL (3.5-5.0); ANION GAP 12.1 MEQ/L (5-15); BILIRUBIN,TOTAL 0.4 mg/dL (0.2-1.3); Calcium 10.7 mg/dL (8.4-10.2); Creatinine 1 1.1 mg/dL (0.66-1.25); EST GLOMERULAR FILTRATION RATE 71.3 ML/MIN; MAGNESIUM 1.9 mg/dL (1.6-2.3); Potassium 4.3 mmol/L (3.5-5.1); Total Protein 7.2 g/dL (6.3-8.2)
[2023-06-30 18:12] LABS: Lymphocytes 15 % (24-44); Monocyte 9 % (0.0-12.0); Neutrophils 76 % (36.-66.); Total Cells Counted 100
[2023-06-30 18:13] LABS: Platelet Estimate NORMAL (NORMAL)
[2023-06-30] MEDS ORDERED: TYLENOL EXTRA STRENGTH 500 MG ONE (18:17)
[2023-06-30] MEDS: TYLENOL EXTRA STRENGTH 500 MG PO STA (18:25)
--- NOTE | 2023-06-30 18:40 | XRAY ---
CLINICAL HISTORY: headache, dizziness TECHNIQUE: Axial non-contrast CT scan of the brain was performed from the skull base to the high parietal region. COMPARISON: Prior CT head dated 02/28/2020 FINDINGS: Prominent ventricles and extra-axial CSF spaces consistent with age-appropriate brain involutional changes. Bilateral hypodense areas are noted in the subcortical white matter, suggestive of microvascular ischemic changes. The cerebral parenchyma exhibits normal attenuation. Teague-white differentiation is well preserved. The ventricular system and subarachnoid CSF spaces are unremarkable. No midline shift was seen. The brainstem and cerebellum are normal in morphology and attenuation. No fracture was seen. IMPRESSION: 1. No acute intracranial abnormality is seen. Stable findings. 2. Age-appropriate brain involutional changes with microvascular ischemic changes. 3. Early infarct changes do not appear on CT. If there is strong clinical suspicion, an MRI brain with DWI/ADC maps is suggested. Electronically Signed by: Radu Miramontes MD. (06/30/2023 18:36:06 EST)
--- NOTE | 2023-06-30 20:30 | XRAY ---
CLINICAL HISTORY: palpitations, PE? TECHNIQUE: Contiguous, multislice, post intravenous contrast [80 cc of Isovue-370] CT scan of the chest was performed following PE protocol in the axial plane in mediastinal and lung windows with multiplanar reconstructions. Total exam DLP-1014.61 mGy.cm; CTDI-64.82 mGy COMPARISON: None FINDINGS: The main pulmonary segment, right and left main branches show normal diameter and homogeneous contrast enhancement with no evidence of pulmonary embolism or thrombosis. Normal contrast opacification of proximal and visualized distal branches of lobar pulmonary arteries. No pulmonary infarcts or pleural collection. Patchy reticular opacity seen in the left lower lobe. Subpleural Nodular opacity seen in the posterior segment of the left lower lobe measuring about 6 mm No suspicious pulmonary mass or cavitary lung lesions. Pulmonary air cyst seen in the right upper lobe measuring about 6 mm. No enlarged hilar or mediastinal lymphadenopathy. There is barrel chest deformity with an increase in the anterior-posterior diameter. Cardiac size is enlarged. The main pulmonary artery is mildly dilated measuring about 32 mm. The chest wall has no cystic or solid mass. No acute osseous abnormality or suspicious bony lesions.Degenerative changes seen in the visualized spine Visualized sections of upper abdomen shows calcific foci in the spleen representing calcified granulomas. Perinephric fat stranding around both kidneys is probably physiological changes. Right renal cyst. IMPRESSION: 1. Unremarkable CT angiography with no definite pulmonary embolism. 2. Patchy reticular opacity seen in the left lower lobe could suggest post inflammatory process. 3. Subpleural Nodular opacity seen in the posterior segment of left lower lobe measuring about 6 mm. 4. Mild Cardiomegaly. 5. Main pulmonary artery is mildly dilated measuring about 32 mm suggesting pulmonary arterial hypertension. 6. Barrel chest deformity with increase in the anterior-posterior diameter. Electronically Signed by: Radu Miramontes MD. (06/30/2023 20:26:11 EST)
--- NOTE | 2023-06-30 20:39 | ERPHSYRPT ---
- History of Present Illness Time Seen by Provider: 06/30/23 16:22 Historian: patient, family Exam Limitations: no limitations Patient Subjective Stated Complaint: BENEDICT, lightheadedness, vision issues Triage Nursing Assessment: 72 year old male pt arrives from [facility] with complaints of headache, dizziness, weakness, lightheadedness and concerns that his pacemaker isn't working correctly. Physician History: 72 years old male with multiple medical problems including coronary artery disease, atrial fibrillation with pacemaker placement on Eliquis, congestive heart failure, diabetes mellitus, hypertension, COPD presented in the ER from urgent care with elevated heart rate possible issues with pacemaker. Patient r eports he checked his blood pressure at home and it was 148/110 which made him concerned as it was superhigh for him. He was also having some headache. Patient report he feels dizzy and lightheaded but no focal numbness tingling or weakness. Also report it was having a few second episode of blurry vision bilaterally which is improved now. Denies any chest pain or palpitations. Has shortness of breath at his baseline which is fairly clear but has been dealing with cold symptoms for quite some time and is on third round of steroids by primary care. Still feel congested in the chest with some heaviness. Patient heart rate is in 120s/130s on presentation flutter with rapid rate. Aspirin Treatment Today: unknown Allergies/Adverse Reactions: bacitracin [From Neosporin ([id number])] Allergy (Verified 06/30/23 16:40) Rash bacitracin zinc [From Neosporin ([id number])] Allergy (Verified 06/30/23 16:40) Rash neomycin sulfate [From Neosporin ([id number])] Allergy (Verified 06/30/23 16:40) Rash polymyxin B [From Neosporin ([id number])] Allergy (Verified 06/30/23 16:40) Rash Home Medications: Alendronate Sodium 35 mg PO WEEKLY 05/06/19 [History] Finasteride 5 mg [Proscar 5 MG] 1 tab PO DAILY 05/06/19 [History] Metformin HCl 500 mg [Glucophage 500 MG] 500 mg PO BID 05/06/19 [History] Pyridoxine HCl (Vitamin B6) [Vitamin B-6] 100 mg PO UD 05/06/19 [History] Saw [place] Fruit/Zinc Picoli [Saw [place] 450 mg Capsule] 1,800 mg PO DAILY 05/06/19 [History] Tamsulosin HCl 0.4 mg [Flomax 0.4 MG] 0.8 mg PO BID 05/06/19 [History] Vitamin E 400 Units [Vitamin E 400 UNIT SOFTGEL] 400 unit PO DAILY 05/06/19 [History] PANTOPRAZOLE 40 mg Tablet [Protonix 40MG Tablet] 40 mg PO DAILY 06/05/19 [History] Albuterol 2.5 mg/3 ml Neb [Proventil 2.5 mg/3 ml Neb] 2 puffs NEB QID 02/28/20 [History] Magnesium Oxide 400 mg [Mag-Ox 400] 5 tab PO DAILY 02/28/20 [History] Apixaban [Eliquis] 5 mg PO BID 10/08/20 [History] Furosemide [Lasix] 40 mg PO DAILY 10/08/20 [History] Cyanocobalamin (Vitamin B-12) [B-12] 2,500 mcg PO UD 12/16/20 [History] Empagliflozin [Jardiance] 25 mg PO DAILY 01/03/21 [History] Lovastatin 40 mg PO HS 01/03/21 [History] Ropinirole 2Mg [Requip 2Mg Tab] 1 mg PO HS 01/03/21 [History] Famotidine [Pepcid] 40 mg PO HS 05/24/22 [History] Levothyroxine Sodium [Euthyrox] 50 mcg PO DAILY 05/24/22 [History] Ondansetron [Ondansetron Odt] 4 mg PO DAILY 05/24/22 [History] Cholecalciferol (Vitamin D3) [Vitamin D3] 25 mcg PO DAILY 10/24/22 [History] Folic Acid 1 mg [Folate 1 mg] 666 mcg PO DAILY 10/24/22 [History] Iron 65 mg PO DAILY 10/24/22 [History] Venlafaxine HCl [Venlafaxine HCl ER] 150 mg PO DAILY 10/24/22 [History] Acetaminophen 500 mg [Tylenol Extra Strength 500 mg] 500 mg PO TID 06/30/23 [History] Albuterol Common Canister [Ventolin Common Canister] 1 - 2 puffs IH Q4H PRN PRN 06/30/23 [History] Albuterol Sulfate 2.5 mg IH QID PRN PRN 06/30/23 [History] Fluticasone/Umeclidin/Vilanter [Trelegy Ellipta 100-62.5-25] 1 inh IH HS 06/30/23 [History] Insulin Detemir [Levemir Flexpen] 15 units SQ DAILY 06/30/23 [History] Semaglutide [Ozempic] 1 mg SQ WEEKLY 06/30/23 [History] Sodium Zirconium Cyclosilicate [Lokelma] 10 mg PO HS 06/30/23 [History] Hx Tetanus, Diphtheria Vaccination/Date Given: Yes Hx Influenza Vaccination/Date Given: Yes Hx Pneumococcal Vaccination/Date Given: Yes Travel Risk - International Travel Have you traveled outside of the country in past 3 weeks: No - Coronavirus Screening Are you exhibiting any of the following symptoms?: No Close contact with a COVID-19 positive Pt in past 14-21 Days: No - Vaccine Status Have you recieved a Covid-19 vaccination: No - Review of Systems Constitutional: Fatigue, Weakness Eyes: No Symptoms Ears, Nose, & Throat: No Symptoms Respiratory: Cough, Dyspnea, Wheezing Cardiac: No Symptoms Abdominal/Gastrointestinal: No Symptoms Genitourinary Symptoms: No Symptoms Musculoskeletal: No Symptoms Skin: No Symptoms Neurological: No Symptoms Psychological: No Symptoms Endocrine: No Symptoms Hematologic/Lymphatic: No Symptoms Immunological/Allergic: No Symptoms - Past Medical History Pertinent Past Medical History: Yes Neurological History: Stroke ENT History: No Pertinent History Cardiac History: Arrhythmia Respiratory History: COPD, Sleep Apnea Endocrine Medical History: Diabetes Type II Musculoskeletal History: Arthritis, Osteoarthritis GI Medical History: GERD, Gallbladder Disease, Hernia History: No Pertinent History Psycho-Social History: No Pertinent History Male Reproductive Disorders: Prostate Problems Other Medical History: Pacemaker, 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 shoulder surgery- right states rotator cuff repair,, Left Carpal Tunnel Surgery, Right rotator cuff surgery, 2 knots removed from back of neck - Social History Smoking Status: Former smoker Exposure to second hand smoke: Yes Alcohol Use: None Drug Use: none Patient Lives Alone: No Significant Family History: heart disease - Nursing Vital Signs Nursing Vital Signs: Initial Vital Signs Pulse Rate 115 H 06/30/23 16:22 Respiratory Rate 20 06/30/23 16:22 Blood Pressure 139/98 06/30/23 16:22 O2 Sat by Pulse Oximetry 97 06/30/23 16:22 Pain Scale Pain Intensity 0 - Physical Exam General Appearance: no apparent distress, alert Eye Exam: No scleral icterus Ears, Nose, Throat Exam: normal ENT inspection Neck Exam: normal inspection, non-tender, supple, full range of motion Respiratory Exam: rhonchi, wheezing, No accessory muscle use Cardiovascular Exam: tachycardia, irregular Gastrointestinal/Abdomen Exam: soft, normal bowel sounds, No tenderness Back Exam: normal inspection Extremity Exam: normal inspection, normal range of motion Neurologic Exam: alert, oriented x 3, cooperative, mac artist II-XII nml as tested, normal mood/affect, nml cerebellar function, nml station & gait, sensation nml, No motor deficits Skin Exam: normal color SpO2 Interpretation: normal SpO2: 95 O2 Delivery: Room Air Ordered Tests: Medication Summary Discontinued Medications Generic Name Dose Route Start Last Admin Trade Name Freq PRN Reason Stop Dose Admin Acetaminophen Confirm 06/30/23 18:17 Acetaminophen 500 Mg Tablet Administered 06/30/23 18:18 Dose 1,000 mg .ROUTE .STK-MED ONE Acetaminophen 1,000 mg 06/30/23 18:21 06/30/23 18:25 Acetaminophen 500 Mg Tablet PO 06/30/23 18:22 1,000 mg STAT STA Administration Acetaminophen 325 mg 06/30/23 22:32 Acetaminophen 325 Mg Tablet PO 07/30/23 22:31 Q4H PRN PRN PAIN, FEVER, HEADACHE Acetaminophen 650 mg 07/01/23 09:38 07/01/23 09:43 Acetaminophen 325 Mg Tablet PO 07/31/23 09:37 650 mg Q6H PRN PRN Administration PAIN, FEVER, HEADACHE Hydrocodone Bitart/Acetaminophen 1 tab 07/02/23 07:51 07/02/23 08:24 Hydrocodone/Apap 5/325 1 Tab Tablet PO 07/07/23 07:50 1 tab Q4H PRN PRN Administration PAIN Albuterol Sulfate 2.5 mg 06/30/23 22:27 Albuterol Sulfate 2.5 Mg/3 [facility] 07/30/23 22:26 QID PRN PRN SHORTNESS OF BREATH/WHEEZING Albuterol/Ipratropium 3 ml 07/01/23 01:00 Ipratropium/Albuterol Sulfate 3 Ml [facility] 07/31/23 00:59 Q6HRT JEFF Alendronate Sodium 35 mg 07/02/23 06:00 07/02/23 05:28 Alendronate Sodium 70 Mg Tablet PO 08/01/23 05:59 35 mg Mo@0600 JEFF Administration Amiodarone HCl 150 mg 07/01/23 08:41 07/01/23 09:39 Amiodarone Hcl 150 Mg/3 Ml Vial IV 07/01/23 08:42 Not Given STAT ONE Apixaban 5 mg 07/01/23 10:00 07/02/23 08:26 Apixaban 2.5 Mg Tablet PO 07/31/23 09:59 5 mg BID JEFF Administration Cholecalciferol 1,000 unit 07/01/23 10:00 07/02/23 08:26 Cholecalciferol (Vitamin D3) 1000 Unit Tablet PO 07/31/23 09:59 1,000 unit DAILY JEFF Administration Cyanocobalamin 2,500 mcg 07/02/23 10:00 07/02/23 08:28 Cyanocobalamin 500 Mcg Tablet PO 08/01/23 09:59 2,500 mcg Q48H JEFF Administration Diltiazem HCl 10 mg 06/30/23 20:39 06/30/23 21:07 Diltiazem Hcl Iv 5 Mg/Ml Vial IV 06/30/23 20:40 10 mg STAT ONE Administration Diltiazem HCl Confirm 06/30/23 20:55 Diltiazem Hcl Iv 5 Mg/Ml Vial Administered 06/30/23 20:56 Dose 50 mg IV .STK-MED ONE Diltiazem HCl 10 mg 07/01/23 18:01 07/01/23 18:18 Diltiazem Hcl Iv 5 Mg/Ml Vial IV 07/01/23 18:02 10 mg STAT ONE Administration Diphenhydramine HCl 25 mg 06/30/23 20:39 06/30/23 21:05 Diphenhydramine Hcl 50 Mg/Ml Vial IV 06/30/23 20:40 25 mg STAT ONE Administration Diphenhydramine HCl Confirm 06/30/23 20:54 Diphenhydramine Hcl 50 Mg/Ml Vial Administered 06/30/23 20:55 Dose 50 mg .ROUTE .STK-MED ONE Docusate Sodium 100 mg 07/01/23 10:18 Docusate Sodium 100 Mg Capsule PO 07/31/23 10:17 BIDPRN PRN CONSTIPATION Empagliflozin 25 mg 07/01/23 10:00 07/02/23 08:33 Empagliflozin 10 Mg Tablet PO 07/31/23 09:59 25 mg DAILY JEFF Administration Famotidine 40 mg 07/01/23 22:00 07/01/23 21:16 Famotidine 20 Mg Tablet PO 07/31/23 21:59 40 mg HS JEFF Administration Ferrous Sulfate 325 mg 07/01/23 10:00 07/02/23 08:27 Ferrous Sulfate 325 Mg Tablet PO 07/31/23 09:59 325 mg DAILY JEFF Administration Finasteride 5 mg 07/01/23 10:00 07/02/23 08:35 Finasteride 5 Mg Tablet PO 07/31/23 09:59 5 mg DAILY JEFF Administration Folic Acid 1 mg 07/01/23 10:00 07/02/23 08:27 Folic Acid 1 Mg Tablet PO 07/31/23 09:59 1 mg DAILY JEFF Administration Furosemide 40 mg 07/01/23 10:00 07/02/23 08:27 Furosemide 40 Mg Tablet PO 07/31/23 09:59 40 mg DAILY JEFF Administration Azithromycin 500 mg in 250 mls @ 250 mls/hr 06/30/23 20:40 06/30/23 21:44 Zithromax 500 Mg/ 250 Ml Nacl Premix IV 06/30/23 21:39 250 ml/hr STAT STA 250 mls/hr Administration Ceftriaxone Sodium/Dextrose 2 g in 50 mls @ 100 mls/hr 06/30/23 20:40 06/30/23 21:03 Rocephin 2 Gm-D5w 50ml Bag IV 06/30/23 21:09 100 ml/hr STAT STA 100 mls/hr Administration Azithromycin Confirm 06/30/23 20:54 Zithromax 500 Mg/ 250 Ml Nacl Premix Administered 06/30/23 20:55 Dose 500 mg in 250 mls @ ud IV .STK-MED ONE Ceftriaxone Sodium/Dextrose Confirm 06/30/23 20:54 Rocephin 2 Gm-D5w 50ml Bag Administered 06/30/23 20:55 Dose 2 g in 50 mls @ ud IV .STK-MED ONE Diltiazem HCl 100 mls @ 5 mls/hr 06/30/23 21:02 Cardizem Drip 100 Mg/100 Ml D5w IV 07/30/23 21:01 .Q20H PRN HEART RATE/ A-FIB Protocol 5 MG/HR Diltiazem HCl 100 mls @ 5 mls/hr 07/01/23 18:00 07/02/23 09:00 Cardizem Drip 100 Mg/100 Ml D5w IV 07/31/23 17:59 0 mg/hr .Q20H PRN 0 mls/hr HEART RATE/ A-FIB Titration Protocol 5 MG/HR Ibuprofen 400 mg 07/01/23 12:00 07/01/23 12:05 Ibuprofen 400 Mg Tablet PO 07/31/23 11:59 400 mg Q6H PRN PRN Administration MODERATE PAIN Insulin Human Lispro 0 unit 06/30/23 22:32 07/02/23 12:16 Insulin Lispro 1 Unit SQ 07/30/23 22:31 4 unit UD PRN Administration HYPERGLYCEMIA Ketorolac Tromethamine 30 mg 06/30/23 22:50 Ketorolac Tromethamine 30 Mg/Ml Inj IV 07/05/23 22:49 Q6H PRN PRN PAIN Levothyroxine Sodium 50 mcg 07/01/23 10:00 07/02/23 08:29 Levothyroxine Sodium 50 Mcg Tablet PO 07/31/23 09:59 50 mcg DAILY JEFF Administration Magnesium Oxide 2,000 mg 07/01/23 10:00 07/01/23 09:19 Magnesium Oxide 400 Mg Tablet PO 07/31/23 09:59 2,000 mg DAILY JEFF Administration Metformin HCl 500 mg 07/01/23 10:00 Metformin Hcl 500 Mg Tablet PO 07/31/23 09:59 BID JEFF Metformin HCl 500 mg 07/02/23 22:00 Metformin Hcl 500 Mg Tablet PO 08/01/23 21:59 BID JEFF Metoclopramide HCl 10 mg 06/30/23 20:39 06/30/23 21:02 Metoclopramide Hcl 10 Mg/2 Ml Vial IV 06/30/23 20:40 10 mg STAT ONE Administration Metoclopramide HCl Confirm 06/30/23 20:54 Metoclopramide Hcl 10 Mg/2 Ml Vial Administered 06/30/23 20:55 Dose 10 mg .ROUTE .STK-MED ONE Metoprolol Tartrate 50 mg 07/01/23 10:00 07/01/23 07:20 Metoprolol Tartrate 50 Mg Tablet PO 07/31/23 09:59 50 mg BID JEFF Administration Metoprolol Tartrate 100 mg 07/01/23 22:00 07/02/23 08:27 Metoprolol Tartrate 50 Mg Tablet PO 07/31/23 21:59 100 mg BID JEFF Administration Metoprolol Tartrate 50 mg 07/01/23 09:00 07/01/23 09:21 Metoprolol Tartrate 50 Mg Tablet PO 07/01/23 09:01 50 mg STAT ONE Administration Non-Formulary Medication 35 mg 07/02/23 06:00 Alendronate Sodium [Alendronate Sodium] PO 08/01/23 05:59 Mo@0600 [facility] Non-Formulary Medication 1 inh 07/01/23 22:00 Fluticasone/Umeclidin/Vilanter [Trelegy Ellipta 100-62.5-25] IH 07/31/23 21:59 HS [facility] Non-Formulary Medication 1 each 07/01/23 11:00 07/02/23 11:19 Hold Metformin Products For 48hrs 07/02/23 22:00 Not Given DAILY [facility] Ondansetron HCl 4 mg 06/30/23 22:32 Ondansetron Hcl 4 Mg/2 Ml Vial IV 07/30/23 22:31 Q6H PRN PRN NAUSEA/VOMITING Pantoprazole Sodium 40 mg 07/01/23 10:00 07/02/23 08:26 Protonix (Pantoprazole) 40 Mg Tablet PO 07/31/23 09:59 40 mg DAILY JEFF Administration Pyridoxine HCl 100 mg 06/30/23 22:00 07/01/23 07:52 Pyridoxine Hcl 100 Mg Tablet PO 07/30/23 21:59 Not Given Q48H JEFF Ropinirole HCl 1 mg 07/01/23 22:00 07/01/23 21:17 Ropinirole Hcl 2 Mg Tablet PO 07/31/23 21:59 1 mg HS JEFF Administration Fluticasone/Salmeterol 2 puff 07/01/23 07:00 07/02/23 05:20 Fluticasone/Salmeterol 115/21 - 120 Puff Common Canister IH 07/31/23 06:59 2 puff BIDRT JEFF Administration Simvastatin 20 mg 07/01/23 22:00 07/01/23 21:18 Simvastatin 20 Mg Tablet PO 07/31/23 21:59 20 mg HS JEFF Administration Tamsulosin HCl 0.8 mg 07/01/23 10:00 07/02/23 08:27 Tamsulosin Hcl 0.4 Mg Cap PO 07/31/23 09:59 0.8 mg BID JEFF Administration Tiotropium [place] 1 ea 07/01/23 10:00 07/02/23 05:20 Tiotropium [place] 18 Mcg/Cap Inhaler 07/31/23 09:59 1 ea DAILY JEFF Administration Venlafaxine HCl 150 mg 07/01/23 10:00 07/02/23 08:27 Venlafaxine Hcl 75 Mg Extended Release Capsule PO 07/31/23 09:59 150 mg DAILY JEFF Administration Vitamin E 400 units 07/01/23 10:00 07/02/23 08:30 Vitamin E 400 Units 400 Units Capsule PO 07/31/23 09:59 400 units DAILY JEFF Administration Lab/Rad Data: Laboratory Result Diagrams 06/30/23 17:11 06/30/23 17:11 Laboratory Results 06/30/23 06/30/23 06/30/23 Range/Units 21:12 21:01 17:15 WBC (4.0-10.5) x10^3/uL RBC (4.1-5.6) x10^6/uL Hgb (12.5-18.0) g/dL Hct (42-50) % MCV (78-100) fL MCH (26-32) pg MCHC (32-36) g/dL RDW (11.5-14.0) % Plt Count (150-450) x10^3/uL MPV (7.5-11.0) fL Segmented Neutrophils (36.-66.) % Lymphocytes (Manual) (24-44) % Monocytes (Manual) (0.0-12.0) % Platelet Estimate (NORMAL) RBC Morphology Sodium (137-145) mmol/L Potassium (3.5-5.1) mmol/L Chloride (98-107) mmol/L Carbon Dioxide (22-30) mmol/L Anion Gap (5-15) MEQ/L BUN (9-20) mg/dL Creatinine (0.66-1.25) mg/dL Estimated GFR ML/MIN Glucose (74-106) mg/dL Calcium (8.4-10.2) mg/dL Magnesium (1.6-2.3) mg/dL Total Bilirubin (0.2-1.3) mg/dL AST (17-59) U/L ALT (0-50) U/L Alkaline Phosphatase (38-126) U/L Creatine Kinase (55-170) U/L Troponin I 0.032 0.031 (0.000-0.034) ng/mL NT-Pro-B Natriuret Pep (<300) pg/mL Serum Total Protein (6.3-8.2) g/dL Albumin (3.5-5.0) g/dL Influenza Type A Ag NEGATIVE (NEGATIVE) Influenza Type B Ag NEGATIVE (NEGATIVE) RSV (PCR) NEGATIVE (NEGATIVE) SARS-CoV-2 (PCR) NEGATIVE (NEGATIVE) 06/30/23 06/30/23 Range/Units 17:11 17:11 WBC 9.8 (4.0-10.5) x10^3/uL RBC 4.86 (4.1-5.6) x10^6/uL Hgb 15.5 (12.5-18.0) g/dL Hct 47.6 (42-50) % MCV 97.9 (78-100) fL MCH 31.9 (26-32) pg MCHC 32.6 (32-36) g/dL RDW 14.9 H (11.5-14.0) % Plt Count 260 (150-450) x10^3/uL MPV 10.5 (7.5-11.0) fL Segmented Neutrophils 76 H (36.-66.) % Lymphocytes (Manual) 15 L (24-44) % Monocytes (Manual) 9 (0.0-12.0) % Platelet Estimate NORMAL (NORMAL) RBC Morphology NORMAL Sodium 137 (137-145) mmol/L Potassium 4.3 (3.5-5.1) mmol/L Chloride 95 L (98-107) mmol/L Carbon Dioxide 34 H (22-30) mmol/L Anion Gap 12.1 (5-15) MEQ/L BUN 27 H (9-20) mg/dL Creatinine 1.10 (0.66-1.25) mg/dL Estimated GFR 71.3 ML/MIN Glucose 237 H (74-106) mg/dL Calcium 10.7 H (8.4-10.2) mg/dL Magnesium 1.9 (1.6-2.3) mg/dL Total Bilirubin 0.40 (0.2-1.3) mg/dL AST 22 (17-59) U/L ALT 23 (0-50) U/L Alkaline Phosphatase 91 (38-126) U/L Creatine Kinase 24 L (55-170) U/L Troponin I (0.000-0.034) ng/mL NT-Pro-B Natriuret Pep 3470 (<300) pg/mL Serum Total Protein 7.2 (6.3-8.2) g/dL Albumin 4.3 (3.5-5.0) g/dL Influenza Type A Ag (NEGATIVE) Influenza Type B Ag (NEGATIVE) RSV (PCR) (NEGATIVE) SARS-CoV-2 (PCR) (NEGATIVE) - Progress Progress: improved, re-examined Air Movement: good Progress Note: 06/30/23 20:46 72 years old is evaluated in the ER for elevated heart rate. Patient heart rate was in 120s/130s on presentation flutter with rapid ventricular response. Pacemaker interrogation is done and heart rate has never been more than 160s which is the upper limit before patient can expect parents any pacemaker firing. Patient does report having heart rate in 130s at home when his blood pressure was elevated. He is given Tylenol for headache as he does not want to try anything else. Headache is minimally improved. EKG is flutter with RVR. Initial troponins are negative. Chest x-ray reviewed by me revealed left-sided opacity possible pneumonia. Started on antibiotics. I have obtained CT head which is negative for any acute intracranial findings and patient neuroexam remained nonfocal. I do not think patient is having a stroke. I have discussed with patient in length about symptomatic treatment for his headache and he agreed to take Reglan and Benadryl. Patient heart rate while resting is in low 100s and with minimal movement exam send 130s. I have given a loading dose of Cardizem and will see the response, if not favorable patient will be started on Cardizem drip. I believe because of patient's rapid heart rate and atrial flutter RVR he was having these episodes of dizziness and lightheadedness. Rest of the workup showed fairly okay chemistries with glucose in 200s and calcium more than 10. Patient always has history of calcium around 10. I have discussed the results of workup with patient and family and recommended observation admission which they understand and agree. Will call hospitalist. 06/30/23 20:50 06/30/23 21:53 Discussed with hospitalist Reviewed history, workup and agreed with observation admission. Blood Culture(s) Obtained: Yes Antibiotics given: Yes Counseled pt/family regarding: lab results, diagnosis, rad results Medical Desision Making - Independent Historian Additional History obtained from: Spouse - Discussion of managment Care discussed with:: hospitalist Reviewed:: Test results Agreed on:: Treatment plan Will see patient: in hospital - Diagnostic Testing Diagnostic test were ordered, analyzed, and reviewed by me: Yes Radiological Interpretation: Interpreted by me, Reviewed by me, Teleradiologist Report - Risk of complications The pt has a high risk of morbidity or mortality based on: Decision regarding hospitilization or escalation of hosp level of care - Departure Departure Disposition: Observation Clinical Impression: Atrial flutter with rapid ventricular response, Pneumonia, Hypertension Condition: Stable Critical Care Time: No
--- NOTE | 2023-06-30 20:40 | XRAY ---
Indication: Chest pain. Comparison: May 31, 2023 Portable chest is less inflated accentuating cardiopulmonary structures. Again cardiomegaly obscures left mid-lower lung. Visualized lungs clear. Bony thorax intact again with osteopenia, degenerative changes, scoliosis, and left dual-lead pacemaker. Impression: Nonacute underinflated chest with again cardiomegaly.
[2023-06-30] MEDS ORDERED: Reglan 10 MG/2 ML ONE (20:54)
[2023-06-30] MEDS ORDERED: Zithromax 500 MG/ 250 ML NaCl Premix 500 MG/250 ML IVPB IV ONE (20:54)
[2023-06-30] MEDS ORDERED: ROCEPHIN 2 Gm-D5w 50ML BAG** 2 G/50 ML IVPB IV ONE (20:54)
[2023-06-30] MEDS ORDERED: BENADRYL 50 MG/ML ONE (20:54)
[2023-06-30] MEDS ORDERED: Cardizem IV 50 MG/10 ML IV ONE (20:55)
[2023-06-30] MEDS: Reglan 10 MG/2 ML IV ONE (21:02)
[2023-06-30] MEDS ORDERED: CARDIZEM DRIP 100 MG/100 ML D5W 100 ML IV PRN (21:02)
[2023-06-30] MEDS: ROCEPHIN 2 Gm-D5w 50ML BAG** 2 G/50 ML IVPB IV STA (21:03)
[2023-06-30] MEDS: BENADRYL 50 MG/ML IV ONE (21:05)
[2023-06-30] MEDS: Cardizem IV 50 MG/10 ML IV ONE (21:07)
[2023-06-30 21:39] LABS: INFLUENZA A NEGATIVE (NEGATIVE); INFLUENZA B NEGATIVE (NEGATIVE); RESPIRATORY SYNCTIAL VIRUS NEGATIVE (NEGATIVE); SARS-CoV-2 Xpert Express NEGATIVE (NEGATIVE)
[2023-06-30] MEDS: Zithromax 500 MG/ 250 ML NaCl Premix 500 MG/250 ML IVPB IV STA (21:44)
[2023-06-30] MEDS ORDERED: PROVENTIL 2.5 MG/3 ML NEB IH PRN (22:27)
[2023-06-30] MEDS ORDERED: NON-FORMULARY ITEM (Cyanocobalamin (Vitamin B-12) [B-12] 1,000 MCG Tablet) PO SCH (22:30)
[2023-06-30] MEDS ORDERED: TYLENOL 325 MG PO PRN (22:32)
[2023-06-30] MEDS ORDERED: Zofran 4 MG/2 ML VIAL IV PRN (22:32)
--- NOTE | 2023-06-30 22:41 | PCM.HP ---
History of Present Illness - Chief Complaint Chief Complaint: AFib with RVR History of Present Illness: is a 72 year old male with hx of AFib on Eliquis, PPM, CVA, COPD, HTN, DMII, Hypothyroidism, GERD here with c/o dizziness, fatigue, and palpitation and high BP at home of 140s/110s. On arrival, HR was found to be in the 120-130s. Work-up in ER fairly unremarkable. Treated and HR is now 90s. He also c/o chest pain. It is resolved at the time of my exam. He c/o headache, 8 out of 10. Admitted for chest pain rule out. I saw pt via telemedicine. He is comfortable, in NAD, on RA - Review of Systems Constitutional: Fatigue Eyes: No Symptoms Ears, Nose, & Throat: No Symptoms Respiratory: No Symptoms Cardiac: Chest Pain, Palpitations Abdominal/Gastrointestinal: No Symptoms Genitourinary Symptoms: No Symptoms Musculoskeletal: No Symptoms Skin: No Symptoms Neurological: Dizziness, Headache Psychological: No Symptoms Endocrine: No Symptoms Hematologic/Lymphatic: No Symptoms Immunological/Allergic: No Symptoms Medications & Allergies Home Medications: Home Medication List Alendronate Sodium 35 mg PO WEEKLY 05/06/19 [History Confirmed 06/30/23] Finasteride 5 mg [Proscar 5 MG] 1 tab PO DAILY 05/06/19 [History Confirmed 06/30/23] Metformin HCl 500 mg [Glucophage 500 MG] 500 mg PO BID 05/06/19 [History Confirmed 06/30/23] Pyridoxine HCl (Vitamin B6) [Vitamin B-6] 100 mg PO UD 05/06/19 [History Confirmed 06/30/23] Saw [place] Fruit/Zinc Picoli [Saw [place] 450 mg Capsule] 1,800 mg PO DAILY 05/06/19 [History Confirmed 06/30/23] Tamsulosin HCl 0.4 mg [Flomax 0.4 MG] 0.8 mg PO BID 05/06/19 [History Confirmed 06/30/23] Vitamin E 400 Units [Vitamin E 400 UNIT SOFTGEL] 400 unit PO DAILY 05/06/19 [History Confirmed 06/30/23] PANTOPRAZOLE 40 mg Tablet [Protonix 40MG Tablet] 40 mg PO DAILY 06/05/19 [History Confirmed 06/30/23] Albuterol 2.5 mg/3 ml Neb [Proventil 2.5 mg/3 ml Neb] 2 puffs NEB QID 02/28/20 [History Confirmed 06/30/23] Magnesium Oxide 400 mg [Mag-Ox 400] 5 tab PO DAILY 02/28/20 [History Confirmed 06/30/23] Apixaban [Eliquis] 5 mg PO BID 10/08/20 [History Confirmed 06/30/23] Furosemide [Lasix] 40 mg PO DAILY 10/08/20 [History Confirmed 06/30/23] Blood Sugar Diagnostic [Freestyle Lite Test Strip] 1 strip [facility] #100 strip 10/12/20 [Rx Confirmed 06/30/23] Blood-Glucose Meter [Freestyle Precision Ramón Meter] 1 each ACHS #1 each 10/12/20 [Rx Confirmed 06/30/23] Lancets [Freestyle Lancets] 1 each [facility] #100 each 10/12/20 [Rx Confirmed 06/30/23] Cyanocobalamin (Vitamin B-12) [B-12] 2,500 mcg PO UD 12/16/20 [History Confirmed 06/30/23] Empagliflozin [Jardiance] 25 mg PO DAILY 01/03/21 [History Confirmed 06/30/23] Lovastatin 40 mg PO HS 01/03/21 [History Confirmed 06/30/23] Ropinirole 2Mg [Requip 2Mg Tab] 1 mg PO HS 01/03/21 [History Confirmed 06/30/23] Famotidine [Pepcid] 40 mg PO HS 05/24/22 [History Confirmed 06/30/23] Levothyroxine Sodium [Euthyrox] 50 mcg PO DAILY 05/24/22 [History Confirmed 06/30/23] Metoprolol Tartrate 50 mg [Lopressor 50 MG] 50 mg PO BID 05/24/22 [History Confirmed 06/30/23] Ondansetron [Ondansetron Odt] 4 mg PO DAILY 05/24/22 [History Confirmed 06/30/23] Cholecalciferol (Vitamin D3) [Vitamin D3] 25 mcg PO DAILY 10/24/22 [History Confirmed 06/30/23] Folic Acid 1 mg [Folate 1 mg] 666 mcg PO DAILY 10/24/22 [History Confirmed 06/30/23] Iron 65 mg PO DAILY 10/24/22 [History Confirmed 06/30/23] Venlafaxine HCl [Venlafaxine HCl ER] 150 mg PO DAILY 10/24/22 [History Confirmed 06/30/23] Acetaminophen 500 mg [Tylenol Extra Strength 500 mg] 500 mg PO TID 06/30/23 [History Confirmed 06/30/23] Albuterol Common Canister [Ventolin Common Canister] 1 - 2 puffs IH Q4H PRN PRN 06/30/23 [History Confirmed 06/30/23] Albuterol Sulfate 2.5 mg IH QID PRN PRN 06/30/23 [History Confirmed 06/30/23] Fluticasone/Umeclidin/Vilanter [Trelegy Ellipta 100-62.5-25] 1 inh IH HS 06/30/23 [History Confirmed 06/30/23] Insulin Detemir [Levemir Flexpen] 15 units SQ DAILY 06/30/23 [History Confirmed 06/30/23] Semaglutide [Ozempic] 1 mg SQ WEEKLY 06/30/23 [History Confirmed 06/30/23] Sodium Zirconium Cyclosilicate [Lokelma] 10 mg PO HS 06/30/23 [History Confirmed 06/30/23] Allergies/Adverse Reactions: Allergies Allergy/AdvReac Type Severity Reaction Status Date / Time bacitracin Allergy Rash Verified 06/30/23 16:40 [From Neosporin ([id number])] bacitracin zinc Allergy Rash Verified 06/30/23 16:40 [From Neosporin ([id number])] neomycin sulfate Allergy Rash Verified 06/30/23 16:40 [From Neosporin ([id number])] polymyxin B Allergy Rash Verified 06/30/23 16:40 [From Neosporin ([id number])] - Past Medical History Past Medical History: Yes Neurological History: Stroke ENT History: No Pertinent History Cardiac History: Arrhythmia Respiratory History: COPD, Sleep Apnea Endocrine Medical History: Diabetes Type II Musculoskelatal History: Arthritis, Osteoarthritis GI Medical History: GERD, Gallbladder Disease, Hernia History: No Pertinent History Pyscho-Social History: No Pertinent History Male Reproductive Disorders: Prostate Problems Comment: Pacemaker, 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 shoulder surgery- right states rotator cuff repair,, Left Carpal Tunnel Surgery, Right rotator cuff surgery, 2 knots removed from back of neck Significant Family History: heart disease - Social History Smoking Status: Former smoker Exposure to second hand smoke: Yes Alcohol: Occasionally Drug Use: none - Physical Exam Vital Signs: Vital Signs - 24 hr Pulse Resp BP BP Pulse Ox 06/30/23 22:01 92 H 18 170/90 95 06/30/23 21:59 95 06/30/23 21:46 99 H 20 167/90 95 06/30/23 21:30 87 19 175/78 93 L 06/30/23 21:20 87 20 93 L 06/30/23 21:03 96 H 24 125/88 92 L 06/30/23 19:00 104 H 21 126/99 95 06/30/23 18:46 105 H 21 128/78 96 06/30/23 18:28 104 H 15 123/93 96 06/30/23 18:20 112 H 27 H 94 L 06/30/23 18:01 92 H 18 115/88 94 L 06/30/23 17:57 110 H 31 H 126/79 95 06/30/23 17:56 103 H 17 94 L 06/30/23 17:55 147 H 98 06/30/23 17:20 97 H 23 97 06/30/23 17:17 116 H 20 94 L 06/30/23 17:09 104 H 19 134/76 91 L 06/30/23 17:08 97 H 22 93 L 06/30/23 17:02 103 H 21 95 06/30/23 16:53 102 H 21 114/91 95 06/30/23 16:22 115 H 20 139/98 97 General Appearance: no apparent distress, alert Neurologic Exam: alert, oriented x 3, cooperative Eye Exam: PERRL/EOMI, eyes nml inspection Ears, Nose, Throat Exam: normal ENT inspection Neck Exam: normal inspection, full range of motion Respiratory Exam: normal breath sounds, lungs clear Cardiovascular Exam: irregular Gastrointestinal/Abdomen Exam: soft, normal bowel sounds Rectal Exam: deferred Back Exam: normal inspection Extremity Exam: normal inspection Skin Exam: normal color Results - Labs Lab/Micro Results: Lab Results-Last 24 Hours 06/30/23 06/30/23 06/30/23 Range/Units 17:11 17:11 17:15 WBC 9.8 (4.0-10.5) x10^3/uL RBC 4.86 (4.1-5.6) x10^6/uL Hgb 15.5 (12.5-18.0) g/dL Hct 47.6 (42-50) % MCV 97.9 (78-100) fL MCH 31.9 (26-32) pg MCHC 32.6 (32-36) g/dL RDW 14.9 H (11.5-14.0) % Plt Count 260 (150-450) x10^3/uL MPV 10.5 (7.5-11.0) fL Segmented Neutrophils 76 H (36.-66.) % Lymphocytes (Manual) 15 L (24-44) % Monocytes (Manual) 9 (0.0-12.0) % Platelet Estimate NORMAL (NORMAL) RBC Morphology NORMAL Sodium 137 (137-145) mmol/L Potassium 4.3 (3.5-5.1) mmol/L Chloride 95 L (98-107) mmol/L Carbon Dioxide 34 H (22-30) mmol/L Anion Gap 12.1 (5-15) MEQ/L BUN 27 H (9-20) mg/dL Creatinine 1.10 (0.66-1.25) mg/dL Estimated GFR 71.3 ML/MIN Glucose 237 H (74-106) mg/dL Calcium 10.7 H (8.4-10.2) mg/dL Magnesium 1.9 (1.6-2.3) mg/dL Total Bilirubin 0.40 (0.2-1.3) mg/dL AST 22 (17-59) U/L ALT 23 (0-50) U/L Alkaline Phosphatase 91 (38-126) U/L Creatine Kinase 24 L (55-170) U/L Troponin I 0.031 (0.000-0.034) ng/mL NT-Pro-B Natriuret Pep 3470 (<300) pg/mL Serum Total Protein 7.2 (6.3-8.2) g/dL Albumin 4.3 (3.5-5.0) g/dL Influenza Type A Ag (NEGATIVE) Influenza Type B Ag (NEGATIVE) RSV (PCR) (NEGATIVE) SARS-CoV-2 (PCR) (NEGATIVE) 06/30/23 06/30/23 Range/Units 21:01 21:12 WBC (4.0-10.5) x10^3/uL RBC (4.1-5.6) x10^6/uL Hgb (12.5-18.0) g/dL Hct (42-50) % MCV (78-100) fL MCH (26-32) pg MCHC (32-36) g/dL RDW (11.5-14.0) % Plt Count (150-450) x10^3/uL MPV (7.5-11.0) fL Segmented Neutrophils (36.-66.) % Lymphocytes (Manual) (24-44) % Monocytes (Manual) (0.0-12.0) % Platelet Estimate (NORMAL) RBC Morphology Sodium (137-145) mmol/L Potassium (3.5-5.1) mmol/L Chloride (98-107) mmol/L Carbon Dioxide (22-30) mmol/L Anion Gap (5-15) MEQ/L BUN (9-20) mg/dL Creatinine (0.66-1.25) mg/dL Estimated GFR ML/MIN Glucose (74-106) mg/dL Calcium (8.4-10.2) mg/dL Magnesium (1.6-2.3) mg/dL Total Bilirubin (0.2-1.3) mg/dL AST (17-59) U/L ALT (0-50) U/L Alkaline Phosphatase (38-126) U/L Creatine Kinase (55-170) U/L Troponin I 0.032 (0.000-0.034) ng/mL NT-Pro-B Natriuret Pep (<300) pg/mL Serum Total Protein (6.3-8.2) g/dL Albumin (3.5-5.0) g/dL Influenza Type A Ag NEGATIVE (NEGATIVE) Influenza Type B Ag NEGATIVE (NEGATIVE) RSV (PCR) NEGATIVE (NEGATIVE) SARS-CoV-2 (PCR) NEGATIVE (NEGATIVE) - Radiology Impressions Radiology Exams & Impressions: Radiology Procedures Category Date Time Status CHEST 1 VIEW (PORTABLE) Stat Exams 06/30/23 17:11 Completed CHEST WITH CONTRAST [CT] Stat Exams 06/30/23 18:28 Completed HEAD WITHOUT CONTRAST [CT] Stat Exams 06/30/23 17:22 Completed - Other Procedures and Tests Respiratory Therapy 06/30/23 22:34 Respiratory Therapy Consult ONCE Assessment/Plan (1) Atrial flutter with rapid ventricular response Current Visit: Yes Status: Acute Assessment & Plan: HR is controlled now. Continue BB and Diltiazem if needed. On Eliquis BNP 3400 - CXR no congestion. Continue home Lasix 40mg po daily Code(s): I48.92 - UNSPECIFIED ATRIAL FLUTTER (2) Headache Current Visit: Yes Status: Acute Assessment & Plan: CT head no acute abnormality. Tylenol given in ER. Had reglan. Toradol 60mg IV x 1 to see if this will help Code(s): R51.9 - HEADACHE, UNSPECIFIED (3) Hypertension Current Visit: Yes Status: Acute Qualifiers: Assessment & Plan: BP is elevated. Resumed home BP meds, monitor and adjust as needed. Code(s): I10 - ESSENTIAL (PRIMARY) HYPERTENSION (4) COPD (chronic obstructive pulmonary disease) Current Visit: No Status: Acute Assessment & Plan: CT chest and CXR not remarkable. Some vague opacity. No cough, sputum, fever. I do not think he has PNA. I will not continue ABX. Continue home neds, and prn updraft for SOB (5) Chest tightness Current Visit: No Status: Acute Assessment & Plan: Trop 0.031 and 0.032, normal. Awaiting 3rd set. EKG shows AFib, no acute changes. Code(s): R07.89 - OTHER CHEST PAIN (6) Controlled type 2 diabetes mellitus Current Visit: No Status: Acute Assessment & Plan: Resume Metformin, SSI, ADA, accucheck Code(s): E11.9 - TYPE 2 DIABETES MELLITUS WITHOUT COMPLICATIONS (7) Hypothyroidism Current Visit: No Status: Acute Assessment & Plan: Resume home meds Code(s): E03.9 - HYPOTHYROIDISM, UNSPECIFIED Telemedicine Encounter - Telemedicine Encounter Telemedicine Encounter: The entirety of this encounter was performed via Telemedicine" Pt gave me verbal consent to have this telemedicine visit
[2023-06-30] MEDS ORDERED: TORAdol 30 mg Injection IV PRN (22:50)
[2023-07-01] MEDS ORDERED: DUONEB 0.5-3 MG/3 ml Neb IH SCH (01:00)
[2023-07-01 03:26] LABS: ANION GAP 14.6 MEQ/L (5-15); Calcium 10.8 mg/dL (8.4-10.2); Creatinine 1 0.94 mg/dL (0.66-1.25); EST GLOMERULAR FILTRATION RATE 86.1 ML/MIN
[2023-07-01] MEDS: Spiriva 18 Mcg/Cap Inhaler IH SCH (07:07)
[2023-07-01] MEDS: Advair Hfa 115/21 Common canister IH SCH (07:07)
[2023-07-01] MEDS: Lopressor 50 MG PO SCH ×2 (07:20→21:16)
[2023-07-01 07:50] LABS: Hematocrit 48.4 % (42-50); Hemoglobin 15.8 g/dL (12.5-18.0); Mean Cell Volume 97.4 fL (78-100); Mean Corpuscular Hemoglobin 31.8 pg (26-32); Mean Corpuscular Hgb Concent. 32.6 g/dL (32-36); Mean Platelet Volume 10.4 fL (7.5-11.0); Platelet Count 271 x10^3/uL (150-450); Red Blood Count 4.97 x10^6/uL (4.1-5.6); White Blood Count 11.3 x10^3/uL (4.0-10.5)
[2023-07-01] MEDS: Vitamin B-6 (Pyridoxine) 100 MG PO SCH (07:52)
[2023-07-01] MEDS ORDERED: PHARMACY DOSING REQUEST MC ONE (08:42)
[2023-07-01] MEDS ORDERED: Cordarone 150 MG/3 ML Injection*** 150 MG in D5w 100ML Mini Bag 100 ML 100 ML IV ONE (09:00)
[2023-07-01] MEDS: Flomax 0.4 MG PO SCH (09:19)
[2023-07-01] MEDS: MAG-OX 400 PO SCH (09:19)
[2023-07-01] MEDS: VITAMIN D PO SCH (09:19)
[2023-07-01] MEDS: FOLATE 1 MG PO SCH (09:20)
[2023-07-01] MEDS: Protonix 40MG Tablet PO SCH (09:20)
[2023-07-01] MEDS: Effexor XR 75 MG PO SCH (09:20)
[2023-07-01] MEDS: FEOSOL 325 MG PO SCH (09:21)
[2023-07-01] MEDS: Lasix 40 MG PO SCH (09:21)
[2023-07-01] MEDS: SYNTHROID 50 MCG PO SCH (09:21)
[2023-07-01] MEDS: ELIQUIS 2.5 MG TABLET PO SCH (09:21)
[2023-07-01] MEDS: Vitamin E 400 UNIT SOFTGEL PO SCH (09:21)
[2023-07-01] MEDS: Lopressor 50 MG PO ONE (09:21)
[2023-07-01] MEDS: Proscar 5 MG PO SCH (09:22)
--- NOTE | 2023-07-01 09:22 | PCM.NOTE ---
Date and Time: 07/01/23 0832 Subjective Assessment: is a 72 year old male with hx of AFib on Eliquis, PPM, CVA, COPD, HTN, DMII, Hypothyroidism, GERD here with c/o dizziness, fatigue, and palpitation and high BP at home of 140s/110s. Pt states he has a hx of cardiac arrest x2 at [facility] and then transferred to [facility] in [place]. On arrival, HR was found to be in the 120-130s. Per admission note he also c/o chest pain yesterday. He denies this today. He is diaphoretic and his linens have been changed twice. He states this is unusual for him. Pacemaker interrogated in the ER. Pacemaker interrogation showed heart rate has never been more than 160s which is the upper limit before patient can expect parents any pacemaker firing. EKG is flutter with RVR. Initial troponins are negative. HR continues to be uncontrolled this morning and he appears to be having episodes of wide complex tachycardia, a-fib, a-flutter with HR 130-150. Metoprolol increased per cardiology at [facility] recommendations. Rhythm strips texted to [employer] per request without pt information. 3rd trop slightly elevated at 0.035, most likely demand ischemia. He c/o headache of a H/A on admission and CT of head was negative for any acute concerns. This has resolved since admission. He denies CP, abd.pain, N/V/D. - Review of Systems Constitutional: No Fever, No Chills Eyes: No Symptoms Ears, Nose, & Throat: No Symptoms Respiratory: Short Of Breath, No Cough Cardiac: Orthopnea, No Chest Pain, No Edema, No Syncope Abdominal/Gastrointestinal: No Abdominal Pain, No Nausea, No Vomiting, No Diarrhea Genitourinary Symptoms: No Dysuria Musculoskeletal: Back Pain (Lumbar region- pt states it's from laying in the bed. ), No Neck Pain Skin: Other (diaphoretic), No Rash Neurological: No Dizziness, No Focal Weakness, No Sensory Changes Psychological: No Symptoms Endocrine: No Symptoms Hematologic/Lymphatic: No Symptoms Immunological/Allergic: No Symptoms Objective Exam General Appearance: no apparent distress, alert, obese Neurologic Exam: alert, oriented x 3, cooperative, normal mood/affect, nml cerebellar function, sensation nml, No motor deficits Skin Exam: normal color, warm, dry Eye Exam: PERRL, EOMI, eyes nml inspection Ears, Nose, Throat Exam: normal ENT inspection, pharynx normal, moist mucous membranes Neck Exam: normal inspection, non-tender, supple, full range of motion Respiratory Exam: normal breath sounds, lungs clear, No respiratory distress Cardiovascular Exam: normal heart sounds, irregular, other (diaphoretic) Gastrointestinal/Abdomen Exam: soft, No tenderness, No mass Extremity Exam: normal inspection, normal range of motion, other (Legs cool from knees down, +1 pedal pulses, pt reports this is chronic.) Back Exam: normal inspection, normal range of motion, No CVA tenderness, No vertebral tenderness Male Genitalia Exam: deferred Rectal Exam: deferred OBJECTIVE DATA Vital Signs: Vital Signs - 24 hr Temp Pulse Resp BP BP BP Pulse Ox 07/01/23 07:49 133 H 16 158/97 95 07/01/23 07:23 97.0 F 135 H 18 144/101 95 07/01/23 07:10 135 H 20 96 07/01/23 05:33 149/99 07/01/23 05:00 97.5 F 121 H 16 142/109 95 07/01/23 03:07 114 H 19 160/92 94 L 07/01/23 01:29 104 H 16 97 07/01/23 01:14 138/74 06/30/23 23:45 97 06/30/23 23:37 104 H 16 97 06/30/23 23:26 97.4 F 120 H 17 144/99 144/99 97 06/30/23 22:16 180/92 06/30/23 22:01 96 H 18 170/90 95 06/30/23 21:59 95 06/30/23 21:46 99 H 20 167/90 95 06/30/23 21:30 87 19 175/78 93 L 06/30/23 21:20 87 20 93 L 06/30/23 21:03 96 H 24 125/88 92 L 06/30/23 19:00 104 H 21 126/99 95 06/30/23 18:46 105 H 21 128/78 96 06/30/23 18:28 104 H 15 123/93 96 06/30/23 18:20 112 H 27 H 94 L 06/30/23 18:01 92 H 18 115/88 94 L 06/30/23 17:57 110 H 31 H 126/79 95 06/30/23 17:56 103 H 17 94 L 06/30/23 17:55 147 H 98 06/30/23 17:20 97 H 23 97 06/30/23 17:17 116 H 20 94 L 06/30/23 17:09 104 H 19 134/76 91 L 06/30/23 17:08 97 H 22 93 L 06/30/23 17:02 103 H 21 95 06/30/23 16:53 102 H 21 114/91 95 06/30/23 16:22 115 H 20 139/98 97 Pain Assessment - Last Documented Pain Intensity 0 Pain Scale Used 0-10 Pain Scale Intake and Output: Intake & Output 06/28/23 06/29/23 06/30/23 07/01/23 11:59 11:59 11:59 11:59 Intake Total 271 Balance 271 Weight 90.4 kg Lab Results: Lab Results-Last 24 Hours 06/30/23 06/30/23 06/30/23 Range/Units 17:11 17:11 17:15 WBC 9.8 (4.0-10.5) x10^3/uL RBC 4.86 (4.1-5.6) x10^6/uL Hgb 15.5 (12.5-18.0) g/dL Hct 47.6 (42-50) % MCV 97.9 (78-100) fL MCH 31.9 (26-32) pg MCHC 32.6 (32-36) g/dL RDW 14.9 H (11.5-14.0) % Plt Count 260 (150-450) x10^3/uL MPV 10.5 (7.5-11.0) fL Segmented Neutrophils 76 H (36.-66.) % Lymphocytes (Manual) 15 L (24-44) % Monocytes (Manual) 9 (0.0-12.0) % Platelet Estimate NORMAL (NORMAL) RBC Morphology NORMAL Sodium 137 (137-145) mmol/L Potassium 4.3 (3.5-5.1) mmol/L Chloride 95 L (98-107) mmol/L Carbon Dioxide 34 H (22-30) mmol/L Anion Gap 12.1 (5-15) MEQ/L BUN 27 H (9-20) mg/dL Creatinine 1.10 (0.66-1.25) mg/dL Estimated GFR 71.3 ML/MIN Glucose 237 H (74-106) mg/dL Calcium 10.7 H (8.4-10.2) mg/dL Magnesium 1.9 (1.6-2.3) mg/dL Total Bilirubin 0.40 (0.2-1.3) mg/dL AST 22 (17-59) U/L ALT 23 (0-50) U/L Alkaline Phosphatase 91 (38-126) U/L Creatine Kinase 24 L (55-170) U/L Troponin I 0.031 (0.000-0.034) ng/mL NT-Pro-B Natriuret Pep 3470 (<300) pg/mL Serum Total Protein 7.2 (6.3-8.2) g/dL Albumin 4.3 (3.5-5.0) g/dL Influenza Type A Ag (NEGATIVE) Influenza Type B Ag (NEGATIVE) RSV (PCR) (NEGATIVE) SARS-CoV-2 (PCR) (NEGATIVE) 06/30/23 06/30/23 07/01/23 Range/Units 21:01 21:12 02:59 WBC (4.0-10.5) x10^3/uL RBC (4.1-5.6) x10^6/uL Hgb (12.5-18.0) g/dL Hct (42-50) % MCV (78-100) fL MCH (26-32) pg MCHC (32-36) g/dL RDW (11.5-14.0) % Plt Count (150-450) x10^3/uL MPV (7.5-11.0) fL Segmented Neutrophils (36.-66.) % Lymphocytes (Manual) (24-44) % Monocytes (Manual) (0.0-12.0) % Platelet Estimate (NORMAL) RBC Morphology Sodium (137-145) mmol/L Potassium (3.5-5.1) mmol/L Chloride (98-107) mmol/L Carbon Dioxide (22-30) mmol/L Anion Gap (5-15) MEQ/L BUN (9-20) mg/dL Creatinine (0.66-1.25) mg/dL Estimated GFR ML/MIN Glucose (74-106) mg/dL Calcium (8.4-10.2) mg/dL Magnesium (1.6-2.3) mg/dL Total Bilirubin (0.2-1.3) mg/dL AST (17-59) U/L ALT (0-50) U/L Alkaline Phosphatase (38-126) U/L Creatine Kinase (55-170) U/L Troponin I 0.032 0.035 H (0.000-0.034) ng/mL NT-Pro-B Natriuret Pep (<300) pg/mL Serum Total Protein (6.3-8.2) g/dL Albumin (3.5-5.0) g/dL Influenza Type A Ag NEGATIVE (NEGATIVE) Influenza Type B Ag NEGATIVE (NEGATIVE) RSV (PCR) NEGATIVE (NEGATIVE) SARS-CoV-2 (PCR) NEGATIVE (NEGATIVE) 07/01/23 07/01/23 Range/Units 02:59 02:59 WBC 11.3 H (4.0-10.5) x10^3/uL RBC 4.97 (4.1-5.6) x10^6/uL Hgb 15.8 (12.5-18.0) g/dL Hct 48.4 (42-50) % MCV 97.4 (78-100) fL MCH 31.8 (26-32) pg MCHC 32.6 (32-36) g/dL RDW 15.0 H (11.5-14.0) % Plt Count 271 (150-450) x10^3/uL MPV 10.4 (7.5-11.0) fL Segmented Neutrophils (36.-66.) % Lymphocytes (Manual) (24-44) % Monocytes (Manual) (0.0-12.0) % Platelet Estimate (NORMAL) RBC Morphology Sodium 139 (137-145) mmol/L Potassium 4.0 (3.5-5.1) mmol/L Chloride 102 (98-107) mmol/L Carbon Dioxide 27 (22-30) mmol/L Anion Gap 14.6 (5-15) MEQ/L BUN 24 H (9-20) mg/dL Creatinine 0.94 (0.66-1.25) mg/dL Estimated GFR 86.1 ML/MIN Glucose 146 H (74-106) mg/dL Calcium 10.8 H (8.4-10.2) mg/dL Magnesium (1.6-2.3) mg/dL Total Bilirubin (0.2-1.3) mg/dL AST (17-59) U/L ALT (0-50) U/L Alkaline Phosphatase (38-126) U/L Creatine Kinase (55-170) U/L Troponin I (0.000-0.034) ng/mL NT-Pro-B Natriuret Pep (<300) pg/mL Serum Total Protein (6.3-8.2) g/dL Albumin (3.5-5.0) g/dL Influenza Type A Ag (NEGATIVE) Influenza Type B Ag (NEGATIVE) RSV (PCR) (NEGATIVE) SARS-CoV-2 (PCR) (NEGATIVE) Radiology Exams: Radiology Procedures Category Date Time Status CHEST 1 VIEW (PORTABLE) Stat Exams 06/30/23 17:11 Completed CHEST WITH CONTRAST [CT] Stat Exams 06/30/23 18:28 Completed HEAD WITHOUT CONTRAST [CT] Stat Exams 06/30/23 17:22 Completed Assessment/Plan (1) Wide-complex tachycardia Current Visit: Yes Status: Acute Assessment & Plan: - ICU - Pacemaker interrogated in ER. - Increased metoprolol to 100mg BID - Consider Cardizem if needed - Per cardiology records at [facility]- EF is > 50% - EKG reviewed - tele - trop. 0.031, 0.032, 0.035 - 3rd trop likely elevated 2:2 demand ischemia - with diaphoresis Code(s): R00.0 - TACHYCARDIA, UNSPECIFIED (2) Atrial fibrillation with rapid ventricular response Current Visit: No Status: Acute Assessment & Plan: - increased metoprolol - TSH - Tele - EKG - Continue eliquis - Keep K+ > 4 and Mg+ >2 - BNP 3470- continue lasix - Chest XR 3/2 Impression: Nonacute underinflated chest with again cardiomegaly. - Chest CT 3/2 IMPRESSION: 1. Unremarkable CT angiography with no definite pulmonary embolism. 2. Patchy reticular opacity seen in the left lower lobe could suggest post inflammatory process. 3. Subpleural Nodular opacity seen in the posterior segment of left lower lobe measuring about 6 mm. 4. Mild Cardiomegaly. 5. Main pulmonary artery is mildly dilated measuring about 32 mm suggesting pulmonary arterial hypertension. 6. Barrel chest deformity with increase in the anterior-posterior diameter. - Will need OP f/u with Pulmonology and cardiology. - Pt has a cardiology appointment with Dr. Andino with [facility] on Sunday 07/02- he would like to go to this appointment. Code(s): I48.91 - UNSPECIFIED ATRIAL FIBRILLATION (3) Atrial flutter with rapid ventricular response Current Visit: Yes Status: Acute Assessment & Plan: - increased metoprolol - TSH - Tele - EKG - Continue eliquis Code(s): I48.92 - UNSPECIFIED ATRIAL FLUTTER (4) COPD exacerbation Current Visit: Yes Status: Acute Assessment & Plan: - CT chest and CXR not remarkable. Some vague opacity. No cough, sputum, fever. - I do not think he has PNA. I will not continue ABX. Continue home neds, and prn updraft for SOB. - RA 95% - advair, proventil Code(s): J44.1 - CHRONIC OBSTRUCTIVE PULMONARY DISEASE W (ACUTE) EXACERBATION (5) Headache Current Visit: Yes Status: Resolved Assessment & Plan: - resolved since admission - Tylenol for pain PRN- pt requested nothing stronger - CT head negative for any acute process Code(s): R51.9 - HEADACHE, UNSPECIFIED (6) Hypertension Current Visit: Yes Status: Acute Qualifiers: Assessment & Plan: - acute on chronic - metoprolol increased - monitor Code(s): I10 - ESSENTIAL (PRIMARY) HYPERTENSION (7) GERD (gastroesophageal reflux disease) Current Visit: Yes Status: Chronic Assessment & Plan: - Continue Pepcid Code(s): K21.9 - GASTRO-ESOPHAGEAL REFLUX DISEASE WITHOUT ESOPHAGITIS (8) Diabetes mellitus Current Visit: No Status: Acute Assessment & Plan: - Continue Jardiance - Humalog s/s - Hold metformin for 48hours post CTA Code(s): E11.9 - TYPE 2 DIABETES MELLITUS WITHOUT COMPLICATIONS (9) PVD (peripheral vascular disease) Current Visit: Yes Status: Chronic Assessment & Plan: - pt states this is chronic for over 20 yrs with coolness to BLLE from knees down. Code(s): I73.9 - PERIPHERAL VASCULAR DISEASE, UNSPECIFIED (10) BPH (benign prostatic hyperplasia) Current Visit: Yes Status: Chronic Assessment & Plan: - Continue flomax Code(s): N40.0 - BENIGN PROSTATIC HYPERPLASIA WITHOUT LOWER URINRY TRACT SYMP (11) Restless legs Current Visit: Yes Status: Chronic Assessment & Plan: - continue requip (12) Obesity (BMI 30-39.9) Current Visit: Yes Status: Chronic Assessment & Plan: - advised ADA diet and exercise control per cardiology recommendations Code(s): E66.9 - OBESITY, UNSPECIFIED (13) Hypothyroidism Current Visit: Yes Status: Acute Assessment & Plan: - continue synthroid - TSH in AM VTE: Eliivetteis PPI; Pepcid Next of kin: Gabriela Mireles [phone] D/C plan: 1-2 days Code status: full Code(s): E03.9 - HYPOTHYROIDISM, UNSPECIFIED
[2023-07-01] MEDS: JARDIANCE PO SCH (09:23)
[2023-07-01] MEDS: Cordarone 150 MG/3 ML Injection IV ONE (09:39)
[2023-07-01] MEDS: TYLENOL 325 MG PO PRN (09:43)
[2023-07-01] MEDS ORDERED: NON-FORMULARY ITEM (Venlafaxine Hcl [Venlafaxine Hcl Er] 150 MG Tab.Er.24) PO SCH (10:00)
[2023-07-01] MEDS ORDERED: NON-FORMULARY ITEM (Apixaban [Eliquis] 5 MG Tablet) PO SCH (10:00)
[2023-07-01] MEDS ORDERED: Glucophage 500 MG PO SCH (10:00)
[2023-07-01] MEDS ORDERED: NON-FORMULARY ITEM (Iron [Iron] 18 MG Tablet) PO SCH (10:00)
[2023-07-01] MEDS ORDERED: NON-FORMULARY ITEM (Cholecalciferol (Vitamin D3) [Vitamin D3] 25 MCG Capsule) PO SCH (10:00)
[2023-07-01] MEDS ORDERED: Docusate Sodium 100 MG PO PRN (10:18)
[2023-07-01] MEDS: HOLD METFORMIN PRODUCTS FOR 48 HOURS MC SCH (10:59)
[2023-07-01] MEDS: HUMALOG SQ PRN (11:23)
[2023-07-01] MEDS: MOTRIN 400 MG PO PRN (12:05)
[2023-07-01] MEDS: CARDIZEM DRIP 100 MG/100 ML D5W 100 ML IV PRN (18:12)
[2023-07-01] MEDS: Cardizem IV 50 MG/10 ML IV ONE (18:18)
[2023-07-01] MEDS: Pepcid 20 MG PO SCH (21:16)
[2023-07-01] MEDS: REQUIP 2MG TAB PO SCH (21:17)
[2023-07-01] MEDS: ZOCOR 20MG PO SCH (21:18)
[2023-07-01] MEDS ORDERED: NON-FORMULARY ITEM (Fluticasone/Umeclidin/Vilanter [Trelegy Ellipta 100-62.5-25] 1 EACH Bl IH SCH (22:00)
[2023-07-01] MEDS ORDERED: NON-FORMULARY ITEM (Famotidine [Pepcid] 40 MG Tablet) PO SCH (22:00)
[2023-07-01] MEDS ORDERED: NON-FORMULARY ITEM (Lovastatin [Lovastatin] 40 MG Tablet) PO SCH (22:00)
[2023-07-02] MEDS: Fosamax 70 MG PO SCH (05:28)
--- NOTE | 2023-07-02 05:30 | PCM.NOTE ---
Date and Time: 07/02/23525 Subjective Assessment: is a 72 year old male with hx of AFib on Eliquis, PPM, CVA, COPD, HTN, DMII, Hypothyroidism, GERD, H/O of [place] x 2, pacemaker, admitted 06/30/23 with AFIB RVR/wide-complex tachycardia/Aflutter with RVR, and COPD exacerbation after presenting to ED with c/o dizziness, fatigue, and palpitation as well as elevated BP at home of 140s/110s. Pacemaker interrogated in ED and noted as functioning properly. EKG demonstrating atrial flutter with RVR. Cardiology at [place] contacted for transfer with records including ekg strips sent; transfer declined. Cardiology has recommended increasing metoprolol and add Cardizem if need. Cardizem drip was initiated 07/01/23 with noted improvement to HR. Patient is already on Eliquis which has been continued. Per Allergist/Immunologist, most recent EF on echo was good. Pt has a cardiology appointment with Dr. Andino with [facility] on Sunday 07/02. OBJECTIVE DATA Vital Signs: Vital Signs - 24 hr Temp Pulse Resp BP BP Pulse Ox 07/02/23 04:53 85 18 139/69 94 L 07/02/23 04:30 96 H 20 162/80 07/02/23 04:09 96 H 07/02/23 04:00 97.9 F 89 17 157/80 94 L 07/02/23 03:46 86 20 155/72 94 L 07/02/23 03:31 86 19 150/81 94 L 07/02/23 03:17 97 H 19 154/77 95 07/02/23 03:06 104 H 22 146/80 94 L 07/02/23 02:47 99 H 19 150/76 07/02/23 02:45 99 H 16 150/76 96 07/02/23 02:32 103 H 14 173/80 97 07/02/23 02:02 105 H 17 127/80 97 07/02/23 01:46 106 H 21 161/88 94 L 07/02/23 01:32 92 H 18 154/89 95 07/02/23 01:17 93 H 19 146/81 95 07/02/23 01:03 90 19 152/75 07/02/23 01:00 88 21 152/75 95 03/04/24 00:48 89 19 149/64 95 07/02/23 00:31 89 20 147/72 95 07/02/23 00:25 88 19 152/68 95 07/02/23 00:08 89 07/02/23 00:01 88 20 148/67 94 L 07/01/23 23:49 107 H 19 154/75 96 07/01/23 23:34 89 22 155/76 94 L 07/01/23 23:19 101 H 18 149/88 96 07/01/23 23:13 101 H 18 149/88 07/01/23 23:11 96 H 18 162/74 95 07/01/23 22:45 89 19 158/74 94 L 07/01/23 22:30 94 H 23 162/75 94 L 07/01/23 22:15 99 H 21 146/72 95 07/01/23 22:06 95 H 21 152/72 07/01/23 22:00 94 H 22 152/72 95 07/01/23 21:00 100 H 21 142/66 96 07/01/23 20:45 97.8 F 100 H 19 151/65 96 07/01/23 20:34 100 H 15 141/83 95 07/01/23 20:28 94 H 07/01/23 20:15 97.8 F 94 H 22 147/70 96 07/01/23 20:03 95 07/01/23 20:00 97.8 F 106 H 23 146/70 95 07/01/23 19:00 100 H 18 139/97 95 07/01/23 18:54 101 H 24 97 07/01/23 18:50 106 H 24 153/62 07/01/23 18:45 106 H 16 153/62 94 L 07/01/23 18:30 110 H 25 H 132/68 94 L 07/01/23 18:20 105 H 23 146/83 96 07/01/23 18:12 132 H 24 168/77 07/01/23 18:05 97.8 F 132 H 24 168/77 95 07/01/23 17:00 131 H 23 137/79 96 07/01/23 16:00 87 18 164/75 91 L 07/01/23 15:01 94 H 22 137/65 95 07/01/23 14:01 88 20 133/75 96 07/01/23 13:00 87 19 150/71 95 07/01/23 12:07 87 17 148/79 97 07/01/23 11:41 96 H 07/01/23 11:27 97.4 F 86 18 157/84 96 07/01/23 10:17 105 H 19 129/95 98 07/01/23 09:00 104 H 18 132/88 95 07/01/23 07:49 133 H 16 158/97 95 07/01/23 07:23 97.0 F 135 H 18 144/101 95 07/01/23 07:10 135 H 20 96 07/01/23 05:33 149/99 Pain Assessment - Last Documented Pain Intensity 6 Pain Scale Used 0-10 Pain Scale Intake and Output: Intake & Output 06/29/23 06/30/23 07/01/23 07/02/23 11:59 11:59 11:59 11:59 Intake Total 991 1320 Balance 991 1320 Weight 90.4 kg Lab Results: Lab Results-Last 24 Hours 07/01/23 07/01/23 07/02/23 Range/Units 02:59 10:56 04:10 WBC 11.3 H (4.0-10.5) x10^3/uL RBC 4.97 (4.1-5.6) x10^6/uL Hgb 15.8 (12.5-18.0) g/dL Hct 48.4 (42-50) % MCV 97.4 (78-100) fL MCH 31.8 (26-32) pg MCHC 32.6 (32-36) g/dL RDW 15.0 H (11.5-14.0) % Plt Count 271 (150-450) x10^3/uL MPV 10.4 (7.5-11.0) fL Magnesium 1.6 (1.6-2.3) mg/dL TSH 3rd Generation 1.760 (0.47-4.68) mIU/L 07/02/23 Range/Units 04:10 WBC (4.0-10.5) x10^3/uL RBC (4.1-5.6) x10^6/uL Hgb (12.5-18.0) g/dL Hct (42-50) % MCV (78-100) fL MCH (26-32) pg MCHC (32-36) g/dL RDW (11.5-14.0) % Plt Count (150-450) x10^3/uL MPV (7.5-11.0) fL Magnesium 1.7 (1.6-2.3) mg/dL TSH 3rd Generation (0.47-4.68) mIU/L Radiology Exams: Radiology Procedures Category Date Time Status CHEST 1 VIEW (PORTABLE) Stat Exams 06/30/23 17:11 Completed CHEST WITH CONTRAST [CT] Stat Exams 06/30/23 18:28 Completed HEAD WITHOUT CONTRAST [CT] Stat Exams 06/30/23 17:22 Completed Assessment/Plan (1) Wide-complex tachycardia Current Visit: Yes Status: Acute Assessment & Plan: - Pacemaker interrogated in ER, noting to be functioning appropriately - Increased metoprolol to 100mg BID and cardizem drip initiated 07/01/23 with not ed improvement to HR which is now in the 80's-90's - Per cardiology records at [place]- EF is > 50% - EKG reviewed -continue telemetry - trop. 0.031, 0.032, 0.035, elevation likely secondary to demand Code(s): R00.0 - TACHYCARDIA, UNSPECIFIED (2) Atrial flutter with rapid ventricular response Current Visit: Yes Status: Acute Assessment & Plan: -Metoprolol increased and cardizem drip initiated 07/01/23 -HR controlled in the 80's/90's - TSH WNL - Tele - EKG - Continue eliquis Code(s): I48.92 - UNSPECIFIED ATRIAL FLUTTER (3) Atrial fibrillation Current Visit: No Status: Chronic Assessment & Plan: -Metoprolol increased and cardizem drip initiated 07/01/23 with noted improvement to HR now in 80's/90's - TSH WNL - Tele -continuous - EKG - Continue eliquis - Optimize electrolytes K > 4 and Mg >2 - BNP 3470- continue lasix - Chest XR 06/29 Impression: Nonacute underinflated chest with again cardiomegaly. - Chest CT 06/29 IMPRESSION: -"Unremarkable CT angiography with no definite pulmonary embolism. Patchy reticular opacity seen in the left lower lobe could suggest post inflammatory process.Subpleural Nodular opacity seen in the posterior segment of left lower lobe measuring about 6 mm. Mild Cardiomegaly. Main pulmonary artery is mildly dilated measuring about 32 mm suggesting pulmonary arterial hypertension. Barrel chest deformity with increase in the anterior-posterior diameter." - Will need OP f/u with Pulmonology and cardiology. - Pt has a cardiology appointment with Dr. Andino with [facility] on Sunday 07/02- he would like to go to this appointment. Code(s): I48.91 - UNSPECIFIED ATRIAL FIBRILLATION (4) COPD exacerbation Current Visit: Yes Status: Acute Assessment & Plan: - CT chest / CXR unremarkable -Respiratory panel negative -DuoNebs/INH -Supplemental oxygen for spo2 goal of >92%, at baseline currently which is RA Code(s): J44.1 - CHRONIC OBSTRUCTIVE PULMONARY DISEASE W (ACUTE) EXACERBATION (5) Hypertension Current Visit: Yes Status: Acute Qualifiers: Assessment & Plan: - Acute on chronic -stabilizing - metoprolol increased 07/01/23 - Continue to monitor Code(s): I10 - ESSENTIAL (PRIMARY) HYPERTENSION (6) Hypothyroidism Current Visit: Yes Status: Acute Assessment & Plan: - continue synthroid at home dose - TSH WNL Code(s): E03.9 - HYPOTHYROIDISM, UNSPECIFIED (7) BPH (benign prostatic hyperplasia) Current Visit: Yes Status: Chronic Assessment & Plan: - Continue flomax Code(s): N40.0 - BENIGN PROSTATIC HYPERPLASIA WITHOUT LOWER URINRY TRACT SYMP (8) GERD (gastroesophageal reflux disease) Current Visit: Yes Status: Chronic Assessment & Plan: - Continue Pepcid Code(s): K21.9 - GASTRO-ESOPHAGEAL REFLUX DISEASE WITHOUT ESOPHAGITIS (9) Obesity (BMI 30-39.9) Current Visit: Yes Status: Chronic Assessment & Plan: - advised ADA diet and exercise control per cardiology recommendations Code(s): E66.9 - OBESITY, UNSPECIFIED (10) PVD (peripheral vascular disease) Current Visit: Yes Status: Chronic Assessment & Plan: - pt states this is chronic for over 20 yrs with coolness to BLE from knees down. Code(s): I73.9 - PERIPHERAL VASCULAR DISEASE, UNSPECIFIED (11) Headache Current Visit: Yes Status: Resolved Assessment & Plan: - resolved since admission - Tylenol/Ibuprofen for pain PRN- pt requested nothing stronger - CT head negative for any acute process Code(s): R51.9 - HEADACHE, UNSPECIFIED (12) Diabetes mellitus Current Visit: No Status: Acute Qualifiers: Diabetes mellitus type: type 2 Diabetes mellitus prison insulin use: without prison use Diabetes mellitus complication status: without complication Qualified Code(s): E11.9 - Type 2 diabetes mellitus without complications Assessment & Plan: - Continue Jardiance - Humalog s/s - Hold metformin for 48hours post CTA -ADA diet -A1c 6.56 Code(s): E11.9 - TYPE 2 DIABETES MELLITUS WITHOUT COMPLICATIONS (13) Restless leg syndrome Current Visit: Yes Status: Acute Assessment & Plan: -continue home med requip VTE: Eliquis PPI: dajuan Next of kin: Gabriela Chi [phone] D/C plan: 1-2 days Code status: full
[2023-07-02] MEDS ORDERED: NON-FORMULARY ITEM (Alendronate Sodium [Alendronate Sodium] 35 MG Tablet) PO SCH (06:00)
[2023-07-02 06:04] LABS: Hematocrit 45.5 % (42-50); Hemoglobin 14.9 g/dL (12.5-18.0); Mean Cell Volume 97.4 fL (78-100); Mean Corpuscular Hemoglobin 31.9 pg (26-32); Mean Corpuscular Hgb Concent. 32.7 g/dL (32-36); Platelet Count 200 x10^3/uL (150-450); Red Blood Count 4.67 x10^6/uL (4.1-5.6); Red Cell Distribution Width 15.1 % (11.5-14.0)
[2023-07-02 06:46] LABS: ALBUMIN 3.9 g/dL (3.5-5.0); ANION GAP 15.1 MEQ/L (5-15); BILIRUBIN,TOTAL 0.5 mg/dL (0.2-1.3); Calcium 10.4 mg/dL (8.4-10.2); Creatinine 1 0.85 mg/dL (0.66-1.25); EST GLOMERULAR FILTRATION RATE 92.3 ML/MIN; Potassium 4.1 mmol/L (3.5-5.1)
[2023-07-02] MEDS: NORCO 5/325 MG PO PRN (08:24)
[2023-07-02] MEDS: Vitamin B-12 500 MCG PO SCH (08:28)
--- NOTE | 2023-07-02 09:15 | PCM.DS ---
Discharge Summary Date of Admission: 06/30/23 22:22 Date of Discharge: 07/02/23 Admitting Physician: SHEBA LEONE DO Primary Care Provider: MELQUIADES CADET Allergies Allergies bacitracin [From Neosporin ([id number])] Allergy (Verified 06/30/23 16:40) Rash bacitracin zinc [From Neosporin ([id number])] Allergy (Verified 06/30/23 16:40) Rash neomycin sulfate [From Neosporin ([id number])] Allergy (Verified 06/30/23 16:40) Rash polymyxin B [From Neosporin ([id number])] Allergy (Verified 06/30/23 16:40) Rash Hospital Summary - Hospital Course Hospital Course: is a 72 year old male with hx of AFib on Eliquis, PPM, CVA, COPD, HTN, DMII, Hypothyroidism, GERD, H/O of [place] x 2, pacemaker, admitted 06/30/23 with AFIB RVR/wide-complex tachycardia/Aflutter with RVR, and COPD exacerbation after presenting to ED with c/o dizziness, fatigue, and palpitation as well as elevated BP at home of 140s/110s. Pacemaker interrogated in ED and noted as functioning properly. EKG demonstrating atrial flutter with RVR. TSH wnl. Cardiology at [place] contacted for transfer with records including ekg strips sent; transfer declined. Cardiology has recommended increasing metoprolol and add Cardizem if needed. Cardizem drip was initiated 07/01/23, rate controlled was achieved. Metoprolol at increased dose of 100mg po bid was initiated once HR was controlled. Patient is already on Eliquis which has been continued. Per Biofuels Manager, most recent EF on echo was good. Pt has a cardiology appointment with Dr. Larsen with [facility] on Sunday07/03/23. Discharge Note New Diagnosis: AFIB RVR/wide-complex tachycardia/Aflutter with RVR New Medications: Increased dose of metoprolol to 100mg bid Follow Up: Cardiology as scheduled tomorrow Latest Assessment & Plan (1) Wide-complex tachycardia Current Visit: Yes Status: Acute Assessment & Plan: - Pacemaker interrogated in ER, noting to be functioning appropriately - Increased metoprolol to 100mg BID and cardizem drip initiated 07/01/23 with noted improvement to HR which is now in the 80's-90's - Per cardiology records at [place]- EF is > 50% - EKG reviewed -continue telemetry - trop. 0.031, 0.032, 0.035, elevation likely secondary to demand Code(s): R00.0 - TACHYCARDIA, UNSPECIFIED (2) Atrial flutter with rapid ventricular response Current Visit: Yes Status: Acute Assessment & Plan: -Metoprolol increased and cardizem drip initiated 07/01/23 -HR controlled in the 80's/90's - TSH WNL - Tele - EKG - Continue eliquis Code(s): I48.92 - UNSPECIFIED ATRIAL FLUTTER (3) Atrial fibrillation Current Visit: No Status: Chronic Assessment & Plan: -Metoprolol increased and cardizem drip initiated 07/01/23 with noted improvement to HR now in 80's/90's - TSH WNL - Tele -continuous - EKG - Continue eliquis - Optimize electrolytes K > 4 and Mg >2 - BNP 3470- continue lasix - Chest XR 06/29 Impression: Nonacute underinflated chest with again cardiomegaly. - Chest CT 06/29 IMPRESSION: -"Unremarkable CT angiography with no definite pulmonary embolism. Patchy reticular opacity seen in the left lower lobe could suggest post inflammatory process.Subpleural Nodular opacity seen in the posterior segment of left lower lobe measuring about 6 mm. Mild Cardiomegaly. Main pulmonary artery is mildly dilated measuring about 32 mm suggesting pulmonary arterial hypertension. Barrel chest deformity with increase in the anterior-posterior diameter." - Will need OP f/u with Pulmonology and cardiology. - Pt has a cardiology appointment with Dr. Larsen with [facility] on Sunday 07/02- he would like to go to this appointment. Code(s): I48.91 - UNSPECIFIED ATRIAL FIBRILLATION (4) COPD exacerbation Current Visit: Yes Status: Acute Assessment & Plan: - CT chest / CXR unremarkable -Respiratory panel negative -DuoNebs/INH -Supplemental oxygen for spo2 goal of >92%, at baseline currently which is RA Code(s): J44.1 - CHRONIC OBSTRUCTIVE PULMONARY DISEASE W (ACUTE) EXACERBATION (5) Hypertension Current Visit: Yes Status: Acute Qualifiers: Assessment & Plan: - Acute on chronic -stabilizing - metoprolol increased 07/01/23 - Continue to monitor Code(s): I10 - ESSENTIAL (PRIMARY) HYPERTENSION (6) Hypothyroidism Current Visit: Yes Status: Acute Assessment & Plan: - continue synthroid at home dose - TSH WNL Code(s): E03.9 - HYPOTHYROIDISM, UNSPECIFIED (7) BPH (benign prostatic hyperplasia) Current Visit: Yes Status: Chronic Assessment & Plan: - Continue flomax Code(s): N40.0 - BENIGN PROSTATIC HYPERPLASIA WITHOUT LOWER URINRY TRACT SYMP (8) GERD (gastroesophageal reflux disease) Current Visit: Yes Status: Chronic Assessment & Plan: - Continue Pepcid Code(s): K21.9 - GASTRO-ESOPHAGEAL REFLUX DISEASE WITHOUT ESOPHAGITIS (9) Obesity (BMI 30-39.9) Current Visit: Yes Status: Chronic Assessment & Plan: - advised ADA diet and exercise control per cardiology recommendations Code(s): E66.9 - OBESITY, UNSPECIFIED (10) PVD (peripheral vascular disease) Current Visit: Yes Status: Chronic Assessment & Plan: - pt states this is chronic for over 20 yrs with coolness to BLE from knees down. Code(s): I73.9 - PERIPHERAL VASCULAR DISEASE, UNSPECIFIED (11) Headache Current Visit: Yes Status: Resolved Assessment & Plan: - resolved since admission - Tylenol/Ibuprofen for pain PRN- pt requested nothing stronger - CT head negative for any acute process Code(s): R51.9 - HEADACHE, UNSPECIFIED (12) Diabetes mellitus Current Visit: No Status: Acute Qualifiers: Diabetes mellitus type: type 2 Diabetes mellitus call center recruiter insulin use: without call center recruiter use Diabetes mellitus complication status: without complication Qualified Code(s): E11.9 - Type 2 diabetes mellitus without complications Assessment & Plan: - Continue Jardiance - Humalog s/s - Hold metformin for 48hours post CTA -ADA diet -A1c 6.56 Code(s): E11.9 - TYPE 2 DIABETES MELLITUS WITHOUT COMPLICATIONS (13) Restless leg syndrome Current Visit: Yes Status: Acute Assessment & Plan: -continue home med requip I spent 35 minutes [id number] with the patient on the day of discharge performing discharge exam, discussing hospital stay and discharge instructions with patient and caregivers, preparation of discharge records, prescriptions & referral forms and addressing any questions/concerns the patient had as documented above. - Vitals & Intake/Output Vital Signs: Vital Signs Temperature 97.1 F 07/02/23 07:11 Pulse Rate 77 07/02/23 08:59 Respiratory Rate 18 07/02/23 08:59 Blood Pressure 124/78 07/02/23 08:59 O2 Sat by Pulse Oximetry 95 07/02/23 08:00 Intake & Output: Intake & Output 06/29/23 06/30/23 07/01/23 07/02/23 11:59 11:59 11:59 11:59 Intake Total 991 1426 Balance 991 1426 Weight 90.4 kg 92.6 kg - Lab Result Diagrams: 07/02/23 04:10 07/02/23 04:10 Lab Results-Last 24 Hrs: Lab Results-Last 24 Hours 07/01/23 07/02/23 07/02/23 Range/Units 10:56 04:10 04:10 WBC (4.0-10.5) x10^3/uL RBC (4.1-5.6) x10^6/uL Hgb (12.5-18.0) g/dL Hct (42-50) % MCV (78-100) fL MCH (26-32) pg MCHC (32-36) g/dL RDW (11.5-14.0) % Plt Count (150-450) x10^3/uL MPV (7.5-11.0) fL Sodium (135-145) mmol/L Potassium (3.5-5.1) mmol/L Chloride (98-107) mmol/L Carbon Dioxide (22-30) mmol/L Anion Gap (5-15) MEQ/L BUN (9-20) mg/dL Creatinine (0.66-1.25) mg/dL Estimated GFR ML/MIN Glucose (74-106) mg/dL POC Glucometer (74 to 106) mg/dL Calcium (8.4-10.2) mg/dL Magnesium 1.6 1.7 (1.6-2.3) mg/dL Total Bilirubin (0.2-1.3) mg/dL AST (17-59) U/L ALT (0-50) U/L Alkaline Phosphatase (38-126) U/L Serum Total Protein (6.3-8.2) g/dL Albumin (3.5-5.0) g/dL TSH 3rd Generation 1.760 (0.47-4.68) mIU/L 07/02/23 07/02/23 07/02/23 Range/Units 04:10 04:10 09:05 WBC 9.0 (4.0-10.5) x10^3/uL RBC 4.67 (4.1-5.6) x10^6/uL Hgb 14.9 (12.5-18.0) g/dL Hct 45.5 (42-50) % MCV 97.4 (78-100) fL MCH 31.9 (26-32) pg MCHC 32.7 (32-36) g/dL RDW 15.1 H (11.5-14.0) % Plt Count 200 (150-450) x10^3/uL MPV 11.0 (7.5-11.0) fL Sodium 137 (135-145) mmol/L Potassium 4.1 (3.5-5.1) mmol/L Chloride 101 (98-107) mmol/L Carbon Dioxide 25 (22-30) mmol/L Anion Gap 15.1 H (5-15) MEQ/L BUN 27 H (9-20) mg/dL Creatinine 0.85 (0.66-1.25) mg/dL Estimated GFR 92.3 ML/MIN Glucose 183 H (74-106) mg/dL POC Glucometer 253 H (74 to 106) mg/dL Calcium 10.4 H (8.4-10.2) mg/dL Magnesium (1.6-2.3) mg/dL Total Bilirubin 0.50 (0.2-1.3) mg/dL AST 27 (17-59) U/L ALT 20 (0-50) U/L Alkaline Phosphatase 70 (38-126) U/L Serum Total Protein 7.0 (6.3-8.2) g/dL Albumin 3.9 (3.5-5.0) g/dL TSH 3rd Generation (0.47-4.68) mIU/L Micro Results-Entire Visit: Accuchecks Date 07/02/23 Date 07/01/23 Date 07/01/23 Date 07/01/23 Time 07:06 Time 16:23 Time 11:19 - Radiology Exams Ordered Rad Exams-Entire Visit: Radiology Procedures Category Date Time Status CHEST 1 VIEW (PORTABLE) Stat Exams 06/30/23 17:11 Completed CHEST WITH CONTRAST [CT] Stat Exams 06/30/23 18:28 Completed HEAD WITHOUT CONTRAST [CT] Stat Exams 06/30/23 17:22 Completed - Procedures and Test Procedures and Tests throughout Hospitalization: Therapy Orders & Screens 06/30/23 22:34 Respiratory Therapy Consult ONCE Comment: Reason For Exam: 06/30/23 23:44 Respiratory Therapy Assessment DAILY Comment: Diagnosis: AFib with RVR 06/30/23 23:49 BiPap/CPAP ROUTINE Comment: Diagnosis: AFib with RVR 06/30/23 23:54 RT Screen per Nursing Assess ONCE Comment: Protocol Order Physician Instructions: Greater than 3 points order RT Admission Screen Reason For Exam: Triggered on Admission Diagnosis: AFib with RVR Diagnosis: AFib with RVR Pneumonia: No Home O2: No Asthma: No CHF: Yes Home CPAP/BIPAP: Yes Home Nebs/MDI: No Total Points: 8 Discharge Exam General Appearance: no apparent distress Neurologic Exam: alert, oriented x 3, cooperative Eye Exam: PERRL Ears, Nose, Throat Exam: normal ENT inspection Neck Exam: normal inspection Respiratory Exam: crackles/rales Cardiovascular Exam: regular rate/rhythm, normal heart sounds, edema (BLE edema +1) Gastrointestinal/Abdomen Exam: soft, normal bowel sounds Male Genitalia Exam: deferred Rectal Exam: deferred Back Exam: normal inspection Extremity Exam: other Skin Exam: normal color Final Diagnosis/Problem List - Final Discharge Diagnosis/Problem (1) Wide-complex tachycardia Current Visit: Yes Status: Resolved Code(s): R00.0 - TACHYCARDIA, UNSPECIFIED (2) Atrial flutter with rapid ventricular response Current Visit: Yes Status: Resolved Code(s): I48.92 - UNSPECIFIED ATRIAL FLUTTER (3) Atrial fibrillation Current Visit: No Status: Resolved Code(s): I48.91 - UNSPECIFIED ATRIAL FIBRILLATION (4) COPD exacerbation Current Visit: Yes Status: Chronic Code(s): J44.1 - CHRONIC OBSTRUCTIVE PULMONARY DISEASE W (ACUTE) EXACERBATION (5) Hypertension Current Visit: Yes Status: Chronic Code(s): I10 - ESSENTIAL (PRIMARY) HYPERTENSION (6) Hypothyroidism Current Visit: Yes Status: Chronic Code(s): E03.9 - HYPOTHYROIDISM, UNSPECIFIED (7) BPH (benign prostatic hyperplasia) Current Visit: Yes Status: Chronic Code(s): N40.0 - BENIGN PROSTATIC HYP ERPLASIA WITHOUT LOWER URINRY TRACT SYMP (8) GERD (gastroesophageal reflux disease) Current Visit: Yes Status: Chronic Code(s): K21.9 - GASTRO-ESOPHAGEAL REFLUX DISEASE WITHOUT ESOPHAGITIS (9) Obesity (BMI 30-39.9) Current Visit: Yes Status: Chronic Code(s): E66.9 - OBESITY, UNSPECIFIED (10) PVD (peripheral vascular disease) Current Visit: Yes Status: Chronic Code(s): I73.9 - PERIPHERAL VASCULAR DISEASE, UNSPECIFIED (11) Headache Current Visit: Yes Status: Resolved Code(s): R51.9 - HEADACHE, UNSPECIFIED (12) Diabetes mellitus Current Visit: No Status: Chronic Code(s): E11.9 - TYPE 2 DIABETES MELLITUS WITHOUT COMPLICATIONS (13) Restless leg syndrome Current Visit: Yes Status: Chronic - Discharge Disposition: Home, Self-Care Condition: Stable Prescriptions: New Metoprolol Tartrate 50 mg [Lopressor 50 MG] 100 mg PO BID 30 Days #120 tablet Continue Pyridoxine HCl (Vitamin B6) [Vitamin B-6] 100 mg PO UD Vitamin E 400 Units [Vitamin E 400 UNIT SOFTGEL] 400 unit PO DAILY Saw Thompson Fruit/Zinc Picoli [Saw Thompson 450 mg Capsule] 1,800 mg PO DAILY Tamsulosin HCl 0.4 mg [Flomax 0.4 MG] 0.8 mg PO BID Finasteride 5 mg [Proscar 5 MG] 1 tab PO DAILY Metformin HCl 500 mg [Glucophage 500 MG] 500 mg PO BID Alendronate Sodium 35 mg PO WEEKLY PANTOPRAZOLE 40 mg Tablet [Protonix 40MG Tablet] 40 mg PO DAILY Magnesium Oxide 400 mg [Mag-Ox 400] 5 tab PO DAILY Albuterol 2.5 mg/3 ml Neb [Proventil 2.5 mg/3 ml Neb] 2 puffs NEB QID Furosemide [Lasix] 40 mg PO DAILY Apixaban [Eliquis] 5 mg PO BID Lancets [Freestyle Lancets] 1 each MC ACHS #100 each Blood Sugar Diagnostic [Freestyle Lite Test Strip] 1 strip ACHS #100 strip Blood-Glucose Meter [Freestyle Precision Ramón Meter] 1 each ACHS #1 each Cyanocobalamin (Vitamin B-12) [B-12] 2,500 mcg PO UD Ropinirole 2Mg [Requip 2Mg Tab] 1 mg PO HS Lovastatin 40 mg PO HS Empagliflozin [Jardiance] 25 mg PO DAILY Famotidine [Pepcid] 40 mg PO HS Levothyroxine Sodium [Euthyrox] 50 mcg PO DAILY Ondansetron [Ondansetron Odt] 4 mg PO DAILY Venlafaxine HCl [Venlafaxine HCl ER] 150 mg PO DAILY Iron 65 mg PO DAILY Folic Acid 1 mg [Folate 1 mg] 666 mcg PO DAILY Cholecalciferol (Vitamin D3) [Vitamin D3] 25 mcg PO DAILY Sodium Zirconium Cyclosilicate [Lokelma] 10 mg PO HS Semaglutide [Ozempic] 1 mg SQ WEEKLY Insulin Detemir [Levemir Flexpen] 15 units SQ DAILY Fluticasone/Umeclidin/Vilanter [Trelegy Ellipta 100-62.5-25] 1 inh IH HS Albuterol Sulfate 2.5 mg IH QID PRN PRN PRN Reason: Shortness Of Breath/Wheezing Albuterol Common Canister [Ventolin Common Canister] 1 - 2 puffs IH Q4H PRN PRN PRN Reason: Shortness Of Breath/Wheezing Acetaminophen 500 mg [Tylenol Extra Strength 500 mg] 500 mg PO TID Discontinued Metoprolol Tartrate 50 mg [Lopressor 50 MG] 50 mg PO BID Follow up with: MELQUIADES CADET [Primary Care Provider] - SUSIE DUEÑAS MERCHANT SEAMAN [Family Provider] - GET LARSEN MD [NON-STAFF PHY W/O PRIVILEGES] - (as scheduled 07/03/23)
[2023-07-02 09:28] VITALS: TEMP 97.5
[2023-07-02 14:02] VITALS: BP 129/78; PULSE 86; RESP 17
--- NOTE | 2023-07-02 14:10 | PCM.DCORD ---
- Discharge Disposition: Home, Self-Care Condition: Stable Prescriptions: New Metoprolol Tartrate 50 mg [Lopressor 50 MG] 100 mg PO BID 30 Days #120 tablet Continue Pyridoxine HCl (Vitamin B6) [Vitamin B-6] 100 mg PO UD Vitamin E 400 Units [Vitamin E 400 UNIT SOFTGEL] 400 unit PO DAILY Saw [place] Fruit/Zinc Picoli [Saw [place] 450 mg Capsule] 1,800 mg PO DAILY Tamsulosin HCl 0.4 mg [Flomax 0.4 MG] 0.8 mg PO BID Finasteride 5 mg [Proscar 5 MG] 1 tab PO DAILY Metformin HCl 500 mg [Glucophage 500 MG] 500 mg PO BID Alendronate Sodium 35 mg PO WEEKLY PANTOPRAZOLE 40 mg Tablet [Protonix 40MG Tablet] 40 mg PO DAILY Magnesium Oxide 400 mg [Mag-Ox 400] 5 tab PO DAILY Albuterol 2.5 mg/3 ml Neb [Proventil 2.5 mg/3 ml Neb] 2 puffs NEB QID Furosemide [Lasix] 40 mg PO DAILY Apixaban [Eliquis] 5 mg PO BID Lancets [Freestyle Lancets] 1 each ACHS #100 each Blood Sugar Diagnostic [Freestyle Lite Test Strip] 1 strip ACHS #100 strip Blood-Glucose Meter [Freestyle Precision Ramón Meter] 1 each ACHS #1 each Cyanocobalamin (Vitamin B-12) [B-12] 2,500 mcg PO UD Ropinirole 2Mg [Requip 2Mg Tab] 1 mg PO HS Lovastatin 40 mg PO HS Empagliflozin [Jardiance] 25 mg PO DAILY Famotidine [Pepcid] 40 mg PO HS Levothyroxine Sodium [Euthyrox] 50 mcg PO DAILY Ondansetron [Ondansetron Odt] 4 mg PO DAILY Venlafaxine HCl [Venlafaxine HCl ER] 150 mg PO DAILY Iron 65 mg PO DAILY Folic Acid 1 mg [Folate 1 mg] 666 mcg PO DAILY Cholecalciferol (Vitamin D3) [Vitamin D3] 25 mcg PO DAILY Sodium Zirconium Cyclosilicate [Lokelma] 10 mg PO HS Semaglutide [Ozempic] 1 mg SQ WEEKLY Insulin Detemir [Levemir Flexpen] 15 units SQ DAILY Fluticasone/Umeclidin/Vilanter [Trelegy Ellipta 100-62.5-25] 1 inh IH HS Albuterol Sulfate 2.5 mg IH QID PRN PRN PRN Reason: Shortness Of Breath/Wheezing Albuterol Common Canister [Ventolin Common Canister] 1 - 2 puffs IH Q4H PRN PRN PRN Reason: Shortness Of Breath/Wheezing Acetaminophen 500 mg [Tylenol Extra Strength 500 mg] 500 mg PO TID Discontinued Metoprolol Tartrate 50 mg [Lopressor 50 MG] 50 mg PO BID Additional Instructions: HOME HEALTH CARE HAS BEEN SET UP WITH [facility]. THEY WILL CONTACT YOU TO ARRANGE A TIME TO COME SEE YOU. THEIR PHONE NUMBER IS [phone] IF YOU NEED ANYTHING BEFORE THEIR FIRST VISIT Follow up with: MELQUIADES CADET [Primary Care Provider] - GET LARSEN MD [NON-STAFF PHY W/O PRIVILEGES] - (as scheduled 07/03/23) SUSIE DUEÑAS WILDLIFE VETERINARIAN [Family Provider] -
[2023-07-02] MEDS ORDERED: Glucophage 500 MG PO SCH (22:00)
[2023-07-05 12:55] VITALS: O2SAT 95
== END 2023-07-02 15:35 | disposition home health service (06) ==
LOC: ED 16:22 → ICU 22:22
PROVIDERS: ADMIT Internal Medicine; ATTEND Internal Medicine
DX: R00.0 Tachycardia, unspecified (principal); I48.20 Chronic atrial fibrillation, unspecified; E11.9 Type 2 diabetes mellitus without complications; J44.1 Chronic obstructive pulmonary disease with (acute) exacerbation; E03.9 Hypothyroidism, unspecified; R51.9 Headache, unspecified; I73.9 Peripheral vascular disease, unspecified; G25.81 Restless legs syndrome; N40.0 Benign prostatic hyperplasia without lower urinary tract symptoms; K21.9 Gastro-esophageal reflux disease without esophagitis; E66.9 Obesity, unspecified; R07.9 Chest pain, unspecified; Z79.01 Long term (current) use of anticoagulants; Z79.899 Other long term (current) drug therapy; Z20.828 Contact with and (suspected) exposure to other viral communicable diseases; Z86.73 Personal history of transient ischemic attack (TIA), and cerebral infarction without residual deficits
CPT/HCPCS: 0241U; 36000; 36415; 70450; 71045; 71260; 80048; 80053; 82550; 82947; 83735; 83880; 84443; 84484; 85025; 85027; 93005; 93041; 93268; 94640; 94660; 96365; 96367; 96374; 96375; 99285; G0378; Q3014; 94003; J0456; J0696; J1200; J1817; A9270-GY

== ENCOUNTER 2023-07-23 11:47 | Observation (INO) | payer MEDICARE ==
--- NOTE | 2023-07-23 11:54 | ERPHSYRPT ---
- History of Present Illness Time Seen by Provider: 07/23/23 11:54 Source: patient, family Exam Limitations: no limitations Physician History: This is an obese 72-year-old white male patient of primary care physician Dr. 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 Gomez who presents to the emergency department by private vehicle with increasing shortness of breath over the last 2 days. Associated with this is increased abdominal distention. Patient does have a history of COPD but does not typically wear oxygen for this. Patient has a history of atrial fibrillation and is on Eliquis. In addition he has a pacemaker in place. Patient had a cardioversion performed for atrial fi brillation on 07/20/2023. Patient has a history of CHF, diabetes, hypertension, coronary disease, hypothyroidism, prostate issue, hyperlipidemia, gastroesophageal reflux disease and stroke in the past. He denies chest pain. He has not had any nausea vomiting or diarrhea symptoms. Patient's spouse provided additional, independent history since the patient is feeling short of breath. She feels as though he is swelling up. Patient's oxygen saturation levels on 4 L oxygen via nasal cannula is 95 to 98%. Timing/Duration: day(s) (2), worse Severity of Dyspnea-Max: moderate Severity of Dyspnea-Current: moderate Possible Cause: occasional episodes Modifying Factors: Improves With: nothing Associated Symptoms: No chest pain/discomfort Allergies/Adverse Reactions: bacitracin [From Neosporin ([id number])] Allergy (Verified 06/30/23 16:40) Rash bacitracin zinc [From Neosporin ([id number])] Allergy (Verified 06/30/23 16:40) Rash neomycin sulfate [From Neosporin ([id number]-[id number])] Allergy (Verified 06/30/23 16 :40) Rash polymyxin B [From Neosporin ([id number])] Allergy (Verified 06/30/23 16:40) Rash Home Medications: Alendronate Sodium 35 mg PO WEEKLY 05/06/19 [History] Finasteride 5 mg [Proscar 5 MG] 1 tab PO DAILY 05/06/19 [History] Metformin HCl 500 mg [Glucophage 500 MG] 1,000 mg PO BID 05/06/19 [History] Pyridoxine HCl (Vitamin B6) [Vitamin B-6] 100 mg PO UD 05/06/19 [History] Saw [place] Fruit/Zinc Picoli [Saw [place] 450 mg Capsule] 1,800 mg PO DAILY 05/06/19 [History] Tamsulosin HCl 0.4 mg [Flomax 0.4 MG] 0.8 mg PO BID 05/06/19 [History] Vitamin E 400 Units [Vitamin E 400 UNIT SOFTGEL] 400 unit PO DAILY 05/06/19 [History] PANTOPRAZOLE 40 mg Tablet [Protonix 40MG Tablet] 40 mg PO DAILY 06/05/19 [History] Albuterol 2.5 mg/3 ml Neb [Proventil 2.5 mg/3 ml Neb] 2 puffs NEB QID 02/28/20 [History] Magnesium Oxide 400 mg [Mag-Ox 400] 2,000 mg PO DAILY 02/28/20 [History] Apixaban [Eliquis] 5 mg PO BID 10/08/20 [History] Furosemide [Lasix] 40 mg PO DAILY 10/08/20 [History] Cyanocobalamin (Vitamin B-12) [B-12] 2,500 mcg PO UD 12/16/20 [History] Empagliflozin [Jardiance] 25 mg PO DAILY 01/03/21 [History] Lovastatin 40 mg PO HS 01/03/21 [History] Ropinirole 2Mg [Requip 2Mg Tab] 1 mg PO HS 01/03/21 [History] Famotidine [Pepcid] 40 mg PO HS 05/24/22 [History] Levothyroxine Sodium [Euthyrox] 50 mcg PO DAILY 05/24/22 [History] Ondansetron [Ondansetron Odt] 4 mg PO DAILY 05/24/22 [History] Cholecalciferol (Vitamin D3) [Vitamin D3] 25 mcg PO DAILY 10/24/22 [History] Folic Acid 1 mg [Folate 1 mg] 666 mcg PO DAILY 10/24/22 [History] Iron 65 mg PO DAILY 10/24/22 [History] Venlafaxine HCl [Venlafaxine HCl ER] 150 mg PO DAILY 10/24/22 [History] Acetaminophen 500 mg [Tylenol Extra Strength 500 mg] 500 mg PO TID 06/30/23 [History] Albuterol Common Canister [Ventolin Common Canister] 1 - 2 puffs IH Q4H PRN PRN 06/30/23 [History] Fluticasone/Umeclidin/Vilanter [Trelegy Ellipta 100-62.5-25] 1 inh IH HS 06/30/23 [History] Sodium Zirconium Cyclosilicate [Lokelma] 10 mg PO HS 06/30/23 [History] Hx Tetanus, Diphtheria Vaccination/Date Given: Yes Hx Influenza Vaccination/Date Given: Yes Hx Pneumococcal Vaccination/Date Given: Yes Travel Risk - International Travel Have you traveled outside of the country in past 3 weeks: No - Emerging Infectious Disease Are you exhibiting symptoms associated with any current EIDs: Yes Symptoms: Abdominal Pain, Shortness of Breath - Review of Systems Constitutional: No Symptoms Eyes: No Symptoms Ears, Nose, & Throat: No Symptoms Respiratory: Dyspnea Cardiac: No Chest Pain Abdominal/Gastrointestinal: Other Genitourinary Symptoms: No Symptoms (Abdominal distention) Musculoskeletal: No Symptoms Skin: No Symptoms Neurological: No Symptoms Psychological: No Symptoms Endocrine: No Symptoms Hematologic/Lymphatic: No Symptoms Immunological/Allergic: No Symptoms All Other Systems: Reviewed and Negative - Past Medical History Pertinent Past Medical History: Yes Neurological History: Stroke ENT History: No Pertinent History Cardiac History: Arrhythmia Respiratory History: COPD, Sleep Apnea Endocrine Medical History: Diabetes Type II Musculoskeletal History: Arthritis, Osteoarthritis GI Medical History: GERD, Gallbladder Disease, Hernia History: No Pertinent History Psycho-Social History: No Pertinent History Male Reproductive Disorders: Prostate Problems Other Medical History: Pacemaker, 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 shoulder surgery- right states rotator cuff repair,, Left Carpal Tunnel Surgery, Right rotator cuff surgery, 2 knots removed from back of neck Significant Family History: heart disease - Social History Smoking Status: Former smoker Exposure to second hand smoke: Yes Alcohol Use: None Drug Use: none Patient Lives Alone: No - Nursing Vital Signs Nursing Vital Signs: Initial Vital Signs Temperature 96.8 F 07/23/23 11:51 Pulse Rate 60 07/23/23 11:51 Respiratory Rate 30 H 07/23/23 11:51 Blood Pressure 139/79 07/23/23 11:51 O2 Sat by Pulse Oximetry 98 07/23/23 11:51 Pain Scale Pain Intensity 0 - Physical Exam General Appearance: mild distress, alert, anxiety, obese Eye Exam: PERRL/EOMI, eyes nml inspection Ears, Nose, Throat Exam: hearing grossly normal, normal ENT inspection, normal pharynx Neck Exam: normal inspection, non-tender, supple, full range of motion Respiratory Exam: normal breath sounds, lungs clear, airway intact, No chest tenderness, No respiratory distress Cardiovascular/Chest Exam: normal heart sounds, regular rate/rhythm Abdominal/Gastrointestinal Exam: soft, distention, other (Hypoactive bowel sounds) Rectal Exam: not done Extremity Exam: non-tender, normal range of motion, normal inspection Neurologic Exam: alert, oriented x 3, cooperative, biomechanical engineer II-XII nml as tested, normal mood/affect, nml cerebellar function, nml station & gait, sensation nml Skin Exam: normal color, warm, dry Lymphatic Exam: No adenopathy SpO2 Interpretation: normal SpO2: 98 O2 Delivery: Room Air - Course Nursing assessment & vital signs reviewed: Yes EKG Interpreted by Me: RATE (60), NORMAL INTERVALS, NORMAL QRS, NORMAL ST-T, Other (LVH chronic. No acute ischemic changes on today's twelve-lead EKG. When compared to a twelve-lead EKG that was dated 06/30/2023, the right bundle branch block has resolved. LVH is persistent.) Ordered Tests: Active Orders 24 hr Category Date Time Status EKG-ER Only STAT Care 07/23/23 12:17 Active IV Insertion STAT Care 07/23/23 12:17 Active Oxygen-ED Only Nasal Cannula 2 lpm Care 07/23/23 12:02 Active Oxygen-ED Only Nasal Cannula 4 lpm Care 07/23/23 12:17 Active ABDOMEN AND PELVIS W/0 CONTRAS [CT] Stat Exams 07/23/23 12:19 Completed CHEST 1 VIEW (PORTABLE) Stat Exams 07/23/23 12:18 Completed BLOOD CULTURE Stat Lab 07/23/23 13:08 Received CBC W DIFF Stat Lab 07/23/23 12:55 Completed CMP Stat Lab 07/23/23 12:55 Completed MAGNESIUM Stat Lab 07/23/23 12:55 Completed MONO SCREEN Stat Lab 07/23/23 12:55 Completed Manual Differential NC Stat Lab 07/23/23 12:55 Completed NT PRO BNPII Stat Lab 07/23/23 12:55 Completed PROTIME WITH INR Stat Lab 07/23/23 12:55 Completed TROPONIN Q4H Lab 07/23/23 12:55 Completed TROPONIN Q4H Lab 07/23/23 16:30 Ordered TROPONIN Q4H Lab 07/23/23 20:30 Ordered UA W/RFX UR CULTURE Stat Lab 07/23/23 13:37 Completed Respiratory Therapy Assessment DAILY RT 07/23/23 12:14 Active Medication Summary Discontinued Medications Generic Name Dose Route Start Last Admin Trade Name Freq PRN Reason Stop Dose Admin Albuterol/Ipratropium Confirm 07/23/23 12:10 Ipratropium/Albuterol Sulfate 3 Ml Ampul.Neb Administered 07/23/23 12:11 Dose 3 ml IH .STK-MED ONE Albuterol/Ipratropium 3 ml 07/23/23 12:13 07/23/23 12:13 Ipratropium/Albuterol Sulfate 3 Ml Ampul.Neb IH 07/23/23 12:14 3 ml STAT ONE Administration Furosemide 40 mg 07/23/23 12:17 07/23/23 12:52 Furosemide 40 Mg/4 Ml Vial IV 07/23/23 12:18 40 mg STAT ONE Administration Furosemide Confirm 07/23/23 12:39 Furosemide 40 Mg/4 Ml Vial Administered 07/23/23 12:40 Dose 40 mg .ROUTE .STK-MED ONE Lab/Rad Data: Laboratory Result Diagrams 07/23/23 12:55 07/23/23 12:55 Laboratory Results 07/23/23 07/23/23 07/23/23 Range/Units 13:37 13:10 12:55 WBC (4.0-10.5) x10^3/uL RBC (4.1-5.6) x10^6/uL Hgb (12.5-18.0) g/dL Hct (42-50) % MCV (78-100) fL MCH (26-32) pg MCHC (32-36) g/dL RDW (11.5-14.0) % Plt Count (150-450) x10^3/uL MPV (7.5-11.0) fL PT (9.4-12.5) SECONDS INR (0.8-3.0) Sodium (135-145) mmol/L Potassium (3.5-5.1) mmol/L Chloride (98-107) mmol/L Carbon Dioxide (22-30) mmol/L Anion Gap (5-15) MEQ/L BUN (9-20) mg/dL Creatinine (0.66-1.25) mg/dL Estimated GFR ML/MIN Glucose (74-106) mg/dL Calcium (8.4-10.2) mg/dL Magnesium (1.6-2.3) mg/dL Total Bilirubin (0.2-1.3) mg/dL AST (17-59) U/L ALT (0-50) U/L Alkaline Phosphatase (38-126) U/L Troponin I (0.000-0.034) ng/mL NT-Pro-B Natriuret Pep (<300) pg/mL Serum Total Protein (6.3-8.2) g/dL Albumin (3.5-5.0) g/dL Urine Color Yellow (Yellow) Urine Appearance Clear (Clear) Urine pH 7.5 (4.6-8.0) Ur Specific [place] 1.015 (1.005-1.030) Urine Protein Negative (Negative) Urine Glucose (UA) >=1000 A (Negative) mg/dL Urine Ketones Negative (Negative) Urine Blood Negative (Negative) Urine Nitrite Negative (Negative) Urine Bilirubin Negative (Negative) Urine Urobilinogen 0.2 (0.2) mg/dL Ur Leukocyte Esterase Negative (Negative) U Hyaline Cast (Auto) NONE SEEN (0-2) /LPF Urine Microscopic RBC 0-2 (0-5) /HPF Urine Microscopic WBC 0-2 (0-5) /HPF Ur Epithelial Cells None Seen (None Seen) /HPF Urine Bacteria None Seen (None Seen) /HPF Urine Culture Reflexed NO (NO) Monoscreen POSITIVE (NEGATIVE) Influenza Type A Ag NEGATIVE (NEGATIVE) Influenza Type B Ag NEGATIVE (NEGATIVE) RSV (PCR) NEGATIVE (NEGATIVE) SARS-CoV-2 (PCR) NEGATIVE (NEGATIVE) 07/23/23 07/23/23 07/23/23 Range/Units 12:55 12:55 12:55 WBC (4.0-10.5) x10^3/uL RBC (4.1-5.6) x10^6/uL Hgb (12.5-18.0) g/dL Hct (42-50) % MCV (78-100) fL MCH (26-32) pg MCHC (32-36) g/dL RDW (11.5-14.0) % Plt Count (150-450) x10^3/uL MPV (7.5-11.0) fL PT 12.2 (9.4-12.5) SECONDS INR 1.13 (0.8-3.0) Sodium 138 (135-145) mmol/L Potassium 4.4 (3.5-5.1) mmol/L Chloride 97 L (98-107) mmol/L Carbon Dioxide 30 (22-30) mmol/L Anion Gap 15.2 H (5-15) MEQ/L BUN 20 (9-20) mg/dL Creatinine 1.31 H (0.66-1.25) mg/dL Estimated GFR 57.8 ML/MIN Glucose 134 H (74-106) mg/dL Calcium 10.1 (8.4-10.2) mg/dL Magnesium 2.1 (1.6-2.3) mg/dL Total Bilirubin 1.10 (0.2-1.3) mg/dL AST 25 (17-59) U/L ALT 18 (0-50) U/L Alkaline Phosphatase 69 (38-126) U/L Troponin I 0.028 (0.000-0.034) ng/mL NT-Pro-B Natriuret Pep 4560 (<300) pg/mL Serum Total Protein 7.4 (6.3-8.2) g/dL Albumin 4.1 (3.5-5.0) g/dL Urine Color (Yellow) Urine Appearance (Clear) Urine pH (4.6-8.0) Ur Specific [place] (1.005-1.030) Urine Protein (Negative) Urine Glucose (UA) (Negative) mg/dL Urine Ketones (Negative) Urine Blood (Negative) Urine Nitrite (Negative) Urine Bilirubin (Negative) Urine Urobilinogen (0.2) mg/dL Ur Leukocyte Esterase (Negative) U Hyaline Cast (Auto) (0-2) /LPF Urine Microscopic RBC (0-5) /HPF Urine Microscopic WBC (0-5) /HPF Ur Epithelial Cells (None Seen) /HPF Urine Bacteria (None Seen) /HPF Urine Culture Reflexed (NO) Monoscreen (NEGATIVE) Influenza Type A Ag (NEGATIVE) Influenza Type B Ag (NEGATIVE) RSV (PCR) (NEGATIVE) SARS-CoV-2 (PCR) (NEGATIVE) 07/23/23 Range/Units 12:55 WBC 10.8 H (4.0-10.5) x10^3/uL RBC 4.64 (4.1-5.6) x10^6/uL Hgb 14.6 (12.5-18.0) g/dL Hct 45.9 (42-50) % MCV 98.9 (78-100) fL MCH 31.5 (26-32) pg MCHC 31.8 L (32-36) g/dL RDW 16.1 H (11.5-14.0) % Plt Count 233 (150-450) x10^3/uL MPV 9.9 (7.5-11.0) fL PT (9.4-12.5) SECONDS INR (0.8-3.0) Sodium (135-145) mmol/L Potassium (3.5-5.1) mmol/L Chloride (98-107) mmol/L Carbon Dioxide (22-30) mmol/L Anion Gap (5-15) MEQ/L BUN (9-20) mg/dL Creatinine (0.66-1.25) mg/dL Estimated GFR ML/MIN Glucose (74-106) mg/dL Calcium (8.4-10.2) mg/dL Magnesium (1.6-2.3) mg/dL Total Bilirubin (0.2-1.3) mg/dL AST (17-59) U/L ALT (0-50) U/L Alkaline Phosphatase (38-126) U/L Troponin I (0.000-0.034) ng/mL NT-Pro-B Natriuret Pep (<300) pg/mL Serum Total Protein (6.3-8.2) g/dL Albumin (3.5-5.0) g/dL Urine Color (Yellow) Urine Appearance (Clear) Urine pH (4.6-8.0) Ur Specific [place] (1.005-1.030) Urine Protein (Negative) Urine Glucose (UA) (Negative) mg/dL Urine Ketones (Negative) Urine Blood (Negative) Urine Nitrite (Negative) Urine Bilirubin (Negative) Urine Urobilinogen (0.2) mg/dL Ur Leukocyte Esterase (Negative) U Hyaline Cast (Auto) (0-2) /LPF Urine Microscopic RBC (0-5) /HPF Urine Microscopic WBC (0-5) /HPF Ur Epithelial Cells (None Seen) /HPF Urine Bacteria (None Seen) /HPF Urine Culture Reflexed (NO) Monoscreen (NEGATIVE) Influenza Type A Ag (NEGATIVE) Influenza Type B Ag (NEGATIVE) RSV (PCR) (NEGATIVE) SARS-CoV-2 (PCR) (NEGATIVE) - Progress Progress: re-examined, unchanged Air Movement: fair Progress Note: 07/23/23 12:16 This patient's medical issue is of at least moderate complexity. The level of complexity and the workup performed is based on review of the patient's past medical history, review the patient's medication list, review of patient drug allergy list, history present illness and physical findings on examination. The workup in the patient includes placement of intravenous line, RT evaluation and nebulizer treatment, Solu-Medrol 125 mg intravenously, CBC, CMP, BNP, troponin level, CT scan of the abdomen pelvis without contrast. We will also perform viral swabs 07/23/23 12:17 07/23/23 13:24 Chest x-ray was interpreted by the radiologist and I reviewed the impression. Impression states cardiomegaly. New vascular congestion/pulmonary edema. [place] cardiac decompensation/CHF. Superimposed pneumonia not completely excluded. CT scan of the abdomen pelvis was interpreted by the radiologist and I reviewed the impression. Impression states cardiomegaly with bilateral pleural effusions. New tiny abdominal pelvic free fluid. No walled off fluid collection or free air. This new tiny fluid collection may be related to cardiomegaly/CHF. Moderate scattered aortoiliac calcifications without ab dominal aortic aneurysm. 07/23/23 14:19 I interpreted the laboratory data results. Patient has a normal troponin level. His BNP is elevated to approximately 4500 when compared to approximately 3400 BNP on 06/30/2023. His creatinine level has bumped up to 1.34 from 1.10 on 06/30/2023. Patient does not complain of chest pain. I spoke with Dr. Landeros, our telehospitalist and I reviewed the patient history, presenting complaint, history present illness, I reviewed his past medical history laboratory data results radiographic study results and twelve-lead EKG results. In addition I reviewed with him the medications that I provided the patient. He accepts the patient to be placed in observation. Blood Culture(s) Obtained: Yes Discussed with : Lars Counseled pt/family regarding: lab results, diagnosis, rad results Medical Desision Making - Independent Historian Additional History obtained from: Spouse - External Record(s) Reviewed Records reviewed as a part of evaluation & management: Inpatient - Discussion of managment Care discussed with:: hospitalist Reviewed:: Test results, Need for additional workup Agreed on:: place in obs Will see patient: in hospital - Diagnostic Testing Diagnostic test were ordered, analyzed, and reviewed by me: Yes Radiological Interpretation: Reviewed by me, Teleradiologist Report - Risk of complications The pt has a high risk of morbidity or mortality based on: Decision regarding hospitilization or escalation of hosp level of care - Departure Departure Disposition: Observation Clinical Impression: Acute on chronic renal failure, CHF exacerbation Condition: Fair Critical Care Time: No Referrals: MELQUIADES WHALEY [Primary Care Provider] - Follow up/PCP as directed Instructions: Heart Failure
[2023-07-23] MEDS ORDERED: DUONEB 0.5-3 MG/3 ml Neb IH ONE (12:10)
[2023-07-23] MEDS: DUONEB 0.5-3 MG/3 ml Neb IH ONE (12:13)
[2023-07-23] MEDS ORDERED: Lasix 40 MG/4 ML ONE (12:39)
[2023-07-23] MEDS: Lasix 40 MG/4 ML IV ONE (12:52)
[2023-07-23 13:02] LABS: Hematocrit 45.9 % (42-50); Hemoglobin 14.6 g/dL (12.5-18.0); Mean Cell Volume 98.9 fL (78-100); Mean Corpuscular Hemoglobin 31.5 pg (26-32); Mean Corpuscular Hgb Concent. 31.8 g/dL (32-36); Mean Platelet Volume 9.9 fL (7.5-11.0); Platelet Count 233 x10^3/uL (150-450); Red Blood Count 4.64 x10^6/uL (4.1-5.6); Red Cell Distribution Width 16.1 % (11.5-14.0); White Blood Count 10.8 x10^3/uL (4.0-10.5)
--- NOTE | 2023-07-23 13:09 | XRAY ---
Indication: Abdominal distention. Multiple contiguous axial images obtained through the abdomen and pelvis without contrast. Comparison: October 10, 2020 Lung bases again demonstrates cardiomegaly with new small right/tiny left effusions. Cardiac decompensation/CHF is of primary concern. Noncontrasted stomach and bowel loops appear nonobstructed again with transverse duodenal diverticulum. Appendectomy reported. Again mild diffuse scattered colonic fecal debris throughout and minimal scattered descending/sigmoid diverticulosis. New tiny abdominal and pelvic free fluid. No walled off fluid collection or free air. Stable large bilateral renal cysts and tiny splenic calcified granulomas. Remaining liver, gallbladder, pancreas, spleen, adrenal glands, kidneys, ureters, and bladder are unremarkable for noncontrast exam. Again moderate scattered aortoiliac calcifications without AAA. Osseous structures intact again with mild degenerative changes throughout the lumbar spine, mild levoscoliosis, and mild degenerative changes both hips. No ventral or inguinal hernias. Impression: 1. Again cardiomegaly with new bibasilar effusions. Rule out cardiac decompensation/CHF. New tiny abdominal/pelvic free fluid may be related. 2. Again mild diffuse fecal stasis without obstruction. 3. Again chronic findings including duodenal diverticulum, colonic diverticulosis, bilateral renal cysts, arteriosclerotic disease, and chronic bony findings.
--- NOTE | 2023-07-23 13:11 | XRAY ---
Indication: Short of breath. Comparison: June 30, 2023 Portable chest again demonstrates cardiomegaly with left pacemaker. New vascular congestion/pulmonary edema with cardiomegaly favors cardiac decompensation/CHF. Superimposed pneumonia not completely excluded. Bony thorax intact again with osteopenia, degenerative changes, and scoliosis.
[2023-07-23 13:20] LABS: ALBUMIN 4.1 g/dL (3.5-5.0); ANION GAP 15.2 MEQ/L (5-15); BILIRUBIN,TOTAL 1.1 mg/dL (0.2-1.3); Calcium 10.1 mg/dL (8.4-10.2); Creatinine 1 1.31 mg/dL (0.66-1.25); EST GLOMERULAR FILTRATION RATE 57.8 ML/MIN; INR 1.13 (0.8-3.0); MAGNESIUM 2.1 mg/dL (1.6-2.3); PROTIME 12.2 SECONDS (9.4-12.5); Potassium 4.4 mmol/L (3.5-5.1); Total Protein 7.4 g/dL (6.3-8.2)
[2023-07-23 13:50] LABS: INFLUENZA A NEGATIVE (NEGATIVE); INFLUENZA B NEGATIVE (NEGATIVE); RESPIRATORY SYNCTIAL VIRUS NEGATIVE (NEGATIVE); SARS-CoV-2 Xpert Express NEGATIVE (NEGATIVE)
[2023-07-23 13:52] LABS: ADD URINE CULTURE? NO (NO); Appearance Clear (Clear); Bacteria None Seen /HPF (None Seen); Bilirubin Negative (Negative); Blood Negative (Negative); Epithelial Cells None Seen /HPF (None Seen); Glucose, Urine >=1000 mg/dL (Negative); Hyaline Casts NONE SEEN /LPF (0-2); Ketones Negative (Negative); Leukocyte Esterase Negative (Negative); Nitrite Negative (Negative); Ph 7.5 (4.6-8.0); Protein,Urine Dip Negative (Negative); RBC 0-2 /HPF (0-5); Specific Gravity 1.015 (1.005-1.030); Urobilinogen 0.2 mg/dL (0.2); WBC 0-2 /HPF (0-5)
[2023-07-23] MEDS ORDERED: HUMULIN R SQ PRN (15:03)
[2023-07-23] MEDS ORDERED: TYLENOL 325 MG PO PRN (15:03)
[2023-07-23] MEDS ORDERED: Zofran 4 MG/2 ML VIAL IV PRN (15:03)
[2023-07-23 15:11] LABS: Eosinophil 1 % (0.00-3.0); Lymphocytes 19 % (24-44); Metamyelocyte 1 %; Monocyte 7 % (0.0-12.0); Neutrophils 72 % (36.-66.); Total Cells Counted 100
[2023-07-23 15:12] LABS: Platelet Estimate NORMAL (NORMAL)
--- NOTE | 2023-07-23 15:46 | PCM.HP ---
History of Present Illness - Chief Complaint Chief Complaint: CHF exacerbation; renal failure Date: 07/23/23 History of Present Illness: is a 72 year old male with PMHX of atrial fibrillation and is on Eliquis, pacemaker, CHF, diabetes, COPD, hypertension, coronary disease, hypothyroidism, prostate issue, hyperlipidemia, gastroesophageal reflux disease, obesity, and stroke in the past. He presented to the emergency department by private vehicle with increasing shortness of breath over the last 2 days. He also has associated with this is increased abdominal distention. Patient had a cardioversion performed for atrial fibrillation on 07/20/[address] Andino at [facility] in [place]. He denies chest pain. He is currently on 2lNC at 99%. He feels his sxs have improved since admission and Lasix in ER. He does admit to eating salty foods over the weekened. He denies CP, abd. pain, N/V/D. PCP Dr. Whaley [employer] Dr. Gomez Skip Loader: Dr. Andino - Review of Systems Constitutional: No Fever, No Chills Eyes: No Symptoms Ears, Nose, & Throat: No Symptoms Respiratory: Short Of Breath, No Cough Cardiac: Edema, No Chest Pain, No Syncope Abdominal/Gastrointestinal: No Abdominal Pain, No Nausea, No Vomiting, No Diarrhea Genitourinary Symptoms: No Dysuria Musculoskeletal: No Back Pain, No Neck Pain Skin: No Rash Neurological: No Dizziness, No Focal Weakness, No Sensory Changes Psychological: No Symptoms Endocrine: No Symptoms Hematologic/Lymphatic: No Symptoms Immunological/Allergic: No Symptoms Medications & Allergies Home Medications: Home Medication List Alendronate Sodium 35 mg PO WEEKLY 05/06/19 [History Confirmed 07/23/23] Finasteride 5 mg [Proscar 5 MG] 1 tab PO DAILY 05/06/19 [History Confirmed 07/23/23] Metformin HCl 500 mg [Glucophage 500 MG] 1,000 mg PO BID 05/06/19 [History Confirmed 07/23/23] Pyridoxine HCl (Vitamin B6) [Vitamin B-6] 100 mg PO UD 05/06/19 [History Confirmed 07/23/23] Saw Fairland Fruit/Zinc Picoli [Saw [place]land 450 mg Capsule] 1,800 mg PO DAILY 05/06/19 [History Confirmed 07/23/23] Tamsulosin HCl 0.4 mg [Flomax 0.4 MG] 0.8 mg PO BID 05/06/19 [History Confirmed 07/23/23] Vitamin E 400 Units [Vitamin E 400 UNIT SOFTGEL] 400 unit PO DAILY 05/06/19 [History Confirmed 07/23/23] PANTOPRAZOLE 40 mg Tablet [Protonix 40MG Tablet] 40 mg PO DAILY 06/05/19 [History Confirmed 07/23/23] Albuterol 2.5 mg/3 ml Neb [Proventil 2.5 mg/3 ml Neb] 2 puffs NEB QID 02/28/20 [History Confirmed 07/23/23] Magnesium Oxide 400 mg [Mag-Ox 400] 2,000 mg PO DAILY 02/28/20 [History Confirmed 07/23/23] Apixaban [Eliquis] 5 mg PO BID 10/08/20 [History Confirmed 07/23/23] Furosemide [Lasix] 40 mg PO DAILY 10/08/20 [History Confirmed 07/23/23] Cyanocobalamin (Vitamin B-12) [B-12] 2,500 mcg PO UD 12/16/20 [History Confirmed 07/23/23] Empagliflozin [Jardiance] 25 mg PO DAILY 01/03/21 [History Confirmed 07/23/23] Lovastatin 40 mg PO HS 01/03/21 [History Confirmed 07/23/23] Ropinirole 2Mg [Requip 2Mg Tab] 1 mg PO HS 01/03/21 [History Confirmed 07/23/23] Famotidine [Pepcid] 40 mg PO HS 05/24/22 [History Confirmed 07/23/23] Levothyroxine Sodium [Euthyrox] 50 mcg PO DAILY 05/24/22 [History Confirmed 07/23/23] Ondansetron [Ondansetron Odt] 4 mg PO DAILY 05/24/22 [History Confirmed 07/23/23] Cholecalciferol (Vitamin D3) [Vitamin D3] 25 mcg PO DAILY 10/24/22 [History Confirmed 07/23/23] Folic Acid 1 mg [Folate 1 mg] 666 mcg PO DAILY 10/24/22 [History Confirmed 07/23/23] Iron 65 mg PO DAILY 10/24/22 [History Confirmed 07/23/23] Venlafaxine HCl [Venlafaxine HCl ER] 150 mg PO DAILY 10/24/22 [History Confirmed 07/23/23] Acetaminophen 500 mg [Tylenol Extra Strength 500 mg] 500 mg PO TID 06/30/23 [History Confirmed 07/23/23] Albuterol Common Canister [Ventolin Common Canister] 1 - 2 puffs IH Q4H PRN PRN 06/30/23 [History Confirmed 07/23/23] Fluticasone/Umeclidin/Vilanter [Trelegy Ellipta 100-62.5-25] 1 inh IH HS 06/30/23 [History Confirmed 07/23/23] Sodium Zirconium Cyclosilicate [Lokelma] 10 mg PO HS 06/30/23 [History Confirmed 07/23/23] Metoprolol Tartrate 50 mg [Lopressor 50 MG] 100 mg PO BID 30 Days #120 tablet 07/02/23 [Rx Confirmed 07/23/23] Allergies/Adverse Reactions: Allergies Allergy/AdvReac Type Severity Reaction Status Date / Time bacitracin Allergy Rash Verified 07/23/23 14:58 [From Neosporin ([id number])] bacitracin zinc Allergy Rash Verified 07/23/23 14:58 [From Neosporin ([id number])] neomycin sulfate Allergy Rash Verified 07/23/23 14:58 [From Neosporin ([id number])] polymyxin B Allergy Rash Verified 07/23/23 14:58 [From Neosporin ([id number])] - Past Medical History Past Medical History: Yes Neurological History: Stroke ENT History: No Pertinent History Cardiac History: Arrhythmia Respiratory History: COPD, Sleep Apnea Endocrine Medical History: Diabetes Type II Musculoskelatal History: Arthritis, Osteoarthritis GI Medical History: GERD, Gallbladder Disease, Hernia History: No Pertinent History Pyscho-Social History: No Pertinent History Male Reproductive Disorders: Prostate Problems Comment: Pacemaker, 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 cardio version 07/20/23 - Past Surgical History Past Surgical History: Yes Neuro Surgical History: No Pertinent History Cardiac History: Vascular Surgery Respiratory Surgery: No Pertinent History GI Surgical History: Appendectomy, Cholecystectomy, Hernia Repair Genitourinary Surgical Hx: No Pertinent History Musculskeletal Surgical Hx: No Pertinent History Male Surgical History: No Pertinent History Other Surgical History: STENT PLACED AFTER GALLBLADDER REMOVAL( "had liver knicked during surgery and had a drain to reroute bile"), AND REMOVED. shoulder surgery- right states rotator cuff repair,, Left Carpal Tunnel Surgery, Right rotator cuff surgery, 2 knots removed from back of neck Significant Family History: heart disease - Social History Smoking Status: Former smoker Exposure to second hand smoke: Yes Alcohol: None Drug Use: none - Social Determinants of Health Will the patient participate in the screening: Yes Do you worry about a steady place to live?: No Do you have any problems with any of the following?: No known problems In the past 12 months,have you had to go without utilities?: No Have you or anyone in your house had to go without enough: No Transportation Issues: No Has anyone in your support network made you feel unsafe?: No Does the patient want assistance with any of the above?: No - Physical Exam Vital Signs: Vital Signs - 24 hr Temp Pulse Resp BP BP Pulse Ox 07/23/23 15:05 98 F 60 22 120/82 99 07/23/23 15:03 98 F 60 22 120/82 99 07/23/23 14:30 62 21 115/72 94 L 07/23/23 14:25 98 07/23/23 14:01 60 24 121/74 95 07/23/23 14:00 61 26 H 95 07/23/23 13:50 60 24 96 07/23/23 13:40 61 22 98 07/23/23 13:30 60 26 H 07/23/23 13:20 60 21 97 07/23/23 13:10 61 28 H 97 07/23/23 13:02 60 25 H 96 07/23/23 12:48 60 26 H 130/90 98 07/23/23 12:47 60 27 H 97 07/23/23 12:20 60 26 H 99 07/23/23 12:17 61 23 100 07/23/23 12:14 60 24 98 07/23/23 11:54 28 H 95 07/23/23 11:51 96.8 F 60 30 H 139/79 98 General Appearance: no apparent distress, alert, obese Neurologic Exam: alert, oriented x 3, cooperative, normal mood/affect, nml cerebellar function, nml station & gait, sensation nml, No motor deficits Eye Exam: PERRL/EOMI, eyes nml inspection Ears, Nose, Throat Exam: normal ENT inspection, TMs normal, pharynx normal, moist mucous membranes Neck Exam: normal inspection, non-tender, supple, full range of motion Respiratory Exam: normal breath sounds, lungs clear, No respiratory distress Cardiovascular Exam: regular rate/rhythm, normal heart sounds, normal peripheral pulses Gastrointestinal/Abdomen Exam: soft, normal bowel sounds, distention, No tenderness, No mass Back Exam: normal inspection, normal range of motion, No CVA tenderness, No vertebral tenderness Extremity Exam: normal inspection, normal range of motion, pelvis stable Skin Exam: normal color, warm, dry, No rash Lymphatic Exam: No adenopathy Results - Labs Lab/Micro Results: Lab Results-Last 24 Hours 07/23/23 07/23/23 07/23/23 Range/Units 12:55 12:55 12:55 WBC 10.8 H (4.0-10.5) x10^3/uL RBC 4.64 (4.1-5.6) x10^6/uL Hgb 14.6 (12.5-18.0) g/dL Hct 45.9 (42-50) % MCV 98.9 (78-100) fL MCH 31.5 (26-32) pg MCHC 31.8 L (32-36) g/dL RDW 16.1 H (11.5-14.0) % Plt Count 233 (150-450) x10^3/uL MPV 9.9 (7.5-11.0) fL Segmented Neutrophils 72 H (36.-66.) % Lymphocytes (Manual) 19 L (24-44) % Monocytes (Manual) 7 (0.0-12.0) % Eosinophils (Manual) 1 (0.00-3.0) % Metamyelocytes 1 % Platelet Estimate NORMAL (NORMAL) RBC Morphology NORMAL PT 12.2 (9.4-12.5) SECONDS INR 1.13 (0.8-3.0) Sodium 138 (135-145) mmol/L Potassium 4.4 (3.5-5.1) mmol/L Chloride 97 L (98-107) mmol/L Carbon Dioxide 30 (22-30) mmol/L Anion Gap 15.2 H (5-15) MEQ/L BUN 20 (9-20) mg/dL Creatinine 1.31 H (0.66-1.25) mg/dL Estimated GFR 57.8 ML/MIN Glucose 134 H (74-106) mg/dL Calcium 10.1 (8.4-10.2) mg/dL Magnesium 2.1 (1.6-2.3) mg/dL Total Bilirubin 1.10 (0.2-1.3) mg/dL AST 25 (17-59) U/L ALT 18 (0-50) U/L Alkaline Phosphatase 69 (38-126) U/L Troponin I (0.000-0.034) ng/mL NT-Pro-B Natriuret Pep 4560 (<300) pg/mL Serum Total Protein 7.4 (6.3-8.2) g/dL Albumin 4.1 (3.5-5.0) g/dL Urine Color (Yellow) Urine Appearance (Clear) Urine pH (4.6-8.0) Ur Specific [place] (1.005-1.030) Urine Protein (Negative) Urine Glucose (UA) (Negative) mg/dL Urine Ketones (Negative) Urine Blood (Negative) Urine Nitrite (Negative) Urine Bilirubin (Negative) Urine Urobilinogen (0.2) mg/dL Ur Leukocyte Esterase (Negative) U Hyaline Cast (Auto) (0-2) /LPF Urine Microscopic RBC (0-5) /HPF Urine Microscopic WBC (0-5) /HPF Ur Epithelial Cells (None Seen) /HPF Urine Bacteria (None Seen) /HPF Urine Culture Reflexed (NO) Monoscreen (NEGATIVE) Influenza Type A Ag (NEGATIVE) Influenza Type B Ag (NEGATIVE) RSV (PCR) (NEGATIVE) SARS-CoV-2 (PCR) (NEGATIVE) 07/23/23 07/23/23 07/23/23 Range/Units 12:55 12:55 13:10 WBC (4.0-10.5) x10^3/uL RBC (4.1-5.6) x10^6/uL Hgb (12.5-18.0) g/dL Hct (42-50) % MCV (78-100) fL MCH (26-32) pg MCHC (32-36) g/dL RDW (11.5-14.0) % Plt Count (150-450) x10^3/uL MPV (7.5-11.0) fL Segmented Neutrophils (36.-66.) % Lymphocytes (Manual) (24-44) % Monocytes (Manual) (0.0-12.0) % Eosinophils (Manual) (0.00-3.0) % Metamyelocytes % Platelet Estimate (NORMAL) RBC Morphology PT (9.4-12.5) SECONDS INR (0.8-3.0) Sodium (135-145) mmol/L Potassium (3.5-5.1) mmol/L Chloride (98-107) mmol/L Carbon Dioxide (22-30) mmol/L Anion Gap (5-15) MEQ/L BUN (9-20) mg/dL Creatinine (0.66-1.25) mg/dL Estimated GFR ML/MIN Glucose (74-106) mg/dL Calcium (8.4-10.2) mg/dL Magnesium (1.6-2.3) mg/dL Total Bilirubin (0.2-1.3) mg/dL AST (17-59) U/L ALT (0-50) U/L Alkaline Phosphatase (38-126) U/L Troponin I 0.028 (0.000-0.034) ng/mL NT-Pro-B Natriuret Pep (<300) pg/mL Serum Total Protein (6.3-8.2) g/dL Albumin (3.5-5.0) g/dL Urine Color (Yellow) Urine Appearance (Clear) Urine pH (4.6-8.0) Ur Specific [place] (1.005-1.030) Urine Protein (Negative) Urine Glucose (UA) (Negative) mg/dL Urine Ketones (Negative) Urine Blood (Negative) Urine Nitrite (Negative) Urine Bilirubin (Negative) Urine Urobilinogen (0.2) mg/dL Ur Leukocyte Esterase (Negative) U Hyaline Cast (Auto) (0-2) /LPF Urine Microscopic RBC (0-5) /HPF Urine Microscopic WBC (0-5) /HPF Ur Epithelial Cells (None Seen) /HPF Urine Bacteria (None Seen) /HPF Urine Culture Reflexed (NO) Monoscreen POSITIVE (NEGATIVE) Influenza Type A Ag NEGATIVE (NEGATIVE) Influenza Type B Ag NEGATIVE (NEGATIVE) RSV (PCR) NEGATIVE (NEGATIVE) SARS-CoV-2 (PCR) NEGATIVE (NEGATIVE) 07/23/23 Range/Units 13:37 WBC (4.0-10.5) x10^3/uL RBC (4.1-5.6) x10^6/uL Hgb (12.5-18.0) g/dL Hct (42-50) % MCV (78-100) fL MCH (26-32) pg MCHC (32-36) g/dL RDW (11.5-14.0) % Plt Count (150-450) x10^3/uL MPV (7.5-11.0) fL Segmented Neutrophils (36.-66.) % Lymphocytes (Manual) (24-44) % Monocytes (Manual) (0.0-12.0) % Eosinophils (Manual) (0.00-3.0) % Metamyelocytes % Platelet Estimate (NORMAL) RBC Morphology PT (9.4-12.5) SECONDS INR (0.8-3.0) Sodium (135-145) mmol/L Potassium (3.5-5.1) mmol/L Chloride (98-107) mmol/L Carbon Dioxide (22-30) mmol/L Anion Gap (5-15) MEQ/L BUN (9-20) mg/dL Creatinine (0.66-1.25) mg/dL Estimated GFR ML/MIN Glucose (74-106) mg/dL Calcium (8.4-10.2) mg/dL Magnesium (1.6-2.3) mg/dL Total Bilirubin (0.2-1.3) mg/dL AST (17-59) U/L ALT (0-50) U/L Alkaline Phosphatase (38-126) U/L Troponin I (0.000-0.034) ng/mL NT-Pro-B Natriuret Pep (<300) pg/mL Serum Total Protein (6.3-8.2) g/dL Albumin (3.5-5.0) g/dL Urine Color Yellow (Yellow) Urine Appearance Clear (Clear) Urine pH 7.5 (4.6-8.0) Ur Specific [place] 1.015 (1.005-1.030) Urine Protein Negative (Negative) Urine Glucose (UA) >=1000 A (Negative) mg/dL Urine Ketones Negative (Negative) Urine Blood Negative (Negative) Urine Nitrite Negative (Negative) Urine Bilirubin Negative (Negative) Urine Urobilinogen 0.2 (0.2) mg/dL Ur Leukocyte Esterase Negative (Negative) U Hyaline Cast (Auto) NONE SEEN (0-2) /LPF Urine Microscopic RBC 0-2 (0-5) /HPF Urine Microscopic WBC 0-2 (0-5) /HPF Ur Epithelial Cells None Seen (None Seen) /HPF Urine Bacteria None Seen (None Seen) /HPF Urine Culture Reflexed NO (NO) Monoscreen (NEGATIVE) Influenza Type A Ag (NEGATIVE) Influenza Type B Ag (NEGATIVE) RSV (PCR) (NEGATIVE) SARS-CoV-2 (PCR) (NEGATIVE) - Radiology Impressions Radiology Exams & Impressions: Radiology Procedures Category Date Time Status ABDOMEN AND PELVIS W/0 CONTRAS [CT] Stat Exams 07/23/23 12:19 Completed CHEST 1 VIEW (PORTABLE) Stat Exams 07/23/23 12:18 Completed - Other Procedures and Tests Respiratory Therapy 07/23/23 12:14 Respiratory Therapy Assessment DAILY 07/23/23 15:03 EKG REPEAT IN AM Oxygen Nasal Cannula 2 lpm Respiratory Therapy Consult ONCE 07/23/23 15:22 RT Screen per Nursing Assess ONCE Assessment/Plan (1) CHF exacerbation Current Visit: Yes Status: Acute Assessment & Plan: - BNP 4560 - recent cardioversion Sunday at [facility] in [place]. 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 - Lasix 40 BID - 2gm Na+ diet - education provided on eating low sodium diet. - daily weights - Tele - trop x3, 1st negative - Supplemental oxygen PRN - Pt does not wear home O2 - Fluid restriction 1.5 L per day - ER ordered repeat BNP for in AM Code(s): I50.9 - HEART FAILURE, UNSPECIFIED (2) Obesity, morbid, BMI 40.0-49.9 Current Visit: Yes Status: Acute Assessment & Plan: - advised diet and exercise control per cardiology recommendations. Code(s): E66.01 - MORBID (SEVERE) OBESITY DUE TO EXCESS CALORIES (3) NATHALY (acute kidney injury) Current Visit: Yes Status: Acute Assessment & Plan: - Creat 1.31- BL WNL - does take lasix daily Code(s): N17.9 - ACUTE KIDNEY FAILURE, UNSPECIFIED (4) Atrial fibrillation Current Visit: Yes Status: Chronic Assessment & Plan: - Continue eliquis - Tele Code(s): I48.91 - UNSPECIFIED ATRIAL FIBRILLATION (5) Mononucleosis Current Visit: Yes Status: Acute Assessment & Plan: - + mono screen in ER - supportive care VTE: SCD PPI: pepcid Next of Kin: Code status: full D/c plan: 1-2 days Code(s): B27.90 - INFECTIOUS MONONUCLEOSIS, UNSPECIFIED WITHOUT COMPLICATION
[2023-07-23] MEDS: VENTOLIN COMMON CANISTER IH PRN (16:44)
[2023-07-23] MEDS ORDERED: MEDICATION INTERVENTION MC SCH ×2 (16:45)
[2023-07-23] MEDS: MAG-OX 400 PO SCH (17:39)
[2023-07-23] MEDS: FEOSOL 325 MG PO SCH (17:39)
[2023-07-23] MEDS: Vitamin B-12 500 MCG PO SCH (17:39)
[2023-07-23] MEDS: Effexor XR 75 MG PO SCH (17:39)
[2023-07-23] MEDS: FOLATE 1 MG PO SCH (17:41)
[2023-07-23] MEDS: JARDIANCE PO SCH (17:42)
[2023-07-23] MEDS: VITAMIN D PO SCH (17:44)
[2023-07-23] MEDS: Lasix 40 MG/4 ML IV SCH (17:45)
[2023-07-23] MEDS: Proscar 5 MG PO SCH (17:45)
[2023-07-23] MEDS: SYNTHROID 50 MCG PO SCH (17:48)
[2023-07-23] MEDS: Protonix 40MG Tablet PO SCH (17:48)
[2023-07-23] MEDS: Vitamin E 400 UNIT SOFTGEL PO SCH (17:53)
[2023-07-23] MEDS: ZOFRAN ODT 4 MG PO SCH (17:53)
[2023-07-23] MEDS: Sodium Chloride 0.9% 1000 ML 1,000 ML IV SCH (18:51)
[2023-07-23] MEDS ORDERED: Spiriva 18 Mcg/Cap Inhaler IH ONE (19:12)
[2023-07-23] MEDS: Spiriva 18 Mcg/Cap Inhaler IH SCH (19:15)
[2023-07-23] MEDS: PROVENTIL 2.5 MG/3 ML NEB IH SCH (19:15)
[2023-07-23] MEDS: Advair Hfa 115/21 Common canister IH SCH (19:20)
[2023-07-23] MEDS: Pepcid 20 MG PO SCH (21:40)
[2023-07-23] MEDS: Flomax 0.4 MG PO SCH (21:40)
[2023-07-23] MEDS: Requip 0.5 MG PO SCH (21:40)
[2023-07-23] MEDS: ELIQUIS 2.5 MG TABLET PO SCH (21:40)
[2023-07-23] MEDS: Lopressor 50 MG PO SCH (21:40)
[2023-07-23] MEDS: Vitamin B-6 (Pyridoxine) 100 MG PO SCH (21:41)
[2023-07-23] MEDS: ZOCOR 20MG PO SCH (21:41)
[2023-07-23] MEDS: TYLENOL EXTRA STRENGTH 500 MG PO SCH (21:41)
[2023-07-23] MEDS ORDERED: NON-FORMULARY ITEM (Fluticasone/Umeclidin/Vilanter [Trelegy Ellipta 100-62.5-25] 1 EACH Bl IH SCH (22:00)
[2023-07-23] MEDS ORDERED: SODIUM ZIRCONIUM CYCLOSILICATE PO SCH (22:00)
[2023-07-24 04:33] LABS: Hematocrit 42.7 % (42-50); Hemoglobin 13.5 g/dL (12.5-18.0); Mean Cell Volume 98.2 fL (78-100); Mean Corpuscular Hgb Concent. 31.6 g/dL (32-36); Mean Platelet Volume 10.3 fL (7.5-11.0); Platelet Count 213 x10^3/uL (150-450); Red Blood Count 4.35 x10^6/uL (4.1-5.6); Red Cell Distribution Width 16.1 % (11.5-14.0); White Blood Count 7.3 x10^3/uL (4.0-10.5)
[2023-07-24 04:37] LABS: ALBUMIN 3.8 g/dL (3.5-5.0); ANION GAP 11.4 MEQ/L (5-15); BILIRUBIN,TOTAL 0.9 mg/dL (0.2-1.3); Calcium 9.6 mg/dL (8.4-10.2); Creatinine 1 1.28 mg/dL (0.66-1.25); EST GLOMERULAR FILTRATION RATE 59.5 ML/MIN; Potassium 3.8 mmol/L (3.5-5.1)
[2023-07-24 07:33] LABS: Lymphocytes 18 % (24-44); Monocyte 8 % (0.0-12.0); Neutrophils 74 % (36.-66.); Total Cells Counted 100
[2023-07-24 07:34] LABS: Platelet Estimate NORMAL (NORMAL)
--- NOTE | 2023-07-24 08:44 | PCM.NOTE ---
Date and Time: 07/24/23 0838 Subjective Assessment: 07/23/23 is a 72 year old male with PMHX of atrial fibrillation and is on Eliquis, pacemaker, CHF, diabetes, COPD, hypertension, coronary disease, hypothyroidism, prostate issue, hyperlipidemia, gastroesophageal reflux disease, obesity, and stroke in the past. He presented to the emergency department by private vehicle with increasing shortness of breath over the last 2 days. He also has associated with this is increased abdominal distention. Patient had a cardioversion performed for atrial fibrillation on 07/20/[address] Andino at [facility] in [place]. He denies chest pain. He is currently on 2lNC at 99%. He feels his sxs have improved since admission and Lasix in ER. He does admit to eating salty foods over the weekened. He denies CP, abd. pain, N/V/D. 07/24/23 Pt sitting up on the side of the bed. Pt states he feels a little bit better and less SOB. BNP continues to be elevated. Will continue lasix, fluid restriction, and low sodium diet. He reports he has not had an echo in over 1 year. Will order echo today. He denies CP, abd. pain, N/V/D. - Review of Systems Constitutional: No Fever, No Chills Eyes: No Symptoms Ears, Nose, & Throat: No Symptoms Respiratory: Short Of Breath, No Cough Cardiac: Edema (BLLE), No Chest Pain, No Syncope Abdominal/Gastrointestinal: No Abdominal Pain, No Nausea, No Vomiting, No Diarrhea Genitourinary Symptoms: No Dysuria Musculoskeletal: No Back Pain, No Neck Pain Skin: No Rash Neurological: No Dizziness, No Focal Weakness, No Sensory Changes Psychological: No Symptoms Endocrine: No Symptoms Hematologic/Lymphatic: No Symptoms Immunological/Allergic: No Symptoms Objective Exam General Appearance: no apparent distress, alert, obese Neurologic Exam: alert, oriented x 3, cooperative, normal mood/affect, nml cerebellar function, sensation nml, No motor deficits Skin Exam: normal color, warm, dry Eye Exam: PERRL, EOMI, eyes nml inspection Ears, Nose, Throat Exam: normal ENT inspection, pharynx normal, moist mucous membranes Neck Exam: normal inspection, non-tender, supple, full range of motion Respiratory Exam: normal breath sounds, lungs clear, No respiratory distress Cardiovascular Exam: regular rate/rhythm, normal heart sounds, edema (+1 BLLE) Gastrointestinal/Abdomen Exam: soft, distention, No tenderness, No mass Extremity Exam: normal inspection, normal range of motion Back Exam: normal inspection, normal range of motion, No CVA tenderness, No ve rtebral tenderness Male Genitalia Exam: deferred Rectal Exam: deferred Objective Data Vital Signs: Vital Signs - 24 hr Temp Pulse Resp BP BP Pulse Ox 07/24/23 07:40 97.0 F 60 16 118/65 95 07/24/23 06:22 65 20 95 07/24/23 04:00 98.4 F 69 22 122/62 91 L 07/24/23 03:57 98.4 F 69 22 122/62 91 L 07/23/23 20:21 98.8 F 75 28 H 123/59 94 L 07/23/23 19:37 60 16 93 L 07/23/23 17:02 61 16 97 07/23/23 15:05 98 F 60 22 120/82 99 07/23/23 15:03 98 F 60 22 120/82 99 07/23/23 14:30 62 21 115/72 94 L 07/23/23 14:25 98 07/23/23 14:01 60 24 121/74 95 07/23/23 14:00 61 26 H 95 07/23/23 13:50 60 24 96 07/23/23 13:40 61 22 98 07/23/23 13:30 60 26 H 07/23/23 13:20 60 21 97 07/23/23 13:10 61 28 H 97 07/23/23 13:02 60 25 H 96 07/23/23 12:48 60 26 H 130/90 98 07/23/23 12:47 60 27 H 97 07/23/23 12:20 60 26 H 99 07/23/23 12:17 61 23 100 07/23/23 12:14 60 24 98 07/23/23 11:54 28 H 95 07/23/23 11:51 96.8 F 60 30 H 139/79 98 Pain Assessment - Last Documented Pain Intensity 0 Pain Scale Used 0-10 Pain Scale Intake and Output: Intake & Output 07/21/23 07/22/23 07/23/23 07/24/23 11:59 11:59 11:59 11:59 Intake Total 300 Output Total 1600 Balance -1300 Weight 96.3 kg 90.9 kg Lab Results: Lab Results-Last 24 Hours 07/23/23 07/23/23 07/23/23 Range/Units 12:55 12:55 12:55 WBC 10.8 H (4.0-10.5) x10^3/uL RBC 4.64 (4.1-5.6) x10^6/uL Hgb 14.6 (12.5-18.0) g/dL Hct 45.9 (42-50) % MCV 98.9 (78-100) fL MCH 31.5 (26-32) pg MCHC 31.8 L (32-36) g/dL RDW 16.1 H (11.5-14.0) % Plt Count 233 (150-450) x10^3/uL MPV 9.9 (7.5-11.0) fL Segmented Neutrophils 72 H (36.-66.) % Lymphocytes (Manual) 19 L (24-44) % Monocytes (Manual) 7 (0.0-12.0) % Eosinophils (Manual) 1 (0.00-3.0) % Metamyelocytes 1 % Platelet Estimate NORMAL (NORMAL) RBC Morphology NORMAL PT 12.2 (9.4-12.5) SECONDS INR 1.13 (0.8-3.0) Sodium 138 (135-145) mmol/L Potassium 4.4 (3.5-5.1) mmol/L Chloride 97 L (98-107) mmol/L Carbon Dioxide 30 (22-30) mmol/L Anion Gap 15.2 H (5-15) MEQ/L BUN 20 (9-20) mg/dL Creatinine 1.31 H (0.66-1.25) mg/dL Estimated GFR 57.8 ML/MIN Glucose 134 H (74-106) mg/dL Calcium 10.1 (8.4-10.2) mg/dL Magnesium 2.1 (1.6-2.3) mg/dL Total Bilirubin 1.10 (0.2-1.3) mg/dL AST 25 (17-59) U/L ALT 18 (0-50) U/L Alkaline Phosphatase 69 (38-126) U/L Troponin (0.00-0.03) ng/mL Troponin I (0.000-0.034) ng/mL NT-Pro-B Natriuret Pep 4560 (<300) pg/mL Serum Total Protein 7.4 (6.3-8.2) g/dL Albumin 4.1 (3.5-5.0) g/dL Urine Color (Yellow) Urine Appearance (Clear) Urine pH (4.6-8.0) Ur Specific [place] (1.005-1.030) Urine Protein (Negative) Urine Glucose (UA) (Negative) mg/dL Urine Ketones (Negative) Urine Blood (Negative) Urine Nitrite (Negative) Urine Bilirubin (Negative) Urine Urobilinogen (0.2) mg/dL Ur Leukocyte Esterase (Negative) U Hyaline Cast (Auto) (0-2) /LPF Urine Microscopic RBC (0-5) /HPF Urine Microscopic WBC (0-5) /HPF Ur Epithelial Cells (None Seen) /HPF Urine Bacteria (None Seen) /HPF Urine Culture Reflexed (NO) Monoscreen (NEGATIVE) Influenza Type A Ag (NEGATIVE) Influenza Type B Ag (NEGATIVE) RSV (PCR) (NEGATIVE) SARS-CoV-2 (PCR) (NEGATIVE) 07/23/23 07/23/23 07/23/23 Range/Units 12:55 12:55 13:10 WBC (4.0-10.5) x10^3/uL RBC (4.1-5.6) x10^6/uL Hgb (12.5-18.0) g/dL Hct (42-50) % MCV (78-100) fL MCH (26-32) pg MCHC (32-36) g/dL RDW (11.5-14.0) % Plt Count (150-450) x10^3/uL MPV (7.5-11.0) fL Segmented Neutrophils (36.-66.) % Lymphocytes (Manual) (24-44) % Monocytes (Manual) (0.0-12.0) % Eosinophils (Manual) (0.00-3.0) % Metamyelocytes % Platelet Estimate (NORMAL) RBC Morphology PT (9.4-12.5) SECONDS INR (0.8-3.0) Sodium (135-145) mmol/L Potassium (3.5-5.1) mmol/L Chloride (98-107) mmol/L Carbon Dioxide (22-30) mmol/L Anion Gap (5-15) MEQ/L BUN (9-20) mg/dL Creatinine (0.66-1.25) mg/dL Estimated GFR ML/MIN Glucose (74-106) mg/dL Calcium (8.4-10.2) mg/dL Magnesium (1.6-2.3) mg/dL Total Bilirubin (0.2-1.3) mg/dL AST (17-59) U/L ALT (0-50) U/L Alkaline Phosphatase (38-126) U/L Troponin (0.00-0.03) ng/mL Troponin I 0.028 (0.000-0.034) ng/mL NT-Pro-B Natriuret Pep (<300) pg/mL Serum Total Protein (6.3-8.2) g/dL Albumin (3.5-5.0) g/dL Urine Color (Yellow) Urine Appearance (Clear) Urine pH (4.6-8.0) Ur Specific [place] (1.005-1.030) Urine Protein (Negative) Urine Glucose (UA) (Negative) mg/dL Urine Ketones (Negative) Urine Blood (Negative) Urine Nitrite (Negative) Urine Bilirubin (Negative) Urine Urobilinogen (0.2) mg/dL Ur Leukocyte Esterase (Negative) U Hyaline Cast (Auto) (0-2) /LPF Urine Microscopic RBC (0-5) /HPF Urine Microscopic WBC (0-5) /HPF Ur Epithelial Cells (None Seen) /HPF Urine Bacteria (None Seen) /HPF Urine Culture Reflexed (NO) Monoscreen POSITIVE (NEGATIVE) Influenza Type A Ag NEGATIVE (NEGATIVE) Influenza Type B Ag NEGATIVE (NEGATIVE) RSV (PCR) NEGATIVE (NEGATIVE) SARS-CoV-2 (PCR) NEGATIVE (NEGATIVE) 07/23/23 07/23/23 07/23/23 Range/Units 13:37 16:40 20:22 WBC (4.0-10.5) x10^3/uL RBC (4.1-5.6) x10^6/uL Hgb (12.5-18.0) g/dL Hct (42-50) % MCV (78-100) fL MCH (26-32) pg MCHC (32-36) g/dL RDW (11.5-14.0) % Plt Count (150-450) x10^3/uL MPV (7.5-11.0) fL Segmented Neutrophils (36.-66.) % Lymphocytes (Manual) (24-44) % Monocytes (Manual) (0.0-12.0) % Eosinophils (Manual) (0.00-3.0) % Metamyelocytes % Platelet Estimate (NORMAL) RBC Morphology PT (9.4-12.5) SECONDS INR (0.8-3.0) Sodium (135-145) mmol/L Potassium (3.5-5.1) mmol/L Chloride (98-107) mmol/L Carbon Dioxide (22-30) mmol/L Anion Gap (5-15) MEQ/L BUN (9-20) mg/dL Creatinine (0.66-1.25) mg/dL Estimated GFR ML/MIN Glucose (74-106) mg/dL Calcium (8.4-10.2) mg/dL Magnesium (1.6-2.3) mg/dL Total Bilirubin (0.2-1.3) mg/dL AST (17-59) U/L ALT (0-50) U/L Alkaline Phosphatase (38-126) U/L Troponin 0.02 (0.00-0.03) ng/mL Troponin I 0.024 (0.000-0.034) ng/mL NT-Pro-B Natriuret Pep (<300) pg/mL Serum Total Protein (6.3-8.2) g/dL Albumin (3.5-5.0) g/dL Urine Color Yellow (Yellow) Urine Appearance Clear (Clear) Urine pH 7.5 (4.6-8.0) Ur Specific [place] 1.015 (1.005-1.030) Urine Protein Negative (Negative) Urine Glucose (UA) >=1000 A (Negative) mg/dL Urine Ketones Negative (Negative) Urine Blood Negative (Negative) Urine Nitrite Negative (Negative) Urine Bilirubin Negative (Negative) Urine Urobilinogen 0.2 (0.2) mg/dL Ur Leukocyte Esterase Negative (Negative) U Hyaline Cast (Auto) NONE SEEN (0-2) /LPF Urine Microscopic RBC 0-2 (0-5) /HPF Urine Microscopic WBC 0-2 (0-5) /HPF Ur Epithelial Cells None Seen (None Seen) /HPF Urine Bacteria None Seen (None Seen) /HPF Urine Culture Reflexed NO (NO) Monoscreen (NEGATIVE) Influenza Type A Ag (NEGATIVE) Influenza Type B Ag (NEGATIVE) RSV (PCR) (NEGATIVE) SARS-CoV-2 (PCR) (NEGATIVE) 07/24/23 07/24/23 Range/Units 04:05 04:05 WBC 7.3 (4.0-10.5) x10^3/uL RBC 4.35 (4.1-5.6) x10^6/uL Hgb 13.5 (12.5-18.0) g/dL Hct 42.7 (42-50) % MCV 98.2 (78-100) fL MCH 31.0 (26-32) pg MCHC 31.6 L (32-36) g/dL RDW 16.1 H (11.5-14.0) % Plt Count 213 (150-450) x10^3/uL MPV 10.3 (7.5-11.0) fL Segmented Neutrophils 74 H (36.-66.) % Lymphocytes (Manual) 18 L (24-44) % Monocytes (Manual) 8 (0.0-12.0) % Eosinophils (Manual) (0.00-3.0) % Metamyelocytes % Platelet Estimate NORMAL (NORMAL) RBC Morphology NORMAL PT (9.4-12.5) SECONDS INR (0.8-3.0) Sodium 138 (135-145) mmol/L Potassium 3.8 (3.5-5.1) mmol/L Chloride 97 L (98-107) mmol/L Carbon Dioxide 33 H (22-30) mmol/L Anion Gap 11.4 (5-15) MEQ/L BUN 23 H (9-20) mg/dL Creatinine 1.28 H (0.66-1.25) mg/dL Estimated GFR 59.5 ML/MIN Glucose 108 H (74-106) mg/dL Calcium 9.6 (8.4-10.2) mg/dL Magnesium (1.6-2.3) mg/dL Total Bilirubin 0.90 (0.2-1.3) mg/dL AST 25 (17-59) U/L ALT 15 (0-50) U/L Alkaline Phosphatase 63 (38-126) U/L Troponin (0.00-0.03) ng/mL Troponin I (0.000-0.034) ng/mL NT-Pro-B Natriuret Pep 5010 (<300) pg/mL Serum Total Protein 7.0 (6.3-8.2) g/dL Albumin 3.8 (3.5-5.0) g/dL Urine Color (Yellow) Urine Appearance (Clear) Urine pH (4.6-8.0) Ur Specific [place] (1.005-1.030) Urine Protein (Negative) Urine Glucose (UA) (Negative) mg/dL Urine Ketones (Negative) Urine Blood (Negative) Urine Nitrite (Negative) Urine Bilirubin (Negative) Urine Urobilinogen (0.2) mg/dL Ur Leukocyte Esterase (Negative) U Hyaline Cast (Auto) (0-2) /LPF Urine Microscopic RBC (0-5) /HPF Urine Microscopic WBC (0-5) /HPF Ur Epithelial Cells (None Seen) /HPF Urine Bacteria (None Seen) /HPF Urine Culture Reflexed (NO) Monoscreen (NEGATIVE) Influenza Type A Ag (NEGATIVE) Influenza Type B Ag (NEGATIVE) RSV (PCR) (NEGATIVE) SARS-CoV-2 (PCR) (NEGATIVE) Radiology Exams: Radiology Procedures Category Date Time Status ABDOMEN AND PELVIS W/0 CONTRAS [CT] Stat Exams 07/23/23 12:19 Completed CHEST 1 VIEW (PORTABLE) Stat Exams 07/23/23 12:18 Completed Assessment/Plan (1) CHF exacerbation Current Visit: Yes Status: Acute Code(s): I50.9 - HEART FAILURE, UNSPECIFIED (2) Obesity, morbid, BMI 40.0-49.9 Current Visit: Yes Status: Acute Code(s): E66.01 - MORBID (SEVERE) OBESITY DUE TO EXCESS CALORIES (3) NATHALY (acute kidney injury) Current Visit: Yes Status: Acute Code(s): N17.9 - ACUTE KIDNEY FAILURE, UNSPECIFIED (4) Atrial fibrillation Current Visit: Yes Status: Chronic Code(s): I48.91 - UNSPECIFIED ATRIAL FIBRILLATION (5) Mononucleosis Current Visit: Yes Status: Acute Assessment & Plan: (1) CHF exacerbation Current Visit: Yes Status: Acute Assessment & Plan: - BNP 4560 - recent cardioversion Sunday at [facility]. - Unable to consult pt's sales performance analyst as he does not come here. - Lasix 40 BID - 2gm Na+ diet - education provided on eating low sodium diet. - daily weights - Tele - trop x3, 1st negative - Supplemental oxygen PRN - Pt does not wear home O2 - Fluid restriction 1.5 L per day - ER ordered repeat BNP for in AM 07/23 - BNP 5010 - + 1 BLLE edma - weaned from O2 - Echo Code(s): I50.9 - HEART FAILURE, UNSPECIFIED (2) Obesity, morbid, BMI 40.0-49.9 Current Visit: Yes Status: Acute Assessment & Plan: - advised diet and exercise control per cardiology recommendations. Code(s): E66.01 - MORBID (SEVERE) OBESITY DUE TO EXCESS CALORIES (3) NATHALY (acute kidney injury) Current Visit: Yes Status: Acute Assessment & Plan: - Creat 1.31- BL WNL - does take lasix daily 07/23 - labs improving- trend Code(s): N17.9 - ACUTE KIDNEY FAILURE, UNSPECIFIED (4) Atrial fibrillation Current Visit: Yes Status: Chronic Assessment & Plan: - Continue eliquis - Tele Code(s): I48.91 - UNSPECIFIED ATRIAL FIBRILLATION (5) Mononucleosis Current Visit: Yes Status: Acute Assessment & Plan: - + mono screen in ER - supportive care VTE: SCD PPI: pepcid Next of Kin: Code status: full D/c plan: 1-2 days Code(s): B27.90 - INFECTIOUS MONONUCLEOSIS, UNSPECIFIED WITHOUT COMPLICATION
[2023-07-24] MEDS: Miralax Powder 17GM PACKET PO SCH (11:31)
[2023-07-24] MEDS ORDERED: NON-FORMULARY ITEM (Folic Acid [Folic Acid] 0.4 MG Tablet) PO SCH (12:00)
[2023-07-24] MEDS: HUMALOG SQ PRN (12:20)
[2023-07-25 04:32] LABS: Hematocrit 45.2 % (42-50); Hemoglobin 14.3 g/dL (12.5-18.0); Mean Cell Volume 99.1 fL (78-100); Mean Corpuscular Hemoglobin 31.4 pg (26-32); Mean Corpuscular Hgb Concent. 31.6 g/dL (32-36); Mean Platelet Volume 9.8 fL (7.5-11.0); Platelet Count 202 x10^3/uL (150-450); Red Blood Count 4.56 x10^6/uL (4.1-5.6); Red Cell Distribution Width 15.8 % (11.5-14.0); White Blood Count 6.3 x10^3/uL (4.0-10.5)
[2023-07-25 04:45] LABS: ALBUMIN 3.9 g/dL (3.5-5.0); ANION GAP 12.3 MEQ/L (5-15); BILIRUBIN,TOTAL 0.6 mg/dL (0.2-1.3); Calcium 10.4 mg/dL (8.4-10.2); Creatinine 1 1.25 mg/dL (0.66-1.25); EST GLOMERULAR FILTRATION RATE 61.2 ML/MIN; Potassium 4.3 mmol/L (3.5-5.1); Total Protein 7.4 g/dL (6.3-8.2)
--- NOTE | 2023-07-25 08:42 | PCM.DS ---
Discharge Summary Date of Admission: 07/23/23 14:58 Date of Discharge: 07/25/23 Admitting Physician: MARCIAL HAIRSTON MD Primary Care Provider: MELQUIADES CADET Allergies Allergies bacitracin [From Neosporin ([id number])] Allergy (Verified 07/23/23 14:58) Rash bacitracin zinc [From Neosporin ([id number])] Allergy (Verified 07/23/23 14:58) Rash neomycin sulfate [From Neosporin ([id number])] Allergy (Verified 07/23/23 14:58) Rash polymyxin B [From Neosporin ([id number])] Allergy (Verified 07/23/23 14:58) Rash Hospital Summary - Hospital Course Hospital Course: 07/23/23 is a 72 year old male with PMHX of atrial fibrillation and is on Eliquis, pacemaker, CHF, diabetes, COPD, hypertension, coronary disease, hypothyroidism, prostate issue, hyperlipidemia, gastroesophageal reflux disease, obesity, and stroke in the past. He presented to the emergency department by private vehicle with increasing shortness of breath over the last 2 days. He also has associated with this is increased abdominal distention. Patient had a cardioversion performed for atrial fibrillation on 07/20/[address] Larsen at [facility] in [place]. He denies chest pain. He is currently on 2lNC at 99%. He feels his sxs have improved since admission and Lasix in ER. He does admit to eating salty foods over the weekened. He denies CP, abd. pain, N/V/D. 07/24/23 Pt sitting up on the side of the bed. Pt states he feels a little bit better and less SOB. BNP continues to be elevated. Will continue lasix, fluid restriction, and low sodium diet. He reports he has not had an echo in over 1 year. Will order echo today. He denies CP, abd. pain, N/V/D. 07/25/23 Pt sitting up in bed. He feels better today and SOB with walking improved. Per charting pt required O2 at night with CPAP. Will have RT eval for home O2 at night. He was able to have a BM yesterday and abd. not distended today. He denies CP, SOB, abd. pain, N/V/D. - Vitals & Intake/Output Vital Signs: Vital Signs Temperature 97.3 F 07/25/23 06:59 Pulse Rate 72 07/25/23 07:22 Respiratory Rate 16 07/25/23 07:22 Blood Pressure 157/79 07/25/23 06:59 O2 Sat by Pulse Oximetry 99 07/25/23 07:22 Intake & Output: Intake & Output 07/22/23 07/23/23 07/24/23 07/25/23 11:59 11:59 11:59 11:59 Intake Total 300 640 Output Total 1600 Balance -1300 640 Weight 96.3 kg 90.9 kg 90.2 kg - Lab Result Diagrams: 07/25/23 04:29 07/25/23 04:29 Lab Results-Last 24 Hrs: Lab Results-Last 24 Hours 07/25/23 07/25/23 Range/Units 04:29 04:29 WBC 6.3 (4.0-10.5) x10^3/uL RBC 4.56 (4.1-5.6) x10^6/uL Hgb 14.3 (12.5-18.0) g/dL Hct 45.2 (42-50) % MCV 99.1 (78-100) fL MCH 31.4 (26-32) pg MCHC 31.6 L (32-36) g/dL RDW 15.8 H (11.5-14.0) % Plt Count 202 (150-450) x10^3/uL MPV 9.8 (7.5-11.0) fL Sodium 140 (135-145) mmol/L Potassium 4.3 (3.5-5.1) mmol/L Chloride 97 L (98-107) mmol/L Carbon Dioxide 34 H (22-30) mmol/L Anion Gap 12.3 (5-15) MEQ/L BUN 23 H (9-20) mg/dL Creatinine 1.25 (0.66-1.25) mg/dL Estimated GFR 61.2 ML/MIN Glucose 135 H (74-106) mg/dL Calcium 10.4 H (8.4-10.2) mg/dL Total Bilirubin 0.60 (0.2-1.3) mg/dL AST 25 (17-59) U/L ALT 15 (0-50) U/L Alkaline Phosphatase 67 (38-126) U/L Serum Total Protein 7.4 (6.3-8.2) g/dL Albumin 3.9 (3.5-5.0) g/dL Micro Results-Entire Visit: Accuchecks Date 07/25/23 Date 07/24/23 Time 21:50 - Radiology Exams Ordered Rad Exams-Entire Visit: Radiology Procedures Category Date Time Status ABDOMEN AND PELVIS W/0 CONTRAS [CT] Stat Exams 07/23/23 12:19 Completed CHEST 1 VIEW (PORTABLE) Stat Exams 07/23/23 12:18 Completed ECHO W/2D AND DOPPLER [US] Routine Exams 07/24/23 08:39 Taken - Procedures and Test Procedures and Tests throughout Hospitalization: Therapy Orders & Screens 07/23/23 12:14 Respiratory Therapy Assessment DAILY Comment: 07/23/23 15:03 EKG REPEAT IN AM Comment: Oxygen Nasal Cannula 2 lpm Comment: Respiratory Therapy Consult ONCE Comment: Reason For Exam: 07/23/23 15:22 RT Screen per Nursing Assess ONCE Comment: Protocol Order Physician Instructions: Greater than 3 points order RT Admission Screen Reason For Exam: Triggered on Admission Diagnosis: CHF exacerbation; renal failure Diagnosis: CHF exacerbation; renal failure Pneumonia: No Home O2: No Asthma: No CHF: Yes Home CPAP/BIPAP: Yes Home Nebs/MDI: Yes Total Points: 13 07/24/23 09:26 PT Eval & Treat (MD Order) ONCE Reason for Eval:: [place], INTERESTED IN A WALKER Diagnosis: CHF exacerbation; renal failure 07/25/23 03:17 BiPap/CPAP ROUTINE Comment: Diagnosis: CHF exacerbation; renal failure Discharge Exam General Appearance: no apparent distress, alert Neurologic Exam: alert, oriented x 3, cooperative, normal mood/affect, nml cerebellar function, sensation nml, No motor deficits Eye Exam: PERRL, EOMI, eyes nml inspection Ears, Nose, Throat Exam: normal ENT inspection, pharynx normal, moist mucous membranes Neck Exam: normal inspection, non-tender, supple, full range of motion Respiratory Exam: normal breath sounds, lungs clear, No respiratory distress Cardiovascular Exam: regular rate/rhythm, normal heart sounds Gastrointestinal/Abdomen Exam: soft, No tenderness, No mass Male Genitalia Exam: deferred Rectal Exam: deferred Back Exam: normal inspection, normal range of motion, No CVA tenderness, No vertebral tenderness Extremity Exam: normal inspection, normal range of motion Skin Exam: normal color, warm, dry Final Diagnosis/Problem List - Final Discharge Diagnosis/Problem (1) CHF exacerbation Current Visit: Yes Status: Acute Code(s): I50.9 - HEART FAILURE, UNSPECIFIED (2) Obesity, morbid, BMI 40.0-49.9 Current Visit: Yes Status: Acute Code(s): E66.01 - MORBID (SEVERE) OBESITY DUE TO EXCESS CALORIES (3) NATHALY (acute kidney injury) Current Visit: Yes Status: Acute Code(s): N17.9 - ACUTE KIDNEY FAILURE, UNSPECIFIED (4) Atrial fibrillation Current Visit: Yes Status: Chronic Code(s): I48.91 - UNSPECIFIED ATRIAL FIBRILLATION (5) Mononucleosis Current Visit: Yes Status: Acute Assessment & Plan: (1) CHF exacerbation Current Visit: Yes Status: Acute Assessment & Plan: - BNP 4560 - recent cardioversion Sunday at [facility] in [place]. - Unable to consult pt's electronics maintenance technician as he does not come here. - Lasix 40 BID - 2gm Na+ diet - education provided on eating low sodium diet. - daily weights - Tele - trop x3, 1st negative - Supplemental oxygen PRN - Pt does not wear home O2 - Fluid restriction 1.5 L per day - ER ordered repeat BNP for in AM 07/23 - BNP 5010 - + 1 BLLE edma - weaned from O2 - Echo- EF 50% per pharmacy resource tech results 07/24 - F/u with cardiology OP - sxs improved - edema resolved - unable to review BNP as it had to be sent out - pt stable and ready to d/c per presentation Code(s): I50.9 - HEART FAILURE, UNSPECIFIED (2) Obesity, morbid, BMI 40.0-49.9 Current Visit: Yes Status: Acute Assessment & Plan: - advised diet and exercise control per cardiology recommendations. Code(s): E66.01 - MORBID (SEVERE) OBESITY DUE TO EXCESS CALORIES (3) NATHALY (acute kidney injury) Current Visit: Yes Status: Acute Assessment & Plan: - Creat 1.31- BL WNL - does take lasix daily 07/23 - labs improving- trend 07/24 - resolved Code(s): N17.9 - ACUTE KIDNEY FAILURE, UNSPECIFIED (4) Atrial fibrillation Current Visit: Yes Status: Chronic Assessment & Plan: - Continue eliquis - Tele Code(s): I48.91 - UNSPECIFIED ATRIAL FIBRILLATION (5) Mononucleosis Current Visit: Yes Status: Acute Assessment & Plan: - + mono screen in ER - supportive care Code(s): B27.90 - INFECTIOUS MONONUCLEOSIS, UNSPECIFIED WITHOUT COMPLICATION - Discharge Discharge Date: 07/25/23 Disposition: Home, Self-Care Condition: Fair Prescriptions: Continue Pyridoxine HCl (Vitamin B6) [Vitamin B-6] 100 mg PO UD Vitamin E 400 Units [Vitamin E 400 UNIT SOFTGEL] 400 unit PO LUNCH Saw Converse Fruit/Zinc Picoli [Saw Converse 450 mg Capsule] 1,800 mg PO LUNCH Tamsulosin HCl 0.4 mg [Flomax 0.4 MG] 0.8 mg PO BID Finasteride 5 mg [Proscar 5 MG] 1 tab PO LUNCH Metformin HCl 500 mg [Glucophage 500 MG] 1,000 mg PO BID Alendronate Sodium 35 mg PO WEEKLY PANTOPRAZOLE 40 mg Tablet [Protonix 40MG Tablet] 40 mg PO LUNCH Magnesium Oxide 400 mg [Mag-Ox 400] 2,000 mg PO LUNCH Albuterol 2.5 mg/3 ml Neb [Proventil 2.5 mg/3 ml Neb] 2 puffs NEB QID Furosemide [Lasix] 40 mg PO LUNCH Apixaban [Eliquis] 5 mg PO BID Cyanocobalamin (Vitamin B-12) [B-12] 2,500 mcg PO UD Ropinirole 2Mg [Requip 2Mg Tab] 1 mg PO HS Lovastatin 40 mg PO HS Empagliflozin [Jardiance] 25 mg PO DAILY Famotidine [Pepcid] 40 mg PO HS Levothyroxine Sodium [Euthyrox] 50 mcg PO LUNCH Ondansetron [Ondansetron Odt] 4 mg PO LUNCH Venlafaxine HCl [Venlafaxine HCl ER] 150 mg PO LUNCH Iron 65 mg PO LUNCH Folic Acid 1 mg [Folate 1 mg] 666 mcg PO LUNCH Cholecalciferol (Vitamin D3) [Vitamin D3] 25 mcg PO LUNCH Sodium Zirconium Cyclosilicate [Lokelma] 10 mg PO HS Fluticasone/Umeclidin/Vilanter [Trelegy Ellipta 100-62.5-25] 1 inh IH HS Albuterol Common Canister [Ventolin Common Canister] 1 - 2 puffs IH Q4H PRN PRN PRN Reason: Shortness Of Breath/Wheezing Acetaminophen 500 mg [Tylenol Extra Strength 500 mg] 500 mg PO TID Metoprolol Tartrate 50 mg [Lopressor 50 MG] 100 mg PO BID 30 Days #120 tablet Folic Acid 0.4 mg PO LUNCH Additional Instructions: Limit salt intake and eat < 2grams per day. Limit excessive fluid intake. Weight yourself daily. If you gain > 5 lbs in a day call your electronics maintenance technician. Follow up with cardiology and PCP as scheduled. Follow up with: MELQUIADES CADET [Primary Care Provider] - 08/02/23 10:00 am KYLEE JAMES [CONSULTING PHYSICIAN] - 01/14/24 3:40 pm (at [place] ) GET LARSEN MD [NON-STAFF PHY W/O PRIVILEGES] - 09/04/23 10:20 am (at [facility] 2nd floor cardiology)
[2023-07-25 10:57] VITALS: BP 142/70; PULSE 70; RESP 18; TEMP 96.7; O2SAT 98
--- NOTE | 2023-07-25 14:51 | ECHO ---
Transthoracic echocardiographic examination and color Doppler was done on 07/24/2023. INDICATION: Congestive heart failure. IMPRESSION: 1) GLOBAL LEFT VENTRICULAR HYPOKINESIA. EJECTION FRACTION OF ABOUT 30 TO 35%. 2) MILD TO MODERATE MITRAL REGURGITATION. 3) MODERATE TRICUSPID REGURGITATION. RIGHT VENTRICULAR SYSTOLIC PRESSURE OF 62 MM OF MERCURY SUGGESTIVE OF MODERATE PULMONARY HYPERTENSION. 4) RIGHT VENTRICULAR HYPERTROPHY. 5) LEFT VENTRICULAR HYPERTROPHY. 6) LEFT ATRIAL ENLARGEMENT. 7) SCLEROTIC AORTIC VALVE WITH PEAK TRANSAORTIC GRADIENT OF 24 MM OF MERCURY. 8) PACEMAKER ELECTRODE IN THE RIGHT VENTRICLE. The left ventricle was visualized and demonstrated global type of hypokinesia. Ejection fraction between 30 to 35%. There is mild to moderate left ventricular hypertrophy. The mitral valve is seen and this opens adequately. There is mild to moderate mitral regurgitation. Left atrium is enlarged. The aortic valve is sclerotic. The peak gradient across the aortic valve is 24 mm of Mercury with a mean gradient of 11 mm of Mercury. There is right ventricular hypertrophy. There is moderate tricuspid regurgitation with a right ventricular systolic pressure of 62 mm of Mercury suggestive of moderate pulmonary hypertension.
[2023-07-29] MEDS ORDERED: Fosamax 70 MG PO SCH (06:00)
== END 2023-07-25 13:40 | disposition home or self-care (01) ==
LOC: ED 11:47 → MED SURG 14:58
PROVIDERS: ADMIT Internal Medicine; ATTEND Internal Medicine
DX: I11.0 Hypertensive heart disease with heart failure (principal); I50.9 Heart failure, unspecified; E66.01 Morbid (severe) obesity due to excess calories; N17.9 Acute kidney failure, unspecified; I48.91 Unspecified atrial fibrillation; B27.90 Infectious mononucleosis, unspecified without complication; R60.0 Localized edema; E11.9 Type 2 diabetes mellitus without complications; I25.10 Atherosclerotic heart disease of native coronary artery without angina pectoris; E03.9 Hypothyroidism, unspecified; E78.5 Hyperlipidemia, unspecified; Z79.01 Long term (current) use of anticoagulants; Z20.828 Contact with and (suspected) exposure to other viral communicable diseases; Z79.899 Other long term (current) drug therapy; Z86.73 Personal history of transient ischemic attack (TIA), and cerebral infarction without residual deficits
CPT/HCPCS: 0241U; 36000; 36415; 71045; 74176; 80053; 81001; 83735; 83880; 84484; 85025; 85027; 85610; 86308; 87040; 93005; 93306; 94640; 94660; 94762; 96374; 97110; 97162; 97530; 99285; Q3014; 93268; J1817; J1940; J7609; Q0162; A9270-GY; G0378

== ENCOUNTER 2023-09-26 12:43 | Observation (INO) | payer MEDICARE ==
--- NOTE | 2023-09-26 12:49 | ERPHSYRPT ---
- History of Present Illness Time Seen by Provider: 09/26/23 12:49 Source: patient, family Exam Limitations: no limitations Physician History: This is a 72-year-old white male patient of Dr. Whaley who presents with shortness of breath and coughing. He states "I just cannot breathe". He stated his symptoms started yesterday during the day and he had an associated fever of 99.9 per his spouse report. His symptoms were worse in the evening and have continued throughout the morning today. He denies chest pain. He has no abdominal pain. He has not had any vomiting or diarrhea symptoms. Patient has multiple medical issues including hypothyroidism, hyperlipidemia, gastroesophageal reflux disease, COPD on oxygen at home, pacemaker placement, CVA, diabetes and an arrhythmia and is taking Eliquis for this. Cough Quality/Degree: mild Possible Cause: occasional episodes Modifying Factors: Improves With: activity, coughing, deep breath Associated Symptoms: fever, chills, cough, No chest pain/soreness Allergies/Adverse Reactions: bacitracin [From Neosporin ([id number])] Allergy (Verified 07/23/23 14:58) Rash bacitracin zinc [From Neosporin ([id number])] Allergy (Verified 07/23/23 14:58) Rash neomycin sulfate [From Neosporin ([id number])] Allergy (Verified 07/23/23 14:58) Rash polymyxin B [From Neosporin ([id number])] Allergy (Verified 07/23/23 14:58) Rash Home Medications: Alendronate Sodium 35 mg PO WEEKLY 05/06/19 [History] Finasteride 5 mg [Proscar 5 MG] 1 tab PO LUNCH 05/06/19 [History] Metformin HCl 500 mg [Glucophage 500 MG] 1,000 mg PO BID 05/06/19 [History] Pyridoxine HCl (Vitamin B6) [Vitamin B-6] 100 mg PO UD 05/06/19 [History] Saw Desdemona Fruit/Zinc Picoli [Saw Desdemona 450 mg Capsule] 1,800 mg PO LUNCH 05/06/19 [History] Tamsulosin HCl 0.4 mg [Flomax 0.4 MG] 0.8 mg PO BID 01/07/20 [History] Vitamin E 400 Units [Vitamin E 400 UNIT SOFTGEL] 400 unit PO LUNCH 05/06/19 [History] PANTOPRAZOLE 40 mg Tablet [Protonix 40MG Tablet] 40 mg PO LUNCH 06/05/19 [History] Albuterol 2.5 mg/3 ml Neb [Proventil 2.5 mg/3 ml Neb] 2 puffs NEB QID 02/28/20 [History] Magnesium Oxide 400 mg [Mag-Ox 400] 2,000 mg PO LUNCH 02/28/20 [History] Apixaban [Eliquis] 5 mg PO BID 10/08/20 [History] Furosemide [Lasix] 40 mg PO LUNCH 10/08/20 [History] Cyanocobalamin (Vitamin B-12) [B-12] 2,500 mcg PO UD 12/16/20 [History] Empagliflozin [Jardiance] 25 mg PO DAILY 01/03/21 [History] Lovastatin 40 mg PO HS 01/03/21 [History] Ropinirole 2Mg [Requip 2Mg Tab] 1 mg PO HS 01/03/21 [History] Famotidine [Pepcid] 40 mg PO HS 05/24/22 [History] Levothyroxine Sodium [Euthyrox] 50 mcg PO LUNCH 05/24/22 [History] Ondansetron [Ondansetron Odt] 4 mg PO LUNCH 05/24/22 [History] Cholecalciferol (Vitamin D3) [Vitamin D3] 25 mcg PO LUNCH 10/24/22 [History] Folic Acid 1 mg [Folate 1 mg] 666 mcg PO LUNCH 10/24/22 [History] Iron 65 mg PO LUNCH 10/24/22 [History] Venlafaxine HCl [Venlafaxine HCl ER] 150 mg PO LUNCH 10/24/22 [History] Albuterol Common Canister [Ventolin Common Canister] 1 - 2 puffs IH Q4H PRN PRN 06/30/23 [History] Fluticasone/Umeclidin/Vilanter [Trelegy Ellipta 100-62.5-25] 1 inh IH HS 06/30/23 [History] Sodium Zirconium Cyclosilicate [Lokelma] 10 mg PO HS 06/30/23 [History] Hx Tetanus, Diphtheria Vaccination/Date Given: Yes Hx Influenza Vaccination/Date Given: Yes Hx Pneumococcal Vaccination/Date Given: Yes Travel Risk - International Travel Have you traveled outside of the country in past 3 weeks: No - Emerging Infectious Disease Are you exhibiting symptoms associated with any current EIDs: Yes Symptoms: Abdominal Pain, Shortness of Breath - Review of Systems Constitutional: Fever, Chills Eyes: No Symptoms Ears, Nose, & Throat: No Symptoms Respiratory: Cough, Dyspnea Cardiac: No Symptoms Abdominal/Gastrointestinal: No Symptoms Genitourinary Symptoms: No Symptoms Musculoskeletal: No Symptoms Skin: No Symptoms Neurological: No Symptoms Psychological: No Symptoms Endocrine: No Symptoms Hematologic/Lymphatic: No Symptoms Immunological/Allergic: No Symptoms All Other Systems: Reviewed and Negative - Past Medical History Pertinent Past Medical History: Yes Neurological History: Stroke ENT History: No Pertinent History Cardiac History: Arrhythmia Respiratory History: COPD, Sleep Apnea Endocrine Medical History: Diabetes Type II Musculoskeletal History: Arthritis, Osteoarthritis GI Medical History: GERD, Gallbladder Disease, Hernia History: No Pertinent History Psycho-Social History: No Pertinent History Male Reproductive Disorders: Prostate Problems Other Medical History: Pacemaker, 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 cardio version 07/20/23 - Past Surgical History Past Surgical History: Yes Neuro Surgical History: No Pertinent History Cardiac: Vascular Surgery Respiratory: No Pertinent History Gastrointestinal: Appendectomy, Cholecystectomy, Hernia Repair Genitourinary: No Pertinent History Musculoskeletal: No Pertinent History Male Surgical History: No Pertinent History Other Surgical History: STENT PLACED AFTER GALLBLADDER REMOVAL( "had liver knick ed during surgery and had a drain to reroute bile"), AND REMOVED. shoulder surgery- right states rotator cuff repair,, Left Carpal Tunnel Surgery, Right rotator cuff surgery, 2 knots removed from back of neck Significant Family History: heart disease - Social History Smoking Status: Former smoker Exposure to second hand smoke: Yes Alcohol Use: None Drug Use: none Patient Lives Alone: No - Nursing Vital Signs Nursing Vital Signs: Initial Vital Signs Temperature 97.4 F 09/26/23 12:49 Pulse Rate 60 09/26/23 12:49 Respiratory Rate 24 09/26/23 12:49 Blood Pressure 124/71 09/26/23 12:49 O2 Sat by Pulse Oximetry 95 09/26/23 12:49 Pain Scale Pain Intensity 3 - Physical Exam General Appearance: mild distress, alert, anxiety Eye Exam: PERRL/EOMI, eyes nml inspection Ears, Nose, Throat Exam: normal ENT inspection, dry mucous membranes Neck Exam: normal inspection, non-tender, supple, full range of motion Respiratory Exam: airway intact, rhonchi (Bilateral right worse than left), No chest tenderness, No respiratory distress Cardiovascular Exam: regular rate/rhythm, normal heart sounds, normal peripheral pulses Gastrointestinal/Abdomen Exam: soft, normal bowel sounds, No tenderness Rectal Exam: not done Back Exam: normal inspection, normal range of motion, No CVA tenderness, No vertebral tenderness Extremity Exam: normal inspection, normal range of motion, pelvis stable Neurologic Exam: alert, oriented x 3, cooperative, care center manager II-XII nml as tested, sensation nml Skin Exam: normal color, warm, dry Lymphatic Exam: No adenopathy SpO2 Interpretation: normal O2 Delivery: Room Air - Course Nursing assessment & vital signs reviewed: Yes Ordered Tests: Active Orders 24 hr Category Date Time Status Supervisor Forming And Tempering STAT Care 09/26/23 13:08 Active EKG-ER Only STAT Care 09/26/23 13:07 Active IV Insertion STAT Care 09/26/23 13:07 Active Pulse Oximetry (ED) STAT Care 09/26/23 13:07 Active CHEST 1 VIEW (PORTABLE) Stat Exams 09/26/23 13:24 Completed BLOOD CULTURE Stat Lab 09/26/23 13:47 Received CBC W DIFF Stat Lab 09/26/23 13:47 Completed CMP Stat Lab 09/26/23 13:47 Completed MAGNESIUM Stat Lab 09/26/23 13:47 Completed NT PRO BNPII Stat Lab 09/26/23 13:47 Completed PROTIME WITH INR Stat Lab 09/26/23 13:47 Completed TROPONIN Q4H Lab 09/26/23 13:47 Completed TROPONIN Q4H Lab 09/26/23 17:15 Ordered TROPONIN Q4H Lab 09/26/23 21:15 Ordered Respiratory Therapy Assessment DAILY RT 09/26/23 13:21 Active Medication Summary Discontinued Medications Generic Name Dose Route Start Last Admin Trade Name Freq PRN Reason Stop Dose Admin Albuterol/Ipratropium 3 ml 09/26/23 13:20 09/26/23 13:23 Ipratropium/Albuterol Sulfate 3 Ml Ampul.Neb IH 09/26/23 13:21 3 ml STAT ONE Administration Albuterol/Ipratropium Confirm 09/26/23 13:22 Ipratropium/Albuterol Sulfate 3 Ml Ampul.Neb Administered 09/26/23 13:23 Dose 3 ml IH .STK-MED ONE Furosemide 40 mg 09/26/23 14:52 Furosemide 40 Mg/4 Ml Vial IV 09/26/23 14:53 STAT ONE Ceftriaxone Sodium 1 gm in 100 mls @ 200 mls/hr 09/26/23 14:08 09/26/23 15:00 Rocephin 1 Gm / 100 Ml Nacl IV 09/26/23 14:37 Infused STAT ONE Infusion Ceftriaxone Sodium Confirm 09/26/23 14:15 Rocephin 1 Gm / 100 Ml Nacl Administered 09/26/23 14:16 Dose 1 gm in 100 mls @ ud IV .STK-MED ONE Lab/Rad Data: Laboratory Result Diagrams 09/26/23 13:47 09/26/23 13:47 Laboratory Results 09/26/23 09/26/23 09/26/23 Range/Units 13:47 13:47 13:47 WBC (4.0-10.5) x10^3/uL RBC (4.1-5.6) x10^6/uL Hgb (12.5-18.0) g/dL Hct (42-50) % MCV (78-100) fL MCH (26-32) pg MCHC (32-36) g/dL RDW (11.5-14.0) % Plt Count (150-450) x10^3/uL MPV (7.5-11.0) fL Gran % (36.0-66.0) % Immature Gran % (Auto) (0.00-0.4) % Nucleat RBC Rel Count (0.00-0.1) % Eos # (Auto) (0-0.5) x10^3/uL Immature Gran # (Auto) (0.00-0.03) x10^3u/L Absolute Lymphs (auto) (1.0-4.6) x10^3/uL Absolute Monos (auto) (0.0-1.3) x10^3/uL Absolute Nucleated RBC (0.00-0.01) x10^3u/L Lymphocytes % (24.0-44.0) % Monocytes % (0.0-12.0) % Eosinophils % (0.00-5.0) % Basophils % (0.0-0.4) % Absolute Granulocytes (1.4-6.9) x10^3/uL Basophils # (0-0.4) x10^3/uL PT 12.4 (9.4-12.5) SECONDS INR 1.15 (0.8-3.0) Sodium (135-145) mmol/L Potassium (3.5-5.1) mmol/L Chloride (98-107) mmol/L Carbon Dioxide (22-30) mmol/L Anion Gap (5-15) MEQ/L BUN (9-20) mg/dL Creatinine (0.66-1.25) mg/dL Estimated GFR ML/MIN Glucose (74-106) mg/dL Calcium (8.4-10.2) mg/dL Magnesium (1.6-2.3) mg/dL Total Bilirubin (0.2-1.3) mg/dL AST (17-59) U/L ALT (0-50) U/L Alkaline Phosphatase (38-126) U/L Troponin I 0.038 H* (0.000-0.033) ng/mL NT-Pro-B Natriuret Pep (<300) pg/mL Serum Total Protein (6.3-8.2) g/dL Albumin (3.5-5.0) g/dL Influenza Type A Ag NEGATIVE (NEGATIVE) Influenza Type B Ag NEGATIVE (NEGATIVE) RSV (PCR) NEGATIVE (NEGATIVE) SARS-CoV-2 (PCR) NEGATIVE (NEGATIVE) 09/26/23 09/26/23 Range/Units 13:47 13:47 WBC 15.7 H (4.0-10.5) x10^3/uL RBC 4.58 (4.1-5.6) x10^6/uL Hgb 13.9 (12.5-18.0) g/dL Hct 41.8 L (42-50) % MCV 91.3 (78-100) fL MCH 30.3 (26-32) pg MCHC 33.3 (32-36) g/dL RDW 14.9 H (11.5-14.0) % Plt Count 194 (150-450) x10^3/uL MPV 10.7 (7.5-11.0) fL Gran % 87.2 H (36.0-66.0) % Immature Gran % (Auto) 1.6 H (0.00-0.4) % Nucleat RBC Rel Count 0.0 (0.00-0.1) % Eos # (Auto) 0.02 (0-0.5) x10^3/uL Immature Gran # (Auto) 0.25 H (0.00-0.03) x10^3u/L Absolute Lymphs (auto) 0.64 L (1.0-4.6) x10^3/uL Absolute Monos (auto) 1.08 (0.0-1.3) x10^3/uL Absolute Nucleated RBC 0.00 (0.00-0.01) x10^3u/L Lymphocytes % 4.1 L (24.0-44.0) % Monocytes % 6.9 (0.0-12.0) % Eosinophils % 0.1 (0.00-5.0) % Basophils % 0.1 (0.0-0.4) % Absolute Granulocytes 13.69 H (1.4-6.9) x10^3/uL Basophils # 0.02 (0-0.4) x10^3/uL PT (9.4-12.5) SECONDS INR (0.8-3.0) Sodium 134 L (135-145) mmol/L Potassium 4.2 (3.5-5.1) mmol/L Chloride 99 (98-107) mmol/L Carbon Dioxide 27 (22-30) mmol/L Anion Gap 12.2 (5-15) MEQ/L BUN 18 (9-20) mg/dL Creatinine 1.12 (0.66-1.25) mg/dL Estimated GFR 69.8 ML/MIN Glucose 186 H (74-106) mg/dL Calcium 10.1 (8.4-10.2) mg/dL Magnesium 2.4 H (1.6-2.3) mg/dL Total Bilirubin 0.90 (0.2-1.3) mg/dL AST 23 (17-59) U/L ALT 18 (0-50) U/L Alkaline Phosphatase 73 (38-126) U/L Troponin I (0.000-0.033) ng/mL NT-Pro-B Natriuret Pep 5450 (<300) pg/mL Serum Total Protein 7.9 (6.3-8.2) g/dL Albumin 4.1 (3.5-5.0) g/dL Influenza Type A Ag (NEGATIVE) Influenza Type B Ag (NEGATIVE) RSV (PCR) (NEGATIVE) SARS-CoV-2 (PCR) (NEGATIVE) - Progress Progress: improved, re-examined Air Movement: fair Progress Note: 09/26/23 14:18 My medical decision making and the assignment of moderate to high complexity in this patient is based on review of the patient's past medical history, review the patient's medication list, review of the patient's drug allergy list, history present illness and physical findings on examination. This patient workup includes chest x-ray, intravenous line, respiratory therapy evaluation and nebulizer treatment, twelve-lead EKG, CBC, CMP, viral swabs, BNP, troponin. Differential diagnosis includes pneumonia, viral illness, COPD exacerbation, CHF exacerbation, myocardial infarction, cardiac arrhythmias 09/26/23 15:20 I interpreted the patient's laboratory data results. Patient does have an elevated troponin level of 0.038. I think this is more from cardiac strain and his CHF. His troponin level was slightly elevated during his last hospital stay in June 2023. The patient's chest x-ray was interpreted by the radiologist and I reviewed the impression. Impression states new diffuse left lung consolidating/nonconsolidating airspace disease with tiny effusion present. 09/26/23 15:36 The patient's chest x-ray was interpreted by the radiologist and I reviewed the impression. Impression states new diffuse left lung c onsolidating/nonconsolidating airspace disease with tiny effusion present. 09/26/23 15:36 I spoke with the telehospitalist Dr. Burton. I reviewed the patient history, presenting complaint, laboratory study results radiographic study results and treatment interventions in this patient. He agrees to place this patient in observation. Blood Culture(s) Obtained: Yes Antibiotics given: Yes Counseled pt/family regarding: lab results, diagnosis, rad results Medical Desision Making - Independent Historian Additional History obtained from: Spouse - Discussion of managment Care discussed with:: hospitalist Reviewed:: Test results, Need for additional workup Agreed on:: place in obs Will see patient: in hospital - Diagnostic Testing Diagnostic test were ordered, analyzed, and reviewed by me: Yes Radiological Interpretation: Reviewed by me, Teleradiologist Report - Risk of complications The pt has a high risk of morbidity or mortality based on: Decision regarding hospitilization or escalation of hosp level of care - Departure Departure Disposition: Observation Clinical Impression: CHF exacerbation, Left lower lobe pneumonia, Pleural effusion, left Condition: Fair Critical Care Time: No Referrals: MELQUIADES WHALEY [Primary Care Provider] - Follow up/PCP as directed Instructions: Heart Failure
[2023-09-26] MEDS ORDERED: DUONEB 0.5-3 MG/3 ml Neb IH ONE (13:22)
[2023-09-26] MEDS: DUONEB 0.5-3 MG/3 ml Neb IH ONE (13:23)
[2023-09-26 13:48] LABS: Absolute Neutrophil Ct (ANC) 13.69 x10^3/uL (1.4-6.9); BASOPHIL % 0.1 % (0.0-0.4); Basophil (Absolute #) 0.02 x10^3/uL (0-0.4); Eosinophil % 0.1 % (0.00-5.0); Eosinophil (Absolute #) 0.02 x10^3/uL (0-0.5); Hematocrit 41.8 % (42-50); Hemoglobin 13.9 g/dL (12.5-18.0); IMMATURE GRAN # 0.25 x10^3u/L (0.00-0.03); IMMATURE GRAN % 1.6 % (0.00-0.4); Lymphocyte (Absolute #) 0.64 x10^3/uL (1.0-4.6); Lymphocytes % 4.1 % (24.0-44.0); Mean Cell Volume 91.3 fL (78-100); Mean Corpuscular Hemoglobin 30.3 pg (26-32); Mean Corpuscular Hgb Concent. 33.3 g/dL (32-36); Mean Platelet Volume 10.7 fL (7.5-11.0); Monocyte (Absolute #) 1.08 x10^3/uL (0.0-1.3); Monocytes % 6.9 % (0.0-12.0); Neutrophil % 87.2 % (36.0-66.0); Platelet Count 194 x10^3/uL (150-450); Red Blood Count 4.58 x10^6/uL (4.1-5.6); Red Cell Distribution Width 14.9 % (11.5-14.0); White Blood Count 15.7 x10^3/uL (4.0-10.5)
--- NOTE | 2023-09-26 13:55 | XRAY ---
Indication: Short of breath. Cough. Comparison: July 23, 2023. Portable chest demonstrates new diffuse left lung consolidating/nonconsolidating airspace disease with tiny effusion. Right lung clear. Heart remains enlarged again with left pacemaker. Bony thorax intact again with osteopenia and degenerative changes.
[2023-09-26 14:09] LABS: ALBUMIN 4.1 g/dL (3.5-5.0); ANION GAP 12.2 MEQ/L (5-15); BILIRUBIN,TOTAL 0.9 mg/dL (0.2-1.3); Calcium 10.1 mg/dL (8.4-10.2); Creatinine 1 1.12 mg/dL (0.66-1.25); EST GLOMERULAR FILTRATION RATE 69.8 ML/MIN; MAGNESIUM 2.4 mg/dL (1.6-2.3); Potassium 4.2 mmol/L (3.5-5.1); Total Protein 7.9 g/dL (6.3-8.2)
[2023-09-26] MEDS ORDERED: ROCEPHIN 1 GM / 100 ML NaCl 1 GM/100 ML IVPB IV ONE (14:15)
[2023-09-26 14:16] LABS: INR 1.15 (0.8-3.0); PROTIME 12.4 SECONDS (9.4-12.5)
[2023-09-26 14:26] LABS: INFLUENZA A NEGATIVE (NEGATIVE); INFLUENZA B NEGATIVE (NEGATIVE); RESPIRATORY SYNCTIAL VIRUS NEGATIVE (NEGATIVE); SARS-CoV-2 Xpert Express NEGATIVE (NEGATIVE)
[2023-09-26] MEDS: ROCEPHIN 1 GM / 100 ML NaCl 1 GM/100 ML IVPB IV ONE (14:27)
[2023-09-26] MEDS ORDERED: Lasix 40 MG/4 ML ONE (15:46)
[2023-09-26] MEDS: Lasix 40 MG/4 ML IV ONE (15:48)
[2023-09-26] MEDS ORDERED: HUMULIN R SQ PRN (16:15)
[2023-09-26] MEDS ORDERED: Zofran 4 MG/2 ML VIAL IV PRN (16:15)
[2023-09-26] MEDS ORDERED: TYLENOL 325 MG PO PRN (16:15)
--- NOTE | 2023-09-26 16:47 | PCM.HP ---
History of Present Illness - Chief Complaint Chief Complaint: SOB, fever, cough Date: 09/26/23 History of Present Illness: Mr. Mireles is a 72 year old male with a pmhx of HLD, hypothyroid, GERD, COPD (on baseline 2L), CVA, DMII, OA, CAD, CHF, and AFIB (Eliquis) with pacemaker who presented to [facility] 09/26/23 with complaints of progressive shortness of breath, sore throat, productive cough, subjective fever/chills for the past two days. Patient states the worst of his symptoms were last night. His shortness of breath is continuous but worse on exertion and cough is productive with white sputum. He does report a mild headache as well. Denies recent sick contacts. Den ies cp, abdominal pain, dizziness, N/V/D. Upon arrival vitals stable. CXR chest demonstrates new diffuse left lung consolidating/nonconsolidating airspace disease with tiny effusion. Lab findings with leukocytosis -WBC at 15.7, mild hyponatremia at 134, magnesium level slightly elevated at 2.4, initial trop at 0.038, and BNP at 5450. Patient given Rocephin, duoneb, and lasix in ED, admission for CHF/COPD exacerbation/pneumonia. Plan for continuation of IV abx/lasix/solu-medrol. - Review of Systems Constitutional: Fever, Chills, Fatigue Eyes: No Symptoms Ears, Nose, & Throat: Nose Congestion, Throat Pain Respiratory: Cough, Short Of Breath, Wheezing Cardiac: No Symptoms Abdominal/Gastrointestinal: No Symptoms Genitourinary Symptoms: No Symptoms Musculoskeletal: No Symptoms Skin: No Symptoms Neurological: Headache Psychological: No Symptoms Endocrine: No Symptoms Hematologic/Lymphatic: No Symptoms Immunological/Allergic: No Symptoms Medications & Allergies Home Medications: Home Medication List Alendronate Sodium 35 mg PO WEEKLY 05/06/19 [History Confirmed 09/26/23] Finasteride 5 mg [Proscar 5 MG] 1 tab PO LUNCH 05/06/19 [History Confirmed 09/26/23] Metformin HCl 500 mg [Glucophage 500 MG] 1,000 mg PO BID 05/06/19 [History Confirmed 09/26/23] Pyridoxine HCl (Vitamin B6) [Vitamin B-6] 100 mg PO UD 05/06/19 [History Confirmed 09/26/23] [place] Fruit/Zinc Picoli [S[place] 450 mg Capsule] 1,800 mg PO LUNCH 05/06/19 [History Confirmed 09/26/23] Tamsulosin HCl 0.4 mg [Flomax 0.4 MG] 0.8 mg PO BID 05/06/19 [History Confirmed 09/26/23] Vitamin E 400 Units [Vitamin E 400 UNIT SOFTGEL] 400 unit PO LUNCH 05/06/19 [History Confirmed 09/26/23] PANTOPRAZOLE 40 mg Tablet [Protonix 40MG Tablet] 40 mg PO LUNCH 06/05/19 [History Confirmed 09/26/23] Albuterol 2.5 mg/3 ml Neb [Proventil 2.5 mg/3 ml Neb] 2 puffs NEB QID 02/28/20 [History Confirmed 09/26/23] Magnesium Oxide 400 mg [Mag-Ox 400] 2,000 mg PO LUNCH 02/28/20 [History Confirmed 09/26/23] Apixaban [Eliquis] 5 mg PO BID 10/08/20 [History Confirmed 09/26/23] Furosemide [Lasix] 40 mg PO LUNCH 10/08/20 [History Confirmed 09/26/23] Cyanocobalamin (Vitamin B-12) [B-12] 2,500 mcg PO UD 12/16/20 [History Confirmed 09/26/23] Empagliflozin [Jardiance] 25 mg PO DAILY 01/03/21 [History Confirmed 09/26/23] Lovastatin 40 mg PO HS 01/03/21 [History Confirmed 09/26/23] Ropinirole 2Mg [Requip 2Mg Tab] 1 mg PO HS 01/03/21 [History Confirmed 09/26/23] Famotidine [Pepcid] 40 mg PO HS 05/24/22 [History Confirmed 09/26/23] Levothyroxine Sodium [Euthyrox] 50 mcg PO LUNCH 05/24/22 [History Confirmed 09/26/23] Ondansetron [Ondansetron Odt] 4 mg PO LUNCH 05/24/22 [History Confirmed 09/26/23] Cholecalciferol (Vitamin D3) [Vitamin D3] 25 mcg PO LUNCH 10/24/22 [History Confirmed 09/26/23] Folic Acid 1 mg [Folate 1 mg] 666 mcg PO LUNCH 10/24/22 [History Confirmed 09/26/23] Iron 65 mg PO LUNCH 10/24/22 [History Confirmed 09/26/23] Venlafaxine HCl [Venlafaxine HCl ER] 150 mg PO LUNCH 10/24/22 [History Confirmed 09/26/23] Albuterol Common Canister [Ventolin Common Canister] 1 - 2 puffs IH Q4H PRN PRN 06/30/23 [History Confirmed 09/26/23] Fluticasone/Umeclidin/Vilanter [Trelegy Ellipta 100-62.5-25] 1 inh IH HS 06/30/23 [History Confirmed 09/26/23] Sodium Zirconium Cyclosilicate [Lokelma] 10 mg PO HS 06/30/23 [History Confirmed 09/26/23] Metoprolol Tartrate 50 mg [Lopressor 50 MG] 100 mg PO BID 30 Days #120 tablet 07/02/23 [Rx Confirmed 09/26/23] Allergies/Adverse Reactions: Allergies Allergy/AdvReac Type Severity Reaction Status Date / Time bacitracin Allergy Rash Verified 09/26/23 16:32 [From Neosporin ([id number])] bacitracin zinc Allergy Rash Verified 09/26/23 16:32 [From Neosporin ([id number])] neomycin sulfate Allergy Rash Verified 09/26/23 16:32 [From Neosporin ([id number])] polymyxin B Allergy Rash Verified 09/26/23 16:32 [From Neosporin ([id number])] - Past Medical History Past Medical History: Yes Neurological History: Stroke ENT History: No Pertinent History Cardiac History: Arrhythmia Respiratory History: COPD, Sleep Apnea Endocrine Medical History: Diabetes Type II Musculoskelatal History: Arthritis, Osteoarthritis GI Medical History: GERD, Gallbladder Disease, Hernia History: No Pertinent History Pyscho-Social History: No Pertinent History Male Reproductive Disorders: Prostate Problems Comment: Pacemaker, 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 cardio version 07/20/23 - Past Surgical History Past Surgical History: Yes Neuro Surgical History: No Pertinent History Cardiac History: Vascular Surgery Respiratory Surgery: No Pertinent History GI Surgical History: Appendectomy, Cholecystectomy, Hernia Repair Genitourinary Surgical Hx: No Pertinent History Musculskeletal Surgical Hx: No Pertinent History Male Surgical History: No Pertinent History Other Surgical History: STENT PLACED AFTER GALLBLADDER REMOVAL( "had liver knicked during surgery and had a drain to reroute bile"), AND REMOVED. shoulder surgery- right states rotator cuff repair,, Left Carpal Tunnel Surgery, Right rotator cuff surgery, 2 knots removed from back of neck Significant Family History: heart disease - Social History Smoking Status: Former smoker Exposure to second hand smoke: Yes Alcohol: None Drug Use: none - Social Determinants of Health Will the patient participate in the screening: Yes Do you worry about a steady place to live?: No Do you have any problems with any of the following?: No known problems In the past 12 months,have you had to go without utilities?: No Have you or anyone in your house had to go without enough: No Transportation Issues: No Has anyone in your support network made you feel unsafe?: No Does the patient want assistance with any of the above?: No - Physical Exam Vital Signs: Vital Signs - 24 hr Temp Pulse Resp BP BP Pulse Ox 09/26/23 16:20 61 20 98 09/26/23 16:00 88 116/80 09/26/23 15:45 63 24 117/94 09/26/23 15:30 66 25 H 117/84 96 09/26/23 15:15 61 23 129/76 97 09/26/23 15:00 60 21 131/72 96 09/26/23 14:45 61 22 132/70 96 09/26/23 14:30 60 22 124/75 96 09/26/23 14:15 61 24 133/73 96 09/26/23 14:00 61 21 127/72 93 L 09/26/23 13:45 62 22 129/73 92 L 09/26/23 13:36 63 23 122/66 92 L 09/26/23 13:30 35 L 123/75 93 L 09/26/23 13:23 72 22 93 L 09/26/23 13:20 98 09/26/23 13:15 68 20 119/78 93 L 09/26/23 13:00 67 27 H 129/73 92 L 09/26/23 12:49 97.4 F 75 28 H 124/71 124/71 94 L General Appearance: no apparent distress Neurologic Exam: alert, oriented x 3, cooperative Eye Exam: PERRL/EOMI Ears, Nose, Throat Exam: normal ENT inspection Neck Exam: normal inspection Respiratory Exam: diminished breath sounds, crackles/rales, wheezing Cardiovascular Exam: regular rate/rhythm, normal heart sounds Rectal Exam: deferred Back Exam: normal inspection Skin Exam: normal color Results - Labs Lab/Micro Results: Lab Results-Last 24 Hours 09/26/23 09/26/23 09/26/23 Range/Units 13:47 13:47 13:47 WBC 15.7 H (4.0-10.5) x10^3/uL RBC 4.58 (4.1-5.6) x10^6/uL Hgb 13.9 (12.5-18.0) g/dL Hct 41.8 L (42-50) % MCV 91.3 (78-100) fL MCH 30.3 (26-32) pg MCHC 33.3 (32-36) g/dL RDW 14.9 H (11.5-14.0) % Plt Count 194 (150-450) x10^3/uL MPV 10.7 (7.5-11.0) fL Gran % 87.2 H (36.0-66.0) % Immature Gran % (Auto) 1.6 H (0.00-0.4) % Nucleat RBC Rel Count 0.0 (0.00-0.1) % Eos # (Auto) 0.02 (0-0.5) x10^3/uL Immature Gran # (Auto) 0.25 H (0.00-0.03) x10^3u/L Absolute Lymphs (auto) 0.64 L (1.0-4.6) x10^3/uL Absolute Monos (auto) 1.08 (0.0-1.3) x10^3/uL Absolute Nucleated RBC 0.00 (0.00-0.01) x10^3u/L Lymphocytes % 4.1 L (24.0-44.0) % Monocytes % 6.9 (0.0-12.0) % Eosinophils % 0.1 (0.00-5.0) % Basophils % 0.1 (0.0-0.4) % Absolute Granulocytes 13.69 H (1.4-6.9) x10^3/uL Basophils # 0.02 (0-0.4) x10^3/uL PT 12.4 (9.4-12.5) SECONDS INR 1.15 (0.8-3.0) Sodium 134 L (135-145) mmol/L Potassium 4.2 (3.5-5.1) mmol/L Chloride 99 (98-107) mmol/L Carbon Dioxide 27 (22-30) mmol/L Anion Gap 12.2 (5-15) MEQ/L BUN 18 (9-20) mg/dL Creatinine 1.12 (0.66-1.25) mg/dL Estimated GFR 69.8 ML/MIN Glucose 186 H (74-106) mg/dL Calcium 10.1 (8.4-10.2) mg/dL Magnesium 2.4 H (1.6-2.3) mg/dL Total Bilirubin 0.90 (0.2-1.3) mg/dL AST 23 (17-59) U/L ALT 18 (0-50) U/L Alkaline Phosphatase 73 (38-126) U/L Troponin I (0.000-0.033) ng/mL NT-Pro-B Natriuret Pep 5450 (<300) pg/mL Serum Total Protein 7.9 (6.3-8.2) g/dL Albumin 4.1 (3.5-5.0) g/dL Influenza Type A Ag (NEGATIVE) Influenza Type B Ag (NEGATIVE) RSV (PCR) (NEGATIVE) SARS-CoV-2 (PCR) (NEGATIVE) 09/26/23 09/26/23 Range/Units 13:47 13:47 WBC (4.0-10.5) x10^3/uL RBC (4.1-5.6) x10^6/uL Hgb (12.5-18.0) g/dL Hct (42-50) % MCV (78-100) fL MCH (26-32) pg MCHC (32-36) g/dL RDW (11.5-14.0) % Plt Count (150-450) x10^3/uL MPV (7.5-11.0) fL Gran % (36.0-66.0) % Immature Gran % (Auto) (0.00-0.4) % Nucleat RBC Rel Count (0.00-0.1) % Eos # (Auto) (0-0.5) x10^3/uL Immature Gran # (Auto) (0.00-0.03) x10^3u/L Absolute Lymphs (auto) (1.0-4.6) x10^3/uL Absolute Monos (auto) (0.0-1.3) x10^3/uL Absolute Nucleated RBC (0.00-0.01) x10^3u/L Lymphocytes % (24.0-44.0) % Monocytes % (0.0-12.0) % Eosinophils % (0.00-5.0) % Basophils % (0.0-0.4) % Absolute Granulocytes (1.4-6.9) x10^3/uL Basophils # (0-0.4) x10^3/uL PT (9.4-12.5) SECONDS INR (0.8-3.0) Sodium (135-145) mmol/L Potassium (3.5-5.1) mmol/L Chloride (98-107) mmol/L Carbon Dioxide (22-30) mmol/L Anion Gap (5-15) MEQ/L BUN (9-20) mg/dL Creatinine (0.66-1.25) mg/dL Estimated GFR ML/MIN Glucose (74-106) mg/dL Calcium (8.4-10.2) mg/dL Magnesium (1.6-2.3) mg/dL Total Bilirubin (0.2-1.3) mg/dL AST (17-59) U/L ALT (0-50) U/L Alkaline Phosphatase (38-126) U/L Troponin I 0.038 H* (0.000-0.033) ng/mL NT-Pro-B Natriuret Pep (<300) pg/mL Serum Total Protein (6.3-8.2) g/dL Albumin (3.5-5.0) g/dL Influenza Type A Ag NEGATIVE (NEGATIVE) Influenza Type B Ag NEGATIVE (NEGATIVE) RSV (PCR) NEGATIVE (NEGATIVE) SARS-CoV-2 (PCR) NEGATIVE (NEGATIVE) - Radiology Impressions Radiology Exams & Impressions: Radiology Procedures Category Date Time Status CHEST 1 VIEW (PORTABLE) Stat Exams 09/26/23 13:24 Completed - Other Procedures and Tests Respiratory Therapy 09/26/23 13:21 Respiratory Therapy Assessment DAILY 09/26/23 16:16 Oxygen NASAL CANNULA 2 lpm 09/26/23 21:00 BiPap/CPAP ROUTINE Assessment/Plan (1) Left lower lobe pneumonia Current Visit: Yes Status: Acute Assessment & Plan: -xray with new diffuse left lung consolidating/nonconsolidating airspace disease with tiny effusion -supplemental oxygen with goal spo2 88-92% -RT eval -lactic, procal, sputum culture -bcult pending -resp viral panel negative -Ceftriaxone started in ED, will continue, add azithromycin Code(s): J18.9 - PNEUMONIA, UNSPECIFIED ORGANISM (2) CHF exacerbation Current Visit: Yes Status: Acute Assessment & Plan: -Follows with [facility] [place], Dr. Stovall -CXR showing enlarged heart and demonstrates demonstrates new diffuse left lung consolidating/nonconsolidating airspace disease with tiny effusion. -Cardioversion at [facility] in [place] on 07/20/23 -Echo performed 07/24/23 reviewed: EF 30-35% IMPRESSION: 1) GLOBAL LEFT VENTRICULAR HYPOKINESIA. EJECTION FRACTION OF ABOUT 30 TO 35%. 2) MILD TO MODERATE MITRAL REGURGITATION. 3) MODERATE TRICUSPID REGURGITATION. RIGHT VENTRICULAR SYSTOLIC PRESSURE OF 62 MM OF MERCURY SUGGESTIVE OF MODERATE PULMONARY HYPERTENSION. 4) RIGHT VENTRICULAR HYPERTROPHY. 5) LEFT VENTRICULAR HYPERTROPHY. 6) LEFT ATRIAL ENLARGEMENT. 7) SCLEROTIC AORTIC VALVE WITH PEAK TRANSAORTIC GRADIENT OF 24 MM OF MERCURY. 8) PACEMAKER ELECTRODE IN THE RIGHT VENTRICLE -lasix 40mg given in ED, will continue 40mg BID -Supplemental oxygen with spo2 goal 88-92% -ABG if pt becomes lethargic/hypoxic -Elevate HOB -TELE -Strict I&O/Daily weights -EKG -repeat in a.m with trop -BNP at 5450 -repeat in 48 hours -Optimize electrolytes K>4, Mg >2 -continue home meds Code(s): I50.9 - HEART FAILURE, UNSPECIFIED (3) COPD exacerbation Current Visit: No Status: Acute Assessment & Plan: -most likely secondary to pneumonia -supplemental oxygen with goal spo2 88-92% -DuoNebs/bronchodilator/solu-medrol -consider CT chest/pulm consult if no improvement Code(s): J44.1 - CHRONIC OBSTRUCTIVE PULMONARY DISEASE W (ACUTE) EXACERBATION (4) Hypertension Current Visit: No Status: Chronic Qualifiers: Assessment & Plan: -stable, continue home meds Code(s): I10 - ESSENTIAL (PRIMARY) HYPERTENSION (5) Hypothyroidism Current Visit: No Status: Chronic Assessment & Plan: -continue home meds Code(s): E03.9 - HYPOTHYROIDISM, UNSPECIFIED (6) Obesity (BMI 30-39.9) Current Visit: No Status: Chronic Assessment & Plan: -Advised ADA diet and exercise control Code(s): E66.9 - OBESITY, UNSPECIFIED (7) PVD (peripheral vascular disease) Current Visit: No Status: Chronic Assessment & Plan: -Chronic > 20 years with noted coolness to BLE from knees down Code(s): I73.9 - PERIPHERAL VASCULAR DISEASE, UNSPECIFIED (8) BPH (benign prostatic hyperplasia) Current Visit: No Status: Chronic Assessment & Plan: -continue home meds -Of note patient follows with Dr. Ornelas at , scheduled for PET scan 10/12/23 Code(s): N40.0 - BENIGN PROSTATIC HYPERPLASIA WITHOUT LOWER URINRY TRACT SYMP (9) Atrial fibrillation Current Visit: No Status: Resolved Assessment & Plan: -Continue eliquis -Tele VTE: Eliquis PPI: protonix Code Status: Full code Dispo: 1-2 days Code(s): I48.91 - UNSPECIFIED ATRIAL FIBRILLATION Telemedicine Encounter - Telemedicine Encounter Telemedicine Encounter: The entirety of this encounter was performed via Telemedicine"
[2023-09-26] MEDS ORDERED: Docusate Sodium 100 MG PO PRN (17:00)
[2023-09-26] MEDS ORDERED: DUONEB 0.5-3 MG/3 ml Neb IH PRN (17:00)
[2023-09-26] MEDS: Sodium Chloride 0.9% 1000 ML 1,000 ML IV SCH (17:00)
[2023-09-26] MEDS: Zithromax 500 MG/ 250 ML NaCl Premix 500 MG/250 ML IVPB IV SCH (17:00)
[2023-09-26] MEDS ORDERED: VENTOLIN COMMON CANISTER IH PRN (17:10)
[2023-09-26] MEDS ORDERED: PROVENTIL 2.5 MG/3 ML NEB IH PRN (17:10)
[2023-09-26] MEDS: Vitamin B-12 500 MCG PO SCH (17:43)
[2023-09-26] MEDS: PROVENTIL 2.5 MG/3 ML NEB IH SCH (18:56)
[2023-09-26] MEDS: Advair Hfa 115/21 Common canister IH SCH (19:07)
[2023-09-26] MEDS: solu-MEDROL 40 MG, Sterile H2O 10 ml 1 ML IV SCH (21:57)
[2023-09-26] MEDS: Lopressor 50 MG PO SCH (21:58)
[2023-09-26] MEDS: ELIQUIS 2.5 MG TABLET PO SCH (21:58)
[2023-09-26] MEDS: Requip 0.5 MG PO SCH (21:58)
[2023-09-26] MEDS: HUMALOG SQ PRN (21:58)
[2023-09-26] MEDS: Pepcid 20 MG PO SCH (21:58)
[2023-09-26] MEDS: ZOCOR 20MG PO SCH (21:58)
[2023-09-26] MEDS: Lasix 40 MG/4 ML IV SCH (21:59)
[2023-09-26] MEDS: Vitamin B-6 (Pyridoxine) 100 MG PO SCH (22:00)
[2023-09-26] MEDS ORDERED: NON-FORMULARY ITEM (Fluticasone/Umeclidin/Vilanter [Trelegy Ellipta 100-62.5-25] 1 EACH Bl IH SCH (22:00)
[2023-09-27 04:32] LABS: Hematocrit 41.1 % (42-50); Hemoglobin 13.5 g/dL (12.5-18.0); Mean Cell Volume 92.4 fL (78-100); Mean Corpuscular Hemoglobin 30.3 pg (26-32); Mean Corpuscular Hgb Concent. 32.8 g/dL (32-36); Mean Platelet Volume 10.4 fL (7.5-11.0); Platelet Count 189 x10^3/uL (150-450); Red Blood Count 4.45 x10^6/uL (4.1-5.6); Red Cell Distribution Width 14.6 % (11.5-14.0); White Blood Count 9.6 x10^3/uL (4.0-10.5)
[2023-09-27 05:34] LABS: ANION GAP 11.6 MEQ/L (5-15); BILIRUBIN,TOTAL 0.5 mg/dL (0.2-1.3); Creatinine 1 1.11 mg/dL (0.66-1.25); EST GLOMERULAR FILTRATION RATE 70.6 ML/MIN; Potassium 4.2 mmol/L (3.5-5.1); Total Protein 7.8 g/dL (6.3-8.2)
[2023-09-27 05:43] LABS: BAND 1 % (0.0-2.0); Eosinophil 1 % (0.00-3.0); Neutrophils 98 % (36.-66.); Total Cells Counted 100
[2023-09-27 05:44] LABS: Platelet Estimate NORMAL (NORMAL)
--- NOTE | 2023-09-27 07:07 | PCM.NOTE ---
Date and Time: 09/27/23701 Subjective Assessment: 72 year old male admitted 09/26/23 for CHF/COPD exacerbation and pneumonia after experiencing a two day history of progressive shortness of breath, productive cough, wheezing, and subjective fever and chills. CXR demonstrates new diffuse left lung consolidating/nonconsolidating airspace disease with tiny effusion. Right lung clear. Heart remains enlarged again with left pacemaker. Patient is at his baseline oxygen of 2L. Current treatment with ceftriaxone, azithromycin, solu-medrol, and lasix. Initial WBC of 15.7, now wnl. Initial BNP 5450, now improved at 3970. Initial troponin slightly elevated, remaining series in normal range. 09/27/23: Met with patient bedside. Endorses continued dyspnea and productive cough with increased white sputum. Does feel improved today. Lung sounds coarse bilaterally with exp wheezing. BLE with trace edema. WBC now WNL. Will continue current abx/lasix/ solumedrol. Denies fever, cp, abdominal pain, BENEDICT, dizziness, N/V/D. - Review of Systems Constitutional: No Symptoms Eyes: No Symptoms Ears, Nose, & Throat: Nose Congestion, Sinus Drainage Respiratory: Cough, Short Of Breath, Wheezing Cardiac: Edema (BLE trace) Abdominal/Gastrointestinal: No Symptoms Genitourinary Symptoms: No Symptoms Musculoskeletal: No Symptoms Skin: No Symptoms Neurological: No Symptoms Psychological: No Symptoms Endocrine: No Symptoms Hematologic/Lymphatic: No Symptoms Immunological/Allergic: No Symptoms Objective Exam General Appearance: no apparent distress Neurologic Exam: alert, oriented x 3, cooperative Skin Exam: normal color Eye Exam: PERRL Ears, Nose, Throat Exam: normal ENT inspection Neck Exam: normal inspection Respiratory Exam: diminished breath sounds, crackles/rales, wheezing Cardiovascular Exam: regular rate/rhythm, normal heart sounds Gastrointestinal/Abdomen Exam: soft, normal bowel sounds Extremity Exam: swelling (BLE trace edema) Back Exam: normal inspection Male Genitalia Exam: deferred Rectal Exam: deferred Objective Data Vital Signs: Vital Signs - 24 hr Temp Pulse Resp BP BP Pulse Ox 09/27/23 04:00 62 21 98 09/26/23 23:51 97.8 F 72 16 125/63 99 09/26/23 19:44 97.7 F 80 13 116/53 95 09/26/23 18:56 70 18 99 09/26/23 16:20 61 20 98 09/26/23 16:18 98.4 F 70 22 113/67 93 L 09/26/23 16:00 88 116/80 09/26/23 15:45 63 24 117/94 09/26/23 15:30 66 25 H 117/84 96 09/26/23 15:15 61 23 129/76 97 09/26/23 15:00 60 21 131/72 96 09/26/23 14:45 61 22 132/70 96 09/26/23 14:30 60 22 124/75 96 09/26/23 14:15 61 24 133/73 96 09/26/23 14:00 61 21 127/72 93 L 09/26/23 13:45 62 22 129/73 92 L 09/26/23 13:36 63 23 122/66 92 L 09/26/23 13:30 35 L 123/75 93 L 09/26/23 13:23 72 22 93 L 09/26/23 13:20 98 09/26/23 13:15 68 20 119/78 93 L 09/26/23 13:00 67 27 H 129/73 92 L 09/26/23 12:49 97.4 F 75 28 H 124/71 124/71 94 L Pain Assessment - Last Documented Pain Intensity 0 Intake and Output: Intake & Output 09/24/23 09/25/23 09/26/23 09/27/23 11:59 11:59 11:59 11:59 Intake Total 1200 Balance 1200 Weight 84.7 kg Lab Results: Lab Results-Last 24 Hours 09/26/23 09/26/23 09/26/23 Range/Units 13:10 13:47 13:47 WBC 15.7 H (4.0-10.5) x10^3/uL RBC 4.58 (4.1-5.6) x10^6/uL Hgb 13.9 (12.5-18.0) g/dL Hct 41.8 L (42-50) % MCV 91.3 (78-100) fL MCH 30.3 (26-32) pg MCHC 33.3 (32-36) g/dL RDW 14.9 H (11.5-14.0) % Plt Count 194 (150-450) x10^3/uL MPV 10.7 (7.5-11.0) fL Gran % 87.2 H (36.0-66.0) % Immature Gran % (Auto) 1.6 H (0.00-0.4) % Nucleat RBC Rel Count 0.0 (0.00-0.1) % Eos # (Auto) 0.02 (0-0.5) x10^3/uL Immature Gran # (Auto) 0.25 H (0.00-0.03) x10^3u/L Absolute Lymphs (auto) 0.64 L (1.0-4.6) x10^3/uL Absolute Monos (auto) 1.08 (0.0-1.3) x10^3/uL Absolute Nucleated RBC 0.00 (0.00-0.01) x10^3u/L Lymphocytes % 4.1 L (24.0-44.0) % Monocytes % 6.9 (0.0-12.0) % Eosinophils % 0.1 (0.00-5.0) % Basophils % 0.1 (0.0-0.4) % Absolute Granulocytes 13.69 H (1.4-6.9) x10^3/uL Segmented Neutrophils (36.-66.) % Band Neutrophils (0.0-2.0) % Eosinophils (Manual) (0.00-3.0) % Basophils # 0.02 (0-0.4) x10^3/uL Platelet Estimate (NORMAL) RBC Morphology PT (9.4-12.5) SECONDS INR (0.8-3.0) Sodium 134 L (135-145) mmol/L Potassium 4.2 (3.5-5.1) mmol/L Chloride 99 (98-107) mmol/L Carbon Dioxide 27 (22-30) mmol/L Anion Gap 12.2 (5-15) MEQ/L BUN 18 (9-20) mg/dL Creatinine 1.12 (0.66-1.25) mg/dL Estimated GFR 69.8 ML/MIN Glucose 186 H (74-106) mg/dL Hemoglobin A1c 6.46 H (4.5-6.0) % Lactic Acid (0.4-2.0) Calcium 10.1 (8.4-10.2) mg/dL Magnesium 2.4 H (1.6-2.3) mg/dL Total Bilirubin 0.90 (0.2-1.3) mg/dL AST 23 (17-59) U/L ALT 18 (0-50) U/L Alkaline Phosphatase 73 (38-126) U/L Troponin I (0.000-0.033) ng/mL NT-Pro-B Natriuret Pep 5450 (<300) pg/mL Serum Total Protein 7.9 (6.3-8.2) g/dL Albumin 4.1 (3.5-5.0) g/dL Procalcitonin (0.030-0.080) ng/mL Influenza Type A Ag (NEGATIVE) Influenza Type B Ag (NEGATIVE) RSV (PCR) (NEGATIVE) SARS-CoV-2 (PCR) (NEGATIVE) 09/26/23 09/26/23 09/26/23 Range/Units 13:47 13:47 13:47 WBC (4.0-10.5) x10^3/uL RBC (4.1-5.6) x10^6/uL Hgb (12.5-18.0) g/dL Hct (42-50) % MCV (78-100) fL MCH (26-32) pg MCHC (32-36) g/dL RDW (11.5-14.0) % Plt Count (150-450) x10^3/uL MPV (7.5-11.0) fL Gran % (36.0-66.0) % Immature Gran % (Auto) (0.00-0.4) % Nucleat RBC Rel Count (0.00-0.1) % Eos # (Auto) (0-0.5) x10^3/uL Immature Gran # (Auto) (0.00-0.03) x10^3u/L Absolute Lymphs (auto) (1.0-4.6) x10^3/uL Absolute Monos (auto) (0.0-1.3) x10^3/uL Absolute Nucleated RBC (0.00-0.01) x10^3u/L Lymphocytes % (24.0-44.0) % Monocytes % (0.0-12.0) % Eosinophils % (0.00-5.0) % Basophils % (0.0-0.4) % Absolute Granulocytes (1.4-6.9) x10^3/uL Segmented Neutrophils (36.-66.) % Band Neutrophils (0.0-2.0) % Eosinophils (Manual) (0.00-3.0) % Basophils # (0-0.4) x10^3/uL Platelet Estimate (NORMAL) RBC Morphology PT 12.4 (9.4-12.5) SECONDS INR 1.15 (0.8-3.0) Sodium (135-145) mmol/L Potassium (3.5-5.1) mmol/L Chloride (98-107) mmol/L Carbon Dioxide (22-30) mmol/L Anion Gap (5-15) MEQ/L BUN (9-20) mg/dL Creatinine (0.66-1.25) mg/dL Estimated GFR ML/MIN Glucose (74-106) mg/dL Hemoglobin A1c (4.5-6.0) % Lactic Acid (0.4-2.0) Calcium (8.4-10.2) mg/dL Magnesium (1.6-2.3) mg/dL Total Bilirubin (0.2-1.3) mg/dL AST (17-59) U/L ALT (0-50) U/L Alkaline Phosphatase (38-126) U/L Troponin I 0.038 H* (0.000-0.033) ng/mL NT-Pro-B Natriuret Pep (<300) pg/mL Serum Total Protein (6.3-8.2) g/dL Albumin (3.5-5.0) g/dL Procalcitonin (0.030-0.080) ng/mL Influenza Type A Ag NEGATIVE (NEGATIVE) Influenza Type B Ag NEGATIVE (NEGATIVE) RSV (PCR) NEGATIVE (NEGATIVE) SARS-CoV-2 (PCR) NEGATIVE (NEGATIVE) 09/26/23 09/26/23 09/26/23 Range/Units 17:00 17:18 17:18 WBC (4.0-10.5) x10^3/uL RBC (4.1-5.6) x10^6/uL Hgb (12.5-18.0) g/dL Hct (42-50) % MCV (78-100) fL MCH (26-32) pg MCHC (32-36) g/dL RDW (11.5-14.0) % Plt Count (150-450) x10^3/uL MPV (7.5-11.0) fL Gran % (36.0-66.0) % Immature Gran % (Auto) (0.00-0.4) % Nucleat RBC Rel Count (0.00-0.1) % Eos # (Auto) (0-0.5) x10^3/uL Immature Gran # (Auto) (0.00-0.03) x10^3u/L Absolute Lymphs (auto) (1.0-4.6) x10^3/uL Absolute Monos (auto) (0.0-1.3) x10^3/uL Absolute Nucleated RBC (0.00-0.01) x10^3u/L Lymphocytes % (24.0-44.0) % Monocytes % (0.0-12.0) % Eosinophils % (0.00-5.0) % Basophils % (0.0-0.4) % Absolute Granulocytes (1.4-6.9) x10^3/uL Segmented Neutrophils (36.-66.) % Band Neutrophils (0.0-2.0) % Eosinophils (Manual) (0.00-3.0) % Basophils # (0-0.4) x10^3/uL Platelet Estimate (NORMAL) RBC Morphology PT (9.4-12.5) SECONDS INR (0.8-3.0) Sodium (135-145) mmol/L Potassium (3.5-5.1) mmol/L Chloride (98-107) mmol/L Carbon Dioxide (22-30) mmol/L Anion Gap (5-15) MEQ/L BUN (9-20) mg/dL Creatinine (0.66-1.25) mg/dL Estimated GFR ML/MIN Glucose (74-106) mg/dL Hemoglobin A1c (4.5-6.0) % Lactic Acid 2.2 H (0.4-2.0) Calcium (8.4-10.2) mg/dL Magnesium (1.6-2.3) mg/dL Total Bilirubin (0.2-1.3) mg/dL AST (17-59) U/L ALT (0-50) U/L Alkaline Phosphatase (38-126) U/L Troponin I 0.033 (0.000-0.033) ng/mL NT-Pro-B Natriuret Pep (<300) pg/mL Serum Total Protein (6.3-8.2) g/dL Albumin (3.5-5.0) g/dL Procalcitonin 0.507 H (0.030-0.080) ng/mL Influenza Type A Ag (NEGATIVE) Influenza Type B Ag (NEGATIVE) RSV (PCR) (NEGATIVE) SARS-CoV-2 (PCR) (NEGATIVE) 09/26/23 09/26/23 09/27/23 Range/Units 21:09 21:19 04:15 WBC 9.6 (4.0-10.5) x10^3/uL RBC 4.45 (4.1-5.6) x10^6/uL Hgb 13.5 (12.5-18.0) g/dL Hct 41.1 L (42-50) % MCV 92.4 (78-100) fL MCH 30.3 (26-32) pg MCHC 32.8 (32-36) g/dL RDW 14.6 H (11.5-14.0) % Plt Count 189 (150-450) x10^3/uL MPV 10.4 (7.5-11.0) fL Gran % (36.0-66.0) % Immature Gran % (Auto) (0.00-0.4) % Nucleat RBC Rel Count (0.00-0.1) % Eos # (Auto) (0-0.5) x10^3/uL Immature Gran # (Auto) (0.00-0.03) x10^3u/L Absolute Lymphs (auto) (1.0-4.6) x10^3/uL Absolute Monos (auto) (0.0-1.3) x10^3/uL Absolute Nucleated RBC (0.00-0.01) x10^3u/L Lymphocytes % (24.0-44.0) % Monocytes % (0.0-12.0) % Eosinophils % (0.00-5.0) % Basophils % (0.0-0.4) % Absolute Granulocytes (1.4-6.9) x10^3/uL Segmented Neutrophils 98 H (36.-66.) % Band Neutrophils 1 (0.0-2.0) % Eosinophils (Manual) 1 (0.00-3.0) % Basophils # (0-0.4) x10^3/uL Platelet Estimate NORMAL (NORMAL) RBC Morphology NORMAL PT (9.4-12.5) SECONDS INR (0.8-3.0) Sodium (135-145) mmol/L Potassium (3.5-5.1) mmol/L Chloride (98-107) mmol/L Carbon Dioxide (22-30) mmol/L Anion Gap (5-15) MEQ/L BUN (9-20) mg/dL Creatinine (0.66-1.25) mg/dL Estimated GFR ML/MIN Glucose (74-106) mg/dL Hemoglobin A1c (4.5-6.0) % Lactic Acid 1.6 (0.4-2.0) Calcium (8.4-10.2) mg/dL Magnesium (1.6-2.3) mg/dL Total Bilirubin (0.2-1.3) mg/dL AST (17-59) U/L ALT (0-50) U/L Alkaline Phosphatase (38-126) U/L Troponin I 0.029 (0.000-0.033) ng/mL NT-Pro-B Natriuret Pep (<300) pg/mL Serum Total Protein (6.3-8.2) g/dL Albumin (3.5-5.0) g/dL Procalcitonin (0.030-0.080) ng/mL Influenza Type A Ag (NEGATIVE) Influenza Type B Ag (NEGATIVE) RSV (PCR) (NEGATIVE) SARS-CoV-2 (PCR) (NEGATIVE) 09/27/23 Range/Units 04:15 WBC (4.0-10.5) x10^3/uL RBC (4.1-5.6) x10^6/uL Hgb (12.5-18.0) g/dL Hct (42-50) % MCV (78-100) fL MCH (26-32) pg MCHC (32-36) g/dL RDW (11.5-14.0) % Plt Count (150-450) x10^3/uL MPV (7.5-11.0) fL Gran % (36.0-66.0) % Immature Gran % (Auto) (0.00-0.4) % Nucleat RBC Rel Count (0.00-0.1) % Eos # (Auto) (0-0.5) x10^3/uL Immature Gran # (Auto) (0.00-0.03) x10^3u/L Absolute Lymphs (auto) (1.0-4.6) x10^3/uL Absolute Monos (auto) (0.0-1.3) x10^3/uL Absolute Nucleated RBC (0.00-0.01) x10^3u/L Lymphocytes % (24.0-44.0) % Monocytes % (0.0-12.0) % Eosinophils % (0.00-5.0) % Basophils % (0.0-0.4) % Absolute Granulocytes (1.4-6.9) x10^3/uL Segmented Neutrophils (36.-66.) % Band Neutrophils (0.0-2.0) % Eosinophils (Manual) (0.00-3.0) % Basophils # (0-0.4) x10^3/uL Platelet Estimate (NORMAL) RBC Morphology PT (9.4-12.5) SECONDS INR (0.8-3.0) Sodium 134 L (135-145) mmol/L Potassium 4.2 (3.5-5.1) mmol/L Chloride 99 (98-107) mmol/L Carbon Dioxide 28 (22-30) mmol/L Anion Gap 11.6 (5-15) MEQ/L BUN 22 H (9-20) mg/dL Creatinine 1.11 (0.66-1.25) mg/dL Estimated GFR 70.6 ML/MIN Glucose 223 H (74-106) mg/dL Hemoglobin A1c (4.5-6.0) % Lactic Acid (0.4-2.0) Calcium 10.0 (8.4-10.2) mg/dL Magnesium (1.6-2.3) mg/dL Total Bilirubin 0.50 (0.2-1.3) mg/dL AST 23 (17-59) U/L ALT 16 (0-50) U/L Alkaline Phosphatase 72 (38-126) U/L Troponin I (0.000-0.033) ng/mL NT-Pro-B Natriuret Pep 3970 (<300) pg/mL Serum Total Protein 7.8 (6.3-8.2) g/dL Albumin 4.0 (3.5-5.0) g/dL Procalcitonin (0.030-0.080) ng/mL Influenza Type A Ag (NEGATIVE) Influenza Type B Ag (NEGATIVE) RSV (PCR) (NEGATIVE) SARS-CoV-2 (PCR) (NEGATIVE) Radiology Exams: Radiology Procedures Category Date Time Status CHEST 1 VIEW (PORTABLE) Stat Exams 09/26/23 13:24 Completed Assessment/Plan (1) Left lower lobe pneumonia Current Visit: Yes Status: Acute Assessment & Plan: (1) Left lower lobe pneumonia Current Visit: Yes Status: Acute Assessment & Plan: -xray with new diffuse left lung consolidating/nonconsolidating airspace disease with tiny effusion -supplemental oxygen with goal spo2 88-92% -RT eval -lactic, procal, sputum culture -bcult pending -resp viral panel negative -Ceftriaxone started in ED, will continue, add azithromycin 09/26: -Bcult pending -Continue ceftriaxone/azith -solu-medrol/nebs/INH -on baseline oxygen 2L -IS/Flutter -Mucinex Code(s): J18.9 - PNEUMONIA, UNSPECIFIED ORGANISM (2) CHF exacerbation Current Visit: Yes Status: Acute Assessment & Plan: -Follows with [facility] Dr. Wilman Lara -CXR showing enlarged heart and demonstrates demonstrates new diffuse left lung consolidating/nonconsolidating airspace disease with tiny effusion. -Cardioversion at [facility] on 07/20/23 -Echo performed 07/24/23 reviewed: EF 30-35% IMPRESSION: 1) GLOBAL LEFT VENTRICULAR HYPOKINESIA. EJECTION FRACTION OF ABOUT 30 TO 35%. 2) MILD TO MODERATE MITRAL REGURGITATION. 3) MODERATE TRICUSPID REGURGITATION. RIGHT VENTRICULAR SYSTOLIC PRESSURE OF 62 MM OF MERCURY SUGGESTIVE OF MODERATE PULMONARY HYPERTENSION. 4) RIGHT VENTRICULAR HYPERTROPHY. 5) LEFT VENTRICULAR HYPERTROPHY. 6) LEFT ATRIAL ENLARGEMENT. 7) SCLEROTIC AORTIC VALVE WITH PEAK TRANSAORTIC GRADIENT OF 24 MM OF MERCURY. 8) PACEMAKER ELECTRODE IN THE RIGHT VENTRICLE -lasix 40mg given in ED, will continue 40mg BID -Supplemental oxygen with spo2 goal 88-92% -ABG if pt becomes lethargic/hypoxic -Elevate HOB -TELE -Strict I&O/Daily weights -EKG -repeat in a.m with trop -BNP at 5450 -repeat in 48 hours -Optimize electrolytes K>4, Mg >2 -continue home meds 09/26: -BNP 3970 -continue lasix, increase to q8h -(-)3lbs with diuresis Code(s): I50.9 - HEART FAILURE, UNSPECIFIED (3) COPD exacerbation Current Visit: No Status: Acute Assessment & Plan: -most likely secondary to pneumonia -supplemental oxygen with goal spo2 88-92% -DuoNebs/bronchodilator/solu-medrol -consider CT chest/pulm consult if no improvement Code(s): J44.1 - CHRONIC OBSTRUCTIVE PULMONARY DISEASE W (ACUTE) EXACERBATION (4) Hypertension Current Visit: No Status: Chronic Qualifiers: Assessment & Plan: -stable, continue home meds Code(s): I10 - ESSENTIAL (PRIMARY) HYPERTENSION (5) Hypothyroidism Current Visit: No Status: Chronic Assessment & Plan: -continue home meds Code(s): E03.9 - HYPOTHYROIDISM, UNSPECIFIED (6) Obesity (BMI 30-39.9) Current Visit: No Status: Chronic Assessment & Plan: -Advised ADA diet and exercise control Code(s): E66.9 - OBESITY, UNSPECIFIED (7) PVD (peripheral vascular disease) Current Visit: No Status: Chronic Assessment & Plan: -Chronic > 20 years with noted coolness to BLE from knees down Code(s): I73.9 - PERIPHERAL VASCULAR DISEASE, UNSPECIFIED (8) BPH (benign prostatic hyperplasia) Current Visit: No Status: Chronic Assessment & Plan: -continue home meds -Of note patient follows with Dr. Ornelas at , scheduled for PET scan 10/12/23 Code(s): N40.0 - BENIGN PROSTATIC HYPERPLASIA WITHOUT LOWER URINRY TRACT SYMP (9) Atrial fibrillation Current Visit: No Status: Resolved Assessment & Plan: -Continue eliquis -Tele (10) Type 2 Diabetes - Continue Jardiance - Humalog s/s - Hold metformin VTE: Eliquis PPI: protonix Code Status: Full code Dispo: 1-2 days Code(s): J18.9 - PNEUMONIA, UNSPECIFIED ORGANISM (2) CHF exacerbation Current Visit: Yes Status: Acute Code(s): I50.9 - HEART FAILURE, UNSPECIFIED (3) COPD exacerbation Current Visit: No Status: Acute Code(s): J44.1 - CHRONIC OBSTRUCTIVE PULMONARY DISEASE W (ACUTE) EXACERBATION (4) Hypertension Current Visit: No Status: Chronic Qualifiers: Code(s): I10 - ESSENTIAL (PRIMARY) HYPERTENSION (5) Hypothyroidism Current Visit: No Status: Chronic Code(s): E03.9 - HYPOTHYROIDISM, UNSPECIFIED (6) Obesity (BMI 30-39.9) Current Visit: No Status: Chronic Code(s): E66.9 - OBESITY, UNSPECIFIED (7) PVD (peripheral vascular disease) Current Visit: No Status: Chronic Code(s): I73.9 - PERIPHERAL VASCULAR DISEASE, UNSPECIFIED (8) BPH (benign prostatic hyperplasia) Current Visit: No Status: Chronic Code(s): N40.0 - BENIGN PROSTATIC HYPERPLASIA WITHOUT LOWER URINRY TRACT SYMP (9) Atrial fibrillation Current Visit: No Status: Chronic Code(s): I48.91 - UNSPECIFIED ATRIAL FIBRILLATION (10) Controlled type 2 diabetes mellitus Current Visit: Yes Status: Acute Code(s): E11.9 - TYPE 2 DIABETES MELLITUS WITHOUT COMPLICATIONS
[2023-09-27] MEDS: Lantus Insulin SQ SCH (08:37)
[2023-09-27] MEDS: Spiriva 18 Mcg/Cap Inhaler IH SCH (09:15)
[2023-09-27] MEDS ORDERED: ROCEPHIN 1 GM / 100 ML NaCl 1 GM/100 ML IVPB IV SCH (10:00)
[2023-09-27] MEDS ORDERED: Zithromax 500 MG/ 250 ML NaCl Premix 500 MG/250 ML IVPB IV SCH (10:00)
[2023-09-27] MEDS: VITAMIN D PO SCH (10:12)
[2023-09-27] MEDS: Flomax 0.4 MG PO SCH (10:13)
[2023-09-27] MEDS: FOLATE 1 MG PO SCH (10:13)
[2023-09-27] MEDS: FEOSOL 325 MG PO SCH (10:13)
[2023-09-27] MEDS: JARDIANCE PO SCH (10:14)
[2023-09-27] MEDS: SYNTHROID 50 MCG PO SCH (10:14)
[2023-09-27] MEDS: Effexor XR 75 MG PO SCH (10:14)
[2023-09-27] MEDS: Protonix 40MG Tablet PO SCH (10:14)
[2023-09-27] MEDS: Proscar 5 MG PO SCH (10:15)
[2023-09-27] MEDS: Vitamin E 400 UNIT SOFTGEL PO SCH (10:16)
[2023-09-27] MEDS: MAG-OX 400 PO SCH (10:21)
[2023-09-27] MEDS: ROCEPHIN 1 GM / 100 ML NaCl 1 GM/100 ML IVPB IV SCH (10:22)
[2023-09-27] MEDS: Mucinex 600MG ER Tabs PO SCH (11:59)
[2023-09-27] MEDS ORDERED: Lasix 40 MG/4 ML IV SCH (14:00)
[2023-09-27] MEDS: Lasix 40 MG/4 ML IV SCH (18:27)
[2023-09-27] MEDS: PATIENT OWN MEDICATION IH SCH (19:13)
[2023-09-28] MEDS: PATIENT OWN MEDICATION PO SCH (02:34)
[2023-09-28 04:57] LABS: Hematocrit 42.3 % (42-50); Mean Cell Volume 91.2 fL (78-100); Mean Corpuscular Hemoglobin 30.2 pg (26-32); Mean Corpuscular Hgb Concent. 33.1 g/dL (32-36); Mean Platelet Volume 10.4 fL (7.5-11.0); Platelet Count 224 x10^3/uL (150-450); Red Blood Count 4.64 x10^6/uL (4.1-5.6); Red Cell Distribution Width 14.2 % (11.5-14.0); White Blood Count 11.6 x10^3/uL (4.0-10.5)
[2023-09-28 05:27] LABS: ALBUMIN 4.2 g/dL (3.5-5.0); ANION GAP 14.1 MEQ/L (5-15); BILIRUBIN,TOTAL 0.5 mg/dL (0.2-1.3); Calcium 10.1 mg/dL (8.4-10.2); Creatinine 1 1.36 mg/dL (0.66-1.25); EST GLOMERULAR FILTRATION RATE 55.3 ML/MIN; Potassium 3.6 mmol/L (3.5-5.1); Total Protein 7.9 g/dL (6.3-8.2)
[2023-09-28 07:31] LABS: Lymphocytes 4 % (24-44); Monocyte 1 % (0.0-12.0); Neutrophils 95 % (36.-66.); Total Cells Counted 100
[2023-09-28 07:32] LABS: Platelet Estimate NORMAL (NORMAL)
[2023-09-28] MEDS: Lasix 40 MG/4 ML IV SCH (08:42)
[2023-09-28] MEDS: HUMALOG SQ PRN (08:43)
--- NOTE | 2023-09-28 11:17 | PCM.NOTE ---
Date and Time: 09/28/23 1110 Subjective Assessment: 72 year old male admitted 09/26/23 for CHF/COPD exacerbation and pneumonia after experiencing a two day history of progressive shortness of breath, productive cough, wheezing, and subjective fever and chills. CXR demonstrates new diffuse left lung consolidating/nonconsolidating airspace disease with tiny effusion. Right lung clear. Heart remains enlarged again with left pacemaker. Patient is at his baseline oxygen of 2L. Current treatment with ceftriaxone, azithromycin, solu-medrol, and lasix. Initial WBC of 15.7, now wnl. Initial BNP 5450, now improved at 3970. Initial troponin slightly elevated, remaining series in normal range. 09/27/23: Met with patient bedside. Endorses continued dyspnea and productive cough with increased white sputum. Does feel improved today. Lung sounds coarse bilaterally with exp wheezing. BLE with trace edema. WBC now WNL. Will continue current abx/lasix/ solumedrol. Denies fever, cp, abdominal pain, BENEDICT, dizziness, N/V/D. 09/28/23: Met with patient bedside. Dyspnea and cough improved. Lung sound with improved aeration, still with exp wheezing. BLE edema improved. Continue Lasix/abx/ prednisone. Most likely can dc tomorrow. - Review of Systems Constitutional: No Symptoms Eyes: No Symptoms Ears, Nose, & Throat: Nose Congestion Respiratory: Cough, Short Of Breath Cardiac: Edema (BLE trace) Abdominal/Gastrointestinal: No Symptoms Genitourinary Symptoms: No Symptoms Musculoskeletal: No Symptoms Skin: No Symptoms Neurological: No Symptoms Psychological: No Symptoms Endocrine: No Symptoms Hematologic/Lymphatic: No Symptoms Immunological/Allergic: No Symptoms Objective Exam General Appearance: no apparent distress Neurologic Exam: alert, oriented x 3, cooperative Skin Exam: normal color Eye Exam: PERRL Ears, Nose, Throat Exam: moist mucous membranes Neck Exam: normal inspection Respiratory Exam: diminished breath sounds, wheezing Cardiovascular Exam: regular rate/rhythm, normal heart sounds Gastrointestinal/Abdomen Exam: soft, normal bowel sounds Extremity Exam: normal inspection, normal range of motion Male Genitalia Exam: deferred Rectal Exam: deferred Objective Data Vital Signs: Vital Signs - 24 hr Temp Pulse Resp BP Pulse Ox 09/28/23 10:36 76 18 95 09/28/23 07:03 96.6 F 69 17 139/67 99 09/28/23 06:40 83 18 98 09/28/23 03:58 97.9 F 65 16 150/69 99 09/27/23 23:54 97.1 F 70 20 155/71 97 09/27/23 20:00 97.7 F 69 18 140/65 96 09/27/23 19:13 72 16 93 L 09/27/23 16:00 97.2 F 64 20 135/63 97 09/27/23 15:18 68 20 96 09/27/23 11:46 98.0 F 75 20 131/89 96 Pain Assessment - Last Documented Pain Intensity 2 Intake and Output: Intake & Output 09/25/23 09/26/23 09/27/23 09/28/23 11:59 11:59 11:59 11:59 Intake Total 1680 2260 Balance 1680 2260 Weight 83.2 kg 84.7 kg Lab Results: Lab Results-Last 24 Hours 09/28/23 09/28/23 Range/Units 04:53 04:53 WBC 11.6 H (4.0-10.5) x10^3/uL RBC 4.64 (4.1-5.6) x10^6/uL Hgb 14.0 (12.5-18.0) g/dL Hct 42.3 (42-50) % MCV 91.2 (78-100) fL MCH 30.2 (26-32) pg MCHC 33.1 (32-36) g/dL RDW 14.2 H (11.5-14.0) % Plt Count 224 (150-450) x10^3/uL MPV 10.4 (7.5-11.0) fL Segmented Neutrophils 95 H (36.-66.) % Lymphocytes (Manual) 4 L (24-44) % Monocytes (Manual) 1 (0.0-12.0) % Platelet Estimate NORMAL (NORMAL) RBC Morphology NORMAL Sodium 138 (135-145) mmol/L Potassium 3.6 (3.5-5.1) mmol/L Chloride 99 (98-107) mmol/L Carbon Dioxide 28 (22-30) mmol/L Anion Gap 14.1 (5-15) MEQ/L BUN 36 H (9-20) mg/dL Creatinine 1.36 H (0.66-1.25) mg/dL Estimated GFR 55.3 ML/MIN Glucose 255 H (74-106) mg/dL Calcium 10.1 (8.4-10.2) mg/dL Total Bilirubin 0.50 (0.2-1.3) mg/dL AST 23 (17-59) U/L ALT 19 (0-50) U/L Alkaline Phosphatase 71 (38-126) U/L Serum Total Protein 7.9 (6.3-8.2) g/dL Albumin 4.2 (3.5-5.0) g/dL Radiology Exams: Radiology Procedures Category Date Time Status CHEST 1 VIEW (PORTABLE) Stat Exams 09/26/23 13:24 Completed Multi-Disciplinary Progress Notes: Multi-Disciplinary Progress Notes 09/28/23 10:38 Case Management Note by Mariza Castaneda S/W PATIENT AND HIS SPOUSE- HE CONTINUES TO DENY ANY NEW NEEDS AT TIME OF DC. HE ALREADY HAS 24 HR OXYGEN AT HOME. HHC WITH [facility] HAS BEEN SET UP AND HAS ACCEPTED PATIENT. THEY WERE ALSO GIVEN INFORMATION ON [facility] JUST IN CASE THEY EVER NEED TO USE TRANSPORTATION SERVICES. Initialized on 09/28/23 10:38 - END OF NOTE Assessment/Plan (1) Left lower lobe pneumonia Current Visit: Yes Status: Acute Assessment & Plan: -xray with new diffuse left lung consolidating/nonconsolidating airspace disease with tiny effusion -supplemental oxygen with goal spo2 88-92% -RT eval -lactic, procal, sputum culture -bcult pending -resp viral panel negative -Ceftriaxone started in ED, will continue, add azithromycin 09/26: -Bcult pending -Continue ceftriaxone/azith -solu-medrol/nebs/INH -on baseline oxygen 2L -IS/Flutter -Mucinex : -Continue ceftriaxone/azith -DC solumedrol, continue prednisone -NGTD on blood cultures Code(s): J18.9 - PNEUMONIA, UNSPECIFIED ORGANISM (2) CHF exacerbation Current Visit: Yes Status: Acute Assessment & Plan: -Follows with heart Center Dr. Wilman Lara -CXR showing enlarged heart and demonstrates demonstrates new diffuse left lung consolidating/nonconsolidating airspace disease with tiny effusion. -Cardioversion at [facility] on 07/20/23 -Echo performed 07/24/23 reviewed: EF 30-35% IMPRESSION: 1) GLOBAL LEFT VENTRICULAR HYPOKINESIA. EJECTION FRACTION OF ABOUT 30 TO 35%. 2) MILD TO MODERATE MITRAL REGURGITATION. 3) MODERATE TRICUSPID REGURGITATION. RIGHT VENTRICULAR SYSTOLIC PRESSURE OF 62 MM OF MERCURY SUGGESTIVE OF MODERATE PULMONARY HYPERTENSION. 4) RIGHT VENTRICULAR HYPERTROPHY. 5) LEFT VENTRICULAR HYPERTROPHY. 6) LEFT ATRIAL ENLARGEMENT. 7) SCLEROTIC AORTIC VALVE WITH PEAK TRANSAORTIC GRADIENT OF 24 MM OF MERCURY. 8) PACEMAKER ELECTRODE IN THE RIGHT VENTRICLE -lasix 40mg given in ED, will continue 40mg BID -Supplemental oxygen with spo2 goal 88-92% -ABG if pt becomes lethargic/hypoxic -Elevate HOB -TELE -Strict I&O/Daily weights -EKG -repeat in a.m with trop -BNP at 5450 -repeat in 48 hours -Optimize electrolytes K>4, Mg >2 -continue home meds 09/26: -BNP 3970 -continue lasix, increase to q8h -(-)3lbs with diuresis 09/27: -continue lasix Q12H, creat increasing #NATHALY -most likely secondary to diuretic -decrease lasix -Avoid JAYDEN/ARB/NSAID -Monitor renal/lytes closely Code(s): I50.9 - HEART FAILURE, UNSPECIFIED (3) COPD exacerbation Current Visit: No Status: Acute Assessment & Plan: -most likely secondary to pneumonia -supplemental oxygen with goal spo2 88-92% -DuoNebs/bronchodilator/solu-medrol -consider CT chest/pulm consult if no improvement Code(s): J44.1 - CHRONIC OBSTRUCTIVE PULMONARY DISEASE W (ACUTE) EXACERBATION (4) Hypertension Current Visit: No Status: Chronic Qualifiers: Assessment & Plan: -stable, continue home meds Code(s): I10 - ESSENTIAL (PRIMARY) HYPERTENSION (5) Hypothyroidism Current Visit: No Status: Chronic Assessment & Plan: -continue home meds Code(s): E03.9 - HYPOTHYROIDISM, UNSPECIFIED (6) Obesity (BMI 30-39.9) Current Visit: No Status: Chronic Assessment & Plan: -Advised ADA diet and exercise control Code(s): E66.9 - OBESITY, UNSPECIFIED (7) PVD (peripheral vascular disease) Current Visit: No Status: Chronic Assessment & Plan: -Chronic > 20 years with noted coolness to BLE from knees down Code(s): I73.9 - PERIPHERAL VASCULAR DISEASE, UNSPECIFIED (8) BPH (benign prostatic hyperplasia) Current Visit: No Status: Chronic Assessment & Plan: -continue home meds -Of note patient follows with Dr. Ornelas at , scheduled for PET scan 10/12/23 Code(s): N40.0 - BENIGN PROSTATIC HYPERPLASIA WITHOUT LOWER URINRY TRACT SYMP (9) Atrial fibrillation Current Visit: No Status: Resolved Assessment & Plan: -Continue eliquis -Tele (10) Type 2 Diabetes - Continue Jardiance - Humalog s/s - Hold metformin VTE: Eliquis PPI: protonix Code Status: Full code Dispo: 1-2 days Code(s): J18.9 - PNEUMONIA, UNSPECIFIED ORGANISM (2) CHF exacerbation Current Visit: Yes Status: Acute Code(s): I50.9 - HEART FAILURE, UNSPECIFIED (3) COPD exacerbation Current Visit: No Status: Acute Code(s): J44.1 - CHRONIC OBSTRUCTIVE PULMONARY DISEASE W (ACUTE) EXACERBATION (4) Hypertension Current Visit: No Status: Chronic Qualifiers: Code(s): I10 - ESSENTIAL (PRIMARY) HYPERTENSION (5) Hypothyroidism Current Visit: No Status: Chronic Code(s): E03.9 - HYPOTHYROIDISM, UNSPECIFIED (6) Obesity (BMI 30-39.9) Current Visit: No Status: Chronic Code(s): E66.9 - OBESITY, UNSPECIFIED (7) PVD (peripheral vascular disease) Current Visit: No Status: Chronic Code(s): I73.9 - PERIPHERAL VASCULAR DISEASE, UNSPECIFIED (8) BPH (benign prostatic hyperplasia) Current Visit: No Status: Chronic Code(s): N40.0 - BENIGN PROSTATIC HYPERPLASIA WITHOUT LOWER URINRY TRACT SYMP (9) Atrial fibrillation Current Visit: No Status: Chronic Code(s): I48.91 - UNSPECIFIED ATRIAL FIBRILLATION (10) Controlled type 2 diabetes mellitus Current Visit: Yes Status: Acute Code(s): E11.9 - TYPE 2 DIABETES MELLITUS WITHOUT COMPLICATIONS (11) NATHALY (acute kidney injury) Current Visit: No Status: Acute Code(s): N17.9 - ACUTE KIDNEY FAILURE, UNSPECIFIED
[2023-09-28] MEDS ORDERED: solu-MEDROL ONE (15:17)
[2023-09-29 06:05] LABS: Hematocrit 43.2 % (42-50); Hemoglobin 14.3 g/dL (12.5-18.0); Mean Cell Volume 90.9 fL (78-100); Mean Corpuscular Hemoglobin 30.1 pg (26-32); Mean Corpuscular Hgb Concent. 33.1 g/dL (32-36); Mean Platelet Volume 10.4 fL (7.5-11.0); Platelet Count 268 x10^3/uL (150-450); Red Blood Count 4.75 x10^6/uL (4.1-5.6); Red Cell Distribution Width 14.1 % (11.5-14.0); White Blood Count 14.9 x10^3/uL (4.0-10.5)
[2023-09-29 06:25] LABS: ANION GAP 12.9 MEQ/L (5-15); BILIRUBIN,TOTAL 0.4 mg/dL (0.2-1.3); Calcium 10.6 mg/dL (8.4-10.2); Creatinine 1 0.96 mg/dL (0.66-1.25); Potassium 3.9 mmol/L (3.5-5.1); Total Protein 7.6 g/dL (6.3-8.2)
--- NOTE | 2023-09-29 07:22 | PCM.DS ---
Discharge Summary Date of Admission: 09/26/23 16:14 Date of Discharge: 09/29/23 Admitting Physician: DICK DWYER MD Primary Care Provider: MELQUIADES CADET Allergies Allergies bacitracin [From Neosporin ([id number])] Allergy (Verified 09/26/23 16:32) Rash bacitracin zinc [From Neosporin ([id number])] Allergy (Verified 09/26/23 16:32) Rash neomycin sulfate [From Neosporin ([id number])] Allergy (Verified 09/26/23 16:32) Rash polymyxin B [From Neosporin ([id number])] Allergy (Verified 09/26/23 16:32) Rash Hospital Summary - Hospital Course Hospital Course: 72 year old male admitted 09/26/23 for CHF/COPD exacerbation and pneumonia after experiencing a two day history of progressive shortness of breath, productive cough, wheezing, and subjective fever and chills. CXR demonstrates new diffuse left lung consolidating/nonconsolidating airspace disease with tiny effusion. Right lung clear. Heart remains enlarged again with left pacemaker. Patient is at his baseline oxygen of 2L. IP treatment with ceftriaxone, azithromycin, solu-medrol, and lasix. Labs and vitals now stable. Blood cultures NGTD. Lungs sounds with improved aeration. Initial BNP 5450, now improved at 3970. Initial troponin slightly elevated, remaining series in normal range. Dyspnea and cough have improved. Will send home with cefpodoxime/prednsione. Advised patient to follow up with pcp. Will need to monitor blood glucose levels closely with use of steroids. Discharge Note New Diagnosis: Pneumonia New Medications: cefpodoxime/prednisone Follow Up: pcp Results pending: blood cultures Latest Assessment & Plan (1) Left lower lobe pneumonia Current Visit: Yes Status: Acute Assessment & Plan: -xray with new diffuse left lung consolidating/nonconsolidating airspace disease with tiny effusion -supplemental oxygen with goal spo2 88-92% -RT eval -lactic, procal, sputum culture -bcult pending -resp viral panel negative -Ceftriaxone started in ED, will continue, add azithromycin 09/26: -Bcult pending -Continue ceftriaxone/azith -solu-medrol/nebs/INH -on baseline oxygen 2L -IS/Flutter -Mucinex : -Continue ceftriaxone/azith -DC solumedrol, continue prednisone -NGTD on blood cultures Code(s): J18.9 - PNEUMONIA, UNSPECIFIED ORGANISM (2) CHF exacerbation Current Visit: Yes Status: Acute Assessment & Plan: [place] [place]CXR showing enlarged heart and demonstrates demonstrates new diffuse left lung consolidating/nonconsolidating airspace disease with tiny effusion. -Cardioversion at [place] in [place] on 07/20/23 -Echo performed 07/24/23 reviewed: EF 30-35% IMPRESSION: 1) GLOBAL LEFT VENTRICULAR HYPOKINESIA. EJECTION FRACTION OF ABOUT 30 TO 35%. 2) MILD TO MODERATE MITRAL REGURGITATION. 3) MODERATE TRICUSPID REGURGITATION. RIGHT VENTRICULAR SYSTOLIC PRESSURE OF 62 MM OF MERCURY SUGGESTIVE OF MODERATE PULMONARY HYPERTENSION. 4) RIGHT VENTRICULAR HYPERTROPHY. 5) LEFT VENTRICULAR HYPERTROPHY. 6) LEFT ATRIAL ENLARGEMENT. 7) SCLEROTIC AORTIC VALVE WITH PEAK TRANSAORTIC GRADIENT OF 24 MM OF MERCURY. 8) PACEMAKER ELECTRODE IN THE RIGHT VENTRICLE -lasix 40mg given in ED, will continue 40mg BID -Supplemental oxygen with spo2 goal 88-92% -ABG if pt becomes lethargic/hypoxic -Elevate HOB -TELE -Strict I&O/Daily weights -EKG -repeat in a.m with trop -BNP at 5450 -repeat in 48 hours -Optimize electrolytes K>4, Mg >2 -continue home meds 09/26: -BNP 3970 -continue lasix, increase to q8h -(-)3lbs with diuresis 09/27: -continue lasix Q12H, creat increasing #NATHALY -most likely secondary to diuretic -decrease lasix -Avoid JAYDEN/ARB/NSAID -Monitor renal/lytes closely Code(s): I50.9 - HEART FAILURE, UNSPECIFIED (3) COPD exacerbation Current Visit: No Status: Acute Assessment & Plan: -most likely secondary to pneumonia -supplemental oxygen with goal spo2 88-92% -DuoNebs/bronchodilator/solu-medrol -consider CT chest/pulm consult if no improvement Code(s): J44.1 - CHRONIC OBSTRUCTIVE PULMONARY DISEASE W (ACUTE) EXACERBATION (4) Hypertension Current Visit: No Status: Chronic Qualifiers: Assessment & Plan: -stable, continue home meds Code(s): I10 - ESSENTIAL (PRIMARY) HYPERTENSION (5) Hypothyroidism Current Visit: No Status: Chronic Assessment & Plan: -continue home meds Code(s): E03.9 - HYPOTHYROIDISM, UNSPECIFIED (6) Obesity (BMI 30-39.9) Current Visit: No Status: Chronic Assessment & Plan: -Advised ADA diet and exercise control Code(s): E66.9 - OBESITY, UNSPECIFIED (7) PVD (peripheral vascular disease) Current Visit: No Status: Chronic Assessment & Plan: -Chronic > 20 years with noted coolness to BLE from knees down Code(s): I73.9 - PERIPHERAL VASCULAR DISEASE, UNSPECIFIED (8) BPH (benign prostatic hyperplasia) Current Visit: No Status: Chronic Assessment & Plan: -continue home meds -Of note patient follows with Dr. Ornelas at , scheduled for PET scan 10/12/23 Code(s): N40.0 - BENIGN PROSTATIC HYPERPLASIA WITHOUT LOWER URINRY TRACT SYMP (9) Atrial fibrillation Current Visit: No Status: Resolved Assessment & Plan: -Continue eliquis -Tele (10) Type 2 Diabetes - Continue Jardiance - Humalog s/s - Hold metformin I spent 35 minutes [id number] with the patient on the day of discharge performing discharge exam, discussing hospital stay and discharge instructions with patient and caregivers, preparation of discharge records, prescriptions & referral forms and addressing any questions/concerns the patient had as documented above. - Vitals & Intake/Output Vital Signs: Vital Signs Temperature 97.0 F 09/29/23 04:00 Pulse Rate 68 09/29/23 06:59 Respiratory Rate 18 09/29/23 06:59 Blood Pressure 153/72 09/29/23 04:00 O2 Sat by Pulse Oximetry 96 09/29/23 06:59 Intake & Output: Intake & Output 09/26/23 09/27/23 09/28/23 09/29/23 11:59 11:59 11:59 11:59 Intake Total 1680 2260 1950 Balance 1680 2260 1950 Weight 83.2 kg 84.7 kg - Lab Result Diagrams: 09/29/23 05:55 09/29/23 05:55 Lab Results-Last 24 Hrs: Lab Results-Last 24 Hours 09/28/23 09/29/23 09/29/23 Range/Units 04:53 05:55 05:55 WBC 14.9 H (4.0-10.5) x10^3/uL RBC 4.75 (4.1-5.6) x10^6/uL Hgb 14.3 (12.5-18.0) g/dL Hct 43.2 (42-50) % MCV 90.9 (78-100) fL MCH 30.1 (26-32) pg MCHC 33.1 (32-36) g/dL RDW 14.1 H (11.5-14.0) % Plt Count 268 (150-450) x10^3/uL MPV 10.4 (7.5-11.0) fL Segmented Neutrophils 95 H (36.-66.) % Lymphocytes (Manual) 4 L (24-44) % Monocytes (Manual) 1 (0.0-12.0) % Platelet Estimate NORMAL (NORMAL) RBC Morphology NORMAL Sodium 141 (135-145) mmol/L Potassium 3.9 (3.5-5.1) mmol/L Chloride 103 (98-107) mmol/L Carbon Dioxide 28 (22-30) mmol/L Anion Gap 12.9 (5-15) MEQ/L BUN 34 H (9-20) mg/dL Creatinine 0.96 (0.66-1.25) mg/dL Estimated GFR 84.0 ML/MIN Glucose 215 H (74-106) mg/dL Calcium 10.6 H (8.4-10.2) mg/dL Total Bilirubin 0.40 (0.2-1.3) mg/dL AST 24 (17-59) U/L ALT 21 (0-50) U/L Alkaline Phosphatase 84 (38-126) U/L Serum Total Protein 7.6 (6.3-8.2) g/dL Albumin 4.0 (3.5-5.0) g/dL Micro Results-Entire Visit: Microbiology 09/26/23 13:47 Blood Culture - Preliminary Blood 09/26/23 13:47 Blood Culture - Preliminary Blood Accuchecks Date 09/28/23 Date 09/28/23 Date 09/28/23 Time 21:23 Time 16:17 Time 11:14 - Procedures and Test Procedures and Tests throughout Hospitalization: Therapy Orders & Screens 09/26/23 13:21 Respiratory Therapy Assessment DAILY Comment: 09/26/23 16:15 Respiratory Therapy Consult ONCE Comment: Reason For Exam: 09/26/23 16:16 Oxygen NASAL CANNULA 2 lpm Comment: 09/26/23 16:48 RT Screen per Nursing Assess ONCE Comment: Protocol Order Physician Instructions: Greater than 3 points order RT Admission Screen Reason For Exam: Triggered on Admission Diagnosis: SOB, fever, cough Diagnosis: SOB, fever, cough Pneumonia: Yes Home O2: Yes Asthma: No CHF: Yes Home CPAP/BIPAP: Yes Home Nebs/MDI: Yes Total Points: 21 ST Screen per Nursing Assess ONCE Comment: Protocol Order Physician Instructions: Greater than [address] Admission Screening Reason For Exam: Triggered on Admission Diagnosis: SOB, fever, cough CVA/Dyshpagia/Aphasia: No Cognitive Deficits: No Dehydration/Nutrition Deficit: No Reflux: No Oral-Motor Difficulties: No Pneumonia: Yes Shelter Resident: No Total Points: 5 09/26/23 17:00 EKG REPEAT IN AM Comment: Diagnosis: SOB, fever, cough Respiratory Therapy Consult ONCE Comment: Reason For Exam: Diagnosis: SOB, fever, cough 09/26/23 21:00 BiPap/CPAP ROUTINE Comment: CPAP 16 09/27/23 10:44 FLUTTER [Flutter Therapy] UD Comment: Diagnosis: SOB, fever, cough Incentive Spirometry UD Comment: Diagnosis: SOB, fever, cough 09/27/23 11:22 Respiratory MDI UD Comment: Diagnosis: SOB, fever, cough Discharge Exam General Appearance: no apparent distress Neurologic Exam: alert, oriented x 3, cooperative Eye Exam: PERRL Ears, Nose, Throat Exam: normal ENT inspection Neck Exam: normal inspection Respiratory Exam: diminished breath sounds, wheezing Cardiovascular Exam: regular rate/rhythm, normal heart sounds Gastrointestinal/Abdomen Exam: soft, normal bowel sounds Male Genitalia Exam: deferred Rectal Exam: deferred Back Exam: normal inspection Extremity Exam: swelling (BLE) Skin Exam: normal color Final Diagnosis/Problem List - Final Discharge Diagnosis/Problem (1) Left lower lobe pneumonia Current Visit: Yes Status: Acute Code(s): J18.9 - PNEUMONIA, UNSPECIFIED ORGANISM (2) CHF exacerbation Current Visit: Yes Status: Acute Code(s): I50.9 - HEART FAILURE, UNSPECIFIED (3) COPD exacerbation Current Visit: No Status: Chronic Code(s): J44.1 - CHRONIC OBSTRUCTIVE PULMONARY DISEASE W (ACUTE) EXACERBATION (4) Hypertension Current Visit: No Status: Chronic Code(s): I10 - ESSENTIAL (PRIMARY) HYPERTENSION (5) Hypothyroidism Current Visit: No Status: Chronic Code(s): E03.9 - HYPOTHYROIDISM, UNSPECIFIED (6) Obesity (BMI 30-39.9) Current Visit: No Status: Chronic Code(s): E66.9 - OBESITY, UNSPECIFIED (7) PVD (peripheral vascular disease) Current Visit: No Status: Chronic Code(s): I73.9 - PERIPHERAL VASCULAR DISEASE, UNSPECIFIED (8) BPH (benign prostatic hyperplasia) Current Visit: No Status: Chronic Code(s): N40.0 - BENIGN PROSTATIC HYPERPLASIA WITHOUT LOWER URINRY TRACT SYMP (9) Atrial fibrillation Current Visit: No Status: Chronic Code(s): I48.91 - UNSPECIFIED ATRIAL FIBRILLATION (10) Controlled type 2 diabetes mellitus Current Visit: Yes Status: Chronic Code(s): E11.9 - TYPE 2 DIABETES MELLITUS WITHOUT COMPLICATIONS (11) NATHALY (acute kidney injury) Current Visit: No Status: Acute Code(s): N17.9 - ACUTE KIDNEY FAILURE, UNSPECIFIED - Discharge Disposition: Home, Self-Care Condition: Fair Prescriptions: New Prednisone 20 mg [Deltasone 20 mg] 20 mg PO BID 5 Days #10 tablet Cefpodoxime Proxetil 200 mg [Vantin 200 mg] 200 mg PO BID 7 Days #14 tablet Continue Pyridoxine HCl (Vitamin B6) [Vitamin B-6] 100 mg PO UD Vitamin E 400 Units [Vitamin E 400 UNIT SOFTGEL] 400 unit PO DAILY [place] Fruit/Zinc Picoli [[place] 450 mg Capsule] 1,800 mg PO DAILY Tamsulosin HCl 0.4 mg [Flomax 0.4 MG] 0.8 mg PO DAILY Finasteride 5 mg [Proscar 5 MG] 5 mg PO DAILY Metformin HCl 500 mg [Glucophage 500 MG] 1,000 mg PO BID Alendronate Sodium 35 mg PO WEEKLY PANTOPRAZOLE 40 mg Tablet [Protonix 40MG Tablet] 40 mg PO DAILY Magnesium Oxide 400 mg [Mag-Ox 400] 2,000 mg PO DAILY Albuterol 2.5 mg/3 ml Neb [Proventil 2.5 mg/3 ml Neb] 2 puffs NEB QID Furosemide [Lasix] 40 mg PO DAILY Apixaban [Eliquis] 5 mg PO BID Cyanocobalamin (Vitamin B-12) [B-12] 2,500 mcg PO UD Ropinirole 2Mg [Requip 2Mg Tab] 1 mg PO HS Lovastatin 40 mg PO HS Empagliflozin [Jardiance] 25 mg PO DAILY Famotidine [Pepcid] 40 mg PO HS Levothyroxine Sodium [Euthyrox] 50 mcg PO DAILY Ondansetron [Ondansetron Odt] 4 mg PO DAILY Venlafaxine HCl [Venlafaxine HCl ER] 150 mg PO DAILY Iron 65 mg PO DAILY Folic Acid 1 mg [Folate 1 mg] 666 mcg PO DAILY Cholecalciferol (Vitamin D3) [Vitamin D3] 25 mcg PO DAILY Sodium Zirconium Cyclosilicate [Lokelma] 10 mg PO 0200 Fluticasone/Umeclidin/Vilanter [Trelegy Ellipta 100-62.5-25] 1 inh IH HS Albuterol Common Canister [Ventolin Common Canister] 1 - 2 puffs IH Q6H PRN PRN PRN Reason: Shortness Of Breath/Wheezing Metoprolol Tartrate 50 mg [Lopressor 50 MG] 100 mg PO BID 30 Days #120 tablet Insulin Detemir [Levemir] 15 units SQ DAILY Semaglutide [Ozempic] 1 mg SQ WEEKLY Additional Instructions: HOME HEALTHCARE HAS BEEN SET UP AGAIN WITH [facility]. THEY WILL CONTACT YOU TO ARRANGE A VISIT. THEIR PHONE NUMBER IS [phone] IF YOU NEED ANYTHING BEFORE THEIR FIRST VISIT Follow up with: MELQUIADES CADET [Primary Care Provider] -
[2023-09-29 08:26] VITALS: RESP 16; O2SAT 96
[2023-09-29] MEDS: DELTASONE 20 MG PO SCH (09:57)
[2023-09-29] MEDS: Lasix 40 MG/4 ML IV SCH (09:58)
[2023-09-29 11:41] LABS: BAND 1 % (0.0-2.0); Lymphocytes 7 % (24-44); Monocyte 7 % (0.0-12.0); Neutrophils 85 % (36.-66.); Platelet Estimate NORMAL (NORMAL); Total Cells Counted 100
[2023-09-29 13:02] VITALS: BP 178/79; PULSE 64; TEMP 97.6
== END 2023-09-29 13:20 | disposition home or self-care (01) ==
LOC: ED 12:43 → MED SURG 16:14
PROVIDERS: ADMIT Internal Medicine; ATTEND Internal Medicine
DX: J18.9 Pneumonia, unspecified organism (principal); I13.0 Hypertensive heart and chronic kidney disease with heart failure and stage 1 through stage 4 chronic kidney disease, or unspecified chronic kidney disease; E11.22 Type 2 diabetes mellitus with diabetic chronic kidney disease; N18.9 Chronic kidney disease, unspecified; N17.9 Acute kidney failure, unspecified; I50.9 Heart failure, unspecified; J44.1 Chronic obstructive pulmonary disease with (acute) exacerbation; E03.9 Hypothyroidism, unspecified; E66.9 Obesity, unspecified; I73.9 Peripheral vascular disease, unspecified; N40.0 Benign prostatic hyperplasia without lower urinary tract symptoms; I48.91 Unspecified atrial fibrillation; E11.9 Type 2 diabetes mellitus without complications; Z85.46 Personal history of malignant neoplasm of prostate; Z99.81 Dependence on supplemental oxygen
CPT/HCPCS: 0241U; 36000; 36415; 71045; 80053; 83036; 83605; 83735; 83880; 84145; 84484; 85025; 85610; 87040; 93005; 93041; 93268; 94003; 94640; 94660; 94667; 94760; 96365; 96374; 99285; G0378; Q3014; J0456; J0696; J1817; J1940; J2919; J7609; A9270-GY

== ENCOUNTER 2025-01-10 11:21 | Emergency (ER) | payer MEDICARE ==
[2025-01-10 12:37] VITALS: BP 100/67; TEMP 96.1
--- NOTE | 2025-01-10 12:48 | ERPHSYRPT ---
- History of Present Illness Time Seen by Provider: 01/10/25 12:48 Source: patient, family Exam Limitations: no limitations Patient Subjective Stated Complaint: pt fell on the concrete yesterday after getting tangled in the dog leash and injured his right wrist, right knee, right cheek, and right lateral ribs Triage Nursing Assessment: Pt brought to the ER by his , vitals wnl, rates pain as 8/10, pulses normal, skin n/w/d, denies chest pain or SOB, right wrist swollen and slightly deformed looking, scraped up right knee, pt is on eliquis Physician History: This is a 74-year-old white male patient who presents to the emergency department by private vehicle accompanied by his spouse and is a patient of Dr. Whaley with the complaint of right wrist right knee right rib pain right cheek pain after fall that occurred yesterday. The patient got caught up in the dog leash and fell. Patient's pain was worse today and was concerned. Tetanus status is up-to-date. Occurred: yesterday Quality: aching Severity of Pain-Max: mild Severity of Pain-Current: mild Extremities Pain Location: wrist: right, other: right (Right knee and right ribs) Modifying Factors: Improves With: movement Associated Symptoms: none Allergies/Adverse Reactions: bacitracin [From Neosporin ([id number])] Allergy (Verified 01/10/25 12:38) Rash bacitracin zinc [From Neosporin ([id number])] Allergy (Verified 01/10/25 12:38) Rash neomycin sulfate [From Neosporin ([id number])] Allergy (Verified 01/10/25 12:38) Rash polymyxin B [From Neosporin ([id number])] Allergy (Verified 01/10/25 12:38) Rash Home Medications: Metformin HCl 500 mg [Glucophage 500 MG] 1,000 mg PO BID 05/06/19 [History] Pyridoxine HCl (Vitamin B6) [Vitamin B-6] 100 mg PO UD 05/06/19 [History] Tamsulosin HCl 0.4 mg [Flomax 0.4 MG] 0.4 mg PO BID 05/06/19 [History] Vitamin E 400 Units [Vitamin E 400 UNIT SOFTGEL] 400 unit PO HS 05/06/19 [History] PANTOPRAZOLE 40 mg Tablet [Protonix 40MG Tablet] 40 mg PO DAILY 06/05/19 [History] Albuterol 2.5 mg/3 ml Neb [Proventil 2.5 mg/3 ml Neb] 2 puffs NEB QID 02/28/20 [History] Magnesium Oxide 400 mg [Mag-Ox 400] 2,000 mg PO UD 02/28/20 [History] Apixaban [Eliquis] 5 mg PO BID 10/08/20 [History] Furosemide [Lasix] 40 mg PO DAILY 10/08/20 [History] Cyanocobalamin (Vitamin B-12) [B-12] 2,500 mcg PO UD 12/16/20 [History] Empagliflozin [Jardiance] 25 mg PO DAILY 01/03/21 [History] Ropinirole 2Mg [Requip 2Mg Tab] 1 mg PO HS 01/03/21 [History] Famotidine [Pepcid] 40 mg PO HS 05/24/22 [History] Levothyroxine Sodium [Euthyrox] 50 mcg PO LUNCH 05/24/22 [History] Cholecalciferol (Vitamin D3) [Vitamin D3] 25 mcg PO HS 10/24/22 [History] Folic Acid 1 mg [Folate 1 mg] 1 mcg PO LUNCH 10/24/22 [History] Iron 65 mg PO HS 10/24/22 [History] Venlafaxine HCl [Venlafaxine HCl ER] 150 mg PO LUNCH 10/24/22 [History] Albuterol Common Canister [Ventolin Common Canister] 1 - 2 puffs IH Q6H PRN PRN 06/30/23 [History] Fluticasone/Umeclidin/Vilanter [Trelegy Ellipta 100-62.5-25] 1 inh IH HS 06/30/23 [History] Semaglutide [Ozempic] 4 mg SQ WEEKLY 09/26/23 [History] Acetaminophen 500 mg [Tylenol Extra Strength 500 mg] 500 mg PO BID 11/04/24 [History] Apalutamide [Erleada] 240 mg PO HS 11/04/24 [History] Celecoxib 100 mg [celeBREX 100 MG] 200 mg PO BID 11/04/24 [History] Insulin Glargine,Hum.rec.anlog [Lantus] 12 unit SQ DAILY 11/04/24 [History] Milk Thistle Seed Extract [Milk Thistle Extract] 87.5 mg PO DAILY 11/04/24 [History] Rosuvastatin Calcium 40 mg PO DAILY 11/04/24 [History] Sodium Zirconium Cyclosilicate [Lokelma] 10 gm PO HS 11/04/24 [History] ondansetron HCL [Ondansetron HCl] 4 mg PO HS 11/04/24 [History] Hx Tetanus, Diphtheria Vaccination/Date Given: Yes Hx Influenza Vaccination/Date Given: Yes Hx Pneumococcal Vaccination/Date Given: Yes Travel Risk - International Travel Have you traveled outside of the country in past 3 weeks: No - Emerging Infectious Disease Are you exhibiting symptoms associated with any current EIDs: No Symptoms: Cough: New Onset, Fever, Shortness of Breath - Review of Systems Constitutional: No Symptoms Eyes: No Symptoms Ears, Nose, & Throat: No Symptoms Respiratory: No Symptoms Cardiac: No Symptoms Abdominal/Gastrointestinal: No Symptoms Genitourinary Symptoms: No Symptoms Musculoskeletal: Injury (Right wrist, right knee and right ribs) Skin: Other (Abrasions right knee anteriorly) Neurological: No Symptoms Psychological: No Symptoms Endocrine: No Symptoms Hematologic/Lymphatic: No Symptoms Immunological/Allergic: No Symptoms All Other Systems: Reviewed and Negative - Past Medical History Pertinent Past Medical History: Yes Neurological History: Stroke ENT History: No Pertinent History Cardiac History: Arrhythmia Respiratory History: COPD, Sleep Apnea Endocrine Medical History: Diabetes Type II Musculoskeletal History: Arthritis, Osteoarthritis GI Medical History: GERD, Gallbladder Disease, Hernia History: No Pertinent History Psycho-Social History: No Pertinent History Male Reproductive Disorders: Prostate Problems Other Medical History: Pacemaker, 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 shoulder surgery- right states rotator cuff repair,, Left Carpal Tunnel Surgery, Right rotator cuff surgery, 2 knots removed from back of neck Significant Family History: heart disease, cancer - Social History Smoking Status: Former smoker Exposure to second hand smoke: No Drug Use: none - Social Determinants of Health Will the patient participate in the screening: Yes Do you worry about a steady place to live?: No Do you have any problems with any of the following?: No known problems In the past 12 months,have you had to go without utilities?: No Transportation Issues: No Has anyone in your support network made you feel unsafe?: No Have you or anyone in your house had to go w/o enough food: No - Nursing Vital Signs Nursing Vital Signs: Initial Vital Signs Temperature 96.1 F 01/10/25 12:28 Pulse Rate 70 01/10/25 12:28 Blood Pressure 100/67 01/10/25 12:28 O2 Sat by Pulse Oximetry 94 L 01/10/25 12:28 Pain Scale Pain Intensity 8 - Physical Exam General Appearance: no apparent distress, alert Eyes, Ears, Nose, Throat Exam: normal ENT inspection, moist mucous membranes, other (Right cheek skin abrasion) Neck Exam: normal inspection, non-tender, supple, full range of motion Cardiovascular/Respiratory Exam: chest non-tender, normal breath sounds, regular rate/rhythm, heart sounds normal, no respiratory distress, rib tenderness (Right side) Abdominal Exam: non-tender Back Exam: normal inspection, normal range of motion, No CVA tenderness, No vertebral tenderness Shoulder Exam: normal inspection, non-tender, no evidence of injury, normal ROM Elbow/Forearm Exam: normal inspection, non-tender, no evidence of injury, normal ROM Wrist Exam: normal inspection, normal ROM, bone tenderness (Right wrist), soft tissue tenderness (Right wrist), swelling (Right wrist) Hand Exam: normal inspection, non-tender, no evidence of injury, normal ROM Neuro/Tendon Exam: normal sensation, normal motor functions, normal tendon functions, no evidence tendon injury Mental Status Exam: alert, oriented x 3, cooperative Skin Exam: abrasion (Skin abrasion anterior right knee) SpO2 Interpretation: borderline oxygenation SpO2: 94 O2 Delivery: Room Air - Course Nursing assessment & vital signs reviewed: Yes Ordered Tests: Active Orders 24 hr Category Date Time Status Splint STAT Care 01/10/25 14:58 Ordered Wound Care STAT Care 01/10/25 14:58 Ordered FACIAL BONES WO CONTRAST [CT] Stat Exams 01/10/25 12:50 Completed KNEE (3 VIEWS) Stat Exams 01/10/25 12:49 Taken RIBS UNILATERAL Stat Exams 01/10/25 12:49 Taken WRIST (MIN 3 VIEWS) Stat Exams 01/10/25 12:49 Taken - Progress Progress: unchanged Progress Note: 01/10/25 15:03 My medical decision making and reassignment of moderate complexity of this patient's medical issue today is based on review of the patient's past medical history, review of the patient's medication list, reviewed patient drug allergy list, history present illness and physical findings on examination. The workup in this patient includes plain x-rays of the right knee, right wrist and right ribs. We will also order a CT scan of the facial bones. Differential diagnosis includes was not limited to right facial contusion, right facial abrasion, right facial fracture/dislocation, right rib fractures, right wrist fracture/dislocation, right knee fracture/dislocation, right knee anterior skin abrasion I interpreted the following x-ray preliminary reports: Right knee x-ray shows no acute fracture or dislocation. Right wrist x-ray shows no acute fracture or dislocation. Right rib x-ray show no acute fracture or dislocation. The CT scan of the facial bones was interpreted by the radiologist and I reviewed the preliminary report. The CT scan of the facial bones shows no acute fracture lines. Counseled pt/family regarding: diagnosis, need for follow-up, rad results Medical Desision Making - Independent Historian Additional History obtained from: Family - Diagnostic Testing Diagnostic test were ordered, analyzed, and reviewed by me: Yes Radiological Interpretation: Interpreted by me, Reviewed by me, Teleradiologist Report - Risk of complications Low Risk: Low risk of morbidity from additional dx testing or treatment - Departure Departure Disposition: Home Clinical Impression: Right wrist sprain, Contusion of rib on right side, Skin abrasion, Contusion of right knee, Contusion of right cheek Condition: Stable Critical Care Time: No Referrals: MELQUIADES WHALEY [Primary Care Provider, [facility]] - Follow up/PCP as di rected Additional Instructions: Use Tylenol for pain control. May use ice pack to tender area 3 times a day for the next 3 days. Keep all abrasion sites clean daily with soap and water. May apply a thin layer of antibiotic ointment of choice 1-2 times a day. Call your primary care provider on 01/12/2025 to make arrangements for follow-up appointment to be seen in the next 3 to 5 days. Recall that my interpretation today is only preliminary report and that you will receive another evaluation and interpretation of the x-rays that were performed today. If the results differ, you will receive a phone call. Continue your splint as long as there is pain present.
--- NOTE | 2025-01-10 14:24 | XRAY ---
CLINICAL HISTORY: Fall injury COMPARISON: No previous studies are available for comparison. TECHNIQUE: CT scan of the maxillofacial region was performed without the administration of intravenous contrast. Contiguous axial images were obtained from the skull base to the mandible. Coronal and sagittal reformatted images were also reviewed. One of the following dose reduction techniques was utilized for this exam. Automated exposure control, adjustment of the mA and/or kV according to patient size, and use of iterative reconstruction. DLP: 792.81 mGy-cm, CTDI: 41.52 mGy. FINDINGS: Bones: Maxilla: The maxillary bones are intact without evidence of acute fracture, lytic or sclerotic lesions. No signs of maxillary sinus wall fractures. Mandible: The mandibular bone is intact with normal cortices and trabecular patterns. There is no evidence of fracture, osteomyelitis, or neoplastic lesion. Zygomatic Bones: The zygomatic arches are intact bilaterally without evidence of fracture or deformity. Nasal Bones: no fracture lines. Orbital Zarate: The orbital zarate are intact with no evidence of fracture or bony erosion. Orbits: The orbits are normal in size and shape. The globes are symmetric and well-positioned with no evidence of proptosis. The extraocular muscles appear normal in size and symmetry. The optic nerves are normal in caliber and course with no signs of compression or lesion. No retro-orbital masses or abnormal fluid collections are observed. Nasal Cavity and Paranasal Sinuses: Nasal Cavity: Mild rightward deviated nasal septum. Left choncha bullosa. Bilateral hypertrophied inferior nasal turbinates. Frontal Sinuses: The frontal sinuses are well-pneumatized and free of fluid or soft tissue masses. Ethmoid Sinuses: Partially opacified and mild mucosal thickening of the the ethmoid air cells with no fluid levels. Maxillary Sinuses: Small left maxillary sinus medial wall polyp measures 2 x4 mm. The maxillary sinuses are well-pneumatized with no fluid levels, mucosal thickening. Sphenoid Sinuses: The sphenoid sinuses are clear with no abnormalities noted. Temporomandibular Joints (TMJ): The TMJs are symmetric and normal in appearance. The mandibular condyles are well-positioned within the glenoid fossae. There are no signs of dislocation, subluxation, or degenerative changes. The articular eminences are normal in contour. Soft Tissues: The soft tissues of the face, including the cheeks, lips, and submandibular regions, appear unremarkable. There are no masses, cysts, or abnormal fluid collections. The parotid and submandibular glands are normal in size and appearance without focal lesions. Dentition: There are no signs of periapical abscesses or cystic lesions. The alveolar ridges are intact without evidence of osteolysis. Additional Findings: Cervical spondylitic changes. No signs of osteomyelitis or other infectious processes. IMPRESSION: 1. No fracture lines. 2. Partially opacified and mild mucosal thickening of the ethmoid air cells, suggesting mild chronic sinusitis with left maxillary sinus small polyp. 3. Mild rightward deviated nasal septum, left choncha bullosa and bilateral hypertrophied inferior nasal turbinates. RECOMMENDATIONS: Clinical correlation is recommended for any persistent symptoms. Electronically Signed by: Benny Celestin MD. (01/10/2025 14:23:11 EDT)
[2025-01-10 14:56] VITALS: O2SAT 94
[2025-01-10 15:14] VITALS: PULSE 74
[2025-01-10] MEDS: BACIGUENT PACKET TP ONE (15:16)
[2025-01-10] MEDS ORDERED: BACIGUENT PACKET ONE (15:17)
--- NOTE | 2025-01-10 20:10 | XRAY ---
Indication: Fall injury. Comparison: None 4 view right knee demonstrates osteopenia, suprapatella spurring, and moderate scattered vascular calcifications. No acute bony, articular, or soft tissue abnormalities.
--- NOTE | 2025-01-10 20:14 | XRAY ---
Indication: Fall injury. Comparison: None 2 view right ribs demonstrates osteopenia, mild multilevel degenerative spondylosis, widened AC joint possibly AC separation, mild scattered vascular calcifications, and incompletely visualized cardiac pacer leads. No other bony, articular, or soft tissue abnormalities.
--- NOTE | 2025-01-10 20:14 | XRAY ---
Indication: Fall injury. Comparison: None 3 view right wrist demonstrates osteopenia, radiocarpal joint space narrowing, mild first metacarpal multangular scaphoid degenerative arthropathy, and scattered vascular calcifications. No acute bony, articular, or soft tissue abnormalities.
== END 2025-01-10 15:20 | disposition home or self-care (01) ==
LOC: ED 11:21
DX: S63.501A Unspecified sprain of right wrist, initial encounter (principal); S20.211A Contusion of right front wall of thorax, initial encounter; S80.01XA Contusion of right knee, initial encounter; S00.83XA Contusion of other part of head, initial encounter; S80.211A Abrasion, right knee, initial encounter; S00.81XA Abrasion of other part of head, initial encounter; W01.0XXA Fall on same level from slipping, tripping and stumbling without subsequent striking against object, initial encounter; Y93.K1 Activity, walking an animal; E11.9 Type 2 diabetes mellitus without complications; Z79.84 Long term (current) use of oral hypoglycemic drugs; Z79.01 Long term (current) use of anticoagulants; Z79.85 Long-term (current) use of injectable non-insulin antidiabetic drugs; Z79.4 Long term (current) use of insulin; Z79.899 Other long term (current) drug therapy